=== PATIENT | female | born 1990 | race Caucasian/White ===

== ENCOUNTER 2024-04-29 09:43 | Outpatient (OUT) | payer MEDICAID, SELFPAY ==
[2024-04-29 10:03] LABS: Basophils Percent Auto 0.5 % (0.2-2.0); Eosinophils Absolute Auto 0.1 10^3/uL (0.0-0.7); Eosinophils Percent Auto 0.9 % (0.9-7.0); Hematocrit 40.3 % (36.0-48.0); Hemoglobin 13.4 g/dL (12.0-16.0); Immature Granulocytes Abs Auto 0.04 10^3/uL (0.00-0.03); Immature Granulocytes Pct Auto 0.5 % (0.0-0.5); Lymphocytes Absolute Auto 2.2 10^3/uL (1.2-3.8); Lymphocytes Percent Auto 24.4 % (20.5-60.0); Mean Corpuscular HGB Conc 33.3 g/dL (29.9-35.2); Mean Corpuscular Hemoglobin 30.1 pg (26.7-34.0); Mean Corpuscular Volume 90.6 fL (81.0-99.0); Mean Platelet Volume 10.9 fL (9.5-13.5); Monocytes Absolute Auto 0.5 10^3/uL (0.3-0.8); Monocytes Percent Auto 5.7 % (1.7-12.0); Platelet Count 237 10^3/uL (150-450); Red Blood Count 4.45 10^6/uL (4.20-5.40); White Blood Count 8.8 10^3/uL (4.0-11.0)
[2024-04-29 11:49] LABS: Alanine Aminotransferase 23 U/L (14-59); Albumin Globulin Ratio 0.7; Albumin Level 3.4 g/dL (3.4-5.0); Alkaline Phosphatase 86 U/L (46-116); Aspartate Amino Transferase 13 U/L (15-37); BUN Creatinine Ratio 17.4; Bilirubin Total 0.5 mg/dL (0.2-1.0); Calcium 8.9 mg/dL (8.5-10.1); Carbon Dioxide 27.5 mmol/L (21.0-32.0); Chloride 102 mmol/L (98-107); Chol HDL Ratio 2.9; Cholesterol 206 mg/dL (<=200); Estimated Average Glucose 100 mg/dL; Estimated GFR (African America >60 (>=60); Estimated GFR (Non-African Ame >60 (>=60); Free T3 2.55 pg/mL (2.18-3.98); Globulin 4.7 g/dL; Glucose 83 mg/dL (74-106); Glycohemoglobin A1C 5.1 % (4.5-6.2); HDL Cholesterol 72 mg/dL (40-60); Potassium 3.5 mmol/L (3.5-5.1); Sodium 135 mmol/L (136-145); Thyroid Stimulating Hormone 1.429 uIU/mL (0.358-3.740); Total Protein 8.1 g/dL (6.4-8.2); Triglycerides 50 mg/dL (<=150)
[2024-04-30 08:12] LABS: Insulin 11.9 uIU/mL (2.6-24.9)
== END 2024-04-29 09:44 | disposition home or self-care (01) ==
LOC: LAB 09:48
PROVIDERS: PCP Nurse Practitioner Family; Visit Provider Nurse Practitioner Family
DX: Z00.00 Encounter for general adult medical examination without abnormal findings (principal)
CPT/HCPCS: 36415; 80053; 80061; 83036; 83525; 84436; 84443; 84481; 85025

== ENCOUNTER 2024-07-02 12:57 | Outpatient (OUT) | payer MEDICAID, SELFPAY ==
--- OUTSIDE RECORDS SUMMARY | 2024-07-02 13:18 | XMS_ITS | CCD ---
Author Organization [facility] Care Team Providers Care Stopperer Assembler Name Role Phone ABDULKADIR CUMMINGS Primary Care UnavailRENÉ Taylor Attending Unavailable ABDULKADIR CUMMINGS Primary Care UnavailFAYE Corona Attending Unavailable ABDULKADIR CUMMINGS Primary Care UnavailFAYE Corona Attending Unavailable MYA, DR DOM Botello Primary Care Unavailable MYA, DR DOM Botello Admitting Unavailable MYA, DR DOM Botello Attending Unavailable MYA, DR DOM Botello Consulting Unavailable MYA, DR DOM Botello Primary Care Unavailable MYA, DR DOM Botello Admitting Unavailable MYA, DR DOM Botello Attending Unavailable CHANDRAKANT, DR CHRISTINA Hendricks Consulting Unavailable MYA, DR DOM Botello Primary Care Unavailable MYA, DR DOM Botello Admitting Unavailable MYA, DR DOM Botello Attending Unavailable Mata De La Vega Unavailable Mary Jane Madison Unavailable DOM ROQUE Attending Unavailable Gabriel Del Real. Attending Unavailable Onofre Cade Attending Unavailab Onofre Cheng Admitting Unavailab jerilyn HUDSON STAFF Primary Care Unavailable Medications Current Medications Medication Drug Class(es) Dates Sig (Normalized) Sig (Original) buPROPion hydrochloride 100 mg oral tablet (2 sources) Aminoketone take 1 tablet by mouth twice daily Wellbutrin 100 MG 1 tablet Orally Twice a day Active cephalexin 500 mg oral capsule (1 source) Cephalosporin Antibacterial Start: 12-12-2022 take 1 capsule by mouth every eight hours Cephalexin 500 MG 1 capsule Orally tid for 10 day(s) Nov, Active Cetirizine (1 source) Histamine-1 Receptor Antagonist ZyrTEC Active ciprofloxacin 3 mg/ml ophthalmic solution (1 source) Quinolone Antimicrobial Start: 12-28-2022 take 1 drop(s) into the eye(s) every four hours Ciloxan 0.3 % 1 drop each eye every 4 hrs for 5 day(s) Dec, Active mupirocin 0.02 mg/mg topical ointment (1 source) RNA Synthetase Inhibitor Antibacterial Start: 12-12-2022 Mupirocin 2 % 1 application to affected area Externally twice a day for 7 days Nov, Active Problems Active Problems Problem Classification Problem Date Documented Date Episodic/Chronic Inflammation; infection of eye (except that caused by tuberculosis or sexually transmitteddisease) (1 source) Unspecified conjunctivitis Episodic Joint disorders and dislocations; trauma-related (4 sources) Derangement of unspecified medial meniscus due to old tear or injury, right knee; Translations: [DERANG UNS MED MENISC OLD INJ RT KN] Onset: 11-17-2021 Chronic Nonmalignant breast conditions (1 source) Mastitis without abscess Episodic Osteoarthritis (4 sources) Bilateral primary osteoarthritis of knee; Translations: [BILATERAL PRIM OSTEOARTHRITIS KNEE] Onset: 12-02-2021 Chronic Spondylosis; intervertebral disc disorders; other back problems (1 source) Low back pain; Translations: [Low back pain] Onset: 10-24-2018 Episodic Viral infection (1 source) Viral infection, unspecified; Translations: [Viral infection, unspecified] Onset: 11-18-2018 Episodic Past or Other Problems Problem Classification Problem Date Documented Date Episodic/Chronic Malaise and fatigue (1 source) Other malaise; Translations: [OTHER MALAISE] Onset: 12-03-2021 Episodic Other nervous system disorders (1 source) Other abnormalities of gait and mobility; Translations: [OTHER ABNORMALITIES GAIT AND MOBILITY] Onset: 12-03-2021 Episodic Other upper respiratory infections (1 source) Streptococcal pharyngitis; Translations: [Streptococcal pharyngitis] Onset: 11-24-2017 Episodic Urinary tract infections (1 source) Urinary tract infection, site not specified; Translations: [Urinary tract infection, site not specified] Onset: 11-24-2017 Episodic Results Test Name Value Interpretation Reference Range Facil ity Auth for Release of Medical Recordson 01-10-2023 Auth for Release of Medical Records [id number]#1.00CD :127 Normal [facility] MRI KNEE RT WO CONon 022 MRI KNEE RT WO CON EXAMINATION: MRI KNE E RT WO CON HISTORY: Derangement of medial meniscus of right knee ; right knee pain since falling 2 years ago COMPARISON: No relevant comparison available. TECHNIQUE: A complete multi-planar MRI was performed. FINDINGS: MEDIAL COMPARTMENT MEDIAL MENISCUS: Partially extruded from the joint space. No visible tear or significant degeneration. CARTILAGE: No visible defect. BONES: Moderate lateral subluxation of the tibial plateau in relation to the femoral condyles. No fracture or abnormal marrow signal. Small-moderate periarticular degenerative osteophytes involving all 3 compartments. MCL AND MEDIAL CAPSULE: Grade I sprain of the medial collateral ligament. LATERAL COMPARTMENT LATERAL MENISCUS: No visible tear or significant degeneration. CARTILAGE: No visible defect. BONES: No marrow pathology, fracture, or significant arthropathy. LCL/POSTEROLAT COMPLEX: Normal lateral collateral ligament, fascicles, lateral capsule and ligaments. ANTERIOR COMPARTMENT PATELLA: No marrow pathology, fracture, or significant arthropathy. CARTILAGE: No visible defect. TENDONS: Normal. EFFUSION: None. No synovitis or loose bodies. ACL: A few barely perceptible fibers. PCL: Normal appearing ligament. MENISCOFEMORAL: Normal meniscofemoral ligaments. OTHER: Negative. IMPRESSION: 1. Mild-moderate degenerative changes. No convincing meniscal tear. 2. Poorly seen anterior cruciate ligament which may be due to plane of imaging or disruption. 3. Minimal strain of the medial collateral ligament. Electronically authenticated by: CHRISTINA STALLINGS Date: 2021-11-17 17:25 Normal [facility] Physical Therapy Noteon 04-18 Physical Therapy Note [id number] TGTIFF [facility] Provider Orderson 02-18-2020 Provider Orders [id number]#1.00O TGTIFF [facility] Coding Summaryon 02-14-2020 Coding Summary CODING DATE: 020 [facility] STATUS: PAYOR: Medicaid HMO ADMIT DX: REASON FOR VISIT DX: M22.41 Chondromalacia patellae, right knee M25.561 Pain in right knee FINAL DX: PRINCIPAL: M22.41 Chondromalacia patellae, right knee SECONDARY: M25.561 Pain in right knee PYMT PROC APC STAT DESCRIPTION DOCTOR NAME DATE NOTE: The code number assigned matches the documented diagnosis and / or procedure in the patient's chart. However, the narrative phrase printed from the coding software may appear abbreviated, or result in slightly different terminology. Coded By: Sue Elizondo Date Saved: 02/14/2020 03:06 pm [facility] Provider Orderson 02-13-2020 Provider Orders [id number]#1.00O TGTIFF [facility] Coding Summaryon 01-29-2020 Coding Summary CODING DATE: [facility] STATUS: Home PAYOR: Medicaid HMO ADMIT DX: REASON FOR VISIT DX: M25.561 Pain in right knee FINAL DX: PRINCIPAL: S83.501A Sprain of unspecified cruciate ligament of right knee, initial encounter SECONDARY: W10.9XXA Fall (on) (from) unspecified stairs and steps, initial encounter PYMT PROC APC STAT DESCRIPTION DOCTOR NAME DATE NOTE: The code number assigned matches the documented diagnosis and / or procedure in the patient's chart. However, the narrative phrase printed from the coding software may appear abbreviated, or result in slightly different terminology. Coded By: Hugo Dunham Date Saved: 01/29/2020 01:53 pm [facility] Coding Summary CODING DATE: 020 [facility] STATUS: Home PAYOR: Medicaid HMO ADMIT DX: REASON FOR VISIT DX: M25.561 Pain in right knee FINAL DX: PRINCIPAL: S83.501A Sprain of unspecified cruciate ligament of right knee, initial encounter SECONDARY: W10.9XXA Fall (on) (from) unspecified stairs and steps, initial encounter PYMT PROC APC STAT DESCRIPTION DOCTOR NAME DATE NOTE: The code number assigned matches the documented diagnosis and / or procedure in the patient's chart. However, the narrative phrase printed from the coding software may appear abbreviated, or result in slightly different terminology. Coded By: Hugo Dunham Date Saved: 01/29/2020 01:50 pm [facility] Ambulance Noteon 01-28-2020 Ambulance Note [id number]#1.00O [facility] Consent Formson 01-28-2020 Consent Forms [id number]#1.00O [facility] ED Clinical Summaryon [address] [facility] - Emergency Department [address] [place] [address] ED Clinical Summary PERSON INFORMATION Name: FOREST MAI Age: 29 Years Sex: FEMALE : 1990 MRN: Acct#: Visit Reason: Knee pain-swelling; Fall; R KNEE PAIN Arrival: 01/27/2020 13:13:36 Discharge: 01/27/2020 14:54:00 LOS: 000 01:41 Check In: 01/27/2020 13:13:36 Checkout:01/27/2020 14:54:00 Address: [facility] [address] [place] [address] PCP: Abdulkadir Cummings CNP PROVIDER INFORMATION Provider Role Assigned Unassigned Marquez Ramirez ED Provider 01/27/2020 13:16:34 Mayuri RN, Ligia Mcdaniel ED Nurse 01/27/2020 13:25:27 VITALS INFORMATION Vital Sign Triage Latest Temperature Tympanic Temperature Temporal Artery Pulse Rate 91 bpm 91 bpm O2 Sat 98 % 98 % Respiratory Rate 18 br/min 18 br/min Blood Pressure /88 mmHg /88 mmHg MEDICAL INFORMATION Medications Given: Medication Dose Route HYDROmorphone 1 mg IM ondansetron 4 mg PO Allergy Information: No Known Medication Allergies PHYSICIAN DOCUMENTATION Patient: FOREST MAI Age: 29 years Sex: FEMALE : 1990 Associated Diagnoses: Sprain of cruciate ligament of right knee Author: Marquez Ramirez Basic Information Time seen: Date & time 01/27/2020 13:17:00. History of Present Illness Presents post fall. She is complaining of right knee pain. She notes severe right knee pain. Admits to falling down a flight of stairs. She denies other injuries at this time. She was brought in via EMS. She denies any alleviating measures prior to arrival. He denies loss of consciousness. She denies striking her head. She denies neck pain. Review of Systems Constitutional symptoms: No fever, no chills. Skin symptoms: No rash, no abrasions. Respiratory symptoms: No shortness of breath, no cough. Musculoskeletal symptoms: Joint pain, Right knee pain. Hematologic/Lymphatic symptoms: Bleeding tendency negative, bruising tendency negative. Health Status Allergies: Allergic Reactions (Selected) No Known Medication Allergies. Medications: (Selected) Documented Medications Documented CeleXA 10 mg oral tablet: 10 mg = 1 tab(s), PO, Daily, 0 Refill(s) Mirena 52 mg intrauterine device: 52 mg = 1 EA, Intrauteral, Once, for 1 doses, 1 EA, 0 Refill(s) Topamax: 25 mg, PO, Daily, 0 Refill(s) ZyrTEC 10 mg oral tablet: 10 mg = 1 tab(s), PO, Daily, 0 Refill(s) traZODone 50 mg oral tablet: 50 mg = 1 tab(s), PO, Once a day (at bedtime), 0 Refill(s). Past Medical/ Family/ Social History Medical history: No active or resolved past medical history items have been selected or recorded.. Surgical history: No active procedure history items have been selected or recorded.. Family history: No family history items have been selected or recorded.. Social history: Social & Psychosocial Habits Alcohol 10/30/2019 Alcohol Use: Past 11/01/2019 Alcohol Use: Current Frequency: 1-2 times per week Substance Abuse 10/30/2019 Substance use: Never Tobacco 10/30/2019 Smoking tobacco use: Former smoker, quit more Electronic Cigarette/Vaping 10/30/2019 Electronic Cigarette Use: Never . Problem list: Active Problems (1) No Chronic Problems . Physical Examination General: Alert, severe distress. Skin: Warm, dry, pink. Head: Normocephalic, atraumatic. Musculoskeletal: The right knee is of normal contour and shape. She elicits pain with minor touch to the anterior surface of the knee. She is refusing to bend the knee.. Neurological: Alert and oriented to person, place, time, and situation, No focal neurological deficit observed, CN II-XII intact. Psychiatric: Cooperative, appropriate mood & affect. Medical Decision Making Differential Diagnosis: Right knee internal derangement, patellar fracture not otherwise specified. Tibial plateau fracture not otherwise specified. Orders Launch Orders Miscellaneous Request: Excuse from Work/School (Order): 01/27/2020 14:35 EDT, limit walking at work for next week.. Reexamination/ Reevaluation I met the patient on arrival. She seemed to be in severe pain. Her right knee was of normal contour and shape. She refused to bend the knee secondary to pain. I did not see any obvious deformities. Her pulses distally to the right knee were intact +2 at the DP and PT. She denied any right hip pain. An x-ray of the right knee was ordered. The patient was provided 1 mg of Dilaudid IM with 4 mg of Zofran p.o. x ray of right knee was negative for fracture or dislocation. pain improved with Dilaudid. The possibility of internal derangement is possible. I recommended activity as tolerated. Ice, elevation, NSAIDs maybe useful. Impression and Plan Diagnosis Sprain of cruciate ligament of right knee (GQX91-HD S83.501A, Discharge, Medical) Plan Condition: Improved. Disposition: Discharged: time 01/27/2020 14:33:00. Prescriptions: Launch prescriptions Pharmacy: Naprosyn 500 mg oral tablet (Prescribe): 500 mg = 1 tab(s), PO, BID, PRN: for pain, 20 tab(s), 0 Refill(s). Patient was given the following educational materials: Knee Sprain, Adult, Eejv-wn-Zslj, Knee Sprain, Adult, Albq-tc-Vhuu. Follow up with: Abdulkadir Cummings Within 3 to 5 days. Counseled: Patient, Regarding diagnosis, Regarding diagnostic results, Regarding treatment plan, Regarding prescription, Patient indicated understanding of instructions. DISCHARGE INFORMATION: Discharge Disposition: Home Discharge Location: Home PATIENT EDUCATION INFORMATION Instructions: Knee Sprain, Adult, Iwty-xx-Iyqj Follow-Up: With: Address: When: Abdulkadir Cummings [address] [place] [phone] [facility] (1) Within 3 to 5 days DIAGNOSIS: Sprain of cruciate ligament of right knee Patient Understands: Yes - Patient/family/caregive r verbalizes understanding of instructions given Comment: [facility] ED Note - Physicianon 2019 ED Note - Physician Patient: FOREST MAI Age: 29 years Sex: FEMALE : 1990 Associated Diagnoses: Sprain of cruciate ligament of right knee Author: Marquez Ramirez Basic Information Time seen: Date & time 01/27/2020 13:17:00. History of Present Illness Presents post fall. She is complaining of right knee pain. She notes severe right knee pain. Admits to falling down a flight of stairs. She denies other injuries at this time. She was brought in via EMS. She denies any alleviating measures prior to arrival. He denies loss of consciousness. She denies striking her head. She denies neck pain. Review of Systems Constitutional symptoms: No fever, no chills. Skin symptoms: No rash, no abrasions. Respiratory symptoms: No shortness of breath, no cough. Musculoskeletal symptoms: Joint pain, Right knee pain. Hematologic/Lymphatic symptoms: Bleeding tendency negative, bruising tendency negative. Health Status Allergies: Allergic Reactions (Selected) No Known Medication Allergies. Medications: (Selected) Documented Medications Documented CeleXA 10 mg oral tablet: 10 mg = 1 tab(s), PO, Daily, 0 Refill(s) Mirena 52 mg intrauterine device: 52 mg = 1 EA, Intrauteral, Once, for 1 doses, 1 EA, 0 Refill(s) Topamax: 25 mg, PO, Daily, 0 Refill(s) ZyrTEC 10 mg oral tablet: 10 mg = 1 tab(s), PO, Daily, 0 Refill(s) traZODone 50 mg oral tablet: 50 mg = 1 tab(s), PO, Once a day (at bedtime), 0 Refill(s). Past Medical/ Family/ Social History Medical history: No active or resolved past medical history items have been selected or recorded.. Surgical history: No active procedure history items have been selected or recorded.. Family history: No family history items have been selected or recorded.. Social history: Social & Psychosocial Habits Alcohol 10/30/2019 Alcohol Use: Past 11/01/2019 Alcohol Use: Current Frequency: 1-2 times per week Substance Abuse 10/30/2019 Substance use: Never Tobacco 10/30/2019 Smoking tobacco use: Former smoker, quit more Electronic Cigarette/Vaping 10/30/2019 Electronic Cigarette Use: Never . Problem list: Active Problems (1) No Chronic Problems . Physical Examination General: Alert, severe distress. Skin: Warm, dry, pink. Head: Normocephalic, atraumatic. Musculoskeletal: The right knee is of normal contour and shape. She elicits pain with minor touch to the anterior surface of the knee. She is refusing to bend the knee.. Neurological: Alert and oriented to person, place, time, and situation, No focal neurological deficit observed, CN II-XII intact. Psychiatric: Cooperative, appropriate mood & affect. Medical Decision Making Differential Diagnosis: Right knee internal derangement, patellar fracture not otherwise specified. Tibial plateau fracture not otherwise specified. Orders Launch Orders Miscellaneous Request: Excuse from Work/School (Order): 01/27/2020 14:35 EDT, limit walking at work for next week.. Reexamination/ Reevaluation I met the patient on arrival. She seemed to be in severe pain. Her right knee was of normal contour and shape. She refused to bend the knee secondary to pain. I did not see any obvious deformities. Her pulses distally to the right knee were intact +2 at the DP and PT. She denied any right hip pain. An x-ray of the right knee was ordered. The patient was provided 1 mg of Dilaudid IM with 4 mg of Zofran p.o. x ray of right knee was negative for fracture or dislocation. pain improved with Dilaudid. The possibility of internal derangement is possible. I recommended activity as tolerated. Ice, elevation, NSAIDs maybe useful. Impression and Plan Diagnosis Sprain of cruciate ligament of right knee (RVN82-MS S83.501A, Discharge, Medical) Plan Condition: Improved. Disposition: Discharged: time 01/27/2020 14:33:00. Prescriptions: Launch prescriptions Pharmacy: Naprosyn 500 mg oral tablet (Prescribe): 500 mg = 1 tab(s), PO, BID, PRN: for pain, 20 tab(s), 0 Refill(s). Patient was given the following educational materials: Knee Sprain, Adult, Vhrj-xc-Ambo, Knee Sprain, Adult, Qkvd-qk-Zoyl. Follow up with: Abdulkadir Cummings Within 3 to 5 days. Counseled: Patient, Regarding diagnosis, Regarding diagnostic results, Regarding treatment plan, Regarding prescription, Patient indicated understanding of instructions. [Electronically Signed on: 01/27/2020 14:40 EDT] Marquez Ramirez MD [Verified on: 01/27/2020 14:40 EDT] Marquez Ramirez MD [facility] ED Note-Nursingon 01-27-2020 ED Note-Nursing Patient arrives to [facility] ED via EMS. Alert and oriented X4. C/O right knee pain. Pain 06/27. Patient reports falling down two stairs. States she thought she was on the last step and next thing she knew she was on the floor. Patient states she heard and felt a snap when she fell. [facility] ED Patient Education Noteon 01-27-2020 ED Patient Education Note Education Materials Orthopedics Knee Sprain A knee sprain is a stretch or tear in a knee ligament. Knee ligaments are bands of tissue that connect bones in the knee to each other. Follow these instructions at home: If you have a splint or brace: ? Wear the splint or brace as told by your doctor. Remove it only as told by your doctor. ? Loosen the splint or brace if your toes tingle, get numb, or turn cold and blue. ? Keep the splint or brace clean. ? If the splint or brace is not waterproof: ? Do not let it get wet. ? Cover it with a watertight covering when you take a bath or a shower. If you have a cast: ? Do not stick anything inside the cast to scratch your skin. ? Check the skin around the cast every day. Tell your doctor about any concerns. ? You may put lotion on dry skin around the edges of the cast. Do not put lotion on the skin underneath the cast. ? Keep the cast clean. ? If the cast is not waterproof: ? Do not let it get wet. ? Cover it with a watertight covering when you take a bath or a shower. Managing pain, stiffness, and swelling ? Gently move your toes often to avoid stiffness and to lessen swelling. ? Raise (elevate) the injured area above the level of your heart while you are sitting or lying down. ? Take nfqf-pep-spcalam and prescription medicines only as told by your doctor. ? If directed, put ice on the injured area. ? If you have a removable splint or brace, remove it as told by your doctor. ? Put ice in a plastic bag. ? Place a towel between your skin and the bag or between your cast and the bag. ? Leave the ice on for 20 minutes, 2?3 times a day. General instructions ? Do exercises as told by your doctor. ? Keep all follow-up visits as told by your doctor. This is important. Contact a doctor if: ? You have pain that gets worse. ? The cast, brace, or splint does not fit right. ? The cast, brace, or splint gets damaged. Get help right away if: ? You cannot lean on your knee to stand or walk. ? You cannot move the injured area. ? You knee genaro or you have pain after you walk only a few steps. ? You have very bad pain, swelling, or numbness below the cast, brace, or splint. Summary ? A knee sprain is a stretch or tear in a band (ligament) that connects your knee bones to each other. ? You may need to wear a splint, brace, or cast to help your knee get better. ? Contact your doctor if you have very bad pain, swelling, or numbness, or if you cannot walk. This information is not intended to replace advice given to you by your health care provider. Make sure you discuss any questions you have with your health care provider. Document Released: 08/23/2010 Document Revised: 05/23/2017 Document Reviewed: 05/23/2017 [employer] Patient Education ? [address] [employer] [address] [facility] ED Patient Summaryon [address] [facility] - Emergency Department [address] [place] [id number] PATIENT DISCHARGE INSTRUCTIONS Patient Information Name: FOREST MAI Age: 29 Years Date of : 1990 Reason For Visit: Knee pain-swelling; Fall; R KNEE PAIN Arrival Time: 01/27/2020 13:13:36 Primary Care Physician: Abdulkadir Cummings CNP Attending Physician: Marquez Ramirez Comment: Visit Diagnosis: Diagnoses This Visit Fall ([id number]) Knee pain-swelling ([id number]) Sprain of cruciate ligament of right knee (S83.501A) Prescription Information: If you have been given a prescription for narcotics, seek immediate medical attention if you have any difficulty breathing or any sudden status changes such as confusion and sleepiness. If you or anyone you know is experiencing suicidal thoughts, mental health, alcohol and/or drug addiction problems; contact the [facility] 10/04 Crisis Hotline -Text 4HGAW ci 050916. If you received any narcotics, sedation, or any other medication that causes drowsiness for the next 24 hours, unless otherwise directed: ? Do not drive a car. ? Do not operate machinery such as power tools, lawn mowers, drills, sewing machines, or stoves ? Avoid alcoholic beverages and drugs for allergies, nerves, or sleep ? Do not make important personal or business decisions or sign any legal documents With: Address: When: Abdulkadir Cummings [address] [place] [phone] Business (1) Within 3 to 5 days Medication Information: The exam and treatment you received today in the [facility] Emergency Department were for an urgent problem and are not intended as complete care. It is important for you to follow up with a doctor, nurse practitioner, or physician?s assistant maintenance manager for ongoing care. If your symptoms become worse or you do not improve as expected and you are unable to reach your usual health care provider, you should return to the Emergency Department, we are available 24 hours a day. For those patients who have received Radiology results, the interpretation of your X-ray as given to you by our Emergency Department physician is only a preliminary report. The Radiologist will review your films and if there is a change in the diagnosis you will be notified by phone. Please make sure you have provided a working phone number so we can reach you if necessary. In the event that you had a lab culture while you were a patient in the Emergency Department, you will be notified by phone if there is a need to change your antibiotic. Please make sure you have provided a working phone number so we can reach you if necessary. [facility] Emergency Department has provided you with a complete list of medications post discharge. Please inform your manager primary care/provider of your visit and for further instruction on these medications. Any specific questions regarding your chronic medications and dosages should be discussed with your primary care physician(s) and/or pharmacist. New Medications Printed Prescriptions naproxen (Naprosyn 500 mg oral tablet) 1 tab(s) Oral 2 times a day as needed for pain. Refills: 0. Medications to Continue That Have Not Changed Other Medications cetirizine (ZyrTEC 10 mg oral tablet) 1 tab(s) Oral every day. citalopram (CeleXA 10 mg oral tablet) 1 tab(s) Oral every day. levonorgestrel (Mirena 52 mg intrauterine device) 1 Each Intrauteral once for 1 Doses. topiramate (Topamax) 25 Milligram Oral every day. traZODone (traZODone 50 mg oral tablet) 1 tab(s) Oral once a day (at bedtime). Visit Information Allergies: Substance Reaction Symptoms Type Comments No Known Medication Allergies Drug Vital Signs: Vitals and Measurements this Visit (last charted value for your 01/27/2020 visit) Vital Signs This Visit Temperature Oral: 36.8 DegC Peripheral Pulse Rate: 91 bpm Respiratory Rate: 18 br/min Systolic Blood Pressure: 128 mmHg Diastolic Blood Pressure: 88 mmHg SpO2: 98 % Oxygen Therapy: Room air Measurements This Visit Height/Length Dosin.000 cm Height/Length Estimated: 160.000 cm Weight Dosin.000 kg Weight Estimated: 122.000 kg Problems List: Problem Onset Comments No Problems found Patient Education Knee Sprain A knee sprain is a stretch or tear in a knee ligament. Knee ligaments are bands of tissue that connect bones in the knee to each other. Follow these instructions at home: If you have a splint or brace: ? Wear the splint or brace as told by your doctor. Remove it only as told by your doctor. ? Loosen the splint or brace if your toes tingle, get numb, or turn cold and blue. ? Keep the splint or brace clean. ? If the splint or brace is not waterproof: ? Do not let it get wet. ? Cover it with a watertight covering when you take a bath or a shower. If you have a cast: ? Do not stick anything inside the cast to scratch your skin. ? Check the skin around the cast every day. Tell your doctor about any concerns. ? You may put lotion on dry skin around the edges of the cast. Do not put lotion on the skin underneath the cast. ? Keep the cast clean. ? If the cast is not waterproof: ? Do not let it get wet. ? Cover it with a watertight covering when you take a bath or a shower. Managing pain, stiffness, and swelling ? Gently move your toes often to avoid stiffness and to lessen swelling. ? Raise (elevate) the injured area above the level of your heart while you are sitting or lying down. ? Take seve-xnd-teueiku and prescription medicines only as told by your doctor. ? If directed, put ice on the injured area. ? If you have a removable splint or brace, remove it as told by your doctor. ? Put ice in a plastic bag. ? Place a towel between your skin and the bag or between your cast and the bag. ? Leave the ice on for 20 minutes, 2?3 times a day. General instructions ? Do exercises as told by your doctor. ? Keep all follow-up visits as told by your doctor. This is important. Contact a doctor if: ? You have pain that gets worse. ? The cast, brace, or splint does not fit right. ? The cast, brace, or splint gets damaged. Get help right away if: ? You cannot lean on your knee to stand or walk. ? You cannot move the injured area. ? You knee genaro or you have pain after you walk only a few steps. ? You have very bad pain, swelling, or numbness below the cast, brace, or splint. Summary ? A knee sprain is a stretch or tear in a band (ligament) that connects your knee bones to each other. ? You may need to wear a splint, brace, or cast to help your knee get better. ? Contact your doctor if you have very bad pain, swelling, or numbness, or if you cannot walk. This information is not intended to replace advice given to you by your health care provider. Make sure you discuss any questions you have with your health care provider. Document Released: 08/23/2010 Document Revised: 05/23/2017 Document Reviewed: 05/23/2017 [employer] Patient Education ? 2019 [employer]. Viruses or Bacteria What?s got you sick? Antibiotics only treat bacterial infections. Viral illnesses cannot be treated with antibiotics. When an antibiotic is not prescribed, ask your healthcare professional for tips on how to relieve symptoms and feel better. Usual Cause Illness Viruses Bacteria Antibiotic Needed Cold/Runny Nose NO Bronchitis/Chest Cold (in otherwise healthy children and adults) NO Whooping Cough Yes Flu NO Strep Throat Yes Sore Throat (except strep) NO Fluid in the middle ear (otitis media with effusion) NO Urinary Tract Infection Yes Antibiotics Aren?t Always the Answer www.cdc.gov/getsmart GET SMART Know When Antibiotics Work U.S. Department of Health and Human Services Centers for Disease Control and Prevention May 2014 [facility] XR Knee Complete Righton XR Knee Complete Right EXAM: XR Knee Complete Right. HISTORY: Right knee pain post fall. COMPARISON: Fell today. TECHNIQUE: 4 views of the right knee were obtained. FINDINGS: No definite acute fracture or dislocation is seen. Minimal posterior patellar spurring is noted. No evidence of sizable suprapatellar joint effusion. Soft tissues are grossly within normal limits. IMPRESSION: Right knee study fails to demonstrate definite acute fracture or dislocation. Followup as needed. Final Dictated by: Jose Hull MD Dictated DT/TM: 01/27/20 2:08 Signed (Electronic Signature): Jose Hull MD 01/27/20 3:15 pm Technologist: ARMAAN STACY [facility] Coding Summaryon 11-05-2019 Coding Summary CODING DATE: 020 [facility] STATUS: Home PAYOR: Medicaid HMO ADMIT DX: REASON FOR VISIT DX: J02.9 Acute pharyngitis, unspecified R50.9 Fever, unspecified FINAL DX: PRINCIPAL: J06.9 Acute upper respiratory infection, unspecified SECONDARY: PYMT PROC APC STAT DESCRIPTION DOCTOR NAME DATE NOTE: The code number assigned matches the documented diagnosis and / or procedure in the patient's chart. However, the narrative phrase printed from the coding software may appear abbreviated, or result in slightly different terminology. Coded By: Sue Elizondo Date Saved: 11/05/2019 10:12 am [facility] C Throaton 11-03-2019 C Throat Ordered by Discern. Normal throat kanika isolated No pathogens isolated [facility] Comment on above: Performed By: #### [id number] #### [facility] (DEFAULT) [address] [place] [address] Coding Summaryon 11-01-2019 Coding Summary CODING DATE: [facility] STATUS: Home PAYOR: Medicaid HMO ADMIT DX: REASON FOR VISIT DX: R05 Cough R50.9 Fever, unspecified R53.1 Weakness FINAL DX: PRINCIPAL: J11.1 Influenza due to unidentified influenza virus with other respiratory manifestations SECONDARY: PYMT PROC APC STAT DESCRIPTION DOCTOR NAME DATE NOTE: The code number assigned matches the documented diagnosis and / or procedure in the patient's chart. However, the narrative phrase printed from the coding software may appear abbreviated, or result in slightly different terminology. Coded By: Hugo Dunham Date Saved: 11/01/2019 03:03 pm [facility] Coding Summary CODING DATE: [facility] STATUS: Home PAYOR: Medicaid HMO ADMIT DX: REASON FOR VISIT DX: R05 Cough R50.9 Fever, unspecified R53.1 Weakness FINAL DX: PRINCIPAL: J11.1 Influenza due to unidentified influenza virus with other respiratory manifestations SECONDARY: PYMT PROC APC STAT DESCRIPTION DOCTOR NAME DATE NOTE: The code number assigned matches the documented diagnosis and / or procedure in the patient's chart. However, the narrative phrase printed from the coding software may appear abbreviated, or result in slightly different terminology. Coded By: Hugo Dunham Date Saved: 11/01/2019 03:02 pm [facility] ED Clinical Summaryon [address] [facility] ? Urgent Care [address] [place] [address] Clinical Summary PERSON INFORMATION Name: FOREST MAI Age: 29 Years Sex: FEMALE : 1990 MRN: Acct#: Visit Reason: UC - Sore Throat; UC - Fever; SORE THROAT Arrival: 11/01/2019 09:48:44 Discharge: 11/01/2019 10:35:00 LOS: 000 00:47 Check In: 11/01/2019 09:48:44 Checkout: 11/01/2019 10:35:00 Address: [facility] [address] [place] [id number] PCP: Abdulkadir Cummings CNP PROVIDER INFORMATION Provider Role Assigned Unassigned Gia DAVENPORT, Kanchan Botello ED PA 11/01/2019 09:53:08 Cristofer RN, Carolyne ED Nurse 11/01/2019 10:08:59 VITALS INFORMATION Vital Sign Triage Latest Temperature Tympanic Temperature Temporal Artery Pulse Rate O2 Sat 97 % 97 % Respiratory Rate Blood Pressure /68 mmHg /68 mmHg MEDICAL INFORMATION Medications Given: Medication Dose Route dexamethasone 10 mg PO Allergy Information: No Known Medication Allergies PHYSICIAN DOCUMENTATION DISCHARGE INFORMATION: Discharge Disposition: Home Discharge Location: Home PATIENT EDUCATION INFORMATION Instructions: Viral Respiratory Infection, [id number] Follow-Up: With: Address: When: Abdulkadir Cummings [address] [place] [phone] [facility] () Within 2 to 4 days Comments: negative for influenza you can use zyrtec-D and/or nasal spray such as flonase to dry up sinuses CAN USE ELDERBERRY SYRUP, ZINC AND VITAMIN C&D TO FIGHT VIRUS DRINK GREEN TEA WITH HONEY. SALT WATER GARGLES. TESTED NEGATIVE FOR STREP. THIS WILL BE CULTURED AND TAKE 2 DAYS FOR FINAL RESULT. IF THIS IS POSITIVE FOR STREP, WE WILL CALL YOU AND CALL IN AN ANTIBIOTIC. DECADRON, WHICH IS A STEROID, WAS GIVEN FOR INFLAMMATION OF THE THROAT AND WILL HELP MAKE SWALLOWING EASIER Return if symptoms worsen DIAGNOSIS: Viral URI Patient Understands: Yes - Patient/family/caregive r verbalizes understanding of instructions given Comment: Normal [facility] ED Patient Summaryon [address] [facility] ? Urgent Care [address] [place], [place] [id number] PATIENT DISCHARGE INSTRUCTIONS Patient Information Name: FOREST MAI Age: 29 Years Date of : 1990 [facility]: [id number] Reason For Visit: UC - Sore Throat; UC - Fever; SORE THROAT Arrival Time: 11/01/2019 09:48:44 Primary Care Physician: Abdulkadir Cummings CNP Attending Physician: Kanchan Nielsen PA-C Comment: Patient Education With: Address: When: Abdulkadir Cummings [address] [place] [phone] Business (1) Within 2 to 4 days Comments: negative for influenza you can use zyrtec-D and/or nasal spray such as flonase to dry up sinuses CAN USE ELDERBERRY SYRUP, ZINC AND VITAMIN C&D TO FIGHT VIRUS DRINK GREEN TEA WITH HONEY. SALT WATER GARGLES. TESTED NEGATIVE FOR STREP. THIS WILL BE CULTURED AND TAKE 2 DAYS FOR FINAL RESULT. IF THIS IS POSITIVE FOR STREP, WE WILL CALL YOU AND CALL IN AN ANTIBIOTIC. DECADRON, WHICH IS A STEROID, WAS GIVEN FOR INFLAMMATION OF THE THROAT AND WILL HELP MAKE SWALLOWING EASIER Return if symptoms worsen Viral Respiratory Infection A viral respiratory infection is an illness that affects parts of the body that are used for breathing. These include the lungs, nose, and throat. It is caused by a germ called a virus. Some examples of this kind of infection are: ? A cold. ? The flu (influenza). ? A respiratory syncytial virus (RSV) infection. A person who gets this illness may have the following symptoms: ? A stuffy or runny nose. ? Yellow or green fluid in the nose. ? A cough. ? Sneezing. ? Tiredness (fatigue). ? Achy muscles. ? A sore throat. ? Sweating or chills. ? A fever. ? A headache. Follow these instructions at home: Managing pain and congestion ? Take vgaz-wrn-kcvveti and prescription medicines only as told by your doctor. ? If you have a sore throat, gargle with salt water. Do this 3?4 times per day or as needed. To make a salt-water mixture, dissolve ??1 tsp of salt in 1 cup of warm water. Make sure that all the salt dissolves. ? Use nose drops made from salt water. This helps with stuffiness (congestion). It also helps soften the skin around your nose. ? Drink enough fluid to keep your pee (urine) pale yellow. General instructions ? Rest as much as possible. ? Do not drink alcohol. ? Do not use any products that have nicotine or tobacco, such as cigarettes and e-cigarettes. If you need help quitting, ask your doctor. ? Keep all follow-up visits as told by your doctor. This is important. How is this prevented? ? Get a flu shot every year. Ask your doctor when you should get your flu shot. ? Do not let other people get your germs. If you are sick: ? Stay home from work or school. ? Wash your hands with soap and water often. Wash your hands after you cough or sneeze. If soap and water are not available, use hand fuels sales representative. ? Avoid contact with people who are sick during cold and flu season. This is in fall and winter. Get help if: ? Your symptoms last for 10 days or longer. ? Your symptoms get worse over time. ? You have a fever. ? You have very bad pain in your face or forehead. ? Parts of your jaw or neck become very swollen. Get help right away if: ? You feel pain or pressure in your chest. ? You have shortness of breath. ? You faint or feel like you will faint. ? You keep throwing up (vomiting). ? You feel confused. Summary ? A viral respiratory infection is an illness that affects parts of the body that are used for breathing. ? Examples of this illness include a cold, the flu, and respiratory syncytial virus (RSV) infection. ? The infection can cause a runny nose, cough, sneezing, sore throat, and fever. ? Follow what your doctor tells you about taking medicines, drinking lots of fluid, washing your hands, resting at home, and avoiding people who are sick. This information is not intended to replace advice given to you by your health care provider. Make sure you discuss any questions you have with your health care provider. Document Released: 08/17/2009 Document Revised: 10/15/2018 Document Reviewed: 10/15/2018 [employer] Patient Education ? 2019 [employer] Medication Information: The exam and treatment you received today in the [facility] Emergency Department were for an urgent problem and are not intended as complete care. It is important for you to follow up with a doctor, nurse practitioner, or physician?s assistant maintenance manager for ongoing care. If your symptoms become worse or you do not improve as expected and you are unable to reach your usual health care provider, you should return to the Emergency Department, we are available 24 hours a day. For those patients who have received Radiology results, the interpretation of your X-ray as given to you by our Emergency Department physician is only a preliminary report. The Radiologist will review your films and if there is a change in the diagnosis you will be notified by phone. Please make sure you have provided a working phone number so we can reach you if necessary. In the event that you had a lab culture while you were a patient in the Emergency Department, you will be notified by phone if there is a need to change your antibiotic. Please make sure you have provided a working phone number so we can reach you if necessary. [facility] Emergency Department has provided you with a complete list of medications post discharge. Please inform your manager primary care/provider of your visit and for further instruction on these medications. Any specific questions regarding your chronic medications and dosages should be discussed with your primary care physician(s) and/or pharmacist. Medications That Were Updated - Follow Below Instructions Other Medications Updated: topiramate (Topamax) 25 Milligram Oral every day. Updated: traZODone (traZODone 50 mg oral tablet) 1 tab(s) Oral once a day (at bedtime). Medications to Continue That Have Not Changed Other Medications cetirizine (ZyrTEC 10 mg oral tablet) 1 tab(s) Oral every day. citalopram (CeleXA 10 mg oral tablet) 1 tab(s) Oral every day. levonorgestrel (Mirena 52 mg intrauterine device) 1 Each Intrauteral once for 1 Doses. Visit Information Visit Diagnosis: Diagnoses This Visit UC - Fever ([id number]) UC - Sore Throat ([id number]) Viral URI (J06.9) If you received any narcotics, sedation, or any other medication that causes drowsiness for the next 24 hours, unless otherwise directed: ? Do not drive a car. ? Do not operate machinery such as power tools, lawn mowers, drills, sewing machines, or stoves ? Avoid alcoholic beverages and drugs for allergies, nerves, or sleep ? Do not make important personal or business decisions or sign any legal documents Reason for Visit: sore throat and fevers Allergies: Substance Reaction Symptoms Type Comments No Known Medication Allergies Drug Vital Signs: Vitals and Measurements this Visit (last charted value for your 11/01/2019 visit) Vital Signs This Visit Temperature Temporal: 37.1 DegC Apical Heart Rate: 100 bpm Respiratory Rate: 18 br/min Systolic Blood Pressure: 110 mmHg Diastolic Blood Pressure: 68 mmHg SpO2: 97 % Measurements This Visit Height: 160.02 cm Weight: 122.47 kg Body Mass Index: 47.83 kg/m2 Problems List: Problem Onset Comments No Problems found Major Tests and Procedures: The following procedures and tests were performed during your ED visit. Laboratory Rapid Flu A&B Nasopharyngeal Swab, 11/01/19 10:02:00 EST, Routine collect, Stop date 11/01/19 10:02:00 EST, Nurse collect Rapid Strep Throat, 11/01/19 10:02:00 EST, Stat collect, Stop date 11/01/19 10:02:00 EST, Nurse collect Throat Culture Throat, Collected, 11/01/19 10:02:00 EST, Stat collect, Stop date 11/01/19 10:02:00 EST, Nurse collect, [id number] Radiology Cardiology Viruses or Bacteria What?s got you sick? Antibiotics only treat bacterial infections. Viral illnesses cannot be treated with antibiotics. When an antibiotic is not prescribed, ask your healthcare professional for tips on how to relieve symptoms and feel better. Usual Cause Illness Viruses Bacteria Antibiotic Needed Cold/Runny Nose NO Bronchitis/Chest Cold (in otherwise healthy children and adults) NO Whooping Cough Yes Flu NO Strep Throat Yes Sore Throat (except strep) NO Fluid in the middle ear (otitis media with effusion) NO Urinary Tract Infection Yes Antibiotics Aren?t Always the Answer www.cdc.gov/getsmart GET SMART Know When Antibiotics Work U.S. Department of Health and Human Services Centers for Disease Control and Prevention May 2014 [facility] Influenza A&B Rapidon 2019 Influenza A Negative Normal Negative [facility] Comment on above: Performed By: #### 1 [id number] #### [facility] (DEFAULT) [address] [place] [id number] Influenza B Negative Normal Negative [facility] Comment on above: Performed By: #### 1 [id number] #### [facility] (DEFAULT) [address] [place] [address] Internal QC OK? Pass Normal [facility] Comment on above: Performed By: #### 1 [id number] #### [facility] (DEFAULT) [address] [place] [address] Patient Handouton 11-01-2019 Patient Handout Patient Education Materials Follows:Disease Viral Respiratory Infection A viral respiratory infection is an illness that affects parts of the body that are used for breathing. These include the lungs, nose, and throat. It is caused by a germ called a virus. Some examples of this kind of infection are: ? A cold. ? The flu (influenza). ? A respiratory syncytial virus (RSV) infection. A person who gets this illness may have the following symptoms: ? A stuffy or runny nose. ? Yellow or green fluid in the nose. ? A cough. ? Sneezing. ? Tiredness (fatigue). ? Achy muscles. ? A sore throat. ? Sweating or chills. ? A fever. ? A headache. Follow these instructions at home: Managing pain and congestion ? Take gqdm-otc-avjnfav and prescription medicines only as told by your doctor. ? If you have a sore throat, gargle with salt water. Do this 3?4 times per day or as needed. To make a salt-water mixture, dissolve ??1 tsp of salt in 1 cup of warm water. Make sure that all the salt dissolves. ? Use nose drops made from salt water. This helps with stuffiness (congestion). It also helps soften the skin around your nose. ? Drink enough fluid to keep your pee (urine) pale yellow. General instructions ? Rest as much as possible. ? Do not drink alcohol. ? Do not use any products that have nicotine or tobacco, such as cigarettes and e-cigarettes. If you need help quitting, ask your doctor. ? Keep all follow-up visits as told by your doctor. This is important. How is this prevented? ? Get a flu shot every year. Ask your doctor when you should get your flu shot. ? Do not let other people get your germs. If you are sick: ? Stay home from work or school. ? Wash your hands with soap and water often. Wash your hands after you cough or sneeze. If soap and water are not available, use hand fuels sales representative. ? Avoid contact with people who are sick during cold and flu season. This is in fall and winter. Get help if: ? Your symptoms last for 10 days or longer. ? Your symptoms get worse over time. ? You have a fever. ? You have very bad pain in your face or forehead. ? Parts of your jaw or neck become very swollen. Get help right away if: ? You feel pain or pressure in your chest. ? You have shortness of breath. ? You faint or feel like you will faint. ? You keep throwing up (vomiting). ? You feel confused. Summary ? A viral respiratory infection is an illness that affects parts of the body that are used for breathing. ? Examples of this illness include a cold, the flu, and respiratory syncytial virus (RSV) infection. ? The infection can cause a runny nose, cough, sneezing, sore throat, and fever. ? Follow what your doctor tells you about taking medicines, drinking lots of fluid, washing your hands, resting at home, and avoiding people who are sick. This information is not intended to replace advice given to you by your health care provider. Make sure you discuss any questions you have with your health care provider. Document Released: 08/17/2009 Document Revised: 10/15/2018 Document Reviewed: 10/15/2018 [employer] Patient Education ? 2019 [employer] [address] [facility] Strep Aon 11-01-2019 Strep procedure control Pass Normal [facility] Comment on above: Performed By: #### [id number] #### [facility] (DEFAULT) [address] [place] [id number] Streptococcus A Negative Normal Negative [facility] Comment on above: Performed By: #### [id number] #### [facility] ([place] [id number] Urgent Care Note- Provideron 11-01-2019 Urgent Care Note- Provider Patient: FOREST MAI Age: 29 years Sex: FEMALE : 1990 Associated Diagnoses: Viral URI Author: Kanchan Nielsen PA-C Basic Information Time seen: Date 11/01/2019. History source: Patient. History limitation: None. Additional information: Chief Complaint from Nursing Triage Note : Chief Complaint 11/01/2019 10:09 EST Chief Complaint DateCorrection 11/01/2019 9:50 EST Chief Complaint sore throat and fevers (Modified) . History of Present Illness 29 yo F presents with sore throat x 3 days. she was here 2 days ago for cough and subjective fever and was dx with viral illness. she states her throat hurts worse since last visit. shes been taking tylenol. she still has mild dry cough. denies ear pain, difficulty swallowing, drooling, voice change, n/v/d, SOB or CP. Review of Systems Additional review of systems information: All other systems reviewed and otherwise negative. Health Status Allergies: Allergic Reactions (Selected) No Known Medication Allergies. Medications: (Selected) Documented Medications Documented CeleXA 10 mg oral tablet: 10 mg = 1 tab(s), PO, Daily, 0 Refill(s) Mirena 52 mg intrauterine device: 52 mg = 1 EA, Intrauteral, Once, for 1 doses, 1 EA, 0 Refill(s) Topamax: 25 mg, PO, Daily, 0 Refill(s) ZyrTEC 10 mg oral tablet: 10 mg = 1 tab(s), PO, Daily, 0 Refill(s) traZODone 50 mg oral tablet: 50 mg = 1 tab(s), PO, Once a day (at bedtime), 0 Refill(s). Past Medical/ Family/ Social History Medical history: No active or resolved past medical history items have been selected or recorded.. Surgical history: No active procedure history items have been selected or recorded.. Family history: No family history items have been selected or recorded.. Social history: Social & Psychosocial Habits Alcohol 10/30/2019 Alcohol Use: Past 11/01/2019 Alcohol Use: Current Frequency: 1-2 times per week Substance Abuse 10/30/2019 Substance use: Never Tobacco 10/30/2019 Smoking tobacco use: Former smoker, quit more Electronic Cigarette/Vaping 10/30/2019 Electronic Cigarette Use: Never . Problem list: Active Problems (1) No Chronic Problems . Physical Examination Vital Signs Vital Signs 11/01/2019 9:50 EST Temperature Temporal 37.1 DegC Apical Heart Rate 100 bpm Respiratory Rate 18 br/min Systolic Blood Pressure 110 mmHg Diastolic Blood Pressure 68 mmHg SpO2 97 % . Measurements 11/01/2019 9:50 EST Height 160.02 cm Weight 122.47 kg Body Mass Index 47.83 kg/m2 . General: Alert, no acute distress. Skin: Warm, dry, pink, intact. Head: Normocephalic, atraumatic. Neck: Supple, trachea midline. Eye: Extraocular movements are intact. Ears, nose, mouth and throat: Tympanic membranes clear, oral mucosa moist, no pharyngeal erythema or exudate. Cardiovascular: Regular rate and rhythm. Respiratory: Lungs are clear to auscultation, respirations are non-labored, breath sounds are equal, Symmetrical chest wall expansion, Cough: None. Musculoskeletal: Normal ROM. Neurological: Alert and oriented to person, place, time, and situation. Psychiatric: Cooperative, appropriate mood & affect. Medical Decision Making Rationale: medicated with decadron neg for strep and influenza likely viral and can use zyrtec-D with flonase. educated on SE of meds. educated when to return to ER. if any new or worsening sx, needs rechecked. answered all questions. pt in agreement with tx.. Orders Launch Orders Pharmacy: dexamethasone (Order): 10 mg, PO, Once. Results review: Lab results : Lab Flowsheet 11/01/2019 10:02 EST Streptococcus A Negative Influenza A Negative Influenza B Negative . Radiology results: Impression and Plan Diagnosis Viral URI ([id number] J06.9, Discharge, Medical) Plan Condition: Stable. Disposition: Discharged: Time 11/01/2019 10:27:00, to home. Patient was given the following educational materials: Viral Respiratory Infection, Uzrv-Cx-Rkux, Viral Respiratory Infection, Tvoa-Wt-Mksq. Follow up with: Abdulkadir Cummings Within 2 to 4 days negative for influenza you can use zyrtec-D and/or nasal spray such as flonase to dry up sinuses CAN USE ELDERBERRY SYRUP, ZINC AND VITAMIN C&D TO FIGHT VIRUS DRINK GREEN TEA WITH HONEY. SALT WATER GARGLES. TESTED NEGATIVE FOR STREP. THIS WILL BE CULTURED AND TAKE 2 DAYS FOR FINAL RESULT. IF THIS IS POSITIVE FOR STREP, WE WILL CALL YOU AND CALL IN AN ANTIBIOTIC. DECADRON, WHICH IS A STEROID, WAS GIVEN FOR INFLAMMATION OF THE THROAT AND WILL HELP MAKE SWALLOWING EASIER Return if symptoms worsen. Counseled: Patient, Regarding diagnosis, Regarding diagnostic results, Regarding treatment plan, Patient indicated understanding of instructions. [facility] [address] [facility] ? Urgent Care [address] [place] [address] PATIENT DISCHARGE INSTRUCTIONS Patient Information Name: FOREST MAI Age: 29 Years Date of : 1990 Reason For Visit: UC - Sore Throat; UC - Fever; SORE THROAT Arrival Time: 11/01/2019 09:48:44 Primary Care Physician: Abdulkadir Cummings CNP Attending Physician: Kanchan Nielsen PA-C Comment: Visit Diagnosis: Diagnoses This Visit UC - Fever ([id number]) UC - Sore Throat ([id number]) Viral URI (J06.9) If you received any narcotics, sedation, or any other medication that causes drowsiness for the next 24 hours, unless otherwise directed: ? Do not drive a car. ? Do not operate machinery such as power tools, lawn mowers, drills, sewing machines, or stoves ? Avoid alcoholic beverages and drugs for allergies, nerves, or sleep ? Do not make important personal or business decisions or sign any legal documents With: Address: When: Abdulkadir Cummings [address] [place] [phone] Business (1) Within 2 to 4 days Comments: negative for influenza you can use zyrtec-D and/or nasal spray such as flonase to dry up sinuses CAN USE ELDERBERRY SYRUP, ZINC AND VITAMIN C&D TO FIGHT VIRUS DRINK GREEN TEA WITH HONEY. SALT WATER GARGLES. TESTED NEGATIVE FOR STREP. THIS WILL BE CULTURED AND TAKE 2 DAYS FOR FINAL RESULT. IF THIS IS POSITIVE FOR STREP, WE WILL CALL YOU AND CALL IN AN ANTIBIOTIC. DECADRON, WHICH IS A STEROID, WAS GIVEN FOR INFLAMMATION OF THE THROAT AND WILL HELP MAKE SWALLOWING EASIER Return if symptoms worsen Medication Information: The exam and treatment you received today in the [facility] were for an urgent problem and are not intended as complete care. It is important for you to follow up with a doctor, nurse practitioner, or physician?s assistant maintenance manager for ongoing care. If your symptoms become worse or you do not improve as expected and you are unable to reach your usual health care provider, you should return to the Emergency Department, we are available 24 hours a day. For those patients who have received Radiology results, the interpretation of your X-ray as given to you by our Urgent Care physician is only a preliminary report. The Radiologist will review your films and if there is a change in the diagnosis you will be notified by phone. Please make sure you have provided a working phone number so we can reach you if necessary. In the event that you had a lab culture while you were a patient in the Urgent Care, you will be notified by phone if there is a need to change your antibiotic. Please make sure you have provided a working phone number so we can reach you if necessary. [facility] has provided you with a complete list of medications post discharge. Please inform your manager primary care/provider of your visit and for further instruction on these medications. Any specific questions regarding your chronic medications and dosages should be discussed with your primary care physician(s) and/or pharmacist. Medications That Were Updated - Follow Below Instructions Other Medications Updated: topiramate (Topamax) 25 Milligram Oral every day. Updated: traZODone (traZODone 50 mg oral tablet) 1 tab(s) Oral once a day (at bedtime). Medications to Continue That Have Not Changed Other Medications cetirizine (ZyrTEC 10 mg oral tablet) 1 tab(s) Oral every day. citalopram (CeleXA 10 mg oral tablet) 1 tab(s) Oral every day. levonorgestrel (Mirena 52 mg intrauterine device) 1 Each Intrauteral once for 1 Doses. Visit Information Allergies: Substance Reaction Symptoms Type Comments No Known Medication Allergies Drug Vital Signs: Vitals and Measurements this Visit (last charted value for your 11/01/2019 visit) Vital Signs This Visit Temperature Temporal: 37.1 DegC Apical Heart Rate: 100 bpm Respiratory Rate: 18 br/min Systolic Blood Pressure: 110 mmHg Diastolic Blood Pressure: 68 mmHg SpO2: 97 % Measurements This Visit Height: 160.02 cm Weight: 122.47 kg Body Mass Index: 47.83 kg/m2 Problems List: Problem Onset Comments No Problems found Patient Education Viral Respiratory Infection A viral respiratory infection is an illness that affects parts of the body that are used for breathing. These include the lungs, nose, and throat. It is caused by a germ called a virus. Some examples of this kind of infection are: ? A cold. ? The flu (influenza). ? A respiratory syncytial virus (RSV) infection. A person who gets this illness may have the following symptoms: ? A stuffy or runny nose. ? Yellow or green fluid in the nose. ? A cough. ? Sneezing. ? Tiredness (fatigue). ? Achy muscles. ? A sore throat. ? Sweating or chills. ? A fever. ? A headache. Follow these instructions at home: Managing pain and congestion ? Take nhjt-dzt-kwugxkx and prescription medicines only as told by your doctor. ? If you have a sore throat, gargle with salt water. Do this 3?4 times per day or as needed. To make a salt-water mixture, dissolve ??1 tsp of salt in 1 cup of warm water. Make sure that all the salt dissolves. ? Use nose drops made from salt water. This helps with stuffiness (congestion). It also helps soften the skin around your nose. ? Drink enough fluid to keep your pee (urine) pale yellow. General instructions ? Rest as much as possible. ? Do not drink alcohol. ? Do not use any products that have nicotine or tobacco, such as cigarettes and e-cigarettes. If you need help quitting, ask your doctor. ? Keep all follow-up visits as told by your doctor. This is important. How is this prevented? ? Get a flu shot every year. Ask your doctor when you should get your flu shot. ? Do not let other people get your germs. If you are sick: ? Stay home from work or school. ? Wash your hands with soap and water often. Wash your hands after you cough or sneeze. If soap and water are not available, use hand fuels sales representative. ? Avoid contact with people who are sick during cold and flu season. This is in fall and winter. Get help if: ? Your symptoms last for 10 days or longer. ? Your symptoms get worse over time. ? You have a fever. ? You have very bad pain in your face or forehead. ? Parts of your jaw or neck become very swollen. Get help right away if: ? You feel pain or pressure in your chest. ? You have shortness of breath. ? You faint or feel like you will faint. ? You keep throwing up (vomiting). ? You feel confused. Summary ? A viral respiratory infection is an illness that affects parts of the body that are used for breathing. ? Examples of this illness include a cold, the flu, and respiratory syncytial virus (RSV) infection. ? The infection can cause a runny nose, cough, sneezing, sore throat, and fever. ? Follow what your doctor tells you about taking medicines, drinking lots of fluid, washing your hands, resting at home, and avoiding people who are sick. This information is not intended to replace advice given to you by your health care provider. Make sure you discuss any questions you have with your health care provider. Document Released: 08/17/2009 Document Revised: 10/15/2018 Document Reviewed: 10/15/2018 [employer] Patient Education ? 2019 [employer] Viruses or Bacteria What?s got you sick? Antibiotics only treat bacterial infections. Viral illnesses cannot be treated with antibiotics. When an antibiotic is not prescribed, ask your healthcare professional for tips on how to relieve symptoms and feel better. Usual Cause Illness Viruses Bacteria Antibiotic Needed Cold/Runny Nose NO Bronchitis/Chest Cold (in otherwise healthy children and adults) NO Whooping Cough Yes Flu NO Strep Throat Yes Sore Throat (except strep) NO Fluid in the middle ear (otitis media with effusion) NO Urinary Tract Infection Yes Antibiotics Aren?t Always the Answer www.cdc.gov/getsmart GET SMART Know When Antibiotics Work U.S. Department of Health and Human Services Centers for Disease Control and Prevention May 2014 [facility] ED Clinical Summaryon [address] [facility] - Emergency Department [address] [place] [id number] ED Clinical Summary PERSON INFORMATION Name: FOREST MAI Age: 29 Years Sex: FEMALE : 1990 MRN: Acct#: Visit Reason: Cough; COUGH, DIFFICULTY BREATHING Arrival: 10/30/2019 17:21:00 Discharge: 10/30/2019 17:55:00 LOS: 000 00:34 Check In: 10/30/2019 17:21:00 Checkout:10/30/2019 17:55:00 Address: [facility] [address] [place] [address] PCP: Abdulkadir Cummings CNP PROVIDER INFORMATION Provider Role Assigned Unassigned Ian Mayo MD ED Provider 10/30/2019 17:21:35 Mayuri RN, Ligia Mcdaniel ED Nurse 10/30/2019 17:25:31 VITALS INFORMATION Vital Sign Triage Latest Temperature Tympanic Temperature Temporal Artery Pulse Rate 109 bpm 109 bpm O2 Sat 99 % 99 % Respiratory Rate 16 br/min 16 br/min Blood Pressure /88 mmHg /88 mmHg MEDICAL INFORMATION Medications Given: Allergy Information: No Known Medication Allergies PHYSICIAN DOCUMENTATION DISCHARGE INFORMATION: Discharge Disposition: Home Discharge Location: Home PATIENT EDUCATION INFORMATION Instructions: Influenza, Adult, Jvhg-oy-Brmi Follow-Up: With: Address: When: Abdulkadir Ryanerson [address] [place] [phone] [facility] (4) Within 5 to 7 days Comments: Reviewed discharge care instruction. Continue with therapy as outlined by Dr. Mayo. Contact your family doctor or PCP within the recommended time. Alternatively, you are not able to follow with your family doctor, you may try the Urgent Care center @ [facility]. Return to ER for any worsening symptoms especially any symptom that concerns you. DIAGNOSIS: Influenza-like illness Patient Understands: Yes - Patient/family/caregive r verbalizes understanding of instructions given Comment: Normal [facility] ED Note - Physicianon 2019 ED Note - Physician Patient: FOREST MAI Age: 29 years Sex: FEMALE : 1990 Associated Diagnoses: Influenza-like illness Author: Ian Mayo MD Basic Information Time seen: Date & time 10/30/2019 17:34:00. History source: Patient. Arrival mode: Private vehicle. History limitation: None. Additional information: Chief Complaint from Nursing Triage Note : Chief Complaint 10/30/2019 17:22 EST Chief Complaint Cough, exhaustion and headache. . History of Present Illness 29-year-old female presented to ER for evaluation of cough, fevers and chills with weakness. Patient stated that she had onset of cough last night, mild. More today. Stated that she was at work and felt like she had a brick wall. Complaint of fatigue and weakness. Stated that she has subjective fevers and chills. Stated that she had some family members, children who had recently URI and influenza type symptoms. The older one was ill 2 weeks ago and the younger 1, last week. No vomiting or diarrhea. No abdominal pain. Review of Systems Constitutional symptoms: Fever, chills. Skin symptoms: No rash, Eye symptoms: Vision unchanged. ENMT symptoms: Sore throat, nasal congestion, No ear pain, Respiratory symptoms: Cough, No shortness of breath, Gastrointestinal symptoms: No nausea, no vomiting. Musculoskeletal symptoms: No Muscle pain, Neurologic symptoms: No headache, Health Status Allergies: Allergic Reactions (Selected) No Known Medication Allergies. Medications: (Selected) Documented Medications Documented Mirena 52 mg intrauterine device: 52 mg = 1 EA, Intrauteral, Once, for 1 doses, 1 EA, 0 Refill(s) busPIRone 5 mg oral tablet: 5 mg = 1 tab(s), PO, BID, 0 Refill(s) topiramate 25 mg oral tablet: 25 mg = 1 tab(s), PO, BID, 0 Refill(s). Past Medical/ Family/ Social History Medical history: No active or resolved past medical history items have been selected or recorded., Reviewed as documented in chart. Surgical history: No active procedure history items have been selected or recorded., Reviewed as documented in chart. Family history: No family history items have been selected or recorded., Reviewed as documented in chart. Social history: Social & Psychosocial Habits Alcohol 10/30/2019 Alcohol Use: Past Substance Abuse 10/30/2019 Substance use: Never Tobacco 10/30/2019 Smoking tobacco use: Former smoker, quit more Electronic Cigarette/Vaping 10/30/2019 Electronic Cigarette Use: Never , Reviewed as documented in chart. Problem list: Active Problems (1) No Chronic Problems . Physical Examination Vital Signs Vital Signs 10/30/2019 17:22 EST Temperature Oral 37.3 DegC Peripheral Pulse Rate 109 bpm HI Respiratory Rate 16 br/min Systolic Blood Pressure 156 mmHg HI Diastolic Blood Pressure 88 mmHg SpO2 99 % Oxygen Therapy Room air . Measurements 10/30/2019 17:32 EST Weight Dosing 124.740 kg 10/30/2019 17:32 EST Height/Length Dosing 160.020 cm 10/30/2019 17:22 EST Height/Length Estimated 160.020 cm Weight Estimated 124.740 kg . General: Alert, no acute distress, Age-appropriate, normal developed 29-year-old female, awake and alert, appearing without distress at this time. Skin: Warm, dry, intact, no rash, Tactile fever, warm to touch. Head: Normocephalic, atraumatic. Neck: Supple, trachea midline, no tenderness. Eye: Pupils are equal, round and reactive to light, extraocular movements are intact, normal conjunctiva. Ears, nose, mouth and throat: Tympanic membranes clear, oral mucosa moist, no pharyngeal erythema or exudate. Cardiovascular: No murmur, Normal peripheral perfusion, No edema, Tachycardia. Respiratory: Lungs are clear to auscultation, respirations are non-labored, breath sounds are equal. Gastrointestinal: Soft, Nontender, Non distended, Normal bowel sounds. Musculoskeletal: Normal ROM, normal strength, no tenderness. Neurological: Alert and oriented to person, place, time, and situation, Neurologic examination is grossly unremarkable. The patient is awake, alert, appropriate. The patient is oriented to person place and time and situation. Speech is normal and spontaneous. Memory and recall is normal. Movement observed to be spontaneous without deficit or weakness or without impaired coordination. Patient ambulate with a normal steady gait. No obvious focal weakness or deficit noted . Psychiatric: Cooperative. Medical Decision Making Orders Launch Orders Miscellaneous Request: Excuse from Work/School (Order): 10/30/2019 17:45 EST, Seen in ER. May Return on Monday. Reexamination/ Reevaluation I had discussed with patient regarding finding on exam. She had upper respiratory type of symptoms along with history of recent influenza and family member. Possibly influenza. Symptom is early, and she has no comorbid condition and no signs of any lower respiratory involvement. Symptomatic treatment and continue to monitor for any change in symptoms. Patient indicated understanding regarding treatment plans and follow-up Impression and Plan Diagnosis Influenza-like illness ([id number] R69, Discharge, Medical) Plan Condition: Stable. Disposition: Discharged: Time 10/30/2019 17:45:00, to home. Patient was given the following educational materials: Influenza, Adult, Atqm-gw-Rhec, Influenza, Adult, Solh-ll-Dgyr. Follow up with: Abdulkadir Cummings Within 5 to 7 days Reviewed discharge care instruction. Continue with therapy as outlined by Dr. Mayo. Contact your family doctor or PCP within the recommended time. Alternatively, you are not able to follow with your family doctor, you may try the Urgent Care center @ [facility]. Return to ER for any worsening symptoms especially any symptom that concerns you. . Counseled: Patient, Regarding diagnosis, Regarding treatment plan, Patient indicated understanding of instructions. [Electronically Signed on: 10/30/2019 18:20 EST] Ian Mayo MD [Verified on: 10/30/2019 18:20 EST] Ian Mayo MD [facility] ED Note-Nursingon 10-30-2019 ED Note-Nursing Patient arrives to [facility] ED via private vehicle. Ambulated with a steady gait to room 7. Alert and oriented X4. C/O cough, chest pain, and headache that started last night. Patients children recently got over the flu. Patient states that she feels exhausted and that it hurts to breath. [facility] ED Patient Education Noteon 10-30-2019 ED Patient Education Note Education Materials Infectious Disease Influenza, Adult Influenza is also called the flu. It is an infection in the lungs, nose, and throat (respiratory tract). It is caused by a virus. The flu causes symptoms that are similar to symptoms of a cold. It also causes a high fever and body aches. The flu spreads easily from person to person (is contagious). Getting a flu shot (influenza vaccination) every year is the best way to prevent the flu. What are the causes? This condition is caused by the influenza virus. You can get the virus by: ? Breathing in droplets that are in the air from the cough or sneeze of a person who has the virus. ? Touching something that has the virus on it (is contaminated) and then touching your mouth, nose, or eyes. What increases the risk? Certain things may make you more likely to get the flu. These include: ? Not washing your hands often. ? Having close contact with many people during cold and flu season. ? Touching your mouth, eyes, or nose without first washing your hands. ? Not getting a flu shot every year. You may have a higher risk for the flu, along with serious problems such as a lung infection (pneumonia), if you: ? Are older than 65. ? Are . ? Have a weakened disease-fighting system (immune system) because of a disease or taking certain medicines. ? Have a long-term (chronic) illness, such as: ? Heart, kidney, or lung disease. ? Diabetes. ? Asthma. ? Have a liver disorder. ? Are very overweight (morbidly obese). ? Have anemia. This is a condition that affects your red blood cells. What are the signs or symptoms? Symptoms usually begin suddenly and last 4?14 days. They may include: ? Fever and chills. ? Headaches, body aches, or muscle aches. ? Sore throat. ? Cough. ? Runny or stuffy (congested) nose. ? Chest discomfort. ? Not wanting to eat as much as normal (poor appetite). ? Weakness or feeling tired (fatigue). ? Dizziness. ? Feeling sick to your stomach (nauseous) or throwing up (vomiting). How is this treated? If the flu is found early, you can be treated with medicine that can help reduce how bad the illness is and how long it lasts (antiviral medicine). This may be given by mouth (orally) or through an IV tube. Taking care of yourself at home can help your symptoms get better. Your doctor may suggest: ? Taking teli-adp-yltoatw medicines. ? Drinking plenty of fluids. The flu often goes away on its own. If you have very bad symptoms or other problems, you may be treated in a hospital. Follow these instructions at home: Activity ? Rest as needed. Get plenty of sleep. ? Stay home from work or school as told by your doctor. ? Do not leave home until you do not have a fever for 24 hours without taking medicine. ? Leave home only to visit your doctor. Eating and drinking ? Take an ORS (oral rehydration solution). This is a drink that is sold at pharmacies and stores. ? Drink enough fluid to keep your pee (urine) pale yellow. ? Drink clear fluids in small amounts as you are able. Clear fluids include: ? Water. ? Ice chips. ? Fruit juice that has water added (diluted fruit juice). ? Low-calorie sports drinks. ? Eat bland, tuab-qb-tpbpan foods in small amounts as you are able. These foods include: ? Bananas. ? Applesauce. ? Rice. ? Lean meats. ? Funk. ? Crackers. ? Do not eat or drink: ? Fluids that have a lot of sugar or caffeine. ? Alcohol. ? Spicy or fatty foods. General instructions ? Take vfgq-jvq-styxjzd and prescription medicines only as told by your doctor. ? Use a cool mist humidifier to add moisture to the air in your home. This can make it easier for you to breathe. ? Cover your mouth and nose when you cough or sneeze. ? Wash your hands with soap and water often, especially after you cough or sneeze. If you cannot use soap and water, use alcohol-based hand fuels sales representative. ? Keep all follow-up visits as told by your doctor. This is important. How is this prevented? ? Get a flu shot every year. You may get the flu shot in late summer, fall, or winter. Ask your doctor when you should get your flu shot. ? Avoid contact with people who are sick during fall and winter (cold and flu season). Contact a doctor if: ? You get new symptoms. ? You have: ? Chest pain. ? Watery poop (diarrhea). ? A fever. ? Your cough gets worse. ? You start to have more mucus. ? You feel sick to your stomach. ? You throw up. Get help right away if you: ? Have shortness of breath. ? Have trouble breathing. ? Have skin or nails that turn a bluish color. ? Have very bad pain or stiffness in your neck. ? Get a sudden headache. ? Get sudden pain in your face or ear. ? Cannot eat or drink without throwing up. Summary ? Influenza ( the flu ) is an infection in the lungs, nose, and throat. It is caused by a virus. ? Take siyh-xjf-grmdffy and prescription medicines only as told by your doctor. ? Getting a flu shot every year is the best way to avoid getting the flu. This information is not intended to replace advice given to you by your health care provider. Make sure you discuss any questions you have with your health care provider. Document Released: 06/13/2009 Document Revised: 02/20/2019 Document Reviewed: 02/20/2019 [employer] Interactive Patient Education ? [address] [employer] [address] [facility] ED Patient Summaryon [address] [facility] - Emergency Department [address] [place], [place] [id number] PATIENT DISCHARGE INSTRUCTIONS Patient Information Name: FOREST MAI Age: 29 Years Date of : 1990 Reason For Visit: Cough; COUGH, DIFFICULTY BREATHING Arrival Time: 10/30/2019 17:21:00 Primary Care Physician: Abdulkadir Cummings CNP Attending Physician: Ian Mayo MD Comment: Visit Diagnosis: Diagnoses This Visit Cough ([id number]) Influenza-like illness (R69) Prescription Information: If you have been given a prescription for narcotics, seek immediate medical attention if you have any difficulty breathing or any sudden status changes such as confusion and sleepiness. If you or anyone you know is experiencing suicidal thoughts, mental health, alcohol and/or drug addiction problems; contact the [facility] 10/04 Crisis Hotline -Text 4HEOY bw 767033. If you received any narcotics, sedation, or any other medication that causes drowsiness for the next 24 hours, unless otherwise directed: ? Do not drive a car. ? Do not operate machinery such as power tools, lawn mowers, drills, sewing machines, or stoves ? Avoid alcoholic beverages and drugs for allergies, nerves, or sleep ? Do not make important personal or business decisions or sign any legal documents With: Address: When: Abdulkadir Cummings [address] [place] [phone] Business (1) Within 5 to 7 days Comments: Reviewed discharge care instruction. Continue with therapy as outlined by Dr. Mayo. Contact your family doctor or PCP within the recommended time. Alternatively, you are not able to follow with your family doctor, you may try the Urgent Care center @ [facility]. Return to ER for any worsening symptoms especially any symptom that concerns you. Medication Information: The exam and treatment you received today in the [facility] Emergency Department were for an urgent problem and are not intended as complete care. It is important for you to follow up with a doctor, nurse practitioner, or physician?s assistant maintenance manager for ongoing care. If your symptoms become worse or you do not improve as expected and you are unable to reach your usual health care provider, you should return to the Emergency Department, we are available 24 hours a day. For those patients who have received Radiology results, the interpretation of your X-ray as given to you by our Emergency Department physician is only a preliminary report. The Radiologist will review your films and if there is a change in the diagnosis you will be notified by phone. Please make sure you have provided a working phone number so we can reach you if necessary. In the event that you had a lab culture while you were a patient in the Emergency Department, you will be notified by phone if there is a need to change your antibiotic. Please make sure you have provided a working phone number so we can reach you if necessary. [facility] Emergency Department has provided you with a complete list of medications post discharge. Please inform your manager primary care/provider of your visit and for further instruction on these medications. Any specific questions regarding your chronic medications and dosages should be discussed with your primary care physician(s) and/or pharmacist. Medications to Continue That Have Not Changed Other Medications busPIRone (busPIRone 5 mg oral tablet) 1 tab(s) Oral 2 times a day. levonorgestrel (Mirena 52 mg intrauterine device) 1 Each Intrauteral once for 1 Doses. topiramate (topiramate 25 mg oral tablet) 1 tab(s) Oral 2 times a day. Visit Information Allergies: Substance Reaction Symptoms Type Comments No Known Medication Allergies Drug Vital Signs: Vitals and Measurements this Visit (last charted value for your 10/30/2019 visit) Vital Signs This Visit Temperature Oral: 37.3 DegC Peripheral Pulse Rate: 109 bpm Respiratory Rate: 16 br/min Systolic Blood Pressure: 156 mmHg Diastolic Blood Pressure: 88 mmHg SpO2: 99 % Oxygen Therapy: Room air Measurements This Visit Height/Length Dosin.020 cm Height/Length Estimated: 160.020 cm Weight Dosin.740 kg Weight Estimated: 124.740 kg Problems List: Problem Onset Comments No Problems found Patient Education Influenza, Adult Influenza is also called the flu. It is an infection in the lungs, nose, and throat (respiratory tract). It is caused by a virus. The flu causes symptoms that are similar to symptoms of a cold. It also causes a high fever and body aches. The flu spreads easily from person to person (is contagious). Getting a flu shot (influenza vaccination) every year is the best way to prevent the flu. What are the causes? This condition is caused by the influenza virus. You can get the virus by: ? Breathing in droplets that are in the air from the cough or sneeze of a person who has the virus. ? Touching something that has the virus on it (is contaminated) and then touching your mouth, nose, or eyes. What increases the risk? Certain things may make you more likely to get the flu. These include: ? Not washing your hands often. ? Having close contact with many people during cold and flu season. ? Touching your mouth, eyes, or nose without first washing your hands. ? Not getting a flu shot every year. You may have a higher risk for the flu, along with serious problems such as a lung infection (pneumonia), if you: ? Are older than 65. ? Are . ? Have a weakened disease-fighting system (immune system) because of a disease or taking certain medicines. ? Have a long-term (chronic) illness, such as: ? Heart, kidney, or lung disease. ? Diabetes. ? Asthma. ? Have a liver disorder. ? Are very overweight (morbidly obese). ? Have anemia. This is a condition that affects your red blood cells. What are the signs or symptoms? Symptoms usually begin suddenly and last 4?14 days. They may include: ? Fever and chills. ? Headaches, body aches, or muscle aches. ? Sore throat. ? Cough. ? Runny or stuffy (congested) nose. ? Chest discomfort. ? Not wanting to eat as much as normal (poor appetite). ? Weakness or feeling tired (fatigue). ? Dizziness. ? Feeling sick to your stomach (nauseous) or throwing up (vomiting). How is this treated? If the flu is found early, you can be treated with medicine that can help reduce how bad the illness is and how long it lasts (antiviral medicine). This may be given by mouth (orally) or through an IV tube. Taking care of yourself at home can help your symptoms get better. Your doctor may suggest: ? Taking onxy-dmx-rqlxgkr medicines. ? Drinking plenty of fluids. The flu often goes away on its own. If you have very bad symptoms or other problems, you may be treated in a hospital. Follow these instructions at home: Activity ? Rest as needed. Get plenty of sleep. ? Stay home from work or school as told by your doctor. ? Do not leave home until you do not have a fever for 24 hours without taking medicine. ? Leave home only to visit your doctor. Eating and drinking ? Take an ORS (oral rehydration solution). This is a drink that is sold at pharmacies and stores. ? Drink enough fluid to keep your pee (urine) pale yellow. ? Drink clear fluids in small amounts as you are able. Clear fluids include: ? Water. ? Ice chips. ? Fruit juice that has water added (diluted fruit juice). ? Low-calorie sports drinks. ? Eat bland, hngy-oe-mjfzes foods in small amounts as you are able. These foods include: ? Bananas. ? Applesauce. ? Rice. ? Lean meats. ? Funk. ? Crackers. ? Do not eat or drink: ? Fluids that have a lot of sugar or caffeine. ? Alcohol. ? Spicy or fatty foods. General instructions ? Take qohf-gud-qeyhuep and prescription medicines only as told by your doctor. ? Use a cool mist humidifier to add moisture to the air in your home. This can make it easier for you to breathe. ? Cover your mouth and nose when you cough or sneeze. ? Wash your hands with soap and water often, especially after you cough or sneeze. If you cannot use soap and water, use alcohol-based hand fuels sales representative. ? Keep all follow-up visits as told by your doctor. This is important. How is this prevented? ? Get a flu shot every year. You may get the flu shot in late summer, fall, or winter. Ask your doctor when you should get your flu shot. ? Avoid contact with people who are sick during fall and winter (cold and flu season). Contact a doctor if: ? You get new symptoms. ? You have: ? Chest pain. ? Watery poop (diarrhea). ? A fever. ? Your cough gets worse. ? You start to have more mucus. ? You feel sick to your stomach. ? You throw up. Get help right away if you: ? Have shortness of breath. ? Have trouble breathing. ? Have skin or nails that turn a bluish color. ? Have very bad pain or stiffness in your neck. ? Get a sudden headache. ? Get sudden pain in your face or ear. ? Cannot eat or drink without throwing up. Summary ? Influenza ( the flu ) is an infection in the lungs, nose, and throat. It is caused by a virus. ? Take ftsa-ghl-stnufto and prescription medicines only as told by your doctor. ? Getting a flu shot every year is the best way to avoid getting the flu. This information is not intended to replace advice given to you by your health care provider. Make sure you discuss any questions you have with your health care provider. Document Released: 06/13/2009 Document Revised: 02/20/2019 Document Reviewed: 02/20/2019 [employer] Interactive Patient Education ? 2019 [employer] Viruses or Bacteria What?s got you sick? Antibiotics only treat bacterial infections. Viral illnesses cannot be treated with antibiotics. When an antibiotic is not prescribed, ask your healthcare professional for tips on how to relieve symptoms and feel better. Usual Cause Illness Viruses Bacteria Antibiotic Needed Cold/Runny Nose NO Bronchitis/Chest Cold (in otherwise healthy children and adults) NO Whooping Cough Yes Flu NO Strep Throat Yes Sore Throat (except strep) NO Fluid in the middle ear (otitis media with effusion) NO Urinary Tract Infection Yes Antibiotics Aren?t Always the Answer www.cdc.gov/getsmart GET SMART Know When Antibiotics Work U.[place] Department of Health and Human Services Centers for Disease Control and Prevention May 2014 [facility] Coding Summaryon 04-29-2019 Coding Summary CODING DATE: 019 FINAL [facility] STATUS: Home PAYOR: Medicaid HMO ADMIT DX: REASON FOR VISIT DX: H92.03 Otalgia, bilateral FINAL DX: PRINCIPAL: R51 Headache SECONDARY: PROCEDURES DOCTOR NAME DATE NOTE: The code number assigned matches the documented diagnosis and / or procedure in the patient's chart. However, the narrative phrase printed from the coding software may appear abbreviated, or result in slightly different terminology. Coded By: Sue Elizondo Date Saved: 04/29/2019 08:01 am [facility] Flu A/B Ag Detectionon 11-18 Flu A/B Ag Detection Specimen Description .NASOPHARYNGEAL SWAB Special Requests NOT REPORTED Direct Exam PRESUMPTIVE NEGATIVE for Influenza A + B antigens. PCR testing to confirm this result is available upon request. Specimen will be saved in the laboratory for 7 days. Please call [phone] if PCR testing is indicated. Report Status FINAL 11/18/2018 [facility] Comment on above: Performed By: #### F LUAD #### [facility] [address] [place] [address] Assistant Distribution Manager: Kj Nuñez MD XR CHEST (2 VW)on 11-18-2018 XR CHEST (2 VW) EXAMINATION: TWO VIEWS OF THE CHEST 11/18/2018 10:07 am COMPARISON: None. HISTORY: ORDERING SYSTEM PROVIDED HISTORY: cough TECHNOLOGIST PROVIDED HISTORY: cough Ordering Physician Provided Reason for Exam: chest congestion, anterior chest wall pain Acuity: Acute Type of Exam: Initial FINDINGS: The lungs are without acute focal process. There is no effusion or pneumothorax. The cardiomediastinal silhouette is without acute process. The osseous structures are without acute process. IMPRESSION: No acute process. Interpreted by: Johnathan Torres MD Signed by: Johnathan Torres MD 11/18/18 Final result [facility] Cult,Urine,CCon 11-25-2017 Cult,Urine,CC Specimen Description .CLEAN CATCH URINE Performed at [facility], [address] [place] [address] Special Requests NOT REPORTED Culture NO SIGNIFICANT GROWTH Report Status FINAL 11/25/[address] [facility] Comment on above: Performed By: #### C CATINA #### [facility] [address] [place] [id number] Flu A/B Ag Detectionon 11-24 Flu A/B Ag Detection Specimen Description .NASOPHARYNGEAL SWAB Special Requests NOT REPORTED Direct Exam PRESUMPTIVE NEGATIVE for Influenza A + B antigens. PCR testing to confirm this result is available upon request. Specimen will be saved in the laboratory for 7 days. Please call [phone] if PCR testing is indicated. Performed at [facility], [address] [place] [address] Report Status FINAL 11/24/2017 [facility] Strep Gr A Direct Agon 11-24 Strep Gr A Direct Ag Specimen Description .THROAT Special Requests NOT REPORTED Direct Exam POSITIVE for Group A Streptococci Performed at [facility], [address] [place] [address] Report Status FINAL 11/24/2017 [facility] UA w/Reflex Cultureon 2017 Acetoacetic Acid,Ur Negative Normal NEG [facility] Bilirubin.direct mass conc Negative Normal NEG [facility] Color Nom (U) YELLOW Normal YEL [facility] Glucose mass conc Negative Normal NEG [facility] Hemoglobin mass conc (Bld) TRACE Abnormal NEG [facility] Leuckocyte Esterase LARGE Abnormal NEG [facility] Comment on above: Result Comment: Perf ormed at [facility], [address] [place] [address] Nitrite,Ur Negative Normal NEG [facility] PH,Ur 7.5 Normal 5.0-8.[address] [facility] Protein mass conc Negative Normal NEG [facility] Spec. [place],Ur 1.020 Normal 1.005-1.030 [facility] Turbidity CLOUDY Abnormal CLEAR [facility] Urobilinogen,Ur Normal Normal NORM [facility] Comment NOT REPORTED Normal [facility] Urinalysis,Microon 8 ----- Normal [facility] Bacteria LM.HPF #/area (Urine sed) FEW Abnormal NONE [facility] Epithelial cells LM.HPF #/area (Urine sed) 20 TO 50 Normal 0-[address] [facility] Other Observations Culture ordered base d on defined criteria. Abnormal NREQ [facility] Comment on above: Result Comment: Perf ormed at [facility], [address] [place] [address] RBC #/vol (U) 0 TO 2 Normal 0-[address] [facility] WBC #/vol (U) 5 TO 10 Normal 0-[address] [facility] Amorphous sediment LM Ql (Urine sed) NOT REPORTED Normal NONE [facility] Casts LM.LPF #/area (Urine sed) NOT REPORTED Normal [facility] Crystals LM Nom (Urine sed) NOT REPORTED Normal NONE [facility] Epithelial, Renal NOT REPORTED Normal [address] [facility] Mucus Strands NOT REPORTED Normal NONE [facility] Trichomonas NOT REPORTED Normal NONE [facility] Yeast LM Ql (Urine sed) NOT REPORTED Normal NONE [facility] Vital Signs Date Time Vital Sign Value Performing Clinician Facility 12-28-2022 19:15-0400 Body height 160.02 cm Mary Jane Madison Other [facility] Other 12-28-2022 19:15-0400 Body mass index (BMI) [Ratio] 53.14 kg/m2 Mary Jane Madison Other [facility] Other 12-28-2022 19:15-0400 Body temperature 100.1 [degF] Mary Jane Madison Other [facility] Other 12-28-2022 19:15-0400 Body weight 136.08 kg Mary Jane Madison Other [facility] Other 12-28-2022 19:15-0400 Respiratory rate 18 /min Mary Jane Madison Other [facility] Other 12-28-2022 19:15-0400 SaO2% (BldA) [Mass fraction] 99 % Mary Jane Madison Other [facility] Other 12-12-2022 16:05-0400 Body height Mata De La Vega Other [facility] Other 12-12-2022 16:05-0400 Body mass index (BMI) [Ratio] 54.86 kg/m2 Mata De La Vega Other [facility] Other 12-12-2022 16:05-0400 Body temperature 98.3 [degF] Mata De La Vega Other [facility] Other 12-12-2022 16:05-0400 Body weight 136.08 kg Mata De La Vega Other [facility] Other 12-12-2022 16:05-0400 Respiratory rate 20 /min Mata De La Vega Other [facility] Other 12-12-2022 16:05-0400 SaO2% (BldA) [Mass fraction] 99 % Mata D eLa Vega Other [facility] Other Encounters Encounter Date Encounter Type Care Provider Facility Start: 09-25-2023 ambulatory Onofre Valdez acility:[facility] Start: 01-11-2023 End: 01-12-2023 ambulatory Gabriel Del Real Facility:[facility] Start: 01-10-2023 ambulatory DOM ROQUE Facility:[facility] Start: 12-28-2022 End: 12-28-2022 ambulatory Mary Jane Madison Other [facility] Other Start: 12-28-2022 Office outpatient visit 15 minutes Mary Jane Gricelda [facility] Start: 12-12-2022 End: 12-12-2022 ambulatory Mata De La Vega Other [facility] Other Start: 12-12-2022 Office outpatient ne w 20 minutes Mata De La Vega [facility] [address] Start: 12-07-2022 ambulatory DOM ROQUE Facility:[facility] Start: 12-02-2021 End: 01-25-[address] DOM ROQUE Facility:[facility] Start: 11-17-2021 End: 11-18-[address] DOM ROQUE Facility:[facility] Start: 11-18-2018 End: 11-18-2018 Emergency department patient visit [facility] Start: 10-24-2018 End: 10-24-2018 Emergency department patient visit ABDULKADIR [facility] Start: 11-24-2017 End: 11-24-2017 Emergency department patient visit [facility] Procedures Date Procedure Procedure Detail Performing Clinician Start: 11-18-2018 Radiologic exam chest 2 views ABDULKADIR CUMMINGS Start: 11-18-2018 Iaadiadoo influenza ANNALEE VELASCODILIP CUMMINGS Start: 11-24-2017 Microscopic urinalysis ABDULKADIR NANDA Start: 11-24-2017 UA W/REFLEX CULTURE ANNALEE CUMMINGS Start: 11-24-2017 URINE CULTURE CLEAN CATCH ABDULKADIR NANDA Start: 11-24-2017 RAPID INFLUENZA A/B ANTIGENS ABDULKADIR NANDA Start: 11-24-2017 STREP SCREEN GROUP A THROAT ABDULKADIR CUMMINGS Payers Date Payer Category Payer Self-pay 1990 Unknown [id number] [id number] [id number] 1990 Unknown [id number] 2.16.8 [id number] 1990 Unknown [id number] 2.16.8 [id number] 1990 Unknown [id number] 2.16.84 [id number] 1990 Unknown [id number] 2.16.84 [id number] 1990 Unknown [id number] 2.16.84 [id number] 1990 Unknown [id number] 2.16.8 [id number] 1990 Unknown [id number] 2.16.8 [id number] 1959 Unknown [id number] 1959 Unknown [id number] Medicaid [id number]. [id number] Medicaid [id number] Social History Date Type Detail Facility Sex Assigned At [facility] Other Evaluation note 12-28-2022 Note Date & Type Note Facility 12-28-2022 Evaluation note Encounter Date Diagnosis Assessment Notes Dec, Conjunctivitis of both eyes, unspecified conjunctivitis type (ICD-10 - H10.9) Conjunctivitis home care material was printed Drink plenty fluids, get plenty of rest. Use the eyedrops as prescribed. Wash your pillowcase every day for the next few days. Good handwashing. Follow-up with your family physician if no improvement in 2 to 3 days. Off work today and tomorrow [facility] Other Evaluation note 12-12-2022 Note Date & Type Note Facility 12-12-2022 Evaluation note Encounter Date Diagnosis Assessment Notes Nov, Infection of right breast (ICD-10 - N61.0) Exam consistent with mild infection of the breast. Apply warm compresses for 15 minutes 4 times a day for 5 days. Go to the ER if you develop a fever or redness in your breast. [facility] Other History general Narrative - Reported Note Date & Type Note Facility History general Narrative - Reported Type Medical History chronic depression [facility] Other Summary Purpose Family History No Family History Records FoundNo Family History Records FoundNo Family History Records FoundNo Family History Records FoundNo Family History Records Found Advance Directives No Advanced Directives Records FoundNo Advanced Directives Records FoundNo Advanced Directives Records FoundNo Advanced Directives Records FoundNo Advanced Directives Records Found Additional Source Comments INFORMATION SOURCE (unrecogn ized section and content) DATE CREATED AUTHOR 11/19/2018 [facility] DATE CREATED AUTHOR AUTHOR'S ORGANIZ ATION 04/27/2020 [facility] DATE CREATED AUTHOR AUTHOR'S ORGANIZ ATION 04/21/2022 [facility] DATE CREATED AUTHOR AUTHOR'S ORGANIZ ATION [facility]/2023 [facility] DATE CREATED AUTHOR AUTHOR'S ORGANIZ ATION 12/06/2023 [facility] REASON FOR VISIT (unrecogniz ed section and content) PAIN BREAST-NIPPLEPOSSIBLE P INK EYE FOR RECORDS PERTAINING TO PATIENTS WHO ARE OR HAVE BEEN ENROLLED IN A CHEMICAL DEPENDENCY/SUBSTANCEABUSE PROGRAM, SOME INFORMATION MAY BE OMITTED. This clinical summary was aggregated from multiple sources. Caution should be exercised in using it in the provision of clinical care. This summary normalizes information from multiple sources, and as a consequence, information in this document may materially change the coding, format and clinical context of patient data. In addition, data may be omitted in some cases. CLINICAL DECISIONS SHOULD BE BASED ON THE PRIMARY CLINICAL RECORDS. [employer] provides no warranty or guarantee of the accuracy or completeness of information in this document.
== END 2024-07-02 12:58 | disposition home or self-care (01) ==
LOC: SLEEP 12:58
PROVIDERS: PCP Nurse Practitioner Family; Visit Provider Nurse Practitioner Family
DX: G47.33 Obstructive sleep apnea (adult) (pediatric) (principal)
CPT/HCPCS: 95806

== ENCOUNTER 2025-04-18 09:24 | Outpatient (OUT) | payer BC, SELFPAY ==
--- OUTSIDE RECORDS SUMMARY | 2025-04-18 09:41 | XMS_ITS | CCD ---
Author Organization [facility] Care Team Providers Care Frame Catcher Name Role Phone ABDULKADIR CUMMINGS Primary Care UnavailRENÉ Taylor Attending Unavailable ABDULKADIR CUMMINGS Primary Care UnavailFAYE Corona Attending Unavailable NANDA, ABDULKADIR Ma Primary Care UnavailFAYE Corona Attending Unavailable MYA, DR DOM Botello Primary Care Unavailable MYA, DR DOM Botello Admitting Unavailable MYA, DR DOM Botello Attending Unavailable MYA, DR DOM Botello Consulting Unavailable MYA, DR DOM Botello Primary Care Unavailable ROQUE, DR DOM Botello Admitting Unavailable MYA, DR DOM Botello Attending Unavailable CHANDRAKANT, DR CHRISTINA Hendricks Consulting Unavailable MYA, DR DOM Botello Primary Care Unavailable MYA, DR DOM Botello Admitting Unavailable MYA, DR DOM Botello Attending Unavailable Mata De La Vega Unavailable Mary Jane Madison Unavailable Onofre Cade Attending Unavailab Onofre Cheng Admitting Unavailab jerilyn HUDSON STAFF Primary Care Unavailable Elham Becerril Attending Unav ailable Elham Becerril Attending Unav ailable Medications Current Medications Medication Drug Class(es) Dates [...] Results Test Name Value Interpretation Reference Range Facility Abstracton 04-11-2025 Abstract [id number] Forest Mai 1990 F Date Provider Department Center 04/11/2025 [id number]-DAVID VEGA CARD [facility] No family history on file Normal [facility] Orders Onlyon 04-11-2025 Orders Only [id number] Forest Mai 1990 F Date Provider Department Center 04/11/2025 [id number], HISTORICAL CARD [facility] No family history on file Normal [facility] ED Clinical Summaryon 2024 ED Clinical Summary ED Clinical Summary [place] [id number] ED Clinical Summary Person Information Name: FOREST MAI [place] Age: 34 Years : 1990 Sex: Female Language: Danish PCP: MARY JANE MARTINS CNP Marital Status: Phone: [phone] Visit Id: Visit Reason: Chest pain; CP Speciality: Acuity: 2 Enc Type: Emergency Med Service: Emergency Arrival: 04/08/2025 21:05:21 Discharge: 04/09/2025 00:25:46 LOS: 000 03:20 Checkin: 04/08/2025 21:05:21 Checkout: 04/09/2025 00:25:46 Dispo Type: Home (Routine DC) EVENTS: Event Name Event Status Request Date/Time Start Date/Time Complete Date/Time Arrive Complete 04/08/2025 21:05:21 04/08/2025 21:05:21 04/08/2025 21:05:21 Document Home Meds Request 04/08/2025 21:05:21 Triage Complete 04/08/2025 21:05:21 04/08/2025 21:17:00 04/08/2025 21:17:00 Bed Assign Complete 04/08/2025 21:05:21 04/08/2025 21:05:21 04/08/2025 21:05:21 Dr Exam Complete 04/08/2025 21:05:21 04/08/2025 21:11:40 04/08/2025 21:11:40 RN Exam Complete 04/08/2025 21:05:21 04/08/2025 23:59:26 04/08/2025 23:59:26 EKG Complete 04/08/2025 21:06:55 04/08/2025 21:10:43 EKG Request 04/08/2025 21:09:21 Registration Complete 04/08/2025 21:11:40 04/08/2025 22:39:15 04/08/2025 22:39:15 Pending Labs Request 04/08/2025 21:24:24 Lab Complete 04/08/2025 21:24:24 04/08/2025 22:06:06 Patient Care Request 04/08/2025 21:24:24 RT Request 04/08/2025 21:24:24 X-Ray Complete 04/08/2025 21:24:24 04/08/2025 21:34:41 04/08/2025 21:44:11 Pending Labs Complete 04/08/2025 21:37:25 04/08/2025 21:37:25 04/08/2025 22:06:06 Lab Complete 04/08/2025 21:37:25 04/08/2025 21:37:25 04/08/2025 22:06:06 Pending Labs Complete 04/08/2025 21:39:50 04/08/2025 21:39:50 04/08/2025 21:39:51 Wet Read Request 04/08/2025 21:44:11 Reg Complete Request 04/08/2025 22:39:15 Reg Bed Request Complete 04/08/2025 22:39:15 04/08/2025 22:39:15 04/08/2025 22:39:15 Meds Admin Complete 04/08/2025 22:48:25 04/08/2025 23:00:18 Pending Labs Complete 04/08/2025 23:11:53 04/08/2025 23:57:14 Discharge Complete 04/09/2025 00:17:52 04/09/2025 00:25:55 04/09/2025 00:25:55 Transfer Complete 04/09/2025 00:25:55 04/09/2025 00:25:55 04/09/2025 00:25:55 ADDRESS: [address] [place] [address] [place] [phone] PHYS DOC NOTES: MEDICAL INFORMATION: Prescriptions Given: Medications to Continue with No Changes Other Medications cetirizine (cetirizine 10 mg Tab) 1 Tablets By Mouth every day. citalopram (citalopram 20 mg Tab) 1 Tablets By Mouth every day. PATIENT EDUCATION INFORMATION: Instructions: Nonspecific Chest Pain, Adult, [id number] Follow up: With: Address: When: [place] [address] [phone] Business (1) In 3 days 04/12/2025 Comments: Call to schedule a follow-up appointment with cardiology. Return to the ED with any new or worsening symptoms. With: Address: When: MARY JANE MARTINS [address] [place] [address] [phone] [employer] 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 Pt states hx of this in the past but felt different this time. Pt denies any cardiac hx. x1 nitro with some relief of CP and ASA 325mg in route. Denies any SOB. History of Present Illness Patient is a 34-year-old female with a history of osteoarthritis, adjustment disorder, panic attacks, and migraines who presents to the ED via EMS with sudden onset midsternal chest pain that occurred approximately 15 minutes prior to arrival. 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 She describes it as sharp in sensation. Patient denies any radiation of the pain. She denied any associated diaphoresis or nausea/vomiting. Patient does note a history of panic attacks, but states this does not feel consistent with that. She is denying any known cough, shortness of breath, abdominal pain, changes in urination, or changes in bowel movements. Patient denies a personal history of cardiovascular disease but does endorse a family one. Patient was given 1 nitroglycerin and aspirin prior to arrival. She has noted minimal improvement in the chest pain following this. Review of Systems A 10 point review of systems is negative except as noted above. Medical and Surgical History: Reviewed and noted Social history: Lives at home Family History: Reviewed. Tobacco: Denies Physical Exam Vitals & Measurements T: 36.6 ???C(Oral) HR: 80(Monitored) RR: 18 BP: 115/63 SpO2: 100% HT: 144.2 cm WT: 135 kg BMI: 64.92 General: The patient appears well and in no apparent distress. Patient is resting comfortably on cart. Skin: Warm, dry, no pallor noted. Head: Normocephalic, atraumatic Neck: No JVD Eye: PERRLA, EOMI ENT: Moist mucus membranes Cardiovascular: Regular rate normal peripheral perfusion Respiratory: No respiratory distress no accessory muscle use no obvious audible wheezing Chest Wall: no deformity Musculoskeletal: normal ROM, no deformity. no unilateral lower extremity erythema, edema, or increased warmth GI: Soft no obvious distention. No rebound or rigidity. No guarding. No tenderness. Neurological: A&O moves all extremities equal strength and symmetry Psychiatric: Cooperative, anxious and tearful Procedure Heart Score for Major Cardiac Event History: Example factors for history - pattern of chest pain, onset, duration, relation with exercise, stress or cold, localization, concomitant symptoms. reaction to sublingual nitrates, [] Highly suspicious +2 [] Moderately suspicious +1 [X] Slightly suspicious 0 EKG: [] Significant ST-Depression +2 [X] Non specific repolarization disturbance +1 [] Normal 0 Age: [] >= 65 +2 [] 45-65 + 1 [X] <45 0 Risk Factors: (HLD, HTN, DM, Cigarette Smoking, Pos Family Hx, Obesity) [] >3 risk factors or hx of atherosclerotic disease + 2 [X] 1-2 risk factors + 1 [] No risk factors known 0 Troponin: [] >= 3X normal + 2 [] 1-3X normal + 1 [X] <= Normal 0 [X] 0-3 Points 0.9 - 1.7% risk of major adverse cardiac event in 6 weeks [] 4-6 Points 12-16.6% risk of major adverse cardiac event in 6 weeks [] 7-10 Points 50-65% risk of major adverse cardiac event in 6 weeks [X] 0-3 Points with 2 sets of negative cardiac markers <1% risk of major adverse cardiac event in 30 days. Medical Decision Making Patient is a 34-year-old female with a history of osteoarthritis, adjustment disorder, panic attacks, and migraines who presents to the ED via EMS with sudden onset midsternal chest pain that occurred approximately 15 minutes prior to arrival. Patient is hemodynamically stable and afebrile. She did receive 1 nitroglycerin and aspirin en route to the ED with minimal improvement in symptoms. Patient is continuing to complain of chest pain and is given Toradol. Cardiac workup is obtained. EKG shows sinus rhythm without ischemic changes. Lab work is reviewed and unremarkable. 2 negative troponins. Chest x-ray interpreted by myself is without acute findings. Heart score is 2. Patient has a low EDACS score. Patient was updated on the results. On reevaluation she noted resolution of chest pain following the Toradol. She noted more improvement with this than the nitroglycerin. I discussed outpatient follow-up with the patient who is agreeable. She has a follow-up appointment scheduled with her primary care provider in 3 days. Patient is given a referral to cardiology. She was advised to return to the ED with any new or worsening symptoms. Patient is agreeable with the plan and all questions were answered. Assessment/Plan Nonspecific chest pain (R07.9: Chest pain, unspecified) Orders: ketorolac, 15 m (more content not included)... Normal [facility] Comment on above: Result Comment: Elec tronically Signed By: Ensman PARomy Hassan\.br\Date and Time Signed: 04/09/25 00:20 EDT\.br\Electronically Co-Signed By: Elham Becerril D.O.\.br\Date and Time Co-Signed: 04/09/25 03:26 EDT ED Patient Summaryon 025 ED Patient Summary ED Patient Summary [place] [id number] Patient Discharge Instructions Person Information Name: FOREST MAI Age: 34 Years Arrival Date: 04/08/2025 21:05:21 Discharge Diagnosis: Nonspecific chest pain Primary Care Physician: MARY JANE MARTINS CNP Provider Information Primary Provider: Advanced Sheet Taker:Romy Saucedo PA-C The exam and treatment you received in the Emergency Department were for an urgent problem and are not intended as complete care. It is important that you follow up with a doctor, nurse practitioner, or physician???s family assistant for ongoing care. If your symptoms become worse or you do not improve as expected and you are unable to reach your usual health care provider, you should return to the Emergency Department. We are available 24 hours a day. FOREST MAI has been given the following list of patient education materials, prescriptions and follow-up instructions: Follow-up Instructions: With: Address: When: Deshaun Pa [address] [place], [place] [id number] [phone] [employer] ([employer]) (1) In 3 days 04/12/2025 Comments: Call to schedule a follow-up appointment with cardiology. Return to the ED with any new or worsening symptoms. With: Address: When: MARY JANE MARTINS [address] [facility] [place] [id number] [phone] [employer] ([employer]) (1) In 3 days In the event that this physician does not participate in your insurance network, please consult with your insurance company to find a nearby participating provider. Patient Education Materials: Nonspecific Chest Pain, Adult, Dcgn-sy-Elcr A MESSAGE TO ALL PATIENTS REGARDING OPIOIDS PRESCRIPTION OPIOIDS: WHAT YOU NEED TO KNOW Prescription opioids can be used to help relieve qciwblbd-bm-udrzvd pain and are often prescribed following a surgery or injury, or for certain health conditions. These medications can be an important part of the treatment but also come with serious risks. It is important to work with your healthcare provider to make sure you are getting the safest, most effective care. WHAT ARE THE RISKS AND SIDE EFFECTS OF OPIOID USE? Prescription opioids carry serious risks of addiction and overdose, especially with prolonged use. An opioid overdose, often marked by slowed breathing, can cause sudden . The use of prescription opioids can have a number of side effects as well, even when taken as directed: ??? Tolerance???meaning you might need to take more of the medication for the same pain relief ??? Physical dependence???meaning you have symptoms of withdrawal when a medication is stopped ??? Increased sensitivity to pain ??? Constipation ??? Nausea, vomiting, and dry mouth ??? Sleepiness and dizziness ??? Confusion ??? Depression ??? Low levels of testosterone that can result in lower sex drive, energy, and strength ??? Itching and sweating RISKS ARE GREATER WITH: ??? History of drug misuse, substance use disorder, or overdose ??? Mental health conditions (such as depression or anxiety) ??? Sleep apnea ??? Older age (65 years and older) ??? Avoid alcohol while taking prescription opioids. Also, unless specifically advised by your health care provider, medications to avoid include: ??? Benzodiazepines (such as Xanax or Valium) ??? Muscle relaxants (such as Soma or Flexeril) ??? Hypnotics (such as Ambien or Lunesta) ??? Other prescription opioids KNOW YOUR OPTIONS Talk to your health care provider about ways to manage your pain that don???t involve prescription opioids. Some of these options may actually work better and have fewer risks and side effects. Options may include: ??? Pain relievers such as acetaminophen, ibuprofen, and naproxen ??? Some medication that are also used for depression or seizures ??? Physical therapy and exercise ??? Cognitive behavioral therapy, a psychological, goal-directed approach, in which patients learn how to modify physical, behavioral, and emotional triggers of pain and stress. IF YOU ARE PRESCRIBED OPIOIDS FOR PAIN: ??? Never take opioids in greater amounts or more often than prescribed. ??? Follow up with your primary health care provider. o Work together to create a plan on how to manage your pain. o Talk about ways to help manage your pain that don???t involve prescription opioids. o Talk about any and all concerns and side effects. ??? Help prevent misuse and abuse o Never sell or share prescription opioids. o Never use another person???s prescription opioids. ??? Store prescription opioids in a secure place and out of reach of others (this may include visitors, children, friends, and family). ??? Safely dispose of unused prescription opioids: Find your community drug take-back program or your pharmacy mail-back program, or flush them down the toilet, following guidance from the Food and Drug Adm (more content not included)... Normal [facility] XR Chest 2 Viewson XR Chest 2 Views Exam Date/Time: 04/08/2025 21:44 EDT Reason for Exam: Chest pain Report IMPRESSION: NO EVIDENCE OF ACTIVE CHEST DISEASE. CLINICAL HISTORY: Chest pain. COMMENT: The heart is normal in size. The mediastinum is unremarkable. The lungs appear clear. No infiltration nor pleural effusion is evident. Ordering Provider: Romy Saucedo FINAL REPORT Dictated: 04/09/2025 8:15 am Juwan Salinas M.D. Signed (Electronic Signature): 04/09/2025 8:15 am Signed by: Juwan Salinas M.D. Transcribed by: BLA Technologist: TYRA Normal [facility] BMPon 04-08-2025 Anion gap [Moles/Vol] 12 mmol/L Normal 6-16 [facility] Comment on above: Performed By: #### 2 [id number] #### [facility] [address] [place] [address] BUN/Creat Ratio 20 No Units Normal 10-20 [facility] Comment on above: Performed By: #### 2 [id number] #### [facility] [address] [place] [address] Calcium [Mass/Vol] 9.2 mg/dL Normal 8.9-11.1 [facility] Comment on above: Performed By: #### 2 [id number] #### [facility] [address] [place] [address] Chloride [Moles/Vol] 103 mmol/L Normal 101-111 [facility] Comment on above: Performed By: #### 2 [id number] #### [facility] [address] [place] [address] CO2 [Moles/Vol] 26 mmol/L Normal 21-31 [facility] Comment on above: Performed By: #### 2 [id number] #### [facility] [address] [place] [address] Creatinine [Mass/Vol] 0.7 mg/dL Normal 0.5-1.3 [facility] Comment on above: Performed By: #### 2 [id number] #### [facility] [address] [place] [address] Glucose [Mass/Vol] 76 mg/dL Normal 55-199 [facility] Comment on above: Performed By: #### 2 [id number] #### [facility] [address] [place] [address] Potassium [Moles/Vol] 4.1 mmol/L Normal 3.5-5.3 [facility] Comment on above: Performed By: #### 2 [id number] #### [facility] [address] [place] [address] Sodium [Moles/Vol] 137 mmol/L Normal 135-145 [facility] Comment on above: Performed By: #### 2 [id number] #### [facility] [address] [place] [address] Urea nitrogen [Mass/Vol] 14 mg/dL Normal 5-21 [facility] Comment on above: Performed By: #### 2 [id number] #### [facility] [address] [place] [address] CBC w/ Auto Diffon 5 Basophil Absolute 0.1 E9/L Normal 0.0-0.2 [facility] Comment on above: Performed By: #### 2 [id number] #### [facility] [address] [place] [address] Basophils/100 WBC (Bld) 0.6 % Normal 0.0-2.0 [facility] Comment on above: Performed By: #### 2 [id number] #### [facility] [address] [place] [address] Eos Absolute 0.2 E9/L Normal 0.0-0.5 [facility] Comment on above: Performed By: #### 2 [id number] #### [facility] [address] [place] [address] Eosinophils/100 WBC (Bld) 2.2 % Normal 0.0-8.0 [facility] Comment on above: Performed By: #### 2 [id number] #### [facility] [address] [place] [address] Erythrocyte distribution width (RBC) [Ratio] 13.6 % Normal 10.9-14.2 [facility] Comment on above: Performed By: #### 2 [id number] #### [facility] [address] [place] [address] Hematocrit (Bld) [Volume fraction] 38.4 % Normal 34.0-46.0 [facility] Comment on above: Performed By: #### 2 [id number] #### [facility] [address] [place] [address] Hemoglobin (Bld) [Mass/Vol] 13.4 g/dL Normal 12.0-16.0 [facility] Comment on above: Performed By: #### 2 [id number] #### [facility] [address] [place] [address] Lymph Absolute 2.8 E9/L Normal 1.0-4.0 [facility] Comment on above: Performed By: #### 2 [id number] #### [facility] [address] [place] [address] Lymphocytes/100 WBC (Bld) 29.7 % Normal 14.0-50.0 [facility] Comment on above: Performed By: #### 2 [id number] #### [facility] [address] [place] [address] MCH (RBC) [Entitic mass] 31.1 pg Normal 27.0-34.0 [facility] Comment on above: Performed By: #### 2 [id number] #### [facility] [address] [place] [address] MCHC (RBC) [Mass/Vol] 34.9 g/dL Normal 31.4-36.0 [facility] Comment on above: Performed By: #### 2 [id number] #### [facility] [address] [place] [address] MCV (RBC) [Entitic vol] 89.0 fL Normal 80.0-100.0 [facility] Comment on above: Performed By: #### 2 [id number] #### [facility] [address] [place] [address] [place] Absolute 0.5 E9/L Normal 0.2-1.0 [facility] Comment on above: Performed By: #### 2 [id number] #### [facility] [address] [place] [address] Monocytes/100 WBC (Bld) 5.5 % Normal 4.0-14.0 [facility] Comment on above: Performed By: #### 2 [id number] #### [facility] [address] [place] [address] Neutro Absolute 5.9 E9/L Normal 2.0-7.5 [facility] Comment on above: Performed By: #### 2 [id number] #### [facility] [address] [place] [address] Neutro Auto 62.0 % Normal 36.0-75.0 [facility] Comment on above: Performed By: #### 2 [id number] #### [facility] [address] [place] [address] Platelet 261.0 E9/L Normal 150.0-500.0 [facility] Comment on above: Performed By: #### 2 [id number] #### [facility] [address] [place] [address] Platelet mean volume (Bld) [Entitic vol] 8.3 fL Normal 6.4-10.8 [facility] Comment on above: Performed By: #### 2 [id number] #### [facility] [address] [place] [address] RBC 4.3 E12/L Normal 4.3-5.9 [facility] Comment on above: Performed By: #### 2 [id number] #### [facility] [address] [place] [address] WBC 9.6 E9/L Normal 4.0-11.0 [facility] Comment on above: Performed By: #### 2 [id number] #### [facility] [address] [place] [address] PT & PTTon 04-08-2025 INR Coag (PPP) [Relative time] 0.89 {INR} Invalid Interpretation Code [facility] Comment on above: Result Comment: INR results are specifically intended to assess patients stabilized on long-term Anticoagulation therapy suggested INR???s ???Less Intensive Anticoagulation??? 2.0 ??? 3.0 Conventional Range 3.0 ??? 4.5 Performed By: #### 1 [id number] #### [facility] [address] [place] [address] PT 9.9 second(s) Normal 9.4-12.5 [facility] Comment on above: Result Comment: 15 d ays - 4 weeks 1 - 5 months 6 -11 months 1- 5 years 6-10 years 11 -17 years Mean: 11.2 (9.5-12.6) Mean: 11.0 (9.7-12.8) Mean: 11.0 (9.8-13.0) Mean: 11.3 (9.9-13.4) Mean: 11.7 (10.0-14.6) Mean: 11.8 (10.0 - 14.1) Pediatric Reference ranges were obtained from a study by celina Reddy al. prepared from 1437 samples obtained at 7 different centers using the same coagulation reagent and instrumentation as [facility]. Currently there are no coagulation studies available worldwide for children to 14 days, and no normal ranges. Performed By: #### 1 [id number] #### [facility] [address] [place] [address] PTT 28.1 second(s) Normal 25.1-36.5 [facility] Comment on above: Result Comment: Para meter 15 days - 4 weeks 1 - 5 months 6 - 11 months 1 - 5 years 6 - 10 years 11 - 17 years PTT Mean: 35.4 (27.6-45.6) Mean: 33.5 (24.8-40.7) Mean: 32.4 (25.1-40.7) Mean: 31.6 (24.0-39.2) Mean: 31.6 (26.9-38.7) Mean: 31.0 (24.6-38.4) Pediatric Reference ranges were obtained from a study by Alexis Espinoza et al. prepared from 1437 samples obtained at 7 different centers using the same coagulation reagent and instrumentation as [facility]. Currently there are no coagulation studies available worldwide for children to 14 days, and no normal ranges. Heparin therapeutic range (represented by Anti-Factor Xa activity of 0.2 - 0.4 U/mL) corresponds to PTT of 56.6 - 109.0 sec. Performed By: #### 1 [id number] #### [facility] [address] [place] [address] Pre-Arrival Noteon Pre-Arrival Note Pre-Arrival Note Pre-Arrival Summary Name: , [facility] Current Date: 04/08/2025 21:05:50 EDT Gender: Female Date of : Age: 34 Pre-Arrival Type: EMS ETA: 04/08/2025 20:58:00 EDT Primary Care Physician: Presenting Problem: Chest Pain Pre-Arrival User: Sarahy Collier RN Referring Source: Location: Completion Date/Time: 04/08/2025 20:58:00 [facility] Emergency Department Pre-Hospital Report Form Vital Signs: Pre-Hospital Report: Treatment in Route: Response to Treatment: Misc. Issues: Normal [facility] Troponin 0 Hr.on 04-08-2025 Troponin HS 2.50 pg/mL Low 10.10-27.10 [facility] Comment on above: Result Comment: The 95% CI (Confidence Interval) PPV (Positive Predictive Value) for myocardial infarction in females is 38 pg/mL, in males 51 pg/mL. The results should be used in conjunction with clinical conditions of myocardial infarction. (Access High Sensitivity Troponin I Instructions For Use, [employer], April 2018) Performed By: #### 1 [id number] #### [facility] Laboratory [address] [place] [address] Troponin 1 Hr.on 04-08-2025 Troponin HS 3.90 pg/mL Low 10.10-27.10 [facility] Comment on above: Result Comment: The 95% CI (Confidence Interval) PPV (Positive Predictive Value) for myocardial infarction in females is 38 pg/mL, in males 51 pg/mL. The results should be used in conjunction with clinical conditions of myocardial infarction. (Access High Sensitivity Troponin I Instructions For Use, [employer], April 2018) Performed By: #### 1 [id number] #### [facility] [address] [place] [address] eGFRon 04-08-2025 eGFR 116 mL/min/1.73 m2 Normal >=59 [facility] Comment on above: Performed By: #### 1 [id number] #### [facility] [address] [place] [address] MRI KNEE RT WO CONon 022 MRI [...] by: CHRISTINA STALLINGS Date: 2021-11-17 17:25 Normal [facility] Physical Therapy Noteon 04-18 Physical Therapy Note [id number]#1.0 [facility] [place] 02-18-2020 Provider Orders [id number]#1.0 [facility] Coding Summaryon 02-14-2020 Coding Summary CODING DATE: 02/14/2020 [facility] STATUS: PAYOR: Medicaid HMO ADMIT DX: [...] Sue Elizondo Date Saved: 02/14/2020 03:06 pm [facility] Provider [place] 02-13-2020 Provider Orders [id number]#1.0 [facility] Coding Summaryon 01-29-2020 Coding Summary CODING DATE: 01/29/2020 [facility] STATUS: Home PAYOR: Medicaid HMO ADMIT [...] Hugo Dunham Date Saved: 01/29/2020 01:53 pm [facility] Coding Summary CODING DATE: 01/29/2020 [facility] STATUS: Home PAYOR: Medicaid HMO ADMIT [...] Hugo Dunham Date Saved: 01/29/2020 01:50 pm [facility] Ambulance Noteon 01-28-2020 Ambulance Note [id number]#1.0 [facility] Cons[facility] Form[facility] 01-28-2020 Consent Forms [id number]#1.0 [facility] ED Clinical Summaryon 2019 ED Clinical Summary [facility] - Emergency Department [address] [place] [address] ED Clinical Summary PERSON INFORMATION Name: FOREST MAI Age: 29 Years Sex: FEMALE : 1990 MRN: Acct#: Visit Reason: Knee pain-swelling; Fall; R KNEE PAIN Arrival: 01/27/2020 13:13:36 Discharge: 01/27/2020 14:54:00 LOS: 000 01:41 Check In: 01/27/2020 13:13:36 Checkout:01/27/2020 14:54:00 Address: [facility] [address] [id number] PCP: Abdulkadir Cummings CNP PROVIDER INFORMATION Provider [...] Sprain of cruciate ligament of right knee (YEB08-NN S83.501A, Discharge, Medical) Plan Condition: Improved. Disposition: Discharged: time 01/27/2020 14:33:00. Prescriptions: [facility] prescriptions Pharmacy: Naprosyn 500 mg oral tablet (Prescribe): 500 mg = 1 tab(s), PO, BID, PRN: for pain, 20 tab(s), 0 Refill(s). Patient was given the following educational materials: Knee Sprain, Adult, Pmyc-yx-Bugd, Knee Sprain, Adult, Kejw-tj-Dhko. Follow up with: Abdulkadir Cummings Within 3 to 5 days. Counseled: Patient, Regarding diagnosis, Regarding diagnostic results, Regarding treatment plan, Regarding prescription, Patient indicated understanding of instructions. DISCHARGE INFORMATION: Discharge Disposition: Home Discharge Location: Home PATIENT EDUCATION INFORMATION Instructions: Knee Sprain, Adult, Rmwd-mc-Asmt Follow-Up: With: Address: When: Abdulkadir Cummings [address] [place] [phone] [facility] () Within 3 to 5 days DIAGNOSIS: Sprain of cruciate ligament of right knee Patient Understands: Yes - Patient/family/caregiv er verbalizes understanding of instructions given Comment: [facility] ED Note - Physicianon 2019 ED [...] Sprain of cruciate ligament of right knee (DYT54-TX S83.501A, Discharge, Medical) Plan Condition: Improved. Disposition: Discharged: time 01/27/2020 14:33:00. Prescriptions: [facility] prescriptions Pharmacy: Naprosyn 500 mg oral tablet (Prescribe): 500 mg = 1 tab(s), PO, BID, PRN: for pain, 20 tab(s), 0 Refill(s). Patient was given the following educational materials: Knee Sprain, Adult, Xxku-zd-Hwsm, Knee Sprain, Adult, Jfos-ow-Trey. Follow up with: Abdulkadir Cummings Within 3 to 5 days. Counseled: Patient, Regarding diagnosis, Regarding diagnostic results, Regarding treatment plan, Regarding prescription, Patient indicated understanding of instructions. [Electronically Signed on: 01/27/2020 14:40 EDT] Marquez Ramirez MD [Verified on: 01/27/2020 14:40 EDT] Marquez Ramirez MD [facility] ED Note-Nursingon 01-27-2020 ED Note-Nursing Patient arrives to [facility] ED via EMS. Alert and oriented X4. C/O right knee pain. Pain 10/10. Patient reports falling down two stairs. States she thought she was on the last step and next thing she knew she was on the floor. Patient states she heard and felt a snap when she fell. Normal [facility] ED Patient Education Noteon 01-27-2020 ED Patient [...] are sitting or lying down. ? Take fktk-tky-bfwbohu and prescription medicines only as told by [...] 08/23/2010 Document Revised: 05/23/2017 Document Reviewed: 05/23/2017 [employer] Interactive Patient Education ? 2019 [employer] Normal [facility] ED Patient Summaryon 020 ED Patient Summary [facility] - Emergency Department [address] [place], [place] [id number] PATIENT DISCHARGE INSTRUCTIONS Patient Information Name: FOREST MAI Age: 29 Years Date of : 1990 Reason For Visit: Knee pain-swelling; Fall; R KNEE PAIN Arrival Time: 01/27/2020 13:13:36 Primary Care Physician: Abdulkadir Cummings CNP Attending Physician: Marquez Ramirez Comment: Visit Diagnosis: Diagnoses This Visit Fall ([id number]) Knee pain-swelling ([id number]) Sprain of cruciate ligament of right knee (S83.501A) Prescription Information: If you have been given a prescription for narcotics, seek immediate medical attention if you have any difficulty breathing or any sudden status changes such as confusion and sleepiness. If you or anyone you know is experiencing suicidal thoughts, mental health, alcohol and/or drug addiction problems; contact the [facility] 10/04 Crisis Hotline -Text 3LCWP uz 874764. If you received any narcotics, sedation, or [...] legal documents With: Address: When: Abdulkadir Cummings [address] [place] [phone] Business (1) Within 3 to 5 days Medication Information: The exam and treatment you received today in the [facility] Emergency Department were for an urgent problem and are not intended as complete care. It is important for you to follow up with a doctor, nurse practitioner, or physician?s family assistant for ongoing care. If your symptoms become [...] so we can reach you if necessary. [facility] Emergency Department has provided you with a complete list of medications post discharge. Please inform your washhouse hand/provider of your visit and for further instruction [...] are sitting or lying down. ? Take fmdp-zcx-rserzno and prescription medicines only as told by [...] 08/23/2010 Document Revised: 05/23/2017 Document Reviewed: 05/23/2017 [employer] Interactive Patient Education ? 2019 [employer] Viruses or Bacteria What?s got you [...] for Disease Control and Prevention May 2014 [facility] XR Knee Complete Righton XR Knee Complete [...] MD 01/27/20 3:15 pm Technologist: ARMAAN STACY [facility] Coding Summaryon 11-05-2019 Coding Summary CODING DATE: 11/05/2019 [facility] STATUS: Home PAYOR: Medicaid HMO ADMIT [...] Sue Elizondo Date Saved: 11/05/2019 10:12 am [facility] C Throaton 11-03-2019 C Throat Ordered by Discern. Normal throat kanika isolated No pathogens isolated [facility] Comment on above: Performed By: #### 4 [id number] #### [facility] (DEFAULT) [address] [place] [address] Coding Summaryon 11-01-2019 Coding Summary CODING DATE: 11/01/2019 [facility] STATUS: Home PAYOR: Medicaid HMO ADMIT [...] Hugo Dunham Date Saved: 11/01/2019 03:03 pm [facility] Coding Summary CODING DATE: 11/01/2019 [facility] STATUS: Home PAYOR: Medicaid HMO ADMIT [...] Hugo Dunham Date Saved: 11/01/2019 03:02 pm [facility] ED Clinical Summaryon 2019 ED Clinical Summary [facility] ? Urgent Care [address] [place] [address] Clinical Summary PERSON INFORMATION Name: FOREST MAI Age: 29 Years Sex: FEMALE : 1990 MRN: Acct#: Visit Reason: UC - Sore Throat; UC - Fever; SORE THROAT Arrival: 11/01/2019 09:48:44 Discharge: 11/01/2019 10:35:00 LOS: 000 00:47 Check In: 11/01/2019 09:48:44 Checkout: 11/01/2019 10:35:00 Address: [facility] 09/19 [facility] [address] PCP: Abdulkadir Cummings CNP PROVIDER INFORMATION Provider Role Assigned Unassigned Kanchan Nielsen PA-C ED PA 11/01/2019 09:53:08 Cristofer RN, Carolyne [...] PATIENT EDUCATION INFORMATION Instructions: Viral Respiratory Infection, Ncsu-Ot-Rgqu Follow-Up: With: Address: When: Abdulkadir Cummings [address] [place] [phone] Business (1) Within 2 to 4 [...] DIAGNOSIS: Viral URI Patient Understands: Yes - Patient/family/caregiv er verbalizes understanding of instructions given Comment: Normal [facility] ED Patient Summaryon 020 ED Patient Summary [facility] ? Urgent Care [address] [place] [address] PATIENT DISCHARGE INSTRUCTIONS Patient Information Name: FOREST MAI Age: 29 Years Date of : 1990 Reason For Visit: UC - Sore Throat; UC - Fever; SORE THROAT Arrival Time: 11/01/2019 09:48:44 Primary Care Physician: Abdulkadir Cummings CNP Attending Physician: Kanchan Nielsen PA-C Comment: Patient Education With: Address: When: Abdulkadir Cummings [address] [place] [phone] Business (1) Within 2 to 4 [...] home: Managing pain and congestion ? Take omqa-ots-ovcidba and prescription medicines only as told by [...] and water are not available, use hand bleacher operator. ? Avoid contact with people who are [...] 08/17/2009 Document Revised: 10/15/2018 Document Reviewed: 10/15/2018 [employer] Interactive Patient Education ? 2019 [employer] Medication Information: The exam and treatment you received today in the [facility] Emergency Department were for an urgent problem and are not intended as complete care. It is important for you to follow up with a doctor, nurse practitioner, or physician?s family assistant for ongoing care. If your symptoms become [...] so we can reach you if necessary. [facility] Emergency Department has provided you with a complete list of medications post discharge. Please inform your washhouse hand/provider of your visit and for further instruction [...] Diagnosis: Diagnoses This Visit UC - Fever ([id number]) UC - Sore Throat ([id number]) Viral URI (J06.9) If you received any [...] Stop date 11/01/19 10:02:00 EST, Nurse collect, [id number] Radiology Cardiology Viruses or Bacteria What?s got [...] for Disease Control and Prevention May 2014 [facility] Influenza A&B Rapidon 2019 Influenza A Negative Normal Negative [facility] Comment on above: Performed By: #### 1 [id number] #### [facility] (DEFAULT) [address] [place] [address] Influenza B Negative Normal Negative [facility] Comment on above: Performed By: #### 1 [id number] #### [facility] (DEFAULT) [address] [place] [id number] Internal QC OK? Pass Normal [facility] Comment on above: Performed By: #### 1 [id number] #### [facility] (DEFAULT) [address] [place] [id number] Patient Handouton 11-01-2019 Patient Handout Patient Education [...] home: Managing pain and congestion ? Take vqox-yvo-tugldbj and prescription medicines only as told by [...] and water are not available, use hand bleacher operator. ? Avoid contact with people who are [...] 08/17/2009 Document Revised: 10/15/2018 Document Reviewed: 10/15/2018 [employer] Interactive Patient Education ? 2019 [employer]. Normal [facility] Strep Aon 11-01-2019 Strep procedure control Pass Normal [facility] Comment on above: Performed By: #### 4 [id number] #### [facility] (DEFAULT) [address] [place] [id number] Streptococcus A Negative Normal Negative [facility] Comment on above: Performed By: #### 4 [id number] #### [facility] (DEFAULT) [address] [place] [id number] Urgent Care Note- Provideron 11-01-2019 Urgent Care [...] results: Impression and Plan Diagnosis Viral URI (XDS06-WN J06.9, Discharge, Medical) Plan Condition: Stable. Disposition: Discharged: Time 11/01/2019 10:27:00, to home. Patient was given the following educational materials: Viral Respiratory Infection, Zgld-Ft-Rlaz, Viral Respiratory Infection, Oyal-Bs-Lxmw. Follow up with: Abdulkadir Cummings Within 2 [...] plan, Patient indicated understanding of instructions. Normal [facility] Care Recordon 020 Urgent Care Record [facility] ? Urgent Care [address] [id number] PATIENT DISCHARGE INSTRUCTIONS Patient Information Name: FOREST MAI Age: 29 Years Date of : 1990 Reason For Visit: UC - Sore Throat; UC - Fever; SORE THROAT Arrival Time: 11/01/2019 09:48:44 Primary Care Physician: Abdulkadir Cummings CNP Attending Physician: Kanchan Nielsen PA-C Comment: Visit Diagnosis: Diagnoses This Visit UC - Fever ([id number]) UC - Sore Throat ([id number]) Viral URI (J06.9) If you received any narcotics, sedation, or any other medication that causes drowsiness for the next 24 hours, unless otherwise directed: ? Do not drive a car. ? Do not operate machinery such as power tools, [employer] mowers, drills, sewing machines, or stoves ? Avoid alcoholic beverages and drugs for allergies, nerves, or sleep ? Do not make important personal or business decisions or sign any legal documents With: Address: When: Abdulkadir Cummings [address] [place] [phone] Business (1) Within 2 to 4 [...] and treatment you received today in the [facility] Urgent Care were for an urgent problem and are not intended as complete care. It is important for you to follow up with a doctor, nurse practitioner, or physician?s family assistant for ongoing care. If your symptoms become [...] so we can reach you if necessary. [facility] Urgent Care has provided you with a complete list of medications post discharge. Please inform your washhouse hand/provider of your visit and for further instruction [...] home: Managing pain and congestion ? Take cndb-zla-rxtunwi and prescription medicines only as told by [...] and water are not available, use hand bleacher operator. ? Avoid contact with people who are [...] 08/17/2009 Document Revised: 10/15/2018 Document Reviewed: 10/15/2018 [employer] Interactive Patient Education ? 2019 [employer]. Viruses or Bacteria What?s got you sick? [...] for Disease Control and Prevention May 2014 Normal [facility] ED Clinical Summaryon 2019 ED Clinical Summary [facility] - Emergency Department [address] [place] [address] ED Clinical Summary PERSON INFORMATION Name: FOREST MAI Age: 29 Years Sex: FEMALE : 1990 MRN: Acct#: Visit Reason: Cough; COUGH, DIFFICULTY BREATHING Arrival: 10/30/2019 17:21:00 Discharge: 10/30/2019 17:55:00 LOS: 000 00:34 Check In: 10/30/2019 17:21:00 Checkout:10/30/2019 17:55:00 Address: [facility] /[address] [id number] PCP: Abdulkadir Cummings CNP PROVIDER INFORMATION Provider Role Assigned Unassigned Ian Mayo MD ED Provider 10/30/2019 17:21:35 Mayuri ALFARO, Ligia Mcdaniel ED Nurse 10/30/2019 17:25:31 VITALS [...] Home PATIENT EDUCATION INFORMATION Instructions: Influenza, Adult, Wlpr-qv-Ycqy Follow-Up: With: Address: When: Abdulkadir Cummings [address] [place] [phone] [facility] (1) Within 5 to 7 days Comments: Reviewed discharge care instruction. Continue with therapy as outlined by Dr. Mayo. Contact your family doctor or PCP within the recommended time. Alternatively, you are not able to follow with your family doctor, you may try the Urgent Care center @ [facility]. Return to ER for any worsening symptoms especially any symptom that concerns you. DIAGNOSIS: Influenza-like illness Patient Understands: Yes - Patient/family/caregiv er verbalizes understanding of instructions given Comment: [facility] ED Note - Physicianon 2019 ED [...] follow-up Impression and Plan Diagnosis Influenza-like illness (PKQ88-BD R69, Discharge, Medical) Plan Condition: Stable. Disposition: Discharged: Time 10/30/2019 17:45:00, to home. Patient was given the following educational materials: Influenza, Adult, Lypt-oh-Ztqc, Influenza, Adult, Gklq-pf-Pyvl. Follow up with: Abdulkadir Cummings Within 5 to 7 days Reviewed discharge care instruction. Continue with therapy as outlined by Dr. Mayo. Contact your family doctor or PCP within the recommended time. Alternatively, you are not able to follow with your family doctor, you may try the Urgent Care center @ [facility]. Return to ER for any worsening symptoms especially any symptom that concerns you. . Counseled: Patient, Regarding diagnosis, Regarding treatment plan, Patient indicated understanding of instructions. [Electronically Signed on: 10/30/2019 18:20 EST] Ian Mayo MD [Verified on: 10/30/2019 18:20 EST] Ian Mayo MD [facility] ED Note-Nursingon 10-30-2019 ED Note-Nursing Patient arrives to [facility] ED via private vehicle. Ambulated with a steady gait to room 7. Alert and oriented X4. C/O cough, chest pain, and headache that started last night. Patients children recently got over the flu. Patient states that she feels exhausted and that it hurts to breath. [facility] ED Patient Education Noteon 10-30-2019 ED Patient [...] better. Your doctor may suggest: ? Taking aswn-xqr-xedvgxj medicines. ? Drinking plenty of fluids. The [...] ? Low-calorie sports drinks. ? Eat bland, uonf-ll-guuumc foods in small amounts as you are able. These foods include: ? Bananas. ? Applesauce. ? Rice. ? Lean meats. ? Kinnelon. ? Crackers. ? Do not eat or drink: ? Fluids that have a lot of sugar or caffeine. ? Alcohol. ? Spicy or fatty foods. General instructions ? Take ddbv-lmm-mvzxygb and prescription medicines only as told by [...] use soap and water, use alcohol-based hand bleacher operator. ? Keep all follow-up visits as told [...] is caused by a virus. ? Take holw-ozz-zfpyfwf and prescription medicines only as told by your doctor. ? Getting a flu shot every year is the best way to avoid getting the flu. This information is not intended to replace advice given to you by your health care provider. Make sure you discuss any questions you have with your health care provider. Document Released: 06/13/2009 Document Revised: 02/20/2019 Document Reviewed: 02/20/2019 [employer]back Interactive Patient Education ? 2018 [employer] Normal [facility] ED Patient Summaryon 020 ED Patient Summary [facility] - Emergency Department [address] [place] [address] PATIENT DISCHARGE INSTRUCTIONS Patient Information Name: FOREST MAI Age: 29 Years Date of : 1990 Reason For Visit: Cough; COUGH, DIFFICULTY BREATHING Arrival Time: 10/30/2019 17:21:00 Primary Care Physician: Abdulkadir Cummings CNP Attending Physician: Ian Mayo MD Comment: Visit Diagnosis: Diagnoses This Visit Cough ([id number]) Influenza-like illness (R69) Prescription Information: If you have been given a prescription for narcotics, seek immediate medical attention if you have any difficulty breathing or any sudden status changes such as confusion and sleepiness. If you or anyone you know is experiencing suicidal thoughts, mental health, alcohol and/or drug addiction problems; contact the [facility] 10/04 Crisis Hotline -text 4HYTZ ik 652442. If you received any narcotics, sedation, or [...] legal documents With: Address: When: Abdulkadir Cummings [facility] [place] [address] Business (1) Within 5 to 7 days Comments: Reviewed discharge care instruction. Continue with therapy as outlined by Dr. Mayo. Contact your family doctor or PCP within the recommended time. Alternatively, you are not able to follow with your family doctor, you may try the Urgent Care center @ [facility]. Return to ER for any worsening symptoms especially any symptom that concerns you. Medication Information: The exam and treatment you received today in the [facility] Emergency Department were for an urgent problem and are not intended as complete care. It is important for you to follow up with a doctor, nurse practitioner, or physician?s family assistant for ongoing care. If your symptoms become [...] so we can reach you if necessary. [facility] Emergency Department has provided you with a complete list of medications post discharge. Please inform your washhouse hand/provider of your visit and for further instruction [...] better. Your doctor may suggest: ? Taking nxts-gur-hxnjkkf medicines. ? Drinking plenty of fluids. The [...] ? Low-calorie sports drinks. ? Eat bland, gljq-vp-oakytj foods in small amounts as you are able. These foods include: ? Bananas. ? Applesauce. ? Rice. ? Lean meats. ? Kinnelon. ? Crackers. ? Do not eat or drink: ? Fluids that have a lot of sugar or caffeine. ? Alcohol. ? Spicy or fatty foods. General instructions ? Take kadt-boy-cvewrxp and prescription medicines only as told by [...] use soap and water, use alcohol-based hand bleacher operator. ? Keep all follow-up visits as told [...] is caused by a virus. ? Take hvqj-btj-drzsuqq and prescription medicines only as told by your doctor. ? Getting a flu shot every year is the best way to avoid getting the flu. This information is not intended to replace advice given to you by your health care provider. Make sure you discuss any questions you have with your health care provider. Document Released: 06/13/2009 Document Revised: 02/20/2019 Document Reviewed: 02/20/2019 [employer] Interactive Patient Education ? 2019 [employer]. Viruses or Bacteria What?s got you sick? [...] for Disease Control and Prevention May 2014 [facility] Coding Summaryon 04-29-2019 Coding Summary CODING DATE: 04/29/2019 [facility] STATUS: Home PAYOR: Medicaid HMO ADMIT [...] Sue Elizondo Date Saved: 04/29/2019 08:01 am Normal [facility] Flu A/B Ag Detectionon 11-18 Flu A/B Ag Detection Specimen Description .NASOPHARYNGEAL SWAB Special Requests NOT REPORTED Direct Exam PRESUMPTIVE NEGATIVE for Influenza A + B antigens. PCR testing to confirm this result is available upon request. Specimen will be saved in the laboratory for 7 days. Please call [phone] if PCR testing is indicated. Report Status FINAL 11/18/2018 Normal [facility] Comment on above: Performed By: #### F LUAD #### [facility] [address] [place] [id number] Hvac Mechanic: Kj Nuñez MD XR CHEST (2 VW)on [...] by: Johnathan Torres MD 11/18/18 Final result Normal [facility] Cult,Urine,CCon 11-25-2017 Cult,Urine,CC Specimen Description .CLEAN CATCH URINE Performed at [facility], [address] [place] [address] Special Requests NOT REPORTED Culture NO SIGNIFICANT GROWTH Report Status FINAL 11/25/2017 Normal [facility] Comment on above: Performed By: #### C CATINA #### [address] [address] Flu A/B Ag Detectionon 11-24 Flu A/B Ag Detection Specimen Description .NASOPHARYNGEAL SWAB Special Requests NOT REPORTED Direct Exam PRESUMPTIVE NEGATIVE for Influenza A + B antigens. PCR testing to confirm this result is available upon request. Specimen will be saved in the laboratory for 7 days. Please call [phone] if PCR testing is indicated. Performed at [facility], [address] [place] [address] Report Status FINAL 11/24/2017 Normal [facility] Strep Gr A Direct Agon 11-24 Strep Gr A Direct Ag Specimen Description .THROAT Special Requests NOT REPORTED Direct Exam POSITIVE for Group A Streptococci Performed at [facility], [address] [place] [address] Report Status FINAL 11/24/2017 Normal [facility] UA w/Reflex Cultureon 2017 Acetoacetic Acid,Ur Negative Normal NEG [facility] Bilirubin.direct mass conc Negative Normal NEG [facility] Color Nom (U) YELLOW Normal YEL [facility] Glucose mass conc Negative Normal NEG [facility] Hemoglobin mass conc (Bld) TRACE Abnormal NEG [facility] Leuckocyte Esterase LARGE Abnormal NEG [facility] Comment on above: Result Comment: [facility], [address] [place] [address] Nitrite,Ur Negative Normal NEG [facility] PH,Ur 7.5 Normal 5.0-8.0 [facility] Protein mass conc Negative Normal NEG [facility] Spec. Thompson,Ur 1.020 Normal 1.005-1.030 [facility] Turbidity CLOUDY Abnormal CLEAR [facility] Urobilinogen,Ur Normal Normal NORM [facility] Comment NOT REPORTED Normal [facility] Urinalysis,Microon 8 ----- Normal [facility] Bacteria LM.HPF #/area (Urine sed) FEW Abnormal NONE [facility] Epithelial cells LM.HPF #/area (Urine sed) 20 TO 50 Normal 0-5 [facility] Other Observations Culture ordered base d on defined criteria. Abnormal NREQ [facility] Comment on above: Result Comment: Perf ormed at [facility], [id number] [place] [address], [place] [address] RBC #/vol (U) 0 TO 2 Normal 0-2 [facility] WBC #/vol (U) 5 TO 10 Normal 0-5 [facility] Amorphous sediment LM Ql (Urine sed) NOT REPORTED Normal NONE [facility] Casts LM.LPF #/area (Urine sed) NOT REPORTED Normal [facility] Crystals LM Nom (Urine sed) NOT REPORTED Normal NONE [facility] Epithelial, Renal NOT REPORTED Normal 0 [facility] Mucus Strands NOT REPORTED Normal NONE [facility] Trichomonas NOT REPORTED Normal NONE [facility] Yeast LM Ql (Urine sed) NOT REPORTED Normal NONE [facility] Vital Signs Date Time Vital Sign Value Performing Clinician Facility 12-28-2022 19:15-0400 Body height 160.02 cm Mary Jane [facility] Other [facility] Other 12-28-2022 19:15-0400 Body mass index (BMI) [Ratio] 53.14 kg/m2 Mary Jane [facility] Other [facility] Other 12-28-2022 19:15-0400 Body temperature 100.1 [degF] Mary Jane [facility] Other [facility] Other 12-28-2022 19:15-0400 Body weight 136.08 kg Mary Jane [facility] Other [facility] Other 12-28-2022 19:15-0400 Respiratory rate 18 /min Mary Jane [facility] Other [facility] Other 12-28-2022 19:15-0400 SaO2% (BldA) [Mass fraction] 99 % Mary Jane [facility] Other [facility] Other 12-12-2022 16:05-0400 Body height Mata De La Vega Other [facility] Other 12-12-2022 16:05-0400 Body mass index (BMI) [Ratio] 54.86 kg/m2 Mata De La Vega Other [facility] Other 12-12-2022 16:05-0400 Body temperature 98.3 [degF] Mata De La Vega Other [facility] Other 12-12-2022 16:05-0400 Body weight 136.08 kg Mata De La Vega Other [facility] Other 12-12-2022 16:05-0400 Respiratory rate 20 /min Mata De La Vega Other [facility] Other 12-12-2022 16:05-0400 SaO2% (BldA) [Mass fraction] 99 % Mata De La Vega Other [facility] Other Encounters Encounter Date Encounter Type Care Provider Facility Start: 04-08-2025 End: 04-09-2025 Emergency department patient visit Elham Denise Facility:[facility] Start: 09-25-2023 ambulatory Onofre Valdez acility:[facility] Start: 12-28-2022 End: 12-28-2022 ambulatory Mary Jane [facility] Other [facility] Other Start: 12-28-2022 Office outpatient visit 15 minutes Mary Jane Madison [facility] Start: 12-12-2022 End: 12-12-2022 ambulatory Mata De La Vega Other [facility] Other Start: 12-12-2022 [facility] Start: 12-02-2021 End: 01-25-[address] DOM ROQUE Facility:[facility] Start: 11-17-2021 End: 11-18-[address] DOM ROQUE Facility:[facility] Start: 11-18-2018 End: 11-18-2018 Emergency department patient visit ABDULKADIR [facility] Start: 10-24-2018 End: 10-24-2018 Emergency department patient visit ABDULKADIR CUMMINGS [facility] Start: 11-24-2017 End: 11-24-2017 Emergency department patient visit ABDULKADIR [facility] Procedures Date Procedure Procedure Detail Performing Clinician Start: 11-18-2018 Radiologic exam chest 2 views ABDULKADIR CUMMINGS Start: 11-18-2018 Iaadiadoo influenza ANNALEE CUMMINGS Start: 11-24-2017 Microscopic urinalysis ABDULKADIR CUMMINGS Start: 11-24-2017 UA W/REFLEX CULTURE ANNALEE CUMMINGS Start: 11-24-2017 URINE CULTURE CLEAN CATCH ABDULKADIR CUMMINGS Start: 11-24-2017 RAPID INFLUENZA A/B ANTIGENS ABDULKADIR CUMMINGS Start: 11-24-2017 STREP SCREEN GROUP A THROAT ABDULKADIR CUMMINGS Payers Date Payer Category Payer Medicaid [id number] 2025 Unknown [id number] 2023 Self-pay 1990 Unknown [id number] 2.16.8 [id number] 1990 Unknown [id number] 2.16.8 [id number] 1990 Unknown [id number] 2.16.8 [id number] 1990 Unknown [id number] 2.16.84 [id number] 1990 Unknown [id number] 2.16.84 [id number] 1990 Unknown [id number] 2.16.84 [id number] 1990 Unknown [id number] 2.16.8 [id number] 1990 Unknown [id number] 2.16.8 [id number] 1990 Unknown [id number] 2.16.8 [id number] 1959 Unknown [id number] 1959 Unknown [id number] Medicaid [id number] 2. [id number] Social History Date Type Detail Facility Sex Assigned At [facility] Other Clinical Note 04-09-2025 Note Date & Type Note Facility 04-09-2025 Note ED Patient Education Note Gastroenterology Nonspecific Chest Pain Chest pain can be caused by many different conditions. Some causes of chest pain can be life-threatening. These will require treatment right away. Serious causes of chest pain include: ??? Heart attack. ??? A tear in the body's main blood vessel. ??? Redness and swelling (inflammation) around your heart. ??? Blood clot in your lungs. Other causes of chest pain may not be so serious. These include: ??? Heartburn. ??? Anxiety or stress. ??? Damage to bones or muscles in your chest. ??? Lung infections. Chest pain can feel like: ??? Pain or discomfort in your chest. ??? Crushing, pressure, aching, or squeezing pain. ??? Burning or tingling. ??? Dull or sharp pain that is worse when you move, cough, or take a deep breath. ??? Pain or discomfort that is also felt in your back, neck, jaw, shoulder, or arm, or pain that spreads to any of these areas. It is hard to know whether your pain is caused by something that is serious or something that is not so serious. So it is important to see your doctor right away if you have chest pain. Follow these instructions at home: Medicines ??? Take fyox-wnl-sltunbj and prescription medicines only as told by your doctor. ??? If you were prescribed an antibiotic medicine, take it as told by your doctor. Do not stop taking the antibiotic even if you start to feel better. Lifestyle ??? Rest as told by your doctor. ??? Do not use any products that contain nicotine or tobacco, such as cigarettes, e-cigarettes, and chewing tobacco. If you need help quitting, ask your doctor. ??? Do not drink alcohol. ??? Make lifestyle changes as told by your doctor. These may include: ? Getting regular exercise. Ask your doctor what activities are safe for you. ? Eating a heart-healthy diet. A diet and nutritionist (dietitian) can help you to learn healthy eating options. ? Staying at a healthy weight. ? Treating diabetes or high blood pressure, if needed. ? Lowering your stress. Activities such as yoga and relaxation techniques can help. General instructions ??? Pay attention to any changes in your symptoms. Tell your doctor about them or any new symptoms. ??? Avoid any activities that cause chest pain. ??? Keep all follow-up visits as told by your doctor. This is important. You may need more testing if your chest pain does not go away. Contact a doctor if: ??? Your chest pain does not go away. ??? You feel depressed. ??? You have a fever. Get help right away if: ??? Your chest pain is worse. ??? You have a cough that gets worse, or you cough up blood. ??? You have very bad (severe) pain in your belly (abdomen). ??? You pass out (faint). ??? You have either of these for no clear reason: ? Sudden chest discomfort. ? Sudden discomfort in your arms, back, neck, or jaw. ??? You have shortness of breath at any time. ??? You suddenly start to sweat, or your skin gets clammy. ??? You feel sick to your stomach (nauseous). ??? You throw up (vomit). ??? You suddenly feel lightheaded or dizzy. ??? You feel very weak or tired. ??? Your heart starts to beat fast, or it feels like it is skipping beats. These symptoms may be an emergency. Do not wait to see if the symptoms will go away. Get medical help right away. Call your local emergency services (911 in the [place] Do not drive yourself to the hospital. Summary ??? Chest pain can be caused by many different conditions. The cause may be serious and need treatment right away. If you have chest pain, see your doctor right away. ??? Follow your doctor's instructions for taking medicines and making lifestyle changes. ??? Keep all follow-up visits as told by your doctor. This includes visits for any further testing if your chest pain does not go away. ??? Be sure to know the signs that show that your condition has become worse. Get help right away if you have these symptoms. This information is not intended to replace advice given to you by your health care provider. Make sure you discuss any questions you have with your health care provider. Document Revised: 07/20/2023 Document Reviewed: 07/20/2023 [employer] Patient Education ? 2023 [employer]. [facility] Evaluation note 12-28-2022 Note Date & Type [...] 3 days. Off work today and tomorrow [facility] Other Evaluation note 12-12-2022 Note Date & Type Note Facility 12-12-2022 Evaluation note Encounter Date Diagnosis Assessment Notes Nov, Infection of right breast (ICD-10 - N61.0) Exam consistent with mild infection of the breast. Apply warm compresses for 15 minutes 4 times a day for 5 days. Go to the ER if you develop a fever or redness in your breast. [facility] Other History general Narrative - Reported Note Date & Type Note Facility History general Narrative - Reported Type Medical History chronic depression [facility] Other Summary Purpose Family History No Family [...] section and content) DATE CREATED AUTHOR 11/19/2018 [facility] DATE CREATED AUTHOR AUTHOR'S ORGANIZ ATION 04/27/2020 [facility] DATE CREATED AUTHOR AUTHOR'S ORGANIZ ATION 04/21/2022 [facility] DATE CREATED AUTHOR AUTHOR'S ORGANIZ ATION 12/06/2023 [facility] DATE CREATED AUTHOR AUTHOR'S ORGANIZ ATION 04/10/2025 [facility] DATE CREATED AUTHOR AUTHOR'S ORGANIZ ATION 04/12/2025 [facility] DATE CREATED AUTHOR AUTHOR'S ORGANIZ ATION 04/14/2025 [facility] REASON FOR VISIT (unrecogniz ed section and [...] BE BASED ON THE PRIMARY CLINICAL RECORDS. [employer] provides no warranty or guarantee of the accuracy or completeness of information in this document.
[2025-04-18 09:48] LABS: Hematocrit 37.9 % (36.0-48.0); Hemoglobin 12.8 g/dL (12.0-16.0); Immature Granulocytes Abs Auto 0.01 10^3/uL (0.00-0.03); Immature Granulocytes Pct Auto 0.1 % (0.0-0.5); Lymphocytes Absolute Auto 1.9 10^3/uL (1.2-3.8); Mean Corpuscular HGB Conc 33.8 g/dL (29.9-35.2); Mean Corpuscular Hemoglobin 30.5 pg (26.7-34.0); Mean Corpuscular Volume 90.5 fL (81.0-99.0); Platelet Count 278 10^3/uL (150-450); Red Blood Count 4.19 10^6/uL (4.20-5.40); White Blood Count 8.3 10^3/uL (4.0-11.0)
[2025-04-18 10:21] LABS: Alanine Aminotransferase 51 U/L (14-59); Albumin Globulin Ratio 0.7; Albumin Level 3.2 g/dL (3.4-5.0); Alkaline Phosphatase 115 U/L (46-116); Anion Gap 12.7; Aspartate Amino Transferase 28 U/L (15-37); Blood Urea Nitrogen 14.0 mg/dL (7.0-18.0); Calcium 9.0 mg/dL (8.5-10.1); Carbon Dioxide 27.9 mmol/L (21.0-32.0); Chloride 103 mmol/L (98-107); Cholesterol 184 mg/dL (<=200); Estimated GFR (African America >60 (>=60 mL/min/1.73m^2); Estimated GFR (Non-African Ame >60 (>=60 mL/min/1.73m^2); Free T3 2.50 pg/mL (2.18-3.98); Globulin 4.6 g/dL; Glucose 99 mg/dL (74-106); HDL Cholesterol 75 mg/dL (40-60); Potassium 3.6 mmol/L (3.5-5.1); Sodium 140 mmol/L (136-145); Thyroid Stimulating Hormone 1.433 uIU/mL (0.358-3.740); Total Protein 7.8 g/dL (6.4-8.2); Triglycerides 52 mg/dL (<=150); VLDL CHOLESTEROL 10.4 mg/dL
[2025-04-18 10:27] LABS: Iron 63.0 ug/dL (50.0-170.0)
== END 2025-04-18 09:25 | disposition home or self-care (01) ==
LOC: LAB 09:26
PROVIDERS: PCP Nurse Practitioner Family; Visit Provider Nurse Practitioner Family
DX: Z00.00 Encounter for general adult medical examination without abnormal findings (principal)
CPT/HCPCS: 36415; 80053; 80061; 82306; 83036; 83525; 83540; 84436; 84443; 84481; 85025

== ENCOUNTER 2025-06-12 07:55 | Outpatient (OUT) | payer BC, SELFPAY ==
--- OUTSIDE RECORDS SUMMARY | 2025-06-12 07:58 | XMS_ITS | CCD ---
Author Organization [facility] Care Team Providers Care Financial Assistance Specialist Name Role Phone ABDULKADIR CUMMINGS Primary Care [...] Primary Care Unavailable Elham Becerril Attending Unav Elham Ames Attending UnaSRIRAM Reed Attending Unavailable Medications Current Medications Medication Drug Class(es) [...] conditions (1 source) Mastitis without abscess Episodic Nonspecific chest pain (2 sources) Other chest pain; Translations: [Other chest pain] Onset: 06-06-2025 Episodic Osteoarthritis (4 sources) Bilateral primary osteoarthritis of knee; Translations: [BILATERAL PRIM OSTEOARTHRITIS KNEE] Onset: 12-02-2021 Chronic Other lower respiratory disease (2 sources) Shortness of breath; Translations: [Shortness of breath] Onset: 06-06-2025 Episodic Spondylosis; intervertebral disc disorders; other back problems [...] Test Name Value Interpretation Reference Range Facility Office Visiton 06-06-2025 Follow-up visit [id number] Forest Mai 1990 Date Provider Department Center 06/06/2025 [id number], SRIRAM CARD [facility] Family History Problem Relation Age of Onset Coronary artery disease Paternal Grandmother Family Status - Relation Status Age at Mother Alive Father Alive Paternal Grandmother Level of Service:63036 SC OFFICE/OUTPATIENT NEW LOW MDM 30 MINUTES Reason for Visit and Comments: New Patient [632] - Patient is here today to establish care with cardiology for chest pain. 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 Normal [facility] Abstracton 04-11-2025 Abstract [id number] Forest Mai Magdalena 1990 Date Provider Department Center 04/11/2025 [id number] VEGA CARD [facility] No family history on file [facility] Orders Onlyon 04-11-2025 Orders Only [id number] Forest Mai Magdalena 1990 Date Provider Department Center 04/11/2025 [id number], HISTORICAL CARD [facility] No family history on file [facility] ED Clinical Summaryon 2024 ED Clinical Summary ED Clinical Summary [place] [id number] ED Clinical Summary Person Information Name: FOREST MAI Nayla/_Bingen Age: 34 Years : 1990 Sex: Female Language: Tamazight PCP: MARY JANE MARTINS CNP Marital Status: Phone: [phone] Visit Id: Visit Reason: Chest pain; CP [...] 04/09/2025 00:25:55 04/09/2025 00:25:55 04/09/2025 00:25:55 ADDRESS: [address] [place] [phone] [facility] DOC NOTES: MEDICAL INFORMATION: Prescriptions Given: Medications to Continue with No Changes Other Medications cetirizine (cetirizine 10 mg Tab) 1 Tablets By Mouth every day. citalopram (citalopram 20 mg Tab) 1 Tablets By Mouth every day. PATIENT EDUCATION INFORMATION: Instructions: Nonspecific Chest Pain, Adult, Talf-vm-Ojpm Follow up: With: Address: When: [place] [address] [phone] Business (1) In 3 days 04/12/2025 Comments: Call to schedule a follow-up appointment with cardiology. Return to the ED with any new or worsening symptoms. 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 She describes [...] 15 m (more content not included)... [facility] Comment on above: Result Comment: Elec tronically Signed By: Romy Saucedo PA-C\.br\Date and Time Signed: 04/09/25 00:20 EDT\.br\Electronically Co-Signed By: Elham Becerril D.O.\.br\Date and Time Co-Signed: 04/09/25 03:26 EDT ED Patient Summaryon 025 ED Patient Summary ED Patient Summary [place] [id number] Patient Discharge Instructions Person Information Name: FOREST MAI Age: 34 Years Arrival Date: 04/08/2025 21:05:21 Discharge Diagnosis: Nonspecific chest pain Primary Care Physician: MARY JANE MARTINS CNP Provider Information Primary Provider: Advanced Rate Manager:Romy Saucedo PA-C The exam and treatment you received in the Emergency Department were for an urgent problem and are not intended as complete care. It is important that you follow up with a doctor, nurse practitioner, or physician???s orthodontic technician assistant for ongoing care. If your symptoms [...] Instructions: With: Address: When: Deshaun Pa [address] [place] [address] [phone] [employer] (1) In 3 days 04/12/2025 Comments: Call to schedule a follow-up appointment with cardiology. Return to the ED with any new or worsening symptoms. With: Address: When: MARY JANE MARTINS [address] [facility] [place] [address] [phone] [employer] (1) In 3 days In the event that this physician does not participate in your insurance network, please consult with your insurance company to find a nearby participating provider. Patient Education Materials: Nonspecific Chest Pain, Adult, Gkor-ki-Sqan A MESSAGE TO ALL PATIENTS REGARDING OPIOIDS PRESCRIPTION OPIOIDS: WHAT YOU NEED TO KNOW Prescription opioids can be used to help relieve hhdxqtfu-bt-gtvpuj pain and are often prescribed following a [...] Drug Adm (more content not included)... [facility] XR Chest 2 Viewson XR Chest [...] Salinas M.D. Transcribed by: BAL Technologist: TYRA Green [facility] BMPon 04-08-2025 Anion gap [Moles/Vol] 12 mmol/L Normal 6-16 [facility] Comment on above: Performed By: #### 2 [id number] #### [facility] [address] [place] [address] BUN/Creat Ratio 20 No Units Normal 10-20 [facility] Comment on above: Performed By: #### 2 [id number] #### [facility] [address] [place] [address] Calcium [Mass/Vol] 9.2 mg/dL Normal 8.9-11.1 [facility] Comment on above: Performed By: #### 2 [id number] #### [facility] [address] [place] [address] Chloride [Moles/Vol] 103 mmol/L Normal 101-111 [facility] Comment on above: Performed By: #### 2 [id number] #### [facility] [address] [place] [address] CO2 [Moles/Vol] 26 mmol/L Normal 21-31 [facility] Comment on above: Performed By: #### 2 [id number] #### [facility] [address] [place] [address] Creatinine [Mass/Vol] 0.7 mg/dL Normal 0.5-1.3 [facility] Comment on above: Performed By: #### 2 855461 #### [facility] [address] [place] [address] Glucose [Mass/Vol] 76 mg/dL Normal 55-199 [facility] Comment on above: Performed By: #### 2 834493 #### [facility] [address] [place] [address] Potassium [Moles/Vol] 4.1 mmol/L Normal 3.5-5.3 [facility] Comment on above: Performed By: #### 2 833875 #### [facility] [address] [place] [address] Sodium [Moles/Vol] 137 mmol/L Normal 135-145 [facility] Comment on above: Performed By: #### 2 303731 #### [facility] [address] [place] [address] Urea nitrogen [Mass/Vol] 14 mg/dL Normal 5-21 [facility] Comment on above: Performed By: #### 2 783197 #### [facility] [address] [place] [address] CBC w/ Auto Diffon 5 Basophil Absolute 0.1 E9/L Normal 0.0-0.2 [facility] Comment on above: Performed By: #### 2 [id number] #### [facility] [address] [place] [address] Basophils/100 WBC (Bld) 0.6 % Normal 0.0-2.0 [facility] Comment on above: Performed By: #### 2 [id number] #### [facility] [address] [place] [address] Eos Absolute 0.2 E9/L Normal 0.0-0.5 [facility] Comment on above: Performed By: #### 2 959112 #### [facility] [address] [place] [address] Eosinophils/100 WBC (Bld) 2.2 % Normal 0.0-8.0 [facility] Comment on above: Performed By: #### 2 788609 #### [facility] [address] [place] [address] Erythrocyte distribution width (RBC) [Ratio] 13.6 % Normal 10.9-14.2 [facility] Comment on above: Performed By: #### 2 277170 #### [facility] [address] [place] [address] Hematocrit (Bld) [Volume fraction] 38.4 % Normal 34.0-46.0 [facility] Comment on above: Performed By: #### 2 233596 #### [facility] [address] [place] [address] Hemoglobin (Bld) [Mass/Vol] 13.4 g/dL Normal 12.0-16.0 [facility] Comment on above: Performed By: #### 2 185930 #### [facility] [address] [place] [address] Lymph Absolute 2.8 E9/L Normal 1.0-4.0 [facility] Comment on above: Performed By: #### 2 849514 #### [facility] [address] [place] [address] Lymphocytes/100 WBC (Bld) 29.7 % Normal 14.0-50.0 [facility] Comment on above: Performed By: #### 2 463686 #### [facility] [address] [place] [address] MCH (RBC) [Entitic mass] 31.1 pg Normal 27.0-34.0 [facility] Comment on above: Performed By: #### 2 022468 #### [facility] [address] [place] [address] MCHC (RBC) [Mass/Vol] 34.9 g/dL Normal 31.4-36.0 [facility] Comment on above: Performed By: #### 2 995196 #### [facility] [address] [place] [address] MCV (RBC) [Entitic vol] 89.0 fL Normal 80.0-100.0 [facility] Comment on above: Performed By: #### 2 451704 #### [facility] [address] [place] [address] Miller Absolute 0.5 E9/L Normal 0.2-1.0 [facility] Comment on above: Performed By: #### 2 917469 #### [facility] [address] [place] [address] Monocytes/100 WBC (Bld) 5.5 % Normal 4.0-14.0 [facility] Comment on above: Performed By: #### 2 466085 #### [facility] [address] [place] [address] Neutro Absolute 5.9 E9/L Normal 2.0-7.5 [facility] Comment on above: Performed By: #### 2 321150 #### [facility] [address] [place] [address] Neutro Auto 62.0 % Normal 36.0-75.0 [facility] Comment on above: Performed By: #### 2 495848 #### [facility] [address] [place] [address] Platelet 261.0 E9/L Normal 150.0-500.0 [facility] Comment on above: Performed By: #### 2 914532 #### [facility] [address] [place] [address] Platelet mean volume (Bld) [Entitic vol] 8.3 fL Normal 6.4-10.8 [facility] Comment on above: Performed By: #### 2 188113 #### [facility] [address] [place] [address] RBC 4.3 E12/L Normal 4.3-5.9 [facility] Comment on above: Performed By: #### 2 362912 #### [facility] [address] [place] [address] WBC 9.6 E9/L Normal 4.0-11.0 [facility] Comment on above: Performed By: #### 2 171772 #### [facility] [address] [place] [address] PT & PTTon 04-08-2025 INR Coag (PPP) [Relative time] 0.89 {INR} Invalid Interpretation Code [facility] Comment on above: Result Comment: INR results are specifically intended to assess patients stabilized on long-term Anticoagulation therapy suggested INR???s ???Less Intensive Anticoagulation??? 2.0 ??? 3.0 Conventional Range 3.0 ??? 4.5 Performed By: #### 1 [id number] #### [facility] [address] [place] [address] PT 9.9 second(s) Normal 9.4-12.5 [facility] Comment on above: Result Comment: 15 d ays - 4 weeks 1 - 5 months 6 -11 months 1- 5 years 6-10 years 11 -17 years Mean: 11.2 (9.5-12.6) Mean: 11.0 (9.7-12.8) Mean: 11.0 (9.8-13.0) Mean: 11.3 (9.9-13.4) Mean: 11.7 (10.0-14.6) Mean: 11.8 (10.0 - 14.1) Pediatric Reference ranges were obtained from a study by violetta Reddy prepared from 1437 samples obtained at 7 different centers using the same coagulation reagent and instrumentation as [facility]. Currently there are no coagulation studies available worldwide for children to 14 days, and no normal ranges. Performed By: #### 1 [id number] #### [facility] [address] [place] [address] PTT 28.1 second(s) Normal 25.1-36.5 [facility] Comment on above: Result Comment: Para meter 15 days - 4 weeks 1 - 5 months 6 - 11 months 1 - 5 years 6 - 10 years 11 - 17 years PTT Mean: 35.4 (27.6-45.6) Mean: 33.5 (24.8-40.7) Mean: 32.4 (25.1-40.7) Mean: 31.6 (24.0-39.2) Mean: 31.6 (26.9-38.7) Mean: 31.0 (24.6-38.4) Pediatric Reference ranges were obtained from a study by violetta Reddy prepared from 1437 samples obtained at 7 different centers using the same coagulation reagent and instrumentation as [facility]. Currently there are no coagulation studies available worldwide for children to 14 days, and no normal ranges. Heparin therapeutic range (represented by Anti-Factor Xa activity of 0.2 - 0.4 U/mL) corresponds to PTT of 56.6 - 109.0 sec. Performed By: #### 1 [id number] #### [facility] [address] [place] [address] Pre-Arrival Noteon Pre-Arrival Note Pre-Arrival Note Pre-Arrival Summary Name: JYOTSNA Current Date: 04/08/2025 21:05:50 EDT Gender: Female Date of : Age: 34 Pre-Arrival Type: EMS ETA: 04/08/2025 20:58:00 EDT Primary Care Physician: Presenting Problem: Chest Pain Pre-Arrival User: Sarahy Collier RN Referring Source: Location: Completion Date/Time: 04/08/2025 20:58:00 [facility] Emergency Department Pre-Hospital Report Form Vital Signs: Pre-Hospital Report: Treatment in Route: Response to Treatment: Misc. Issues: Normal [facility] Troponin 0 Hr.on 04-08-2025 Troponin HS 2.50 pg/mL Low 10.10-27.10 [facility] Comment on above: Result Comment: The 95% CI (Confidence Interval) PPV (Positive Predictive Value) for myocardial infarction in females is 38 pg/mL, in males 51 pg/mL. The results should be used in conjunction with clinical conditions of myocardial infarction. (Access High Sensitivity Troponin I Instructions For Use, castaclip, April 2018) Performed By: #### 1 [id number] #### [facility] [address] [place] [address] Troponin 1 Hr.on 04-08-2025 Troponin HS 3.90 pg/mL Low 10.10-27.10 [facility] Comment on above: Result Comment: The 95% CI (Confidence Interval) PPV (Positive Predictive Value) for myocardial infarction in females is 38 pg/mL, in males 51 pg/mL. The results should be used in conjunction with clinical conditions of myocardial infarction. (Access High Sensitivity Troponin I Instructions For Use, Nahum Harriman, April 2018) Performed By: #### 1 [id number] #### [facility] [address] [place] [address] eGFRon 04-08-2025 eGFR 116 mL/min/1.73 m2 Normal >=59 [facility] Comment on above: Performed By: #### 1 [id number] #### [facility] [address] [place] [address] MRI KNEE RT WO CONon 022 MRI [...] by: CHRISTINA STALLINGS Date: 2021-11-17 17:[address] [facility] Physical Therapy Noteon 04-18 Physical Therapy Note [id number]#1.0 0OTGTIFF Normal [facility] Provider Orderson 02-18-2020 Provider Orders [id number]#1.0 [facility] Coding Summaryon 02-14-2020 Coding Summary CODING DATE: 02/14/2020 [facility] STATUS: PAYOR: Medicaid HMO ADMIT DX: REASON [...] Date Saved: 02/14/2020 03:06 pm [facility] Provider Orderson 02-13-2020 Provider Orders [id number]#1.[address] [place] [address] Coding Summaryon 01-29-2020 Coding Summary CODING DATE: 01/29/2020 [facility] STATUS: Home PAYOR: Medicaid HMO ADMIT DX: [...] Date Saved: 01/29/2020 01:53 pm [facility] Coding Summary CODING DATE: 01/29/2020 [facility] STATUS: Home PAYOR: Medicaid HMO ADMIT DX: [...] Date Saved: 01/29/2020 01:50 pm [facility] Ambulance Noteon 01-28-2020 Ambulance Note [id number]#1.[address] [place] [address] Consent Formson 01-28-2020 Consent Forms [id number]#1.[address] [place] [address] ED Clinical Summaryon 2019 ED Clinical Summary [facility] - Emergency Department [address] [place] [address] ED Clinical Summary PERSON INFORMATION Name: FOREST MAI Age: 29 Years Sex: FEMALE : 1990 MRN: Acct#: Visit Reason: Knee pain-swelling; Fall; R KNEE PAIN Arrival: 01/27/2020 13:13:36 Discharge: 01/27/2020 14:54:00 LOS: 000 01:41 Check In: 01/27/2020 13:13:36 Checkout:01/27/2020 14:54:00 Address: [address] [place] [address] PCP: Abdulkadir Cummings CNP PROVIDER INFORMATION Provider Role Assigned Unassigned Marquez Ramirez ED Provider 01/27/2020 13:16:34 Mayuri ALFARO, Ligia Mcdaniel ED Nurse 01/27/2020 13:25:27 VITALS [...] Sprain of cruciate ligament of right knee (WWN10-SF S83.501A, Discharge, Medical) Plan Condition: Improved. Disposition: Discharged: time 01/27/2020 14:33:00. Prescriptions: Launch prescriptions Pharmacy: [facility]ros[facility] 500 mg oral tablet (Prescribe): 500 mg = 1 tab(s), PO, BID, PRN: for pain, 20 tab(s), 0 Refill(s). Patient was given the following educational materials: Knee Sprain, Adult, Hgzm-ed-Coqw, Knee Sprain, Adult, Gfju-lu-Lbfn. Follow up with: Abdulkadir Cummings Within 3 to 5 days. Counseled: Patient, Regarding diagnosis, Regarding diagnostic results, Regarding treatment plan, Regarding prescription, Patient indicated understanding of instructions. DISCHARGE INFORMATION: Discharge Disposition: Home Discharge Location: Home PATIENT EDUCATION INFORMATION Instructions: Knee Sprain, Adult, Efnz-tb-Vvfq Follow-Up: With: Address: When: Abdulkadir Cummings [address] [place] [address] [facility] (1) Within 3 to 5 days DIAGNOSIS: Sprain of cruciate ligament of right knee Patient Understands: Yes - Patient/family/caregiv er verbalizes understanding of instructions given Comment: [facility] ED Note - Physicianon 2019 ED Note [...] Sprain of cruciate ligament of right knee (PDZ22-JH S83.501A, Discharge, Medical) Plan Condition: Improved. Disposition: Discharged: time 01/27/2020 14:33:00. Prescriptions: Launch prescriptions Pharmacy: Naprosyn 500 mg oral tablet (Prescribe): 500 mg = 1 tab(s), PO, BID, PRN: for pain, 20 tab(s), 0 Refill(s). Patient was given the following educational materials: Knee Sprain, Adult, Uwao-ps-Cchx, Knee Sprain, Adult, Gacs-xi-Ogfc. Follow up with: Abdulkadir Cummings Within 3 to 5 days. Counseled: Patient, Regarding diagnosis, Regarding diagnostic results, Regarding treatment plan, Regarding prescription, Patient indicated understanding of instructions. [Electronically Signed on: 01/27/2020 14:40 EDT] Marquez Ramirez MD [Verified on: 01/27/2020 14:40 EDT] Marquez Ramirez MD [facility] ED Note-Nursingon 01-27-2020 ED Note-Nursing Patient arrives [...] a snap when she fell. [facility] ED Patient Education Noteon 01-27-2020 ED Patient [...] are sitting or lying down. ? Take ocqt-ftb-tyqygrg and prescription medicines only as told by [...] 08/23/2010 Document Revised: 05/23/2017 Document Reviewed: 05/23/2017 [employer] Interactive Patient Education ? 2018 [employer]. Normal [facility] ED Patient Summaryon 020 ED Patient Summary [facility] - Emergency Department [address] [place] [address] PATIENT DISCHARGE INSTRUCTIONS Patient Information Name: FOREST MAI Age: 29 Years Date of : 1990 Reason For Visit: Knee pain-swelling; Fall; R KNEE PAIN Arrival Time: 01/27/2020 13:13:36 Primary Care Physician: Abdulkadir Cummings CNP Attending Physician: Marquez Ramirez Comment: Visit Diagnosis: Diagnoses This Visit Fall ([id number]) Knee pain-swelling ([id number]) Sprain of cruciate ligament of right knee (S83.501A) Prescription Information: If you have been given a prescription for narcotics, seek immediate medical attention if you have any difficulty breathing or any sudden status changes such as confusion and sleepiness. If you or anyone you know is experiencing suicidal thoughts, mental health, alcohol and/or drug addiction problems; contact the [facility] Recovery [facility] 10/04 Crisis Hotline -Text 4HHAA ry 429584. If you received any narcotics, sedation, or [...] legal documents With: Address: When: Abdulkadir Cummings [address] [place] [phone] Business (1) Within 3 to 5 days Medication Information: The exam and treatment you received today in the [facility] Emergency Department were for an urgent problem and are not intended as complete care. It is important for you to follow up with a doctor, nurse practitioner, or physician?s orthodontic technician assistant for ongoing care. If your symptoms [...] so we can reach you if necessary. [facility] Emergency Department has provided you with a complete list of medications post discharge. Please inform your multiple cut off saw operator/provider of your visit and for further instruction [...] are sitting or lying down. ? Take fapt-hqw-olvplua and prescription medicines only as told by [...] 08/23/2010 Document Revised: 05/23/2017 Document Reviewed: 05/23/2017 [employer] Interactive Patient Education ? 2019 [employer]. Viruses or Bacteria What?s got you sick? [...] Control and Prevention May 2014 [facility] XR Knee Complete Righton XR Knee Complete [...] dislocation. Followup as needed. Final Dictated by: Kurtis GAVIN, Jose Lindsey Dictated DT/TM: 01/27/20 2:08 Signed (Electronic Signature): Jose Hull MD 01/27/20 3:15 pm Technologist: ARMAAN STACY [facility] Coding Summaryon 11-05-2019 Coding Summary CODING DATE: 11/05/2019 [facility] STATUS: Home PAYOR: Medicaid HMO ADMIT DX: [...] Date Saved: 11/05/2019 10:12 am [facility] C Throaton 11-03-2019 C Throat Ordered by Discern. Normal throat kanika isolated No pathogens isolated [facility] Comment on above: Performed By: #### 4 [id number], [id number] #### [facility] (DEFAULT) [address] [place] [address] Coding Summaryon 11-01-2019 Coding Summary CODING DATE: 11/01/2019 [facility] STATUS: Home PAYOR: Medicaid HMO ADMIT DX: REASON FOR VISIT DX: R05 Cough R50.9 Fever, unspecified R53.1 Weakness FINAL DX: PRINCIPAL: J11.1 Influenza due to unidentified influenza virus with other respiratory manifestations SECONDARY: EVIAGENICST PROC [employer]ves STAT DESCRIPTION DOCTOR NAME DATE NOTE: The code number assigned matches the documented diagnosis and / or procedure in the patient's chart. However, the narrative phrase printed from the coding software may appear abbreviated, or result in slightly different terminology. Coded By: Hugo Dunham Date Saved: 11/01/2019 03:03 pm [facility] Coding Summary CODING DATE: 11/01/2019 [facility] STATUS: Home PAYOR: Medicaid HMO ADMIT DX: [...] Hugo Dunham Date Saved: 11/01/2019 03:02 pm Normal [facility] ED Clinical Summaryon 2019 ED Clinical Summary [facility] ? Urgent Care [address] [place] [address] [id number] Clinical Summary PERSON INFORMATION Name: FOREST MAI Age: 29 Years Sex: FEMALE : 1990 MRN: Acct#: Visit Reason: UC - Sore Throat; UC - Fever; SORE THROAT Arrival: 11/01/2019 09:48:44 Discharge: 11/01/2019 10:35:00 LOS: 000 00:47 Check In: 11/01/2019 09:48:44 Checkout: 11/01/2019 10:35:00 Address: [facility] [address] [place] [id number] PCP: Abdulkadir Cummings CNP PROVIDER INFORMATION Provider [...] PATIENT EDUCATION INFORMATION Instructions: Viral Respiratory Infection, Gusk-Af-Obxy Follow-Up: With: Address: When: Abdulkadir Cummings [address] [place] [phone] [facility] (1) Within 2 to 4 days Comments: [...] verbalizes understanding of instructions given Comment: Normal [facility] ED Patient Summaryon 020 ED Patient Summary [facility] ? Urgent Care [address] [place] [id number] PATIENT DISCHARGE INSTRUCTIONS Patient Information Name: FOREST MAI Age: 29 Years Date of : 1990 Reason For Visit: UC - Sore Throat; UC - Fever; SORE THROAT Arrival Time: 11/01/2019 09:48:44 Primary Care Physician: Abdulkadir Cummings CNP Attending Physician: Kanchan Nielsen PA-C Comment: Patient Education With: Address: When: Abdulkadir Cummings [address] [place] [phone] [facility] (1) Within 2 to 4 days Comments: [...] home: Managing pain and congestion ? Take wrll-uck-nwoezst and prescription medicines only as told by [...] and water are not available, use hand e commerce analyst. ? Avoid contact with people who are [...] 08/17/2009 Document Revised: 10/15/2018 Document Reviewed: 10/15/2018 [employer] Interactive Patient Education ? 2019 [employer]. Medication Information: The exam and treatment you received today in the [facility] Emergency Department were for an urgent problem and are not intended as complete care. It is important for you to follow up with a doctor, nurse practitioner, or physician?s orthodontic technician assistant for ongoing care. If your symptoms [...] so we can reach you if necessary. [facility] Emergency Department has provided you with a complete list of medications post discharge. Please inform your multiple cut off saw operator/provider of your visit and for further instruction [...] Diagnosis: Diagnoses This Visit UC - Fever ([id number]) UC - Sore Throat ([id number]) Viral URI (J06.9) If you received any [...] Stop date 11/01/19 10:02:00 EST, Nurse collect, [id number] Radiology Cardiology Viruses or Bacteria What?s got [...] Disease Control and Prevention May 2014 Normal [facility] Influenza A&B Rapidon 2019 Influenza A Negative Normal Negative [facility] Comment on above: Performed By: #### 1 [id number] #### [facility] (DEFAULT) [address] [place] [address] Influenza B Negative Normal Negative [facility] Comment on above: Performed By: #### 1 [id number] #### [facility] (DEFAULT) [address] [place] [address] Internal QC OK? Pass Normal [facility] Comment on above: Performed By: #### 1 [id number] #### [facility] (DEFAULT) [address] [place] [id number] Patient Handouton 11-01-2019 Patient Handout Patient Education [...] home: Managing pain and congestion ? Take wbdx-ngj-nkgzyae and prescription medicines only as told by [...] and water are not available, use hand e commerce analyst. ? Avoid contact with people who are [...] 08/17/2009 Document Revised: 10/15/2018 Document Reviewed: 10/15/2018 [employer] Interactive Patient Education ? 2019 [employer]. [facility] Strep Aon 11-01-2019 Strep procedure control Pass Normal [facility] Comment on above: Performed By: #### 4 [id number] #### [facility] (DEFAULT) [address] [place] [address] Streptococcus A Negative Normal Negative [facility] Comment on above: Performed By: #### 4 [id number] #### [facility] (DEFAULT) [address] [place] [address] Urgent Care Note- Provideron 11-01-2019 Urgent Care [...] results: Impression and Plan Diagnosis Viral URI (KVF02-QU J06.9, Discharge, Medical) Plan Condition: Stable. Disposition: Discharged: Time 11/01/2019 10:27:00, to home. Patient was given the following educational materials: Viral Respiratory Infection, Pgxc-Qq-Qclh, Viral Respiratory Infection, Hjpp-Hz-Esna. Follow up with: Abdulkadir Cummings Within 2 [...] plan, Patient indicated understanding of instructions. Normal [facility] Urgent Care [place] 020 Urgent Care Record [facility] ? Urgent Care [address] [place] [address] PATIENT DISCHARGE INSTRUCTIONS Patient Information Name: FOREST MAI Age: 29 Years Date of : 1990 Reason For Visit: UC - Sore Throat; UC - Fever; SORE THROAT Arrival Time: 11/01/2019 09:48:44 Primary Care Physician: Abdulkadir Cummings CNP Attending Physician: Kanchan Nielsen PA-C Comment: Visit Diagnosis: Diagnoses This Visit UC - Fever ([id number]) UC - Sore Throat ([id number]) Viral URI (J06.9) If you received any [...] legal documents With: Address: When: Abdulkadir Cummings [address] [place] [phone] Business (1) Within 2 to 4 [...] and treatment you received today in the [facility] Urgent Care were for an urgent problem and are not intended as complete care. It is important for you to follow up with a doctor, nurse practitioner, or physician?s orthodontic technician assistant for ongoing care. If your symptoms [...] so we can reach you if necessary. [facility] Urgent Care has provided you with a complete list of medications post discharge. Please inform your multiple cut off saw operator/provider of your visit and for further instruction [...] home: Managing pain and congestion ? Take lopv-dmy-hjphmyg and prescription medicines only as told by [...] and water are not available, use hand e commerce analyst. ? Avoid contact with people who are [...] 08/17/2009 Document Revised: 10/15/2018 Document Reviewed: 10/15/2018 [employer] Patient Education ? 2019 [employer] Viruses or Bacteria What?s got you [...] Disease Control and Prevention May 2014 Normal [facility] ED Clinical Summaryon 2019 ED Clinical Summary [facility] - Emergency Department [address] [place] [address] ED Clinical Summary PERSON INFORMATION Name: FOREST MAI Age: 29 Years Sex: FEMALE : 1990 MRN: Acct#: Visit Reason: Cough; COUGH, DIFFICULTY BREATHING Arrival: 10/30/2019 17:21:00 Discharge: 10/30/2019 17:55:00 LOS: 000 00:34 Check In: 10/30/2019 17:21:00 Checkout:10/30/2019 17:55:00 Address: [facility] [address] [place] [address] PCP: Abdulkadir Cummings CNP PROVIDER INFORMATION Provider [...] Home PATIENT EDUCATION INFORMATION Instructions: Influenza, Adult, Zzlz-na-Rugq Follow-Up: With: Address: When: Abdulkadir Cummings [address] [place] [phone] [facility] ([place] Within 5 to 7 days Comments: Reviewed discharge care instruction. Continue with therapy as outlined by Dr. Mayo. Contact your family doctor or PCP within the recommended time. Alternatively, you are not able to follow with your family doctor, you may try the Urgent Care center @ [facility]. Return to ER for any worsening symptoms especially any symptom that concerns you. DIAGNOSIS: Influenza-like illness Patient Understands: Yes - Patient/family/caregiv er verbalizes understanding of instructions given Comment: [facility] ED Note - Physicianon 2019 ED Note [...] follow-up Impression and Plan Diagnosis Influenza-like illness ([id number] R69, Discharge, Medical) Plan Condition: Stable. Disposition: Discharged: Time 10/30/2019 17:45:00, to home. Patient was given the following educational materials: Influenza, Adult, Nvsp-vd-Ffkj, Influenza, Adult, Hxxk-kd-Jago. Follow up with: Abdulkadir Cummings Within 5 to 7 days Reviewed discharge care instruction. Continue with therapy as outlined by Dr. Mayo. Contact your family doctor or PCP within the recommended time. Alternatively, you are not able to follow with your family doctor, you may try the Urgent Care center @ [facility]. Return to ER for any worsening symptoms especially any symptom that concerns you. . Counseled: Patient, Regarding diagnosis, Regarding treatment plan, Patient indicated understanding of instructions. [Electronically Signed on: 10/30/2019 18:20 EST] Ian Mayo MD [Verified on: 10/30/2019 18:20 EST] Ian Mayo MD [facility] ED Note-Nursingon 10-30-2019 ED Note-Nursing Patient [facility] to [facility] ED via private vehicle. Ambulated with a steady gait to room 7. Alert and oriented X4. C/O cough, chest pain, and headache that started last night. Patients children recently got over the flu. Patient states that she feels exhausted and that it hurts to breath. [facility] ED Patient Education Noteon 10-30-2019 ED Patient [...] better. Your doctor may suggest: ? Taking javv-xck-coxeiwt medicines. ? Drinking plenty of fluids. The [...] ? Low-calorie sports drinks. ? Eat bland, lpoy-cx-mllzlg foods in small amounts as you are able. These foods include: ? Bananas. ? Applesauce. ? Rice. ? Lean meats. ? [place]. ? Crackers. ? Do not eat or drink: ? Fluids that have a lot of sugar or caffeine. ? Alcohol. ? Spicy or fatty foods. General instructions ? Take tfms-fvj-oxkpfpk and prescription medicines only as told by [...] use soap and water, use alcohol-based hand e commerce analyst. ? Keep all follow-up visits as told [...] is caused by a virus. ? Take gwrj-hed-yovavhr and prescription medicines only as told by your doctor. ? Getting a flu shot every year is the best way to avoid getting the flu. This information is not intended to replace advice given to you by your health care provider. Make sure you discuss any questions you have with your health care provider. Document Released: 06/13/2009 Document Revised: 02/20/2019 Document Reviewed: 02/20/2019 [employer] Interactive Patient Education ? 2018 [employer]. Normal [facility] ED Patient Summaryon 020 ED Patient Summary [facility] - Emergency Department [address] [place], [place] [id number] PATIENT DISCHARGE INSTRUCTIONS Patient Information Name: FOREST MAI Age: 29 Years Date of : 1990 Reason For Visit: Cough; COUGH, DIFFICULTY BREATHING Arrival Time: 10/30/2019 17:21:00 Primary Care Physician: Abdulkadir Cummings CNP Attending Physician: Ian Mayo MD Comment: Visit Diagnosis: Diagnoses This Visit Cough ([id number]) Influenza-like illness (R69) Prescription Information: If you have been given a prescription for narcotics, seek immediate medical attention if you have any difficulty breathing or any sudden status changes such as confusion and sleepiness. If you or anyone you know is experiencing suicidal thoughts, mental health, alcohol and/or drug addiction problems; contact the [facility] 10/04 Crisis Hotline -Text 3POLJ ff 798476. If you received any narcotics, sedation, or [...] legal documents With: Address: When: Abdulkadir Cummings [address] [place] [phone] Business (1) Within 5 to 7 days Comments: Reviewed discharge care instruction. Continue with therapy as outlined by Dr. Mayo. Contact your family doctor or PCP within the recommended time. Alternatively, you are not able to follow with your family doctor, you may try the Urgent Care center @ [facility]. Return to ER for any worsening symptoms especially any symptom that concerns you. Medication Information: The exam and treatment you received today in the [facility] Emergency Department were for an urgent problem and are not intended as complete care. It is important for you to follow up with a doctor, nurse practitioner, or physician?s orthodontic technician assistant for ongoing care. If your symptoms [...] so we can reach you if necessary. [facility] Emergency Department has provided you with a complete list of medications post discharge. Please inform your multiple cut off saw operator/provider of your visit and for further instruction [...] better. Your doctor may suggest: ? Taking uaou-xpy-ktbdlqc medicines. ? Drinking plenty of fluids. The [...] ? Low-calorie sports drinks. ? Eat bland, ahcg-fk-pxmlmw foods in small amounts as you are able. These foods include: ? Bananas. ? Applesauce. ? Rice. ? Lean meats. ? [place]. ? Crackers. ? Do not eat or drink: ? Fluids that have a lot of sugar or caffeine. ? Alcohol. ? Spicy or fatty foods. General instructions ? Take rfal-mru-rgzkcsh and prescription medicines only as told by [...] use soap and water, use alcohol-based hand e commerce analyst. ? Keep all follow-up visits as told [...] is caused by a virus. ? Take nkzs-hok-kspijjm and prescription medicines only as told by your doctor. ? Getting a flu shot every year is the best way to avoid getting the flu. This information is not intended to replace advice given to you by your health care provider. Make sure you discuss any questions you have with your health care provider. Document Released: 06/13/2009 Document Revised: 02/20/2019 Document Reviewed: 02/20/2019 [employer] Interactive Patient Education ? 2019 [employer] Viruses or Bacteria What?s got you [...] Control and Prevention May 2014 [facility] Coding Summaryon 04-29-2019 Coding Summary CODING DATE: 04/29/2019 [facility] STATUS: Home PAYOR: Medicaid HMO ADMIT DX: [...] Date Saved: 04/29/2019 08:01 am [facility] Flu A/B Ag Detectionon 11-18 Flu A/B Ag Detection Specimen Description .NASOPHARYNGEAL SWAB Special Requests NOT REPORTED Direct Exam PRESUMPTIVE NEGATIVE for Influenza A + B antigens. PCR testing to confirm this result is available upon request. Specimen will be saved in the laboratory for 7 days. Please call [phone] if PCR testing is indicated. Report Status FINAL 11/18/2018 [facility] Comment on above: Performed By: #### F LUAD #### [facility] [address] [place] [address] Refining Equipment Operator: Kj Nuñez MD XR CHEST (2 VW)on [...] Johnathan Torres MD 11/18/18 Final result Normal [facility] Cult,Urine,CCon 11-25-2017 Cult,Urine,CC Specimen Description .CLEAN CATCH URINE Performed at [facility] [place], [address] [place] [address] Special Requests NOT REPORTED Culture NO SIGNIFICANT GROWTH Report Status FINAL 11/25/2017 Normal [facility] Comment on above: Performed By: #### C CATINA #### [facility] [employer] [address] [place] [address] Flu A/B Ag Detectionon 11-24 Flu A/B Ag Detection Specimen Description .NASOPHARYNGEAL SWAB Special Requests NOT REPORTED Direct Exam PRESUMPTIVE NEGATIVE for Influenza A + B antigens. PCR testing to confirm this result is available upon request. Specimen will be saved in the laboratory for 7 days. Please call [phone] if PCR testing is indicated. Performed at [facility], [address] [place] [address] Report Status FINAL 11/24/2017 Normal [facility] Strep Gr A Direct Agon 11-24 Strep Gr A Direct Ag Specimen Description .THROAT Special Requests NOT REPORTED Direct Exam POSITIVE for Group A Streptococci Performed at [facility], [address] [place] [address] Report Status FINAL 11/24/2017 Normal [facility] UA w/Reflex Cultureon 2017 Acetoacetic Acid,Ur Negative Normal NEG [facility] Bilirubin.direct mass conc Negative Normal NEG [facility] Color Nom (U) YELLOW Normal YEL [facility] Glucose mass conc Negative Normal NEG [facility] Hemoglobin mass conc (Bld) TRACE Abnormal NEG [facility] Leuckocyte Esterase LARGE Abnormal NEG [facility] Comment on above: Result Comment: Perf ormed at [facility], [address] [place] [id number] Nitrite,Ur Negative Normal NEG [facility] PH,Ur 7.5 Normal 5.0-8.0 [facility] Protein mass conc Negative Normal NEG [facility] Spec. [place]ye,Ur 1.020 Normal 1.005-1.030 [facility] Turbidity CLOUDY Abnormal CLEAR [facility] Urobilinogen,Ur Normal Normal NORM [facility] Comment NOT REPORTED Normal [facility] Urinalysis,Microon 8 ----- Normal [facility] Bacteria LM.HPF #/area (Urine sed) FEW Abnormal NONE [facility] Epithelial cells LM.HPF #/area (Urine sed) 20 TO 50 Normal 0-5 [facility] Other Observations Culture ordered base d on defined criteria. Abnormal NREQ [facility] Comment on above: Result Comment: Perf ormed at [facility], [address] [place] [address] RBC #/vol (U) 0 TO 2 Normal 0-2 [facility] WBC #/vol (U) 5 TO 10 Normal 0-5 [facility] Amorphous sediment LM Ql (Urine sed) NOT REPORTED Normal NONE [facility] Casts LM.LPF #/area (Urine sed) NOT REPORTED Normal [facility] Crystals LM Nom (Urine sed) NOT REPORTED Normal NONE [facility] Epithelial, Renal NOT REPORTED Normal 0 [facility] Mucus Strands NOT REPORTED Normal NONE [facility] Trichomonas NOT REPORTED Normal NONE [facility] Yeast LM Ql (Urine sed) NOT REPORTED Normal NONE [facility] Vital Signs Date Time Vital Sign Value Performing Clinician Facility 12-28-2022 19:15-0400 Body height 160.02 cm Mary Jane Madison Other [facility] Other 12-28-2022 19:15-0400 Body mass index (BMI) [Ratio] 53.14 kg/m2 Mary Jane Madison Other [facility] Other 12-28-2022 19:15-0400 Body temperature 100.1 [degF] Mary Jane Madison Other [facility] Other 12-28-2022 19:15-0400 Body weight 136.08 kg Mary Jane Madison Other [facility] Other 12-28-2022 19:15-0400 Respiratory rate 18 /min Mary Jane Madison Other [facility] Other 12-28-2022 19:15-0400 SaO2% (BldA) [Mass fraction] 99 % Mary Jane Madison Other [facility] Other 12-12-2022 16:05-0400 Body height Mata De La Vega Other [facility] Other 12-12-2022 16:05-0400 Body mass index (BMI) [Ratio] 54.86 kg/m2 Mata De La Vega Other [facility] Other 12-12-2022 16:05-0400 Body temperature 98.3 [degF] Mata Ceferino Other [facility] Other 12-12-2022 16:05-0400 Body weight 136.08 kg Mata Ceferino Other [facility] Other 12-12-2022 16:05-0400 Respiratory rate 20 /min Mata Ceferino Other [facility] Other 12-12-2022 16:05-0400 SaO2% (BldA) [Mass fraction] 99 % Mata [place] Other [facility] Other Encounters Encounter Date Encounter Type Care Provider Facility Start: 06-06-2025 End: 06-06-2025 ambulatory [facility] Start: 04-08-2025 End: 04-09-2025 Emergency department patient visit Elham Denise [facility] Start: 09-25-2023 ambulatory Onofre Valdez acility:[facility] Start: 12-28-2022 End: 12-28-2022 ambulatory Mary Jane Madison Other [facility] Other Start: 12-28-2022 Office outpatient visit 15 minutes Mary Jane Madison [facility] Start: 12-12-2022 End: 12-12-2022 ambulatory Mata De La Vega Other [facility] Other Start: 12-12-2022 Office outpatient ne w 20 minutes Mata De La Vega [facility] Start: 12-02-2021 End: 01-25-[address] DOM ROQUE Facility: Start: 11-17-2021 End: 11-18-[address] DOM ROQUE Facility: Start: 11-18-2018 End: 11-18-2018 Emergency department patient visit ABDULKADIR Ma [facility] Start: 10-24-2018 End: 10-24-2018 Emergency department patient visit ABDULKADIR Ma [facility] Start: 11-24-2017 End: 11-24-2017 Emergency department patient visit ABDULKADIR Ma [facility] Procedures Date Procedure Procedure Detail Performing Clinician Start: 11-18-2018 Radiologic exam chest 2 views ABDULKADIR CUMMINGS Start: 11-18-2018 Iaadiadoo influenza ANNALEE CUMMINGS Start: 11-24-2017 Microscopic urinalysis ABDULKADIR CUMMINGS Start: 11-24-2017 UA W/REFLEX CULTURE ANNALEE CUMMINGS Start: 11-24-2017 URINE CULTURE CLEAN CATCH ABDULKADIR CUMMINGS Start: 11-24-2017 RAPID INFLUENZA A/B ANTIGENS ABDULKADIR CUMMINGS Start: 11-24-2017 STREP SCREEN GROUP A THROAT ABDULAKDIR CUMMINGS Payers Date Payer Category Payer Medicaid [id number] 2024 Unknown [id number] 2023 Self-pay 1990 Unknown [id number] 2.16.8 [id number] 1990 Unknown [id number] 2.16.8 [id number] 1990 Unknown [id number] 2.16.8 [id number] 1990 Unknown [id number] 2.16.84 [id number] 1990 Unknown [id number] 2.16.84 [id number] 1990 Unknown [id number] 2.16.84 [id number] 1990 Unknown [id number] 2.16.8 [id number] 1990 Unknown [id number] 2.16.8 [id number] 1990 Unknown [id number] 2.16.8 [id number] 1959 Unknown [id number] 1959 Unknown [id number] Medicaid [id number] 2. [id number] Social History Date Type Detail Facility Sex Assigned At [facility] Other Progress note 06-06-2025 Note Date & Type Note Facility 06-06-2025 Note [facility] Note Reason for cardiology consult: Chest pain Chief Complaint: Chest pain HPI: Forest Mai is a 34 y.o. female without prior cardiac history. She denies history of hypertension, hyperlipidemia or diabetes mellitus. In March went to ER in [place] for chest pain, she describes it as [...] did not go away totally but became head kiln operator and lasted altogether for many hours, trop normal, EKG normal, C X ray normal. She was advised to FU with cardiology Since then she got a few similar chest pain but brief lasting. She cannot connect them to eating the meals or drinking anything. They are not related to activity. 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 She denies [...] history father had arrhythmia, paternal uncle had [place], paternal grandmother had CAD and CABG, on [...] help with that Patient was advised to (more content not included)... [facility] Clinical Note 04-09-2025 Note Date & Type [...] these instructions at home: Medicines ??? Take fsgq-qvf-xcsqtou and prescription medicines only as told by [...] Eating a heart-healthy diet. A diet and news content specialist (dietitian) can help you to learn healthy [...] provider. Document Revised: 07/20/2023 Document Reviewed: 07/20/2023 [employer] Patient Education ? 2023 [employer]. [facility] Evaluation note 12-28-2022 Note Date & [...] 3 days. Off work today and tomorrow [facility] Other Evaluation note 12-12-2022 Note Date & Type Note Facility 12-12-2022 Evaluation note Encounter Date Diagnosis Assessment Notes Nov, Infection of right breast (ICD-10 - N61.0) Exam consistent with mild infection of the breast. Apply warm compresses for 15 minutes 4 times a day for 5 days. Go to the ER if you develop a fever or redness in your breast. [facility] Other History general Narrative - Reported Note Date & Type Note Facility History general Narrative - Reported Type Medical History chronic depression [facility] Other Summary Purpose Family History No Family [...] section and content) DATE CREATED AUTHOR 11/19/2018 [facility] DATE CREATED AUTHOR AUTHOR'S ORGANIZ ATION 04/27/2020 [facility] DATE CREATED AUTHOR AUTHOR'S ORGANIZ ATION 04/21/2022 [facility] DATE CREATED AUTHOR AUTHOR'S ORGANIZ ATION 12/06/2023 [facility] DATE CREATED AUTHOR AUTHOR'S ORGANIZ ATION 04/10/2025 [place] [place] [facility] DATE CREATED AUTHOR AUTHOR'S ORGANIZ ATION 04/12/2025 Mcintyre Tyrel [facility] DATE CREATED AUTHOR AUTHOR'S ORGANIZ ATION 06/08/2025 [facility] REASON FOR VISIT (unrecogniz ed section and [...] BE BASED ON THE PRIMARY CLINICAL RECORDS. [employer] provides no warranty or guarantee of the accuracy or completeness of information in this document.
--- NOTE | 2025-06-12 08:44 | PC.NURSE ---
Nursing Note Cardiac Stress Test Reviewed: Medication, allergies and patient history reviewed. Stress Test: [x ] Patient tolerated stress test well. [ ] Patient unable to tolerate walking on treadmill. Switched to Lexiscan stress test. [x ] No chest pain noted per patient [ ] Chest pain that resolved prior to leaving stress lab. [ ] No dyspnea noted. [ x] Dyspnea that resolved prior to leaving stress lab. [ x] Patient left stress lab asymptomatic and hemodynamically stable. [ ] Patient taken to the Emergency Room due to non-resolving symptoms following stress test. [x ] Patient achieved target heart rate. [ ] Patient unable to achieve target heart rate. [ ] Aminophylline administered as reversal agent to Lexiscan (Regadenoson). [ ] Nitro administered. Nursing Comments:
--- NOTE | 2025-06-12 12:38 | P.STRESS_ITS ---
Stress Test Stress Test Requesting physician: Wilberto Kovacs Procedure: Treadmill EKG stress test General Information: Reason for Stress Test: [Chest pain] Cardiac History and Risk Factors: [No risk factors] Resting 12 - Lead Electrocardiogram: The resting twelve-lead EKG showed sinus rhythm, heart rate 86 bpm, poor R progression in V1-V4, no T or ST changes. Resting blood pressure 128/90 mmHg Patient was exercised according to standard Ronen protocol and she was able to finish 6 minutes and 3 seconds of exercise consistent with the end of stage II achieving max METS of 7 and max heart rate of 173 bpm which represents 93% of age. Maximum heart rate and peak blood pressure of 196/100 mmHg. Exercise was terminated secondary to achievement of target heart rate. She was short of br eath at peak exercise. The patient did not experience any chest, neck, jaw, or arm discomfort throughout the test. Patient was monitored for a 6 minutes and 40 seconds into recovery phase with heart rate back to 100 bpm and blood pressure down to 136/92 mmHg. EKG during exercise, at peak exercise, and during recovery phase did not show any significant T or ST changes or any arrhythmias Stress Test: Protocol: [Ronen] Exercise Capacity: [Good] Blood Pressure Response: [Normal] Rhythm: [No arrhythmia] ST - Response: [No ST changes] Patient Response: [Normal] Interpretation: Maximal stress test Appropriate heart rate and blood pressure response to exercise Good exercise tolerance This stress test is negative for exercise-induced ischemic symptoms, EKG changes, or arrhythmias Wilberto Kovacs MD, FACC
== END 2025-06-12 07:56 | disposition home or self-care (01) ==
LOC: CARD 07:55
PROVIDERS: PCP Nurse Practitioner Family; Visit Provider Internal Medicine Cardiovascular Disease
DX: R07.89 Other chest pain (principal); R06.02 Shortness of breath
CPT/HCPCS: 93017

== ENCOUNTER 2025-06-16 07:54 | Outpatient (OUT) | payer BC, SELFPAY ==
--- OUTSIDE RECORDS SUMMARY | 2025-06-06 09:40 | XMS_ITS | Encounter Summary ---
Author Organization [facility] Address [address] [place] [address] Care Team Providers Care Shactor Helper Name Role Phone Mary Jane Angel JOYCELYN Primary Care Provider [phone] Reason for Referral * Imaging (Routine) - Pending Review Specialty Diagnoses / Procedures Referred By Pita connell Referred To Contact Cardiology Diagnoses Other chest pain Shortness of breath Procedures Transthoracic echo (TTE) complete Wilberto Kovacs MD [address] [facility] [id number]:[place] [address] Phone: tel: fax: Referral ID Status Reason Start Date Expiration Date Visits Requested Visits Authorized [id number] Pending Review Perform Procedure 06/06/2025 06/06/2026 1 1 Reason for Visit * Reason Comments New Patient Patient is here toda y to establish care with cardiology for chest pain. Patient denies cardiac complaints at this time Chest Pain Seen at 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 Encounter Details Date Type Department Care Team (Late st Contact Info) Description 06/06/2025 9:40 AM EDT Office Visit [facility] [address] [place] [address] Wilberto Kovacs MD [address] [facility] [id number]:[place] [address] Other chest pain (Primary Dx); Shortness of breath; Morbid obesity with BMI of 45.0-49.9, adult (CMS/HCC); Obstructive sleep apnea Social History Tobacco Use Types Packs/Day Years Used Date Smoking Tobacco: Former Cigarettes Smokeless Tobacco: Never Tobacco Cessation:Counseling Given: Not Answered Alcohol Use Standard Drinks/Week Comments Yes 0 (1 standard drink = 0.6 oz pur e alcohol) Occasional Comments Unknown Sex and Gender Information Value Date Recorded Sex Assigned at Female 05/29/2025 3:27 PM EDT Legal Sex Female 10:33 AM EDT Gender Identity Female 05/29/2025 3:27 PM EDT Sexual Orientation Heterosexual or Straight 05/19 3:27 PM EDT documented as of this encounter Last Filed Vital Signs Vital Sign Reading Time Taken Comments Blood Pressure 129/85 06/06/2025 9:48 AM EDT Pulse 96 06/06/2025 9:48 AM EDT Temperature - - Respiratory Rate - - Oxygen Saturation 97% 06/06/2025 9:48 AM EDT Inhaled Oxygen Concentration - - Weight 146 kg (322 lb) 06/06/2025 9:48 AM EDT Height 157.5 cm (5' 2 ) 06/06/2025 9:48 AM EDT Body Mass Index 58.89 06/06/2025 9:48 AM EDT documented in this encounter Progress Notes * Wilberto Kovacs MD - 06/06/2025 9:40 AM EDT Images from the original note were not included. [facility] Note Reason for cardiology consult: Chest pain Chief Complaint: Chest pain HPI: Charity Veliz is a 34 y.o. female without prior cardiac history. She denies history of hypertension, hyperlipidemia or diabetes mellitus. In March went to ER in [place] for chest pain, she describes it as very sharp pain between the breaststo the upper gastric area. 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 She was advised to FU with cardiology Since then she got a few similar chest pain but brief lasting. She cannot connect them to eating the meals or drinking anything. They are not related to activity. 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 She denies chest discomfort with exertion. She admits exertional dyspnea but she attributes it to overweight and deconditioning. She started to try to walk as much as possible. She denies orthopnea or paroxysmal nocturnal dyspnea or dizziness or palpitations or legs edema. She reports that she wake up during the night multiple times and she does not know why. She was diagnosed recently with sleep apnea however she did not get the mask yet Tried Adipex in the past to lose weight however it did not work She smoked lightly for about 5 years and not since. She denies alcohol or illicit drugs Regarding family history father had arrhythmia, paternal uncle had WA, paternal grandmother had CADand CABG, on the mother side there is history of diabetes Cardiology ROS: GENERAL: Denies fever, chills, night sweats, weight loss. HEENT: Denies changes in vision, photophobia, changes in hearing, epistaxis, oral bleeding. CARDIOVASCULAR: She reports chest pain, and exertional dyspnea as described above, she denies orthopnea/PND, lower extremity edema, palpitations, lightheadedness/dizziness. RESPIRATORY: Denies SOB, coughing, wheezing GI: Denies abdominal pain, nausea/vomiting, heartburn, melena/hematochezia. RENAL: Denies dysuria, hematuria, flank pain. MSK: Denies muscle weakness/pain, arthralgias/joint pain. NEUROLOGIC: Denies LOC, weakness, numbness, headaches. SKIN: Denies abnormal rashes or bleeding. PSYCH: Denies significant anxiety, depression, sleep disturbances. Past Medical History She has a past medical history of Anxiety, Depression, and Vitamin D deficiency. Surgical History She has no past surgical history on file. Social History She reports that she has quit smoking. Her smoking use included cigarettes. She has never used smokeless tobacco. She reports current alcohol use. No history on file for drug use. Family History Family History[1] Allergies Patient has no known allergies. Medications Current Medications[2] Last Recorded Vitals Visit Vitals BP 129/85 (BP Location: Right arm, Patient Position: Sitting) Pulse 96 Ht 1.575 m (5' 2 ) Wt (!) 146 kg (322 lb) SpO2 97% BMI 58.89 kg/m?? Smoking Status Former BSA 2.53 m?? Physical Examination: GENERAL: alert and oriented x3, well developed, in no acute distress. HEAD: atraumatic, normocephalic. EYES: KEN, EOMI. NECK: trachea midline, no JVD present, no carotid bruits present. CARDIAC: S1, S2 present. RRR. No murmur, rubs, or gallops. RESPIRATORY: CTAB, no increased effort of breathing, no rales, rhonchi, or wheezing. ABDOMEN: soft, nontender, nondistended. EXTREMITIES: no lower extremity edema, peripheral pulses are 2+ bilaterally. No rash/skin discoloration present. NEURO: strength/sensation equal and symmetric in bilateral upper and lower extremities. PSYCH: appropriate mood, affect, and judgement. Labs: 04/18/2025 White blood count 8.3, hemoglobin 12.8, hematocrit 37.9, platelet 278 Sodium 140, potassium 3.6, BUN 14, creatinine 0.67, GFR above 60, glucose 99, calcium 9 HbA1c 5.2% Total bilirubin 0.4, AST 28, ALT 51, alk phos 115, total protein 7.8, albumin 3.2 Triglyceride 52, cholesterol 184, LDL 99, HDL 75 Vitamin D 20.8 TSH 1.43, free T47.3 And free T32.5 Last Images: EKG 04/08/2025 NSR, RSR', normal EKG === 04/11/25 === XR CHEST 2 VIEWS No evidence of active chest disease Assessment and Plan: Chest pain Dyspnea on exertion Morbid obesity, BMI 58.9 kg/m?? Sleep apnea, did not get CPAP yet VD defficiency Depression Plan: Obtain an echo to evaluate cardiac and valvular function Treadmill stress test to evaluate for ischemia Patient was advised regarding the importance of losing weight. She was advised to discuss with her PCP if can use medication such as Ozempic to help with that Patient was advised to follow low-calorie low-carb diet and exercise in order to lose weight Follow-up in 4 to 6 weeks Wilberto Kovacs MD,FACC [1] Family History Problem Relation Name Age of Onset Coronary artery disease Paternal Grandmother [2] Current Outpatient Medications: buPROPion XL (Wellbutrin XL) 150 mg 24 hr tablet, Take 150 mg by mouth in the morning., Disp: , Rfl: cetirizine (ZyrTEC) 10 mg tablet, Take 10 mg by mouth in the morning., Disp: , Rfl: cholecalciferol, vitamin D3, 50 mcg (2,000 unit) capsule, Take 1 capsule by mouth in the morning., Disp: , Rfl: venlafaxine XR (Effexor-XR) 150 mg 24 hr capsule, Take 150 mg by mouth in the morning., Disp: , Rfl: documented in this encounter Plan of Treatment Upcoming Encounters Date Type Department Care Team (Late st Contact Info) Description 07/25/2025 9:40 AM EST Office Visit [facility] [address] [place] [id number] Wilberto Kovacs MD [address] [place] [address] [address] [place] [address] Scheduled Orders Name Type Priority Associated Diagnoses Order Schedule Transthoracic echo (TTE) complete Echocardiography Routine Other chest pain Shortness of breath Expected: 06/06/2025 (Approximate), Expires: 06/06/2027 Routine Stress (Treadmill Only) Cardiac Services Routine Other chest pain Shortness of breath Expected: 06/06/2025 (Approximate), Expires: 06/06/2027 documented as of this encounter Visit Diagnoses Diagnosis Other chest pain- Primary Shortness of breath Morbid obesity with BMI of 45.0-49.9, adult (CMS/HCC) Obstructive sleep apnea Obstructive sleep apnea (adult) (pediatric) documented in this encounter Care Teams Shactor Helper Relationship Specialty Start Date End Date Mary Jane Angel CNP [facility], [facility] [place] [address] PCP - General Family Medicine 06/05/25 documented as of this encounter
--- OUTSIDE RECORDS SUMMARY | 2025-06-06 09:45 | XMS_ITS ---
Author Name Auto Generated Organization OHIP Care Team Providers Care Continuity Editor Name Role Phone SRIRAM KOVACS Attending Unavailable Elham Becerril Attending Unav ailable Elhma Becerril Attending Unav ailable PROBLEMS DATE TYPE CONDITION / CODE ATTENDING STATUS [facility] 06/06/2025 Admitting Diagnosis Other chest pain / R07.89(ICD-10) SRIRAM KOVACS Active [facility] 06/06/2025 Admitting Diagnosis Shortness of breath / R06.02(ICD-10) SRIRAM KOVACS Active [facility] PROCEDURES No Procedure Records Found RESULTS ORDERS ONLY Observed: 06/12/2025 12:00 AM Status: COMPLETED Source: [facility] [id number] Forest Mai 1990 F Date Provider Department Center 06/12/2025 [id number], HISTORICAL ALLAN Burris Family History Problem Relation Age of Onset Coronary artery disease Paternal Grandmother Family Status - Relation Status Age at Mother Alive Father Alive Paternal Grandmother OFFICE VISIT Observed: 06/06/2025 9:40 AM Status: COMPLETED Source: [facility] [id number] Forest Mai 0 1990 Provider Department Center 06/06/2025 [id number] KOVACS Family History Problem Relation Age of Onset Coronary artery disease Paternal Grandmother Family Status - Relation Status Age at Mother Alive Father Alive Paternal Grandmother Level of Service:66882 NE OFFICE/OUTPATIENT NEW LOW MDM 30 MINUTES Reason for Visit and Comments: New Patient [632] - Patient is here today to establish care with cardiology for chest pain. Patient denies cardiac complaints at this time Chest Pain [870293] - Seen at [facility] ER for chest pain in March 2025 Leg Swelling [690161] - Patient states she is very sedentary and has a sit down job PROGRESS Observed: 06/06/2025 9:40 AM Status: COMPLETED Source: [facility] Office Cardiology Clinic Note Reason for cardiology consult: Chest pain Chief Complaint: Chest pain HPI: Forest Mai is a 34 y.o. female without prior cardiac history. She denies history of hypertension, hyperlipidemia or diabetes mellitus. In March went to ER in [place] for chest pain, she describes it as very sharp pain between the breasts to the upper gastric area. She was at work, she could not get comfortable therefore she went to the ER, but that did not help the pain on the route EMS gave her nitroglycerin and aspirin but that did not help her pain, she reports that she was given a pain medications through the IV in the ED and that helped her pain, it did not go away totally but became box finisher and lasted altogether for many hours, trop normal, EKG normal, C X ray normal. She was advised to FU with cardiology Since then she got a few similar chest pain but brief lasting. She cannot connect them to eating the meals or drinking anything. They are not related to activity. 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 She denies chest discomfort [...] history father had arrhythmia, paternal uncle had CA, paternal grandmother had CAD and CABG, on the mother side there is [...] kg (322 lb) SpO2 97% BMI 58.89 kg/m??? Smoking Status Former BSA 2.53 m??? Physical Examination: GENERAL: alert and oriented x3, [...] Dyspnea on exertion Morbid obesity, BMI 58.9 kg/m??? Sleep apnea, did not get CPAP yet [...] weight Follow-up in 4 to 6 weeks Sriram Kovacs MD,FACC [1] Family History Problem Relation Name Age of Onset Coronary artery disease Paternal Grandmother [2] Current Outpatient Medications: buPROPion XL (Wellbutrin XL) 150 mg 24 hr tablet, Take 150 mg by mouth in the morning., Disp: , Rfl:cetirizine (ZyrTEC) 10 mg tablet, Take 10 mg by mouth in the morning., Disp: , Rfl: cholecalciferol, vitamin D3, 50 mcg (2,000 unit) capsule, Take 1 capsule by mouth in the morning., Disp: , Rfl: venlafaxine XR (Effexor-XR) 150 mg 24 hr capsule, Take 150 mg by mouth in the morning., Disp: , Rfl: ABSTRACT Observed: 04/11/2025 12:00 AM Status: COMPLETED Source: [facility] [id number] Forest Mai 0 1990 Provider Department Center 04/11/2025 [facility] No family history on file ORDERS ONLY Observed: 04/11/2025 12:00 AM Status: COMPLETED Source: [facility] [id number] Forest Mai 0 1990 F Date Provider Department Center 04/11/2025 [id number], HISTORICAL BH CARD [facility] No family history on file ED PATIENT SUMMARY Observed: 04/09/2025 12:26 AM Status: C Source: [facility] ED Patient Summary [address] [address] Patient Discharge Instructions Person Information Name: FOREST MAI Age: 34 Years Arrival Date: 04/08/2025 21:05:21 Discharge Diagnosis: Nonspecific chest pain Primary Care Physician: JAYSHREE MARTINS CNP Provider Information Primary Provider: Advanced Template Cutter:Romy Saucedo PA-C The exam and treatment you received in the Emergency Department were for an urgent problem and are not intended as complete care. It is important that you follow up with a doctor, nurse practitioner, or physician???s assistant production editor for ongoing care. If your symptoms become worse or you do not improve as expected and you are unable to reach your usual health care provider, you should return to the Emergency Department. We are available 24 hours a day. FOREST MAI has been given the following list of patient education materials, prescriptions and follow-up instructions: Follow-up Instructions: With: Address: When: Deshaun Pa [address] [place] [phone] Lolly Wolly Doodle (1) In 3 days 04/12/2025 Comments: Call to schedule a follow-up appointment with cardiology. Return to the ED with any new or worsening symptoms. With: Address: When: JAYSHREE MARTINS [address] [address] [phone] Lolly Wolly Doodle (1) In 3 days In the event that this physician does not participate in your insurance network, please consult with your insurance company to find a nearby participating provider. Patient Education Materials: Nonspecific Chest Pain, Adult, Asso-du-Oapk A MESSAGE TO ALL PATIENTS REGARDING OPIOIDS PRESCRIPTION OPIOIDS: WHAT YOU NEED TO KNOW Prescription opioids can be used to help relieve xfsngzlg-la-rxkbfr pain and are often prescribed following a [...] following guidance from the Food and Drug Administration (www.fda.gov/Drugs/ResourcesForYou). ??? Visit www.cdc.gov/drugoverdose to learn about the risks of opioids abuse and overdose. ??? If you believe you may be struggling with addiction, tell your health director long term care and ask for guidance or call [facility]S [employer] Helpline at [phone]-HELP. v Source: US Department of Health and Human Services/Center for Disease Control & Prevention [facility] Medications Given: Medication Dose Route ketorolac 15.00 mg IV Push Left Antecubital Mckinnon Medication Information: Medications to Continue with No Changes Other Medications cetirizine (cetirizine 10 mg Tab) 1 Tablets By Mouth every day. citalopram (citalopram 20 mg Tab) 1 Tablets By Mouth every day. Comment: Patient Portal You may access all of your results and other medical record information on our secure patient portal. If you are not signed up for this yet, please contact [employer] at [phone] to get signed up today. CHRIS Award Nomination The CHRIS (Diseases Attacking the Immune SYstem) Award is an international recognition program that honors and celebrates the skillful, compassionate care nurses provide every day. Anyone who experiences or observes amazing care being provided by a nurse is encouraged to submit a nomination. To nominate your nurse, use your smart phone to scan the QR code below. Language Information Language assistance services are available as needed. You may receive a survey from [employer] asking you to rate your care experience. Your feedback is important and will help us understand what we do well and how we can improve the quality of care we provide to you, your loved ones and our community. It???s an honor to serve you. Thank you for choosing [facility] Patient Education Materials: Nonspecific Chest Pain Chest pain can be [...] these instructions at home: Medicines ??? Take akqr-tga-rhvicik and prescription medicines only as told by [...] Eating a heart-healthy diet. A diet and nutritionalist (dietitian) can help you to learn healthy [...] provider. Document Revised: 07/20/2023 Document Reviewed: 07/20/2023 [employer] Patient Education ? 2023 [employer] Bimal, FOREST MAI , have received the following patient education materials/instructions and have verbalized understanding: Patient Education Materials: Nonspecific Chest Pain, Adult, Bnnp-xj-Odbq Follow-up Instructions: With: Address: When: Deshaun Pa [address] [place] [address] [phone] Lolly Wolly Doodle (1) In 3 days 04/12/2025 Comments: Call to schedule a follow-up appointment with cardiology. Return to the ED with any new or worsening symptoms. With: Address: When: JAYSHREE MARTINS [address] [facility] [address] [phone] Lolly Wolly Doodle (1) In 3 days Patient Signature Date Clinician/Nurse Signature Date 04/09/2025 00:26:00 ED PATIENT EDUCATION NOTE Observed: 03/19 12:26 AM Status: C Source: [facility] ED Patient Education Note Gastroenterology Nonspecific Chest [...] these instructions at home: Medicines ??? Take xcqc-ezq-srqlrnm and prescription medicines only as told by [...] Eating a heart-healthy diet. A diet and nutritionalist (dietitian) can help you to learn healthy [...] provider. Document Revised: 07/20/2023 Document Reviewed: 07/20/2023 [employer] Patient Education ? 2023 [employer]. ED CLINICAL SUMMARY Observed: 04/09/2025 12:25 AM Status: C Source: [facility] ED Clinical Summary [address] [address] ED Clinical Summary Person Information Name: FOREST MAI Nayla/New_Brandon Age: 34 Years : 1990 Sex: Female Language: Lithuanian PCP: JAYSHREE MARTINS CNP Marital Status: Phone: [phone] Visit Id: Visit Reason: Chest pain; CP [...] 04/09/2025 00:25:55 04/09/2025 00:25:55 04/09/2025 00:25:55 ADDRESS: [address] [place] [phone] [facility] DOC NOTES: MEDICAL INFORMATION: Prescriptions Given: Medications to Continue with No Changes Other Medications cetirizine (cetirizine 10 mg Tab) 1 Tablets By Mouth every day. citalopram (citalopram 20 mg Tab) 1 Tablets By Mouth every day. PATIENT EDUCATION INFORMATION: Instructions: Nonspecific Chest Pain, Adult, Koxz-jn-Sjnp Follow up: With: Address: When: Deshaun Pa [address] [place] [phone] Business (1) In 3 days 04/12/2025 Comments: Call to schedule a follow-up appointment with cardiology. Return to the ED with any new or worsening symptoms. With: Address: When: JAYSHREE MARTINS [address] [place] [address] [phone] Business (1) In 3 days DIAGNOSIS: Nonspecific chest pain TROPONIN 1 HR. Collected: 11:22 PM Status: F Source: [facility] TYPE CODE TESTS RESULT OUT OF RANGE REFERENCE UNITS LAB [id number](LOINC) Troponin HS 3.90 Low 10.10-27.10 pg/mL Result Comment: The 95% CI ( Confidence Interval) PPV (Positive Predictive Value) for myocardial infarction in females is 38 pg/mL, in males 51 pg/mL. The results should be used in conjunction with clinical conditions of myocardial infarction. (Access High Sensitivity Troponin I Instructions For Use, [place], April 2018) Performed By: #### [id number] #### [facility] [address] [place] [address] XR CHEST 2 VIEWS Observed: 04/08/2025 9:34 PM Status: F Source: [facility] Exam Date/Time: 04/08/2025 21:44 EDT Reason for [...] Signed by: Juwan Salinas M.D. Transcribed by: BAL Technologist: TYRA EGFR Collected: 9:32 PM Status: F Source: [facility] TYPE CODE TESTS RESULT OUT OF RANGE REFERENCE UNITS LAB [id number](LOINC) eGFR 116 Normal >=59 mL/min/1 .7 3 m2 Performed By: #### [id number] #### [facility] [address] [place] [address] TROPONIN 0 HR. Collected: 9:32 PM Status: F Source: [facility] TYPE CODE TESTS RESULT OUT OF RANGE REFERENCE UNITS LAB [id number](LOINC) Troponin HS 2.50 Low 10.10-27.10 pg/mL Result Comment: The 95% CI ( Confidence Interval) PPV (Positive Predictive Value) for myocardial infarction in females is 38 pg/mL, in males 51 pg/mL. The results should be used in conjunction with clinical conditions of myocardial infarction. (Access High Sensitivity Troponin I Instructions For Use, [place], April 2018) Performed By: #### [id number] #### [facility] [address] [place] [address] CBC W/ AUTO DIFF Collected: 5 9:32 PM Status: F Source: [facility] TYPE CODE TESTS RESULT OUT OF RANGE REFERENCE UNITS LAB [id number](LOINC) WBC 9.6 Normal 4.0-11.0 E9/L LAB 96002022(LOINC) RBC 4.3 Normal 4.3-5.9 E12/L LAB 66574656(LOINC) HGB 13.4 Normal 12.0-16.0 gm/dL LAB 42972993(LOINC) Hct 38.4 Normal 34.0-46.0 % LAB 73921569(LOINC) RDW 13.6 Normal 10.9-14.2 % LAB 73260796(LOINC) MCH 31.1 Normal 27.0-34.0 pg LAB 44999083(LOINC) MCHC 34.9 Normal 31.4-36.0 gm/dL LAB 15972214(LOINC) MCV 89.0 Normal 80.0-100.0 fL LAB 33374745(LOINC) MPV 8.3 Normal 6.4-10.8 fL LAB 92447226(LOINC) Platelet 261.0 Normal 150.0-500.0 E9/ L LAB 50511325(LOINC) Neutro Auto 62.0 Normal 36.0-75.0 % LAB 15229022(LOINC) Lymph Auto 29.7 Normal 14.0-50.0 % LAB 35399952(LOINC) [place] Auto 5.5 Normal 4.0-14.0 % LAB 61501345(LOINC) Eos Auto 2.2 Normal 0.0-8.0 % LAB 29824592(LOINC) Basophil Auto 0.6 Normal 0.0-2.0 % LAB 51674166(LOINC) Neutro Absolute 5.9 Normal 2.0-7.5 E9/L LAB 41417594(LOINC) Lymph Absolute 2.8 Normal 1.0-4.0 E9/L LAB 94541340(LOINC) [place] Absolute 0.5 Normal 0.2-1.0 E9 /L LAB 62434148(LOINC) Eos Absolute 0.2 Normal 0.0-0.5 E9/ L LAB 26326000(LOINC) Basophil Absolute 0.1 Normal 0.0-0.2 E9/L Performed By: #### [id number] # ### [facility] [address] [place] [address] PT & PTT Collected: 5 9:32 PM Status: F Source: [facility] TYPE CODE TESTS RESULT OUT OF RANGE REFERENCE UNITS LAB 38334700(LOINC ) PT 9.9 Normal 9.4-12.5 second(s) Result Comment: 15 days - 4 weeks 1 - 5 months 6 -11 months 1-5 years 6-10 years 11 -17 years Mean: 11.2 (9.5-12.6) Mean: 11.0 (9.7-12.8) Mean: 11.0 (9.8-13.0) Mean: 11.3 (9.9-13.4) Mean: 11.7 (10.0-14.6) Mean: 11.8 (10.0 - 14.1) Pediatric Reference ranges were obtained from a study by Alexis Espinoza et al. prepared from 1437 samples obtained at 7 different centers using the same coagulation reagent and instrumentation as [facility]. Currently there are no coagulation studies available worldwide for children to 14 days, and no normal ranges. LAB [id number](LOINC ) PTT 28.1 Normal 25.1-36.5 second(s) Result Comment: Parameter 15 days - 4 weeks 1 - [...] the same coagulation reagent and instrumentation as [facility]. Currently there are no coagulation studies available worldwide for children to 14 days, and no normal ranges. Heparin therapeutic range (represented by Anti-Factor Xa activity of 0.2 - 0.4 U/mL) corresponds to PTT of 56.6 - 109.0 sec. LAB [id number]([facility] ) INR 0.89 Unknown Result Comment: INR results are specifically intended to assess patients stabilized on long-term Anticoagulation therapy suggested INR???s ???Less Intensive Anticoagulation??? 2.0 ??? 3.0 Conventional Range 3.0 ??? 4.5 Performed By: #### [id number] #### [facility] [address] [place] [address] [facility] Collected: 04/08/2025 9:32 PM Status: F Source: [facility] TYPE CODE TESTS RESULT OUT OF RANGE REFERENCE UNITS LAB 72069740(LOINC) Glucose Lvl 76 Normal 55-199 mg/d L LAB 70478658(LOINC) BUN 14 Normal 5-21 mg/dL LAB 2344404(LOINC) Creatinine 0.7 Normal 0.5-1.3 mg/dL LAB 38417082(LOINC) BUN/Creat Ratio 20 Normal 10-20 No Units LAB 25802237(LOINC) Calcium Lvl 9.2 Normal 8.9-11.1 mg/ dL LAB 72931192(LOINC) Sodium Lvl 137 Normal 135-145 mmol/ L LAB 22957006(LOINC) Potassium Lvl 4.1 Normal 3.5-5.3 mm ol/L LAB 35143124(LOINC) Chloride 103 Normal 101-111 mmol/L LAB 04307923(LOINC) CO2 26 Normal 21-31 mmol/L LAB 21476865(LOINC) AGAP 12 Normal 6-16 mEq/L Performed By: #### [id number] # ### [facility] [address] [place] [address] PRE-ARRIVAL NOTE Observed: 04/08/2025 9:05 PM Status: F Source: [facility] Pre-Arrival Note Pre-Arrival Summary Name: , [facility] Current Date: 04/08/2025 21:05:50 EDT Gender: Female Date of : Age: 34 Pre-Arrival Type: EMS ETA: 04/08/2025 20:58:00 EDT Primary Care Physician: Presenting Problem: Chest Pain Pre-Arrival User: Sarahy Collier RN Referring Source: Location: Completion Date/Time: 04/08/2025 20:58:00 [facility] Emergency Department Pre-Hospital Report Form Vital Signs: Pre-Hospital Report: Treatment in Route: Response to Treatment: Misc. Issues: ED NOTE-PHYSICIAN Observed: 04/08/2025 9:05 PM Status: F Source: [facility] ED Note-Physician Basic Information Time Seen: Sheryl DAVENPORT, Romy Craft. 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 She describes [...] (R07.9: Chest pain, unspecified) Orders: ketorolac, 15 mg = 1 mL, Injection, IV Push, Once, Stop date 04/08/25 22:48:00 EDT, STAT, Start date 04/08/25 22:48:00 EDT, 04/08/25 22:48:00 EDT Basic Metabolic Panel CBC w/ Auto Diff ED Cardiac Monitoring eGFR Extra SST Tube Oxygen Saturation Oxygen Therapy PT & PTT Saline Lock Insert Troponin 0 Hr. Troponin 1 Hr. Troponin 3 Hr. XR Chest 2 Views Medications Administered Given ketorolac 15 mg/mL Inj, 15 mg, IV Push Disposition Plan Patient Discharge Condition stable/improved Discharge Disposition home Discharge Prescription List Prescriptions No active prescription medications Follow-up With When Contact Information Deshaun Pa In 3 days 04/12/2025 EDT [address] [place] [address]- [phone] Business (1) Additional Instructions: Call to schedule a follow-up appointment with cardiology. Return to the ED with any new or worsening symptoms. JAYSHREE MARTINS In 3 days [address] [place] [phone] Business (1) Additional Instructions: Patient Education Nonspecific Chest Pain, Adult, Nzvp-lk-Cagx Attestation Patient seen and evaluated by the physician assistant production editor. Attending physician was present in the emergency department and supervised care. This visit was performed by both the physician and an APC. I performed all aspects of the MDM as documented. This report was transcribed using voice recognition software. Every effort was made to ensure accuracy, however, inadvertently computerized organizational development director mistakes may be present. I performed a substantive part of the MDM during the patient???s E/M visit. I personally made or approved the documented management plan and acknowledge its risk of complications. (Independent Interpretation) My (EKG/X-Ray/US/CT as applicable) interpretation as above. (Discussion) Management/test interpretation discussed with APC. Problem List/Past Medical History Ongoing Adjustment disorder Migraines Osteoarthritis Panic attacks Historical No qualifying data Procedure/Surgical History None. Medications Inpatient No active inpatient medications Home cetirizine 10 mg Tab, 10 mg= 1 tab(s), Oral, Daily citalopram 20 mg Tab, 20 mg= 1 tab(s), Oral, Daily Allergies No Known Allergies Lab Results WBC: 9.6 E9/L (04/08/25:32:00) RBC: 4.3 E12/L (04/08/25:32:00) HGB: 13.4 gm/dL (04/08/25:32:00) Hct: 38.4 % (04/08/25:32:00) MCV: 89 fL (04/08/25:32:00) MCH: 31.1 pg (04/08/25::00) MCHC: 34.9 gm/dL (04/08/25:32:00) RDW: 13.6 % (04/08/25::00) Platelet: 261 E9/L (04/08/25::) MPV: 8.3 fL (04/08/25:32:00) Neutro Auto: 62 % (04/08/25:32:00) Lymph Auto: 29.7 % (04/08/25:32:) [place] Auto: 5.5 % (04/08/25:32:00) Eos Auto: 2.2 % (04/08/25:32:00) Basophil Auto: 0.6 % (04/08/25::) Neutro Absolute: 5.9 E9/L (04/08/25:32:00) Lymph Absolute: 2.8 E9/L (04/08/25:32:00) [place] Absolute: 0.5 E9/L (04/08/25:32:00) Eos Absolute: 0.2 E9/L (04/08/25:32:00) Basophil Absolute: 0.1 E9/L (04/08/25:32:00) PT: 9.9 second(s) (04/08/25:32:00) INR: 0.89 (04/08/25:32:00) PTT: 28.1 second(s) (04/08/25:32:00) Glucose Lvl: 76 mg/dL (04/08/25:32:00) BUN: 14 mg/dL (04/08/25:32:00) Creatinine: 0.7 mg/dL (04/08/25:32:00) eGFR: 116 mL/min/1.73 m2 (04/08/25:32:00) BUN/Creat Ratio: 20 (04/08/25:32:00) Sodium Lvl: 137 mmol/L (04/08/25:32:00) Potassium Lvl: 4.1 mmol/L (04/08/25:32:00) Chloride: 103 mmol/L (04/08/25:32:00) CO2: 26 mmol/L (04/08/25:32:00) AGAP: 12 mEq/L (04/08/25:32:00) Calcium Lvl: 9.2 mg/dL (04/08/25:32:00) Troponin HS: 3.9 pg/mL Low (04/08/25 23:22:00) Diagnostic Results No qualifying data available. EKG Results SINUS RHYTHM The NE interval and QRS duration within normal limits. QTc is not prolonged. [place] is normal. Patient has evidence of a right bundle branch block. No evidence of ST segment elevation or depression suggestive of infarction or ischemia. Summary: Nonspecific EKG. Signed By: Elham Becerril D.O. 04/08/2025 23:53:55 Result Comment: Electronical ly Signed By: Romy Saucedo PA-C\.br\Date and Time Signed: 04/09/25 00:20 EDT\.br\Electronically Co-Signed By: Elham Becerril D.O.\.br\Date and Time Co-Signed: 04/09/25 03:26 EDT ALLERGIES DATE TYPE / CODE NAME / CODE REACTION SEVERITY SOURCE HILARIO/[id number]( SNOMED CT) NO KNOWN ALLERGIES [facility] /[id number](SNOMED CT) No Known Allergies [facility] ENCOUNTERS ADMIT/DISCHARGE ACCOUNT NUMBER ADMITTING ENCOUNTER CLASS LOCATION SOURCE 06/06/2025/ [id number] Ambulatory Building:[facility] 04/08/2025 [id number] [facility]12[facility]: CD:[id number] [facility] 04/08/2025 [id number] Emergency FTBuilding :EDRoom: ED-12Bed: CD:[phone] [facility] 04/08/2025/ [id number] Emergency FTBuilding :EDRoom: ED-12Bed: CD:[id number] [facility] PAYERS ENCOUNTER GUARANTOR PAYER SUBSCRIBER SOURCE 06/06/2025 Primary Insurance:[employer] BCBS OHIOPolicy Number: [id number] ve Date:2024-09-18 FOREST MAIDOB: [id number] [address] [facility] 04/08/2025 FOREST LAHANNAHDOB: [facility] [address] CTel: [id number]~~[phone] (HP) Primary Insurance:AnthemPol icy Number: [id number] ve Date:7990-11-74[address] [place] [phone]: FOREST Nichols [facility] 04/08/2025 FOREST MAIDOB: [facility] [address] CTel: [id number]~~[phone] (HP) Primary Insurance:MedicaidP olicy Number: [id number] Date:2025-04-08[address] [place] [phone]: FOREST Nichols [facility] 04/08/2025 FOREST MAIDOB: [facility] [address] CTel: [id number]~~[phone] (HP) Primary Insurance:AnthemPol icy Number: [id number] ve Date:9163-23-82CY [address] [place] [phone]: [facility] Magdalena [facility]
--- OUTSIDE RECORDS SUMMARY | 2025-06-16 07:56 | XMS_ITS | Encounter Summary ---
Author Organization [facility] Address [address] [place] [address] Care Team Providers Care Lock Operator Name Role Phone Mary Jane Angel CNP Primary Care Provider [phone] Encounter Details Date Type Department Care Team (Late st Contact Info) Description 06/15/2025 Results Follow-Up [address] [address] Wilberto Kovacs MD [address] [facility] [address] [place] [address] Routine Stress (Treadmill Only) Social History Tobacco Use Types Packs/Day Years Used Date Smoking Tobacco: Former Cigarettes Smokeless Tobacco: Never Alcohol Use Standard Drinks/Week Comments Yes 0 (1 standard drink = 0.6 oz pur e alcohol) Occasional Comments Unknown Sex and Gender Information Value Date Recorded Sex Assigned at Female 05/29/2025 3:27 PM EDT Legal Sex Female 10:33 AM EDT Gender Identity Female 05/29/2025 3:27 PM EDT Sexual Orientation Heterosexual or Straight 05/19 3:27 PM EDT documented as of this encounter Plan of Treatment Upcoming Encounters Date Type Department Care Team (Late st Contact Info) Description 07/25/2025 9:40 AM EST Office Visit [facility] [address] [place] [address] Wilberto Kovacs MD [address] [facility] [address] [place] [address] documented as of this encounter Visit Diagnoses Not on filedocumented in this encounter Care Teams Lock Operator Relationship Specialty Start Date End Date Mary Jane Angel CNP [address] [place] [address], [facility] [place] [id number] PCP - General Family Medicine 06/05/25 documented as of this encounter
--- OUTSIDE RECORDS SUMMARY | 2025-06-16 07:56 | XMS_ITS | Encounter Summary ---
Author Organization [facility] Address [address] [place] [address] Care Team Providers Care Skilled Nursing Case Manager Name Role Phone Mary Jane Angel CNP Primary Care Provider [phone] Encounter Details Date Type Department Care Team (Late st Contact Info) Description 06/12/2025 Orders Only [place] [address] [place] [address] Provider, MD Agustin [address] [place] [address] Social History Tobacco Use Types Packs/Day Years [...] Description 07/25/2025 9:40 AM EST Office Visit [facility] [address] [place] [address] Wilberto Kovacs MD [address] [place] [address] documented as of this encounter Procedures Procedure Name Priority Date/Time Associated Diagnosis Comments ROUTINE STRESS (TREADMILL ONLY) Routine 06/12/2025 12:55 PM EDT documented in this encounter Results * Routine Stress (Treadmill Only) (06/12/2025 12:55 PM EDT) Anatomical Region Laterality Modality Other us Historical Provider CV STRESS PROCEDURES Gabby l Result documented in this encounter Visit Diagnoses Not on filedocumented in this encounter Care Teams Skilled Nursing Case Manager Relationship Specialty Start Date End Date Mary Jane Angel CNP [address] [place] [address], [facility] [place] [address] PCP - General Family Medicine 06/05/25 documented as of this encounter
--- OUTSIDE RECORDS SUMMARY | 2025-06-16 07:56 | XMS_ITS | Patient Health Record ---
Author Organization [facility] Address [address] [place] [address] Care Team Providers Care Cattle And Wheat Farmer Name Role Phone Dr. Lenard Clarke Primary Care Provider [phone] Reason For Referral No Information Plan Of Treatment No Information Insurance Providers Payer Name Payer Address Payer Phone Subscriber Number Group Number Insured Name Patient Relationship to Insured Coverage Start Date Coverage End Date [facility] [address] [place] [address] [id number] FOREST MAI Self - patient is the insured 1 [employer] [place] [employer] Termin[employer] ed [address] [place] [address] [id number] FOREST MAI Self - patient is the insured 3 [employer] [place] BC[employer] Termed 20 24 [address] [place] [address] [phone] [id number] FOREST MAI Self - patient is the insured 3
--- OUTSIDE RECORDS SUMMARY | 2025-06-16 07:56 | XMS_ITS | Clinical Summary ---
Author Organization [facility] Address [address] [place] [address] Care Team Providers Care Gas Appliance Servicer Helper Name Role Phone Mary Jane Angel JOYCELYN Primary Care Provider [phone] Allergies No known active allergies Medications buPROPion XL (Wellbutrin XL) 150 mg 24 hr tablet Take 150 mg by mouth in the morning. 04/18/2025 Active cetirizine (ZyrTEC) 10 mg tablet Take 10 mg by mouth in the morning. 10/17/2019 Active cholecalciferol , vitamin D3, 50 mcg (2,000 unit) capsule Take 1 capsule by mouth in the morning. 05/18/2025 Active venlafaxine XR (Effexor-XR) 150 mg 24 hr capsule Take 150 mg by mouth in the morning. 04/18/2025 Active Active Problems Problem Noted Date Diagnosed Date Other chest pain 06/08/2025 Shortness of breath 06/08/2025 Obstructive sleep apnea 06/08/2025 Feeling grief 04/17/2019 Morbid obesity with BMI of 45.0-49.9, adult 08/18 Chronic headache 08/23/2016 Encounters Date Type Department Care Team Description 06/15/2025 Results Follow-Up [facility] [address] [place] [address] Wilberto Kovacs MD Routine Stress (Treadmill Only) 06/12/2025 Orders Only [facility] [address] [place] [address] ProviderAgustin MD 06/06/2025 9:40 AM EDT Office Visit [facility] [address] [facility] [place] [address] Wilberto Kovacs MD Other chest pain (Primary Dx); Shortness of breath; Morbid obesity with BMI of 45.0-49.9, adult (CMS/HCC); Obstructive sleep apnea 04/11/2025 Abstract [facility] [address] [facility] [place] [address] Marah Paige MA 04/11/2025 Orders Only [facility] [address] [facility] [place] [address] Provider, MD Agustin from Last 3 Months Family History Medical History Relation Name Comments Coronary artery disease Paternal Grandmother Relation Name Status Comments Father Alive Mother Alive Paternal Grandmother Social History Tobacco Use Types Packs/Day Years [...] Heterosexual or Straight 05/19 3:27 PM EDT Last Filed Vital Signs Vital Sign Reading [...] Mass Index 58.89 06/06/2025 9:48 AM EDT Plan of Treatment Upcoming Encounters Date Type Department Care Team (Late st Contact Info) Description 07/25/2025 9:40 AM EST Office Visit [facility] [address] [facility] [place] [address] Wilberto Kovacs MD [address] [place] [address] Health Maintenance Due Date Last Done Comments Depression Screening 2002 Varicella Vaccines (1 of 2 - 13+ 2-dose series) 2003 Hepatitis B Vaccines (1 of 3 - 19+ 3-dose series) 2009 Pap Smear 2011 Adult Tetanus 2012 Cervical Cancer Screening 2020 HPV/Cotest 2020 COVID-19 Vaccine ( - 2023-2 5 season) 2025 Influenza Vaccine (#1) 2025 Zoster Vaccines (1 of 2) 2040 HIB Vaccines Aged Out No longer eligi ble based on patient's age to complete this topic HPV Vaccines Aged Out No longer eligi ble based on patient's age to complete this topic IPV Vaccines Aged Out No longer eligi ble based on patient's age to complete this topic Meningococcal B Vaccine Aged Out No l onger eligible based on patient's age to complete this topic Meningococcal Vaccine Aged Out No rahat martínez eligible based on patient's age to complete this topic Pneumococcal Vaccine: Pediat rics (0 to 5 Years) and At-Risk Patients (6 to 64 Years) Aged Out No longer eligible b ased on patient's age to complete this topic Rotavirus Vaccines Aged Out No longer eligible based on patient's age to complete this topic Procedures Procedure Name Priority Date/Time Associated Diagnosis Comments ROUTINE STRESS (TREADMILL ONLY) Routine 06/12/2025 12:55 PM EDT ECG 12-LEAD Routine 04/11/2025 11:24 AM EDT XR CHEST 2 VIEWS Routine 04/11/2025 11:2 3 AM EDT CBC Routine 04/11/2025 11:21 AM EDT BASIC METABOLIC PANEL Routine 04/11/2025 11:21 AM EDT HIGH SENSITIVITY TROPONIN I Routine 04/11/2025 11:21 AM EDT from Last 3 Months Results * Routine Stress (Treadmill Only) (06/12/2025 12:55 PM EDT) Anatomical Region Laterality Modality Other Result [facility] Provider CV STRESS PROCEDURES Gabby l Result * ECG 12 lead (04/11/2025 11:24 AM EDT) Result [facility] Provider ECG ORDERABLES Final Res ult * XR chest 2 views (04/11/2025 11:23 AM EDT) Anatomical Region Laterality Modality Chest Computed Radiogr aphy Result [facility] Provider IMG XR PROCEDURES Final R esult * High Sensitivity Troponin I (04/11/2025 11:21 AM EDT) Blood Venous blood specimen / Unknown Result [facility] Provider LAB BLOOD ORDERABLES Gabby l Result * CBC (04/11/2025 11:21 AM EDT) Blood Venous blood specimen / Unknown Result [facility] Provider LAB BLOOD ORDERABLES Gabby l Result * Basic metabolic panel (04/11/2025 11:21 AM EDT) Blood Venous blood specimen / Unknown Result [facility] Provider LAB BLOOD ORDERABLES Gabby l Result from Last 3 Months Insurance Care Teams Gas Appliance Servicer Helper Relationship Specialty Start Date End Date Mary Jane Angel CNP [address] [place] [address], [facility] [address] PCP - General Family Medicine 06/05/25
--- OUTSIDE RECORDS SUMMARY | 2025-06-16 07:57 | XMS_ITS | Encounter Summary ---
Demographics Address [address] [place] [address] Mobile Phone Home Phone Email Address Preferred Language Occitan Marital Status Single Hindu Affiliation Unknown Race White Ethnic Group Not or Lati no Author Organization [employer] Address [id number] [address] [place] [address] Care Team Providers Care Retrieval Specialist Name Role Phone Codie Nolasco APRN-LEG MAN Primary Care Provider Encounter Details Date Type Department Care Team (Late st Contact Info) Description 08/12/2020 Telephone [facility] [phone] Laly Segovia CMA Social History Tobacco Use Types Packs/Day Years Used Date Smoking Tobacco: Never Smokeless Tobacco: Never Alcohol Use Standard Drinks/Week Comments Yes 0 (1 standard drink = 0.6 oz pur e alcohol) PHQ-2 Answer Date Recorded Total Score 0 08/10/2020 Childcare Answer Date Recorded Childcare Unknown 02/26/2019 Employment Answer Date Recorded Employment Unknown 02/26/2019 Comments No Sex and Gender Information Value Date Recorded Sex Assigned at Not on file Legal Sex Female 9:16 PM EDT Gender Identity Not on file Sexual Orientation Not on file COVID-19 Exposure Response Date Recorded In the last month, have you been in contact with someone who was confirmed or suspected to have Coronavirus / COVID-19? Yes 08/10/2020 7:36 AM EST documented as of this encounter Plan of Treatment Not on file documented as of this encounter Visit Diagnoses Not on filedocumented in this encounter Additional Health Concerns Infection Onset Date Last Indicated Resolved Time COVID-19 Positive 08/10/2020 08/10/2020 08/31/2020 11:14 PM EST Assessment Noted Time PHQ-9 Depression Total Score: 0 08/10/20 20 8:49 AM EST A Body Mass Index follow-up plan has been documented for the patient 05/16/2019 4:58 PM EDT documented as of this encounter Care Teams Retrieval Specialist Relationship Specialty Start Date End Date Codie Nolasco, ANESTHESIOLOGIST-LEG MAN [address] [place] [address] PCP - General Family Medicine 08/23/16 07/08/22 documented as of this encounter
--- OUTSIDE RECORDS SUMMARY | 2025-06-16 07:57 | XMS_ITS | Encounter Summary ---
Demographics Address [address] [place] [address] Mobile Phone Home Phone Email Address .CoolaData Preferred Language Upper Sorbian Marital Status Single Restorationism Affiliation Unknown Race White Ethnic Group Not or Lati no Author Organization [facility] Address [id number] [address] [place] [address] Care Team Providers Care Radiologic Technology Instructor Name Role Phone JaynaCodie turk Karie BRIM PLATER-INCISING MACHINE OPERATOR Primary Care Provider Reason for Visit * Reason Comments Med Refill Encounter Details Date Type Department Care Team (Late st Contact Info) Description 07/22/2019 [facility] [address] [place] [address] Arlin Cummings, [facility] [address] [place] [address] Headache disorder Social History Tobacco Use Types Packs/Day Years Used Date Smoking Tobacco: Never Smokeless Tobacco: Never Alcohol Use Standard Drinks/Week Comments Yes 0 (1 standard drink = 0.6 oz pur e alcohol) PHQ-2 Answer Date Recorded PHQ-2 Score 10 05/16/2019 Childcare Answer Date Recorded Childcare Unknown 02/26/2019 Employment Answer Date Recorded Employment Unknown 02/26/2019 Comments No Sex and Gender Information Value Date Recorded Sex Assigned at Not on file Legal Sex Female 9:16 PM EDT Gender Identity Not on file Sexual Orientation Not on file documented as of this encounter Plan of Treatment Not on file documented as of this encounter Visit Diagnoses Diagnosis Headache disorder Headache documented in this encounter Additional Health Concerns Infection Onset Date Last Indicated Resolved Time COVID-19 Rule-Out 08/10/2020 08/10/2020 08/10/2020 8:21 PM EST COVID-19 Positive 08/10/2020 08/10/2020 08/31/2020 11:14 PM EST Assessment Noted Time PHQ-9 Depression Total Score: 10 019 4:00 PM EDT A Body Mass Index follow-up plan has been documented for the patient 05/16/2019 4:58 PM EDT documented as of this encounter Care Teams Radiologic Technology Instructor Relationship Specialty Start Date End Date Codie Nolasco, BRIM PLATER-INCISING MACHINE OPERATOR [address] [place] [address] PCP - General Family Medicine 08/23/16 07/08/22 documented as of this encounter
--- OUTSIDE RECORDS SUMMARY | 2025-06-16 07:57 | XMS_ITS | Clinical Summary ---
Demographics Address [address] [place] [address] Mobile Phone Home Phone Email Address Preferred Language Martiniquais Marital Status Single Nondenominational Affiliation Unknown Race White Ethnic Group Not or Lati no Author Organization [employer] Address [id number] [address] [place] [address] Care Team Providers Care Civilian Technician Name Role Phone Unavailable Primary Care Provider Unavailabl e Allergies No known active allergies Medications ibuprofen (ADVIL,MOTRIN) 600 mg tablet Take 600 mg by mouth every 6 (six) hours as needed. 0 10/24/2016 Active cholecalciferol, vitamin D3, 2,000 units tablet Take by mouth daily. Active kgetmmse-gvuz-EG -calcium &mins (THERAGRAN-M) 9 mg iron-400 mcg tablet Take 1 tablet by mouth daily. Active omega-3 fatty acids-fish oil (FISH OIL) 300-1,000 mg capsule Take 2 g by mouth daily. Active cranberry 400 mg capsule Take 400 mg by mouth daily. Active green tea leaf extract (GREEN TEA) capsule Take by mouth. Active cetirizine (ZyrTEC) 10 mg tabletIndication s:Seasonal allergic rhinitis due to pollen Take 1 tablet (10 mg total) by mouth daily. 90 tablet 3 10/17/2019 Active citalopram (CeleXA) 10 mg tabletIndication s:Anxiety Take 1 tablet (10 mg total) by mouth daily. 90 tablet 3 10/17/2019 Active Active Problems Problem Noted Date Diagnosed Date Feeling grief 04/17/2019 Morbid obesity with BMI of 45.0-49.9, adult 08/18 Chronic headache 08/23/2016 Resolved Problems Problem Noted Date Diagnosed Date Resolved Date Obesity 04/26/2017 04/17/2019 Encounter for routine checki ng of intrauterine contraceptive device 04/26/20172018 Depression 04/26/2017 01/09/2019 Atopic rhinitis 08/23/2016 01/09/2019 Benign essential hypertension 08/23/2016 06/19/2017 Sleep apnea 08/23/2016 01/31/2017 Movement disorder 08/23/2016 01/31/2017 Exposure to Mycobacterium tuberculosis 08/23/2016 01/09/2019 Family History Medical History Relation Name Comments Congenital heart disease Father Hyperlipidemia Father Colon cancer Maternal Grandfather Diabetes Maternal Grandfather Diabetes Maternal Grandmother Migraines Mother Relation Name Status Comments Father Maternal Grandfather Maternal Grandmother Mother Social History Tobacco Use Types Packs/Day Years Used Date Smoking Tobacco: Never Smokeless Tobacco: Never Tobacco Cessation:Counseling Given: Yes Alcohol Use Standard Drinks/Week Comments Yes 0 (1 standard drink = 0.6 oz pur e alcohol) PHQ-2 Answer Date Recorded Total Score 0 08/10/2020 Childcare Answer Date Recorded Childcare Unknown 02/26/2019 Employment Answer Date Recorded Employment Unknown 02/26/2019 Purpose - Life Answer Date Recorded Purpose and direction in life Unknown Comments No Sex and Gender Information Value Date Recorded Sex Assigned at Not on file Legal Sex Female 9:16 PM EDT Gender Identity Not on file Sexual Orientation Not on file Last Filed Vital Signs Vital Sign Reading Time Taken Comments Blood Pressure 110/72 05/13/2020 10:00 AM EDT Pulse 102 08/10/2020 8:59 AM EST Temperature 36.6 C (97.8 F) 08/10/2020 8:59 AM EST Respiratory Rate 18 08/10/2020 8:59 AM EST Oxygen Saturation 98% 08/10/2020 8:59 AM EST Inhaled Oxygen Concentration - - Weight 119.3 kg (263 lb) 05/13/2020 10:00 AM EDT Height 160 cm (5' 3 ) 05/13/2020 10:00 AM EDT Body Mass Index 46.59 05/13/2020 10:00 AM EDT Plan of Treatment Health Maintenance Due Date Last Done Comments Depression Screening 2002 Tobacco Screening 2002 Adult BMI Screening 2008 DTaP,Tdap and Td Vaccines (1 - Tdap) 2009 Pap Smear 05/13/2023 05/13/2020, 04/26/2017 Influenza Vaccine 05/19/2025 Medical Devices Not on file Procedures Procedure Name Priority Date/Time Associated Diagnosis Comments PAP SMEAR Routine 05/13/2020 4:43 PM EDT Encounter for gynecological examination from Last 3 Months or Most Recently Relevant to Health Maintenance Results * Pap Smear (05/13/2020 4:43 PM EDT) 05/13/2020 4:43 PM EDT 05/14/2020 4:43 PM EDT Narrative COPATH - 05/18/2020 8:39 AM EDT [facility] [address] [place] [address] Gynecologic Cytology Consultation Patient Name: FOREST VELIZ : 1990 (Age: 29) Gender: F Taken: 05/13/2020 Reported: 05/18/2020 Physician(s): Romy Balbuena DO ([phone]) Copy To: [facility]. Rec. #: [id number] Acct: # [id number] Final Cytologic Interpretation ThinPrep Pap Test (Cervical/Endocervical): Satisfactory for evaluation. A transformation zone component is present. NEGATIVE FOR INTRAEPITHELIAL LESION OR MALIGNANCY. Shift in kanika suggestive of bacterial vaginosis. jja/05/18/2020 Interpretation performed at [facility], [address] [place] [address], License number: [id number]. Electronically Signed Out By DENISHA Boyce(ASCP) Date of Last Menstrual Period: (None Given) Other Clinical Conditions: Z01.419 Crm Marketing Analyst exam wo/abn findings Source of Specimen ThinPrep Pap Test (Cervical/Endocervical) Thin Prep Pap (BREEDING MANAGER) Fee Code(s): G0145 The Pap test is a screening test with an inherent, but low, probability of error. The Pap test is primarily effective for the diagnosis and prevention of squamous cell carcinoma. Regular screening is critical for prevention. ThinPrep liquid-based slides, which meet the Java Mobile Developer criteria for automated screening, have been screened by the [employer] (as of 06/04/07) along with an additional manual rescreening by a package winder and, if indicated, by a pathologist. Romy M Esha DO PATHOLOGY/CYTOLOGY ORDERABLES F inal Result COPATH from Last 3 Months or Most Recently Relevant to Health Maintenance Insurance * Guarantor: Forest Veliz Account Type Relation to Patient Date of Phone Billing Address Personal/Family Self 1990 [address] [place] [address] [employer] - GENERIC PLAN [facility] MEDICAID
--- OUTSIDE RECORDS SUMMARY | 2025-06-16 07:57 | XMS_ITS | Encounter Summary ---
Demographics Address [address] [place] [address] Mobile Phone Home Phone Email Address Preferred Language Ukrainian Marital Status Single Tenriism Affiliation Unknown Race White Ethnic Group Not or Lati no Author Organization [employer] Address [facility] [place] [id number] [address] [place] [address] Care Team Providers Care Chucking And Sawing Machine Operator Name Role Phone Codie Nolasco APRN-DURABILITY TECHNICIAN Primary Care Provider Encounter Details Date Type Department Care Team (Late st Contact Info) Description 04/06/2017 Telephone [facility] [address] [place] [address] [address] [place] [address] Cathy Martel CMA Social History Tobacco Use Types Packs/Day Years Used Date Smoking Tobacco: Never Smokeless Tobacco: Never Alcohol Use Standard Drinks/Week Comments Yes 0 (1 standard drink = 0.6 oz pur e alcohol) Comments No Sex and Gender Information Value [...] Noted Time PHQ-9 Depression Total Score: 0 02/01/20 17 8:00 AM EDT A Body Mass Index follow-up plan has been documented for the patient 01/31/2017 10:03 AM EDT documented as of this encounter Care Teams Chucking And Sawing Machine Operator Relationship Specialty Start Date End Date Codie Nolasco, TOÑITO [address] [place] [address] PCP - General Family Medicine 08/23/16 07/08/22 documented as of this encounter
--- OUTSIDE RECORDS SUMMARY | 2025-06-16 07:57 | XMS_ITS | Encounter Summary ---
Demographics Address [address] [place] [address] Mobile Phone Home Phone Email Address Preferred Language Tajik Marital Status Single Orthodox Affiliation Unknown Race White Ethnic Group Not or Lati no [id number] [address] [place] [address] Care Team Providers Care Procurement Director Name Role Phone Codie Nolasco Primary Care Provider Reason for Visit * Reason Comments Med Refill Encounter Details Date Type Department Care Team (Late st Contact Info) Description 04/18/2019 Refill [facility] [address] [place] [address] Codie Nolasco, TOÑITO [address] [place] [address] Headache disorder Social History Tobacco Use Types Packs/Day Years Used Date Smoking Tobacco: Never Smokeless Tobacco: Never Alcohol Use Standard Drinks/Week Comments Yes 0 (1 standard drink = 0.6 oz pur e alcohol) PHQ-2 Answer Date Recorded PHQ-2 Score 0 01/09/2019 Childcare Answer Date Recorded Childcare Unknown 02/26/2019 Employment Answer Date Recorded Employment Unknown 02/26/2019 Comments No Sex and Gender Information Value Date Recorded Sex Assigned at Not on file Legal Sex Female 9:16 PM EDT Gender Identity Not on file Sexual Orientation Not on file documented as of this encounter Miscellaneous Notes * Telephone Encounter - TOÑITO Alonzo - 04/18/2019 5:03 PM EDT Please clarify how she is taking this. There are two different directions in the system. Thanks. * Telephone Encounter - Madeline ERIKA Bingham - 04/18/2019 5:03 PM EDT She states that she is still taking it. She takes it once at night Madeline Bingham CMA 04/19/19 0954 documented in this encounter Plan of Treatment Not on file documented as of this encounter Visit Diagnoses Diagnosis Headache disorder Headache documented in this encounter Additional Health Concerns Infection Onset Date Last Indicated Resolved Time COVID-19 Rule-Out 08/10/2020 08/10/2020 08/10/2020 8:21 PM EST COVID-19 Positive 08/10/2020 08/10/2020 08/31/2020 11:14 PM EST Assessment Noted Time PHQ-9 Depression Total Score: 0 01/10/20 19 1:00 PM EDT A Body Mass Index follow-up plan has been documented for the patient 04/17/2019 4:02 PM EDT documented as of this encounter Care Teams Procurement Director Relationship Specialty Start Date End Date Codie Nolasco, TOÑITO [address] [place] [address] PCP - General Family Medicine 08/23/16 07/08/22 documented as of this encounter
--- OUTSIDE RECORDS SUMMARY | 2025-06-16 07:57 | XMS_ITS | Patient Health Record ---
Author Organization [facility] [place] Address [address] [place] [address] Care Team Providers Care Home Health Travel Ot Name Role Phone Mary Jane Angel Primary Care Provider [phone] Allergies No Known Allergies Results Component Value Reference Range Notes CBC AUTO DIFF Reviewed date:04/18/2025 01:44:51 PM Interpretation: Performing Lab: Notes/Report: [facility] , White Blood Count 8.3 4.0-11.0 10 3/uL Red Blood Count 4.19 4.20-5.40 10 6/uL Hemoglobin 12.8 12.0-16.0 g/dL Hematocrit 37.9 36.0-48.0 % Mean Corpuscular Volume 90.5 81.0-99.0 fL Mean Corpuscular Hemoglobin 30.5 26.7-34.0 pg Mean Corpuscular HGB Conc 33.8 29.9-35.2 g/dL Red Cell Distribution Width 13.0 11.0-15.0 % Platelet Count 278 150-450 10 3/uL Mean Platelet Volume 10.2 9.5-13.5 fL Neutrophils Percent Auto 68.8 43.0-75.0 % Lymphocytes Percent Auto 22.5 20.5-60.0 % Monocytes Percent Auto 5.6 1.7-12.0 % Eosinophils Percent Auto 2.3 0.9-7.0 % Basophils Percent Auto 0.7 0.2-2.0 % Immature Granulocytes Pct Auto 0.1 0.0-0.5 % Neutrophils Absolute Auto 5.7 1.4-6.5 10 3/uL Lymphocytes Absolute Auto 1.9 1.2-3.8 10 3/uL Monocytes Absolute Auto 0.5 0.3-0.8 10 3/uL Eosinophils Absolute Auto 0.2 0.0-0.7 10 3/uL Basophils Absolute Auto 0.1 0.0-0.1 10 3/uL Immature Granulocytes Abs Auto 0.01 0.00-0.03 10 3/uL Performing Lab: see note ML - [facility] FREE T3 Reviewed date:04/18/2025 01:44:51 PM Interpretation: Performing Lab: Notes/Report: [facility] , Free T3 2.50 2.18-3.98 pg/mL Performing Lab: see note ML - [facility] GLYCOHEMOGLOBIN A1C Reviewed date:04/18/2025 01:44:51 PM Interpretation: Performing Lab: Notes/Report: [facility] , Glycohemoglobin A1C 5.2 4.5-6.2 % ACTION SUGGESTED ADA THERAPEUTIC TARGET < 7.0 > 7.0 ADA RECOMMENDED LIMIT 4.0 - 6.0 Estimated Average Glucose 103 Performing Lab: see note ML - [facility] LIPID PROFILE Reviewed date:04/18/2025 01:44:51 PM Interpretation: Performing Lab: Notes/Report: [facility] , Triglycerides 52 <=150 mg/dL Cholesterol 184 <=200 mg/dL HDL Cholesterol 75 40-60 mg/dL > or =60 mg/dl - LOW CARDIOVASCULAR RISK <40 mg/dl - HIGH CARDIOVASCULAR RISK LDL Cholesterol Calculated 99.0 130-159 mg/dl BORDERLINE HIGH 160-189 mg/dl HIGH >190 mg/dl VERY HIGH 100-129 mg/dl NEAR OR ABOVE OPTIMAL <100 mg/dl OPTIMAL VLDL CHOLESTEROL 10.4 Chol HDL Ratio 2.5 >11.0 HIGH RISK 3.3 - 4.4 LOW RISK 7.1 - 11.0 MODERATE RISK 4.4 - 7.1 AVERAGE RISK Performing Lab: see note - [facility] PROF 14(COMP METB) Reviewed date:04/18/2025 01:44:51 PM Interpretation: Performing Lab: Notes/Report: [facility] , Sodium 140 136-145 mmol/L Potassium 3.6 3.5-5.1 mmol/L Chloride 103 98-107 mmol/L Carbon Dioxide 27.9 21.0-32.0 mmol/L Anion Gap 12.7 Glucose 99 74-106 mg/dL Blood Urea Nitrogen 14.0 7.0-18.0 mg/dL Creatinine 0.67 0.55-1.02 mg/dL Estimated GFR ( Nayla >60 >=60 mL/min/1.73m 2 Estimated GFR (Non- Naomie >60 >=60 mL/min/1.73m 2 BUN Creatinine Ratio 20.9 Calcium 9.0 8.5-10.1 mg/dL Bilirubin Total 0.4 0.2-1.0 mg/dL Aspartate Amino Transferase 28 15-37 U/L Alanine Aminotransferase 51 14-59 U/L Alkaline Phosphatase 115 46-116 U/L Total Protein 7.8 6.4-8.2 g/dL Albumin Level 3.2 3.4-5.0 g/dL Globulin 4.6 Albumin Globulin Ratio 0.7 Performing Lab: see note ML - [facility] T4 Reviewed date:04/18/2025 01:44:51 PM Interpretation: Performing Lab: Notes/Report: [facility] , T4 Thyroxine 7.30 4.80-13.90 ug/dL Performing Lab: see note ML - [facility] TSH Reviewed date:04/18/2025 01:44:51 PM Interpretation: Performing Lab: Notes/Report: [facility] , Thyroid Stimulating Hormone 1.433 0.358-3.740 u IU/mL Performing Lab: see note - [facility] VITAMIN D 25 [place] Reviewed date:04/18/2025 01:44:51 PM Interpretation: Performing Lab: Notes/Report: [facility] , Vitamin D 20.8 >100 ng/mL Potential Toxicity <20 ng/mL Vit D deficient 30-100 ng/mL Vit D sufficient 20-<30 ng/mL Vit D insufficient Performing Lab: see note ML - [facility] LB IRON Reviewed date:04/18/2025 01:44:51 PM Interpretation: Performing Lab: Notes/Report: [facility] , Iron 63.0 50.0-170.0 ug/dL Performing Lab: see note - [facility] LB INSULIN Reviewed date:04/21/2025 09:41:31 AM Interpretation: Performing Lab: Notes/Report: [facility] , Insulin 18.7 2.6-24.9 uIU/mL Performed at: CB - [facility] [address] [id number] Plasma Table Operator: Ld Trinh PhD, Phone: [phone] Performing Lab: see note - [facility] LB Reason For Referral Reason chest pain Diagnosis 1 Intermittent chest p ain (R07.9) Referral Organization [facility] Referring Provider First Name Mary Jane Referring Provider Last Name Jeanne Referring Provider Speciality [facility] melissa Referred Provider Seamus Ramos Referred Provider Specialty Cardiology Referral Priority Routine Medications Medication SIG (Take, Route, Frequency, Duration) Notes Start Date End Date Status Vitamin D3 50 MCG (1999) 1 capsule Orally Once a day; Duration: 30 day(s) 04/21/2025 Active Adipex-P 37.5 MG 1 tablet before breakfast Orally Once a day; Duration: 30 days 03/14/2025 Not-Takin g buPROPion HCl ER (XL) 150 MG TAKE 1 TABLET BY MOUTH IN THE MORNING; Duration: 90 Active Effexor XR 150 MG 1 capsule with food Orally Once a day; Duration: 90 days 04/29/2024 Active Nurtec 75 MG 1 tablet on the tong ue and allow to dissolve Orally daily prn; Duration: 30 days PRN 05/31/2024 Active ZyrTEC Allergy 10 MG 1 tablet Orally Onc e a day Active Social History Tobacco Use: Social History Observation Description Date Details (start date - stop date) Former Smoker NA - NA Tobacco Use/Smoking Question Answer Notes Patient is a former smoker Alcohol Screen (Audit-C) Question Answer Notes Did you have a drink containing alcohol in the p ast year? No Points 0 Interpretation Negative AUDIT-C (Standard) Question Answer Notes Did you have a drink containing alcohol in the p ast year? No Points 0 Interpretation Negative Problems Problem Type SNOMED Code ICD Code Onset Dates Problem Status W/U Status Risk Notes Problem Essential hypertension (45344806) Essential (primary) hypertension (I10) Active confirmed Problem Anxiety disorder (179458184) Anxiety disorder, unspecified (F41.9) Active confirmed Problem Chronic pain (20442625) Other chronic pain (G89.29) Active confirmed Problem Vitamin D deficiency (75102549) Vitamin D deficiency (E55.9) Active confirmed Problem migraine (disorder) (32344830) Migraines (G43.909) Active confirmed Problem Sleep apnea (51910025) Mild sleep apnea (G47.30) Active confirmed Problem Body mass index 40+ - severely obese (019961866) BMI 50.0-59.9, adult (Z68.43) Active confirmed Problem Morbid obesity (987294507) Class 3 obesity (E66.01) Active confirmed Vital Signs Blood pressure diastolic 80 mm Hg 04/11/2025 Height 62.75 in 04/11/2025 Blood pressure systolic 132 mm Hg 04/11/2025 Weight 311.2 lbs 04/11/2025 BMI 55.56 kg/m2 04/11/2025 Encounters Encounter Location Date Provider Diagnosis [address] [address] 12/09/2024 Mary Jane Angel Anxiety disorder, unspecified F41.9 and Class 3 obesity E66.[address] [address] 01/10/2025 Mary Jane Angel Class 3 obesity E66. 01 ; Anxiety disorder, unspecified F41.9 and Edema R60.[address] [place] [address] 02/11/2025 Mary Jane Angel Class 3 obesity E66. [address] [place] [address] 03/14/2025 Mary Jane Angel Class 3 obesity E66. [address] [address] 04/11/2025 Mary Jane Angel Intermittent chest pain R07.9 and Wellness examination Z00.[address] [address] 12/11/2024 Mary Jane Angel [address] [address] 04/21/2025 Mary Jane Angel Assessments Encounter Date Diagnosis (ICD Code) Assessment Notes Treatment Notes Treatment Clinical Notes Section Notes 12/09/2024 Anxiety disorder, unspecified (ICD-10 - F41.9) consider counseling increase dose effexor fu 1 m discussed healthy lifestyle habits to support good mental health 12/09/2024 Class 3 obesity (ICD-10 - E66.01) work on diet, walking see if insurance cover GLP 1 fu one month, discussed adipex , would like to get anxiety under control before trying 01/10/2025 Class 3 obesity (ICD-10 - E66.01) work on diet and increasing activity trial of adipex, start with 1/2 tab stop med if SE, cant tolerate fu 1 month 01/10/2025 Anxiety disorder, unspecified (ICD-10 - F41.9) continue medication, feeling better consider counseling 02/11/2025 Class 3 obesity (ICD-10 - E66.01) work on diet, portion size inrease activity fu one month 03/14/2025 Class 3 obesity (ICD-10 - E66.01) discussed ways to improve diet increase protein avoid donuts 04/11/2025 Intermittent chest pain (ICD-10 - R07.9) cardiology referral 04/11/2025 Wellness examination (ICD-10 - Z00.00) fu OBGYN 01/10/2025 Edema (ICD-10 - R60.9) BL LE advised wt loss discussed seeing vein clinic Plan Of Treatment Pending Test Test Name Order Date CMP (COMPLETE METABOLIC PANEL) 4 HEMOGLOBIN A1C (GLYCO) 04/29/2024 HEMOGLOBIN A1C (GLYCO) 04/11/2025 INSULIN, TOTAL 04/29/2024 IRON, TOTAL 04/11/2025 LIPID PANEL (CHOL/TRIG/HDL/LDL) 04/29/20 24 LIPID PANEL (CHOL/TRIG/HDL/LDL) 04/11/20 25 CBC WITH DIFF 04/29/2024 VITAMIN D, 25 LEVEL (TOTAL) 04/11/2025 Insulin Level 04/11/2025 THYROID PANEL (T4/TSH/FREE T3) 4 THYROID PANEL (T4/TSH/FREE T3) 5 CMP (COMP MET OCHOA) w/eGFR CKD-EPI 2024 CBC WITH DIFF 04/11/2025 Insurance Providers Payer Name Payer Address Payer Phone Subscriber Number Group Number Insured Name Patient Relationship to Insured Coverage Start Date Coverage End Date [employer] ACCESS PPO PLUS LOCAL PLAN [address] [place] [address] [id number] Charity Veliz Self - patient is the insured [employer] [place] [employer] [address] [address] [place] [address] [id number] Miltonmiguel angelNey mcgeele Self - patient is the insured Medical (General) History Medical History History ICD Code Anxiety and depression F41.9
--- NOTE | 2025-06-16 08:03 | CA_ITS ---
Patient Name: FOREST MAI MR#: [id number] : 1990 Exam Date: 06/16/2025 Ordering Doctor: DR. SRIRAM GEE M.D. ECHOCARDIOGRAM REPORT PROCEDURE: CA ECHO DOPPLER COMPLETE INDICATIONS: Chest pain COMPARISON: None. DESCRIPTION: COMPLETE ECHOCARDIOGRAM Real-time transthoracic echocardiography with 2D, M-mode, spectral and color flow Doppler performed. QUALITY: Technical quality was good. LEFT VENTRICLE: Normal chamber size. Normal left ventricular wall thickness. Global left ventricular systolic function is normal. LV EF: Estimated left ventricular ejection fraction is 60-65%. DIASTOLIC: Normal diastolic function. ATRIAL SEPTUM: LEFT ATRIUM: Normal chamber size. RIGHT ATRIUM: Normal chamber size. RIGHT VENTRICLE: Normal chamber size. Normal right ventricular systolic function. TRICUSPID VALVE: Normal mobility and thickness. No stenosis with trivial regurgitation. No evidence of pulmonary hypertension. RVSP 25 mmHg. MITRAL VALVE: Normal mobility and thickness. No evidence of mitral valve stenosis. There is no mitral annular calcification. No mitral regurgitation. AORTIC VALVE: Normal trileaflet appearance. No visible sclerosis. Normal leaflet mobility. No evidence of aortic valve stenosis. No aortic regurgitation. AORTIC ROOT: Normal diameter and appearance, measuring 2.9 cm. The ascending aorta is normal in size measuring 2.4 cm. PULMONIC VALVE: Normal thickness and mobility. No stenosis. No regurgitation. PERICARDIUM: No evidence of pericardial effusion. IVC: Collapses with inspiration. Normal size. PLEURA: CONCLUSION: 1. Normal ventricular size and systolic function. Estimated LVEF is 60-65%. 2. Normal diastolic function. 3. No significant valvular dysfunction. 4. Normal right-sided pressures. Adult Echocardiography Procedure Report Left Ventricle LVEDD (3.7 - 5.6 cm): 4.98 cm LVESD (2.2 - 4.0 cm): 3.22 cm LVIVS thickness (0.6 - 1.2 cm): 0.93 cm LVPW thickness (0.5 - 1.0 cm): 0.80 cm e': 0.14 m/s E - e': 5.47 LVOT Max Gradient: 4.14 mm[Hg], 4.39 mm[Hg] LVOT Area (cm2): 1.03 m/s Peak Velocity (LVOT): 1.02 m/s, 1.05 m/s Mean Velocity (LVOT): 0.73 m/s LVOT Diameter 2.06 cm Left Ventricular Ejection Fraction: 60-65 % Left Atrium LA Volume Index (2D A2C): 36.69 ml/m2 Left Atrium Systolic Dimension: 3.98 cm Mitral Valve MV E to A Ratio: 1.17 Mitral Valve A-Wave Peak Velocity: 0.65 m/s Mitral Valve E-Wave Peak Velocity: 0.76 m/s Right Ventricle RV Internal Diastolic Dimension: 3.54 cm Aorta AO Root Diam: 2.86 cm Ascending Ao Diam: 2.36 cm Aortic Valve AoV Area (Peak Ramón): 2.51 cm2, 2.47 cm2 AoV Area (VTI): 2.59 cm2, 2.59 cm2 Peak Velocity(Antegrade Flow): 1.37 m/s Peak Gradient(Antegrade Flow): 7.51 mm[Hg] Mean Velocity(Antegrade Flow): 0.94 m/s Mean Gradient(Antegrade Flow): 4.02 mm[Hg] Velocity Time Integral: 30.08 cm Tricuspid Valve Peak Velocity (Regurgitant Flow): 2.16 m/s, 2.30 m/s, 2.34 m/s Pulmonic Valve Peak Velocity: 0.94 m/s Peak Gradient: 3.50 mm[Hg], 3.50 mm[Hg] Right Atrium Right Atrium Systolic Pressure: 60.51 ml, 60.51 ml Dictated by: Seamus Ramos M.D. on 06/16/2025 at 21:32 Approved by: Seamus Ramos M.D. on 06/16/2025 at 21:34
== END 2025-06-16 07:55 | disposition home or self-care (01) ==
LOC: CARD 07:54
PROVIDERS: PCP Nurse Practitioner Family; Visit Provider Internal Medicine Cardiovascular Disease
DX: R07.89 Other chest pain (principal); R06.02 Shortness of breath
CPT/HCPCS: 93306

== ENCOUNTER 2025-07-27 20:07 | Emergency (ER) | payer BC, SELFPAY ==
--- OUTSIDE RECORDS SUMMARY | 2024-12-05 04:30 | XMS_ITS ---
Author Organization [facility] in [place] Address [address] [place] [address] Care Team Providers Care Lead Sewage Plant Operator Name Role Phone Mary Jane Angel Primary Care Provider [phone] REASON FOR VISIT anxiety Encounters Encounter Location Date Provider Diagnosis [facility] [address] [place] [address] 12/05/2024 Mary Jane Angel Plan Of Treatment No Information Progress Notes * Charity VELIZ MDOB: [birth year] (34 yo F)Acc No.[id number]:12/05/2024 UNLOCKED PROGRESS NOTE Progress Note Patient: Rom BAIN Charity Magdalena :Brenda Angel (TTC), CNPDOB:1990 ???Age:34 Y???Sex:FemaleDate:12/05/2024Phone:[phone]:[address] [place], [place] [id number] Subjective: * Chief Complaints: * 1 . Anxiety. * Medical History: Objective: * Vitals: Assessment: Plan: * Treatment: * * Electronic signature of Mary Jane Angel NP, POINT OF CARE SPECIALIST.IS [id number] on 07/27/2025 at 09:12 PM ESTSign off status: PendingVisit Status:?CANC (Cancelled) * Provider: Seth Angel (TTC) IS MANAGER Date: 0 12/05/2024 Generated for Printing/Faxing/eTransmitting on:?07/27/2025 09:12 PM EST
[2025-07-27 20:12] VITALS: BP 143/110; PULSE 111; TEMP 36.9; O2SAT 99; BMI 58.5
--- NOTE | 2025-07-27 20:36 | XR_ITS ---
The [address] [address] Patient Name: FOREST MAI MRN: [id number] date: 1990 Sex: F Assigned Patient Location: ER Current Patient Location: Accession/Order Number: [id number] Exam Date: 07/27/2025 20:40 Report Date: 07/28/2025 07:44 At the request of: DAVID MELVIN Procedure: XR shoulder LT min 2V LEFT SHOULDER - 2 views CLINICAL HISTORY: left shoulder pain the past 2 weeks. No reported injury. COMPARISON: None AP and Y views were obtained. There is no evidence of fracture or dislocation. There are no significant soft tissue abnormalities. XR/XR shoulder LT min 2V IMPRESSION: NO ACUTE BONY FINDINGS. Impression dictated by: Ilana Roberts M.D. 07/28/2025 7:44 AM Dictation Location: [place] [address] Electronically authenticated by: [id number] Y Date: 07/28/2025 07:44
--- NOTE | 2025-07-27 20:37 | ED_ITS ---
HPI - Extremity Problem General Chief complaint: Extremity Problem, Nontraumatic Stated complaint: shoulder pain Time Seen by Provider: 07/27/25 20:31 Source: patient Mode of arrival: walk-in History of Present Illness HPI Narrative: cc - left shoulder pain Pt developed pain in the anterior shoulder joint about two weeks - she said she cannot recall if she woke with the pain or if it developed later. Nothing had been taken at home for this pain since it started - it has not changed location or worsened over time - it just hasn't gone away . No other symptoms - no chest pain, no shortness of breath, no swelling of the left hand, wrist or forearm, no swelling of the left elbow or upper arm. She is right handed. She denied any preceding activity that might have precipitated the pain. She denied any respiratory, GI or symptoms. Pain is worse when she moves the left shoulder. She denied any sensory changes or weakness in the left UE. No neck pain, No back pain. She told the nurse denied that one of her family members thought that her left arm was mottled -it does not appear to be during my examination. Related Data Allergies Allergy/AdvReac Type Severity Reaction Status Date / Time No Known Drug Allergies Allergy Verified 07/27/25 20:12 PFSH PFSH Social History Little interest or pleasure in doing things: several days Feeling down, depressed, or hopeless: not at all Exam Narrative Exam Narrative: Nurses notes and vital signs reviewed and patient is not hypoxic. afebrile General: Well-appearing and in no apparent distress. Skin: Warm, dry, no pallor noted. No rash. Head: Normocephalic, atraumatic. Neck: Supple, non-tender. Eye: Pupils are equal, round and EOMI. No scleral icterus. Ears, Nose, Mouth, and Throat: Oral mucosa is moist Cardiovascular: Regular Rate and Rhythm without murmur, gallop or rub. Respiratory: No accessory muscle use or respiratory distress. Lungs are clear to auscultation, no wheezing, rales or rhonchi Chest Wall: no tenderness, crepitus or subcutaneous emphysema. Back: No midline thoracic or left scapular or left CVA tenderness Musculoskeletal: Left shoulder = soft tissue tenderness at the anterior and superior aspect of the left shoulder without any clavicular pain, swelling, erythema or skin change noted. She has normal ROM left shoulder -strength is as anticipated and there is nothing to suggest acute left rotator cuff tear. The remainder of the left upper extremity is normal -no left axillary tenderness, swelling or mass, no upper extremity edema/swelling, normal left hand psychiatric nursing assistant strength and range of motion and strength in the left upper extremity. Neurological: A&O x4. No cranial nerve dysfunction observed. No truncal ataxia. Moves all extremities. Sensation intact. Psychiatric: Cooperative and interactive. Normal mood and affect. Constitutional Vital Signs, click to edit/add: Last Vital Signs Temp 98.4 F 07/27/25 20:12 Pulse 111 H 07/27/25 20:12 Resp 16 07/27/25 20:12 BP 143/110 H 07/27/25 20:12 Pulse Ox 99 07/27/25 20:12 O2 Del Method Room Air 07/27/25 20:12 Course Vital Signs Vital signs: Vital Signs Temperature 98.4 F 07/27/25 20:12 Pulse Rate 111 H 07/27/25 20:12 Respiratory Rate 16 07/27/25 20:12 Blood Pressure 143/110 H 07/27/25 20:12 Pulse Oximetry 99 07/27/25 20:12 Oxygen Delivery Method Room Air 07/27/25 20:12 Temperature 98.4 F 07/27/25 20:12 Pulse Rate 111 H 07/27/25 20:12 Respiratory Rate 16 07/27/25 20:12 Blood Pressure 143/110 H 07/27/25 20:12 Pulse Oximetry 99 07/27/25 20:12 Oxygen Delivery Method Room Air 07/27/25 20:12 MDM - Extremity (Nontraumatic) MDM Narrative Medical decision making narrative: Aside from some bony and soft tissue tenderness in the anterior superior aspect of the left shoulder, the exam is unremarkable. She does not have risk factors for PE or DVT. She does not have any findings consistent with DVT of the left upper extremity. She was given ibuprofen 800 mg orally and x-rays of the left shoulder were obtained. X-ray did not show any worrisome findings. Patient was given reassurance and discharged home with recommendation to take [id number] Tylenol and ibuprofen for pain. She plans to call her PCP to schedule follow-up tomorrow. I gave her referral information for the local orthopedic group as well -encouraged her to call tomorrow for first available appointment. Imaging Data xr shoulder: My impression: No fracture, dislocation, bony spurring or other abnormality noted. No step-off suggesting AC separation. Discharge Plan Discharge Chief Complaint: Extremity Problem, Nontraumatic Clinical Impression: Acute pain of left shoulder Patient Disposition: Home, Self-Care Time of Disposition Decision: 21:07 Print Language: Greek Instructions: Shoulder Pain (ED) Referrals: Addison Cristina DO [Physician, Orthopedics] - As soon as possible JAYSHREE MARTINS [Primary Care Provider, Family Practice] - 1 week Discharge Date/Time: 07/27/25 22:04
[2025-07-27] MEDS: IBUPROFEN 400 MG TABLET 800 MG PO (20:48)
--- OUTSIDE RECORDS SUMMARY | 2025-07-27 21:12 | XMS_ITS | CCD ---
Author Organization [facility] Care Team Providers Care School Photograph Editor Name Role Phone ABDULKADIR CUMMINGS Primary Care [...] Primary Care Unavailable Elham Becerril Attending Unav ailElham Méndez Attending Unav SRIRAM Gatica Attending Unavailable Medications Current Medications MedicationDrug Class(es)DatesSig (Normalized)Sig (Original)buPROPion hydrochloride 100 mg oral tablet (2 sources)Aminoketonetake 1 tablet by mouth twice dailyWellbutrin 100 MG 1 tablet Orally Twice a day Activecephalexin 500 mg oral capsule (1 source)Cephalosporin AntibacterialStart: 01-60-5965ulzd 1 capsule by mouth every eight hoursCephalexin 500 MG 1 capsule Orally tid for 10 day(s) Nov, ActiveCetirizine (1 source)Histamine-1 Receptor AntagonistZyrTEC Activeciprofloxacin 3 mg/ml ophthalmic solution (1 source)Quinolone AntimicrobialStart: 12-99-6852uuse 1 drop(s) into the eye(s) every four hoursCiloxan 0.3 % 1 drop each eye every 4 hrs for 5 day(s) Dec, Activemupirocin 0.02 mg/mg topical ointment (1 source)RNA Synthetase Inhibitor AntibacterialStart: 09-22-8953Uuhlqzufi 2 % 1 application to affected area Externally twice a day for 7 days Nov, Active Problems Active Problems Problem ClassificationProblemDateDocumented DateEpisodic/ChronicInflammation; infection of eye (except that caused by tuberculosis or sexually transmitteddisease) (1 source)Unspecified conjunctivitisEpisodicJoint disorders and dislocations; trauma-related (4 sources)Derangement of unspecified medial meniscus due to old tear or injury, right knee; Translations: [DERANG UNS MED MENISC OLD INJ RT KN]Onset: 11-17-2021 ChronicNonmalignant breast conditions (1 source)Mastitis without abscessEpisodicNonspecific chest pain (2 sources)Other chest pain; Translations: [Other chest pain]Onset: 06-06-2025 EpisodicOsteoarthritis (4 sources)Bilateral primary osteoarthritis of knee; Translations: [BILATERAL PRIM OSTEOARTHRITIS KNEE]Onset: 65-45-2564YiaqhvqOuuvg lower respiratory disease (2 sources)Shortness of breath; Translations: [Shortness of breath]Onset: 53-44-5222GcxcdhxwSraaxzshhac; intervertebral disc disorders; other back problems (1 source)Low back pain; Translations: [Low back pain]Onset: 79-38-0330Oxjvsorj Viral infection (1 source)Viral infection, unspecified; Translations: [Viral infection, unspecified]Onset: 89-98-0591Slcwfoow Past or Other Problems Problem ClassificationProblemDateDocumented DateEpisodic/ChronicMalaise and fatigue (1 source)Other malaise; Translations: [OTHER MALAISE]Onset: 83-77-8718Nzrechkr Other nervous system disorders (1 source)Other abnormalities of gait and mobility; Translations: [OTHER ABNORMALITIES GAIT AND MOBILITY]Onset: 75-41-4905BffvbtnnOeiab upper respiratory infections (1 source)Streptococcal pharyngitis; Translations: [Streptococcal pharyngitis] Onset: 91-65-6860WeuxfhgxQqjaofr tract infections (1 source)Urinary tract infection, site not specified; Translations: [Urinary tract infection, site not specified]Onset: 81-30-5620Plmfpxlx Results Test NameValueInterpretationReference RangeFacilityOrders Onlyon 06-17-2025 Orders [id number] Forest Mai 1990 F Date Provider Department Center 06/17/2025 [id number], HISTORICAL CARD [facility] Family History Problem Relation Age of Onset Coronary artery disease Paternal Grandmother Family Status - Relation Status Age at Mother Alive Father Alive Paternal GrandmotherNSelect Medical Specialty Hospital - ColumbusOrders Onlyon 07-47-7797Gwligg [id number] Forest Mai 1990 F Date Provider Department Center 06/12/2025 [id number], HISTORICAL CARD [facility] Family History Problem Relation Age of Onset Coronary artery disease Paternal Grandmother Family Status - Relation Status Age at Mother Alive Father Alive Paternal GrandmotherNSelect Medical Specialty Hospital - ColumbusOffice Visiton 50-80-4358Fqfsjw-up [id number] Forest Mai 1990 Date Provider Department Center 06/06/2025 [id number] REYES CARD [facility] Family History Problem Relation Age of Onset Coronary artery disease Paternal Grandmother Family Status - Relation Status Age at Mother Alive Father Alive Paternal Grandmother Level of Service:39251 [facility] OFFICE/OUTPATIENT NEW LOW MDM 30 MINUTES Reason for Visit and Comments: New Patient [632] - Patient is here today to establish care with cardiology for chest pain. Patient denies cardiac complaints at this time Chest Pain [598321] - Seen at [facility] ER for chest pain in March 2025 Leg Swelling [448434] - Patient states she is very sedentary and has a sit down jobNormalUniKettering Health HamiltonAbstracton 04-11-2025 [id number] Forest Mai 1990 F Date Provider Department Center 04/11/2025 895-DAVID VEGA CARD [facility] No family history on fileNormalUniversity of Methodist Richardson Medical CenterOrders Onlyon 79-51-6388Wygsou [id number] Forest Mai 1990 F Date Provider Department Center 04/11/2025 [id number], HISTORICAL CARD [facility] No family history on fileNormalUniversity of Shannon Medical Center Clinical Summaryon [id number] Clinical SummaryED Clinical Summary [place] [id number] ED Clinical Summary Person Information Name: FOREST MAI Nayla/[facility] Age: 34 Years : 1990 Sex: Female Language: Armenian PCP: MARY JANE MARTINS CNP Marital Status: Phone: [phone] Visit Id: Visit Reason: Chest pain; CP [...] 04/09/2025 00:25:55 04/09/2025 00:25:55 04/09/2025 00:25:55 ADDRESS: [address] [place] [address] [place] [phone] PHYS DOC NOTES: MEDICAL INFORMATION: Prescriptions Given: Medications to Continue with No Changes Other Medications cetirizine (cetirizine 10 mg Tab) 1 Tablets By Mouth every day. citalopram (citalopram 20 mg Tab) 1 Tablets By Mouth every day. PATIENT EDUCATION INFORMATION: Instructions: Nonspecific Chest Pain, Adult, Snxn-vg-Rmhf Follow up: With: Address: When: Deshaun Pa [address] [place] [address] [phone] Business (1) In 3 days 04/12/2025 Comments: Call to schedule a follow-up appointment with cardiology. Return to the ED with any new or worsening symptoms. 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 Pt states hx of this in the past but felt different this time. Pt denies any cardiac hx. x1 nitro with some relief ofCP and ASA 325mg in route. Denies any SOB. History of Present Illness Patient is a 34-year-old female with a history of osteoarthritis, adjustment disorder, panic attacks, and migraines who presents to the ED via EMS with sudden onset midsternal chest pain that occurred approximately 15 minutes prior to arrival. 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 She describes it as sharp in sensation. Patient denies any radiation of the pain. She denied any associated diaphoresis or nausea/vomiting. Patient does note a history of panic attacks, but states this does not feel consistent with that. She is denying any known cough, shortness of breath, abdominal pain, changes in urination, or changes in bowel movements. P atient denies a personal history of cardiovascular disease [...] Patient is hemodynamically stable and afebrile. She didreceive 1 nitroglycerin and aspirin en route to [...] Orders: ketorolac, 15 m (more content not included)...[facility] Comment on above:Result Comment: Electronically Signed By: Romy Saucedo PA-C\.br\Date and Time Signed: 04/09/2500:20 EDT\.br\Electronically Co-Signed By: Elham Becerril D.O.\.br\Date and Time Co-Signed: 04/09/25 03:26 EDT ED Patient Summaryon [id number] Patient SummaryED Patient Summary [address] [address] Patient Discharge Instructions Person Information Name: FOREST MAI Age: 34 Years Arrival Date: 04/08/2025 21:05:21 Discharge Diagnosis: Nonspecific chest pain Primary Care Physician: MARY JANE MARTINS CNP Provider Information Primary Provider: Advanced Tennis Ball Coverer Hand:Romy Saucedo PA-C The exam and treatment you received in the Emergency Department were for an urgent problem and are not intended as complete care. It is important that you follow up with a doctor, nurse practitioner,or physician???s assistant restaurant general manager for ongoing care. If your symptoms become worse or you do not improve asexpected and you are unable to reach your usual health care provider, you should return to the Emergency Department. We are available 24 hours a day. FOREST MAI has been given the following list of patient education materials, prescriptions and follow-up instructions: Follow-up Instructions: With: Address: When: Deshaun Pa [address] [place] [id number] [phone] Backblaze (1) In 3 days 04/12/2025 Comments: Call to schedule a follow-up appointment with cardiology. Return to the ED with any new or worsening symptoms. With: Address: When: MARY JANE MARTINS [address] [place] [address] [phone] [employer] (1) In 3 days In the event that this physician does not participate in your insurance network, please consult with your insurance company to find a nearby participating provider. Patient Education Materials: Nonspecific Chest Pain, Adult, Ieyt-ex-Hdyo A MESSAGE TO ALL PATIENTS REGARDING OPIOIDS PRESCRIPTION OPIOIDS: WHAT YOU NEED TO KNOW Prescription opioids can be used to help relieve uhnembab-ew-aunsdy pain and are often prescribed following a [...] Food and Drug Adm (more content not included)...[facility] HospitalXR Chest 2 Viewson 31-97-0418HZ Chest 2 ViewsExam Date/Time: 04/08/2025 21:44 EDT Reason for Exam: [...] Juwan Salinas M.D. Transcribed by: BAL Technologist: EVERARDOUK HealthcareBMPon 44-45-2174Xzkiv gap [Moles/Vol]12 mmol/LNormal6-16[facility] Comment on above:Performed By: #### [id number] #### [facility] Laboratory [address], [place] [address]FRF/Creat Ratio20 No IjxabDkabpo75-79QdoiyeSumma Health Wadsworth - Rittman Medical CenterComment on above:Performed By: #### [id number] #### [facility] [address], [place] [address]Alsspla [Mass/Vol]9.2 mg/dLNormal8.9-11.1FTogus VA Medical CenterComment on above:Performed By: #### [id number] #### [facility] [address], [place] [address]Uivyqhri [Moles/Vol]103 mmol/ZUypjcb262-859KvgfugSumma Health Wadsworth - Rittman Medical CenterComment on above:Performed By: #### [id number] #### [facility] [address], [place] [address]PX8 [Moles/Vol]26 mmol/RVstdhh33-83DxsbfvSumma Health Wadsworth - Rittman Medical Center Comment on above:Performed By: #### [id number] #### [facility] [address], [place] [address]Zlludjugbw [Mass/Vol]0.7 mg/dLNormal0.5-1.3FTogus VA Medical CenterComment on above:Performed By: #### [id number] #### [facility] [address] [place] [address]Kyxpaqv [Mass/Vol]76 mg/oIWhmduh25-837FfjlbwSumma Health Wadsworth - Rittman Medical CenterComment on above:Performed By: #### [id number] #### [facility] [address], [place] [address]Onlpnfhsd [Moles/Vol]4.1 mmol/LNormal3.5-5.3FTogus VA Medical CenterComment on above:Performed By: #### [id number] #### [facility] [address] [place] [address]Fahrss [Moles/Vol]137 mmol/BIgocgl810-583ZraggkSumma Health Wadsworth - Rittman Medical CenterComment on above:Performed By: #### [id number] #### [facility] [address], [place] [address]Ukob nitrogen [Mass/Vol]14 mg/dLNormal5-21[facility] Medical CenterComment on above:Performed By: #### [id number] #### [facility] [address] [place] [address]OGN w/ Auto Diffon 48-21-0890Javwgxvs Absolute0.1 E9/LNormal 0.0-0.2FTogus VA Medical CenterComment on above:Performed By: #### [id number] #### [facility] Laboratory [address], [place] [address]Hwevxzyyh/100 WBC (Bld)0.6 %Normal0.0-2.0[facility]itt[facility] Medical CenterComment on above:Performed By: #### [id number] #### [facility] [address], [place] [address]Vbc Absolute0.2 E9/LNormal0.0-0.5FTogus VA Medical Center Comment on above:Performed By: #### [id number] #### [facility] [address], [place] [address]Fobieqddqmx/100 WBC (Bld)2.2 %Normal0.0-8.0[facility]itt[facility] Medical CenterComment on above:Performed By: #### [id number] #### [facility] [address], [place] [address]Wqtfwkkbsou distribution width (RBC) [Ratio]13.6 %Normal 10.9-14.2FTogus VA Medical CenterComment on above:Performed By: #### [id number] #### [facility] [address], [place] [address]Ixrrpxcqth (Bld) [Volume fraction]38.4 %Ztcefe49.0-46.0[facility]itt[facility] Medical CenterComment on above:Performed By: #### [id number] #### [facility] [address], [place] [address]Lvjedivdrh (Bld) [Mass/Vol]13.4 g/rQCrqrmo25.0-16.0[facility] Medical CenterComment on above:Performed By: #### [id number] #### [facility] [address], [place] [address]Gtswx Absolute2.8 E9/LNormal1.0-4.0[facility] Comment on above:Performed By: #### [id number] #### [facility] [address], [place] [address]Slpsqpzmwov/100 WBC (Bld)29.7 %Hlxwey94.0-50.0[facility]itt[facility] Medical CenterComment on above:Performed By: #### [id number] #### [facility] [address] [place] [address]RMO (RBC) [Entitic mass]31.1 uzLlvnzw49.0-34.0[facility] Medical CenterComment on above:Performed By: #### [id number] #### [facility] [address] [place] [address]MMYU (RBC) [Mass/Vol]34.9 g/tIPswoyq55.4-36.0[facility] Medical CenterComment on above:Performed By: #### [id number] #### [facility] [address] [place] [address]AKW (RBC) [Entitic vol]89.0 vJUirirv99.0-100.0[facility]itt[facility] Medical CenterComment on above:Performed By: #### [id number] #### [facility] [address] [place] [address]Wbrh Absolute0.5 E9/LNormal0.2-1.0[facility] Comment on above:Performed By: #### [id number] #### [facility] [address] [place] [address]Ttphujpym/100 WBC (Bld)5.5 %Normal4.0-14.0[facility] Medical CenterComment on above:Performed By: #### [id number] #### [facility] [address] [place] [address]Whhxac Absolute5.9 E9/LNormal2.0-7.5FTogus [facility] Medical Center Comment on above:Performed By: #### [id number] #### [facility] [address] [place] [address]Ovwpno Auto62.0 %Aciaah87.0-75.0[facility] Comment on above:Performed By: #### [id number] #### [facility] [address] [place] [address]Quoymeir309.0 E9/VRlaxvb567.0-500.0[facility] Comment on above:Performed By: #### [id number] #### [facility] [address], [place] [address]Nvoktnkl mean volume (Bld) [Entitic vol]8.3 fLNormal6.4-10.8 [facility] CenterComment on above:Performed By: #### [id number] #### [facility] [address], [place] [address]XAM6.3 E12/LNormal4.3-5.9[facility]itt[facility] Medical CenterComment on above:Performed By: #### [id number] #### [facility] [address], [place] [address]DPU1.6 E9/LNormal4.0-11.0[facility]itt[facility] Medical CenterComment on above:Performed By: #### [id number] #### [facility] Laboratory [address], [place] [address]SJ & PTTon 92-86-7683RAI Coag (PPP) [Relative time]0.89 {INR} Invalid Interpretation CodeSumma Health Wadsworth - Rittman Medical CenterComment on above:Result Comment: INR results are specifically intended to assess patients stabilized on long-term Anticoagulation therapy suggested INR???s ???Less Intensive Anticoagulation??? 2.0 ??? 3.0 Conventional Range 3.0 ??? 4.5Performed By: #### [id number] #### [facility] [address], [place] [address]SV7.9 second(s)Normal9.4-12.5FTogus VA Medical CenterComment on above:Result Comment: 15 days - 4 weeks 1 [...] the same coagulation reagent and instrumentation as [facility]. Currently there are no coagulation studies available worldwide for children to 14 days, andno normal ranges.Performed By: #### [id number] #### [facility] Laboratory [address], [place] [address]TEE10.1 second(s)Qxtupc50.1-36.5FTogus VA Medical Center Comment on above:Result Comment: Parameter 15 days - 4 weeks [...] the same coagulation reagent and instrumentation as [facility]. Currently there are no coagulation studies available worldwide for children to 14 days, andno normal ranges. Heparin therapeutic range (represented by Anti-Factor Xa activity of 0.2 - 0.4 U/mL) corresponds to PTT of 56.6 - 109.0 sec.Performed By: #### [id number] #### [facility] [address], [place] [address]Whg-Esawhux Noteon 51-82-0719Fpn-Arrival NotePre-Arrival Note Pre-Arrival Summary Name: , [facility] Current Date: 04/08/2025 21:05:50 EDT Gender: Female Date of : Age: 34 Pre-Arrival Type: EMS ETA: 04/08/2025 20:58:00 EDT Primary Care Physician: Presenting Problem: Chest Pain Pre-Arrival User: Sarahy Collier RN Referring Source: Location: Completion Date/Time: 04/08/2025 20:58:00 [facility] Emergency Department Pre-Hospital Report Form Vital Signs: Pre-Hospital Report: Treatment in Route: Response to Treatment: Misc. Issues:NormalSumma Health Wadsworth - Rittman Medical CenterTroponin 0 Hr.on 04-08-2025 Troponin HS2.50 pg/mLLow10.10-27.10[facility]itt[facility] Medical CenterComment on above: Result Comment: The 95% CI (Confidence Interval) PPV (Positive Predictive Value) for myocardial infarction in females is 38 pg/mL, in males 51 pg/mL. The results should be used in conjunction with clinical conditions of myocardial infarction. (Access High Sensitivity Troponin I Instructions For Use, VISUAL NACERT, April 2018)Performed By: #### [id number] #### [facility] Laboratory [address], [place] [address]Jqibdmux 1 Hr.on 87-17-6156Qanxvyff HS3.90 pg/mLLow10.10-27.10 [facility] CenterComment on above:Result Comment: The 95% CI (Confidence Interval) PPV (Positive Predictive Value) for myocardial infarction in females is 38 pg/mL, in males 51 pg/mL. The results should be used in conjunction with clinical conditions of myocardial infarction. (Access High Sensitivity Troponin I Instructions For Use, VISUAL NACERT, April 2018)Performed By: #### [id number] #### [facility] Laboratory [address], [place] [address]oZVTgp 56-49-4758iNOQ957 mL/min/1.73 j7Qiudse>=59[facility] Rittman Medical CenterComment on above:Performed By: #### [id number] #### [facility] Laboratory [address], [place] [address]DFE KNEE RT WO CONon 53-52-7823FIM KNEE RT WO CONEXAMINATION: MRI KNEE RT WO CON HISTORY: Derangement of medial [...] Electronically authenticated by: CHRISTINA STALLINGS Date: 2021-11-17 17:25[facility]burgPhysical Therapy Noteon 74-19-1401Chrbsnml Therapy Note [id number]#1.00[facility] Provider Orderson 00-27-2719Oushmusv Orders [id number]#1.00[facility] Coding Summaryon 82-61-8651Jozsmw SummaryCODING DATE: 02/14/2020 [facility] STATUS: PAYOR: Medicaid HMO ADMIT DX: REASON [...] in slightly different terminology. Coded By: Sue Elziondo Date Saved: 02/14/2020 03:06 [facility] CenterProvider Orderson 54-57-5722Rafwctsw [id number]#1.00[facility]GTRock[facility] HospitalCoding Summaryon 60-87-7333Mratng SummaryCODING DATE: 01/29/2020 [facility] STATUS: Home PAYOR: Medicaid HMO ADMIT DX: [...] By: Hugo Dunham Date Saved: 01/29/2020 01:53 [facility] HospitalCoding SummaryCODING DATE: 01/29/2020 [facility] STATUS: Home PAYOR: Medicaid HMO ADMIT DX: [...] By: Hugo Dunham Date Saved: 01/29/2020 01:50 [facility] HospitalAmbulance Noteon 80-52-0528Dokwtqpbd [id number] [facility] CenterConsent Formson 34-80-4920Lnmmayj Forms [id number]#1.00OTGTIFFChillicothe VA Medical CenterED Clinical Summaryon 88-88-2463QT Clinical SummaryVeterans Health [facility] - Emergency Department [address] [place] [address] ED Clinical Summary PERSON INFORMATION Name: FOREST MAI Age: 29 Years Sex: FEMALE : 1990 MRN: Acct#: Visit Reason: Knee pain-swelling; Fall; R KNEE PAIN Arrival: 01/27/2020 13:13:36 Discharge: 01/27/2020 14:54:00 LOS: 000 01:41 Check In: 01/27/2020 13:13:36 Checkout:01/27/2020 14:54:00 Address: [facility] [place], [place] [id number] PCP: Abdulkadir Cummings CNP PROVIDER INFORMATION Provider [...] pain. She notes severe right knee pain. Admitsto falling down a flight of stairs. She [...] knee internal derangement, patellar fracture not otherwise specified.Tibial plateau fracture not otherwise specified. Orders Launch Orders Miscellaneous Request: Excuse from Work/School (Order): 01/27/2020 14:35 EDT, limit walking at work for next week.. Reexamination/ Reevaluation I met the patient on arrival. She seemed to be in severe pain. Her right knee was of normal contourand shape. She refused to bend the knee secondary to pain. I did not see any obvious deformities. Her pulses distally to the right knee were intact +2 at the DP and PT. She denied any right hip pain.An x-ray of the right knee was ordered. [...] Sprain of cruciate ligament of right knee ([id number] S83.501A, Discharge, Medical) Plan Condition: Improved. Disposition: Discharged: time 01/27/2020 14:33:00. Prescriptions: Launch prescriptions Pharmacy: Naprosyn 500 mg oral tablet (Prescribe): 500 mg = 1 tab(s), PO, BID, PRN: for pain, 20 tab(s), 0 Refill(s). Patient was given the following educational materials: Knee Sprain, Adult, Rsrk-pn-Cqku, Knee Sprain, Adult, Eksa-zb-Qniv. Follow up with: Abdulkadir Cummings Within 3 to 5 days. Counseled: Patient, Regarding diagnosis, Regarding diagnostic results, Regarding treatment plan, Regarding prescription, Patient indicated understanding of instructions. DISCHARGE INFORMATION: Discharge Disposition: Home Discharge Location: Home PATIENT EDUCATION INFORMATION Instructions: Knee Sprain, Adult, Fkme-sk-Xuto Follow-Up: With: Address: When: Abdulkadir Cummings [address] [place] [phone] [facility] (1) Within 3 to 5 days DIAGNOSIS: Sprain of cruciate ligament of right knee Patient Understands: Yes - Patient/family/caregiver verbalizes understanding of instructions given Comment:PeterVeterans Health AdministrationED Note - Physicianon [id number] Note - PhysicianPatient: FOREST MAI Age: 29 years Sex: FEMALE : 1990 Associated Diagnoses: Sprain of cruciate ligament of right knee Author: Marquez Ramirez Basic Information Time seen: Date & time 01/27/2020 13:17:00. History of Present Illness Presents post fall. She is complaining of right knee pain. She notes severe right knee pain. Admitsto falling down a flight of stairs. She [...] knee internal derangement, patellar fracture not otherwise specified.Tibial plateau fracture not otherwise specified. Orders Launch Orders Miscellaneous Request: Excuse from Work/School (Order): 01/27/2020 14:35 EDT, limit walking at work for next week.. Reexamination/ Reevaluation I met the patient on arrival. She seemed to be in severe pain. Her right knee was of normal contourand shape. She refused to bend the knee secondary to pain. I did not see any obvious deformities. Her pulses distally to the right knee were intact +2 at the DP and PT. She denied any right hip pain.An x-ray of the right knee was ordered. [...] Sprain of cruciate ligament of right knee ([id number] S83.501A, Discharge, Medical) Plan Condition: Improved. Disposition: Discharged: time 01/27/2020 14:33:00. Prescriptions: Launch prescriptions Pharmacy: Naprosyn 500 mg oral tablet (Prescribe): 500 mg = 1 tab(s), PO, BID, PRN: for pain, 20 tab(s), 0 Refill(s). Patient was given the following educational materials: Knee Sprain, Adult, Acko-wz-Txis, Knee Sprain, Adult, Teok-ct-Pyuu. Follow up with: Abdulkadir Cummings Within 3 to 5 days. Counseled: Patient, Regarding diagnosis, Regarding diagnostic results, Regarding treatment plan, Regarding prescription, Patient indicated understanding of instructions. [Electronically Signed on: 01/27/2020 14:40 EDT] Marquez Ramirez MD [Verified on: 01/27/2020 14:40 EDT] Marquez Ramirez MDNoProMedica Toledo Hospital Note-Nursingon [id number] Note-NursingPatient arrives to the ED via EMS. Alert and oriented X4. C/O right knee pain. Pain 06/27. Patient reports falling down two stairs. States she thought she was on the last step and next thing she knewshe was on the floor. Patient states she heard and felt a snap when she fell.[facility] Patient Education Noteon [id number] Patient Education NoteEducation Materials Orthopedics Knee Sprain A knee sprain [...] are sitting or lying down. ? Take kpnj-pzr-cqpubvr and prescription medicines only as told by [...] 08/23/2010 Document Revised: 05/23/2017 Document Reviewed: 05/23/2017 [employer] Interactive Patient Education ? 2019 [employer].[facility] CenterED Patient Summaryon [id number] [facility] SummaryV[facility] Administration - Emergency Department [address] [place] [address] PATIENT DISCHARGE INSTRUCTIONS Patient Information Name: FOREST MAI Age: 29 Years Date of : 1990 Reason For Visit: Knee pain-swelling; Fall; R KNEE PAIN Arrival Time: 01/27/2020 13:13:36 Primary Care Physician: Abdulkadir Cummings CNP Attending Physician: Marquez Ramirez Comment: Visit Diagnosis: Diagnoses This Visit Fall ([id number]) Knee pain-swelling ([id number]) Sprain of cruciate ligament of right knee (S83.501A) Prescription Information: If you have been given a prescription for narcotics, seek immediate medical attention if you have any difficulty breathing or any sudden status changes such as confusion andsleepiness. If you or anyone you know is experiencing suicidal thoughts, mental health, alcohol and/or drug addiction problems; contact the [facility] [place] [facility] 10/04 Crisis Hotline -text 4HKCA iv 644986. If you received any narcotics, sedation, or [...] legal documents With: Address: When: Abdulkadir Cummings [address] [place] [phone] Business (1) Within 3 to 5 days Medication Information: The exam and treatment you received today in the [facility] Emergency Department were for an urgent problem and are not intended as complete care. It is important for you to follow up with a doctor, nurse practitioner, or physician?s assistant restaurant general manager for ongoing care. If your symptoms become worse or you donot improve as expected and you are unable [...] so we can reach you if necessary. [facility] has provided you with a complete list of medications post discharge. Please inform your utilization management nurse/provider of your visit and for further instruction [...] are sitting or lying down. ? Take xjgl-urr-iwcfccb and prescription medicines only as told by [...] 08/23/2010 Document Revised: 05/23/2017 Document Reviewed: 05/23/2017 [employer] Interactive Patient Education ? 2019 [employer]. Viruses or Bacteria What?s got you sick? [...] Centers for Disease Control and Prevention May 2014[facility] XR Knee Complete Righton [id number] Knee Complete RightEXAM: XR Knee Complete Right. HISTORY: Right knee [...] Jose Hull MD 01/27/20 3:15 pm Technologist: REGISTwin City HospitalCoding Summaryon [id number] SummaryCODING DATE: 11/05/2019 FINAL [facility] STATUS: Home PAYOR: Medicaid HMO ADMIT [...] By: Sue Elizondo Date Saved: 11/05/2019 10:12 [facility] Throaton 11-03-2019C ThroatOrdered by Discern. Normal throat kanika isolated No pathogens isolatedChillicothe VA Medical CenterComment on above:Performed By: #### [id number] #### [facility] (DEFAULT) [address] [place] [address]Zendsh Summaryon [id number] SummaryCODING DATE: 11/01/2019 [facility] STATUS: Home PAYOR: Medicaid HMO ADMIT DX: [...] By: Hugo Dunham Date Saved: 11/01/2019 03:03 [facility] CenterCoding SummaryCODING DATE: 11/01/2019 [facility] STATUS: Home PAYOR: Medicaid HMO ADMIT DX: [...] By: Hugo Dunham Date Saved: 11/01/2019 03:02 [facility] CenterED Clinical Summaryon [id number] Clinical [facility] [address] [place] [address] Clinical Summary PERSON INFORMATION Name: FOREST MAI Age: 29 Years Sex: FEMALE : 1990 MRN: Acct#: Visit Reason: UC - Sore Throat; UC - Fever; SORE THROAT Arrival: 11/01/2019 09:48:44 Discharge: 11/01/2019 10:35:00 LOS: 000 00:47 Check In: 11/01/2019 09:48:44 Checkout: 11/01/2019 10:35:00 Address: [facility] 09/[address] [place] [id number] PCP: Abdulkadir Cummings CNP PROVIDER INFORMATION Provider [...] PATIENT EDUCATION INFORMATION Instructions: Viral Respiratory Infection, Mktm-Tk-Degi Follow-Up: With: Address: When: Abdulkadir Cummings [address] [place] [phone] [facility] (1) Within 2 to 4 days [...] DIAGNOSIS: Viral URI Patient Understands: Yes - Patient/family/caregiver verbalizes understanding of instructions given Comment:[facility] CenterED Patient Summaryon [id number] Patient Summary [facility] [address] [place] [address] PATIENT DISCHARGE INSTRUCTIONS Patient Information Name: FOREST MAI Age: 29 Years Date of : 1990 Reason For Visit: UC - Sore Throat; UC - Fever; SORE THROAT Arrival Time: 11/01/2019 09:48:44 Primary Care Physician: Abdulkadir Cummings CNP Attending Physician: Kanchan Nielsen PA-C Comment: Patient Education With: Address: When: Abdulkadir Cummings [address] [place] [address] Business (1) Within 2 to 4 [...] home: Managing pain and congestion ? Take wcvm-kac-vnbteyd and prescription medicines only as told by your doctor. ? If you have a sore throat, gargle with salt water. Do this 3?4 times per day or as needed. To make a salt-water mixture, dissolve ??1 tsp of salt in 1 cup of warm water. Make sure that all the saltdissolves. ? Use nose drops made from salt [...] after you cough or sneeze. If soap andwater are not available, use hand key filer. ? Avoid contact with people who are [...] 08/17/2009 Document Revised: 10/15/2018 Document Reviewed: 10/15/2018 [employer] Interactive Patient Education ? 2019 [employer]. Medication Information: The exam and treatment you received today in the [facility] Emergency Department were for an urgent problem and are not intended as complete care. It is important for you to follow up with a doctor, nurse practitioner, or physician?s assistant restaurant general manager for ongoing care. If your symptoms become worse or you donot improve as expected and you are unable [...] so we can reach you if necessary. [facility] has provided you with a complete list of medications post discharge. Please inform your utilization management nurse/provider of your visit and for further instruction [...] Diagnosis: Diagnoses This Visit UC - Fever ([id number]) UC - Sore Throat ([id number]) Viral URI (J06.9) If you received any [...] Stop date 11/01/19 10:02:00 EST, Nurse collect, [id number] Radiology Cardiology Viruses or Bacteria What?s got [...] Centers for Disease Control and Prevention May 2014[facility] Influenza A&B Rapidon [id number] ANegativeNormalNegSheltering Arms HospitalComment on above:Performed By: #### [id number] #### [facility] (DEFAULT) [address] [place] [address]Lrnatfuvm BNegativeNormalNegMiami Valley Hospital HospitalComment on above:Performed By: #### [id number] #### [facility] (DEFAULT) [address] [place] [address]Dpueiwgs QC [place]?PassNormalLicking Memorial Hospital HospitalComment on above:Performed By: #### [id number] #### [facility] (DEFAULT) [address] [place] [address]Ulezuez Handouton [id number] HandoutPatient Education Materials Follows:Disease Viral Respiratory Infection A [...] home: Managing pain and congestion ? Take bcne-cna-goikpqe and prescription medicines only as told by your doctor. ? If you have a sore throat, gargle with salt water. Do this 3?4 times per day or as needed. To make a salt-water mixture, dissolve ??1 tsp of salt in 1 cup of warm water. Make sure that all the saltdissolves. ? Use nose drops made from salt [...] after you cough or sneeze. If soap andwater are not available, use hand key filer. ? Avoid contact with people who are [...] 08/17/2009 Document Revised: 10/15/2018 Document Reviewed: 10/15/2018 [employer] Interactive Patient Education ? 2019 [employer].[facility] Hospitaltrep Yuniel 24-14-4086Webrb procedure controlPassChillicothe VA Medical Center Comment on above:Performed By: #### [id number], [id number] #### [facility] (DEFAULT) [address] [place], [place] [address]Cigbxzvzntekv ANegativeNormalNegSheltering Arms Hospital Comment on above:Performed By: #### [id number], [id number] #### [facility] (DEFAULT) [address] [place], [place] [address]Pjycnd Care Note- Provideron [id number] Care Note- ProviderPatient: FOREST MAI Age: 29 years Sex: FEMALE [...] results: Impression and Plan Diagnosis Viral URI (IOB95-VU J06.9, Discharge, Medical) Plan Condition: Stable. Disposition: Discharged: Time 11/01/2019 10:27:00, to home. Patient was given the following educational materials: Viral Respiratory Infection, Wcqa-Hb-Gxqi, Viral Respiratory Infection, Heaq-Wt-Rzpi. Follow up with: Abdulkadir Cummings Within 2 [...] Regarding treatment plan, Patient indicated understanding of instructions.[facility] CenterUrge Care Recordon [id number]a [facility] ? Urgent Care [address] [place] [address] PATIENT DISCHARGE INSTRUCTIONS Patient Information Name: FOREST MAI Age: 29 Years Date of : 1990 Reason For Visit: UC - Sore Throat; UC - Fever; SORE THROAT Arrival Time: 11/01/2019 09:48:44 Primary Care Physician: Abdulkadir Cummings CNP Attending Physician: Kanchan Nielsen PA-C Comment: Visit Diagnosis: Diagnoses This Visit UC - Fever ([id number]) UC - Sore Throat ([id number]) Viral URI (J06.9) If you received any [...] legal documents With: Address: When: Abdulkadir Cummings [address] [place] [phone] Business (1) Within 2 to 4 [...] and treatment you received today in the [facility] Urgent Care were for an urgent problem and are not intended as complete care. It is important for you to follow up with a doctor, nurse practitioner, or physician?s assistant restaurant general manager for ongoing care. If your symptoms [...] so we can reach you if necessary. [facility] has provided you with a complete list of medications post discharge. Please inform your utilization management nurse/provider of your visit and for further instruction [...] home: Managing pain and congestion ? Take knrq-uyb-szgonyr and prescription medicines only as told by your doctor. ? If you have a sore throat, gargle with salt water. Do this 3?4 times per day or as needed. To make a salt-water mixture, dissolve ??1 tsp of salt in 1 cup of warm water. Make sure that all the saltdissolves. ? Use nose drops made from salt [...] after you cough or sneeze. If soap andwater are not available, use hand key filer. ? Avoid contact with people who are [...] 08/17/2009 Document Revised: 10/15/2018 Document Reviewed: 10/15/2018 [employer] Interactive Patient Education ? 2019 [employer] Viruses or Bacteria What?s got you [...] Centers for Disease Control and Prevention May 2014[facility] ED Clinical Summaryon [id number] Clinical SummaryV[facility] Health Administration - Emergency Department [address] [place] [address] ED Clinical Summary PERSON INFORMATION Name: FOREST MAI Age: 29 Years Sex: FEMALE : 1990 MRN: Acct#: Visit Reason: Cough; COUGH, DIFFICULTY BREATHING Arrival: 10/30/2019 17:21:00 Discharge: 10/30/2019 17:55:00 LOS: 000 00:34 Check In: 10/30/2019 17:21:00 Checkout:10/30/2019 17:55:00 Address: [facility] 09[address] [place] [address] PCP: Abdulkadir Cummings CNP PROVIDER INFORMATION Provider [...] Home PATIENT EDUCATION INFORMATION Instructions: Influenza, Adult, Tnsj-rr-Lagk Follow-Up: With: Address: When: Abdulkadir Cummings [address] [place] [phone] [facility] () Within 5 to 7 days Comments: Reviewed discharge care instruction. Continue with therapy as outlined by Dr. Mayo. Contact your family doctor or PCP within the recommended time. Alternatively, you are not able to follow with your family doctor, you may try the Urgent Care center @ [facility]. Return to ER for any worsening symptoms especially any symptom that concerns you. DIAGNOSIS: Influenza-like illness Patient Understands: Yes - Patient/family/caregiver verbalizes understanding of instructions given Comment:[facility] CenterED Note - Physicianon [id number] Note - PhysicianPatient: FOREST MAI Age: 29 years Sex: FEMALE [...] members, children who had recently URI and influenzatype symptoms. The older one was ill 2 [...] follow-up Impression and Plan Diagnosis Influenza-like illness (AWV36-FF R69, Discharge, Medical) Plan Condition: Stable. Disposition: Discharged: Time 10/30/2019 17:45:00, to home. Patient was given the following educational materials: Influenza, Adult, Lxfz-vk-Zdip, Influenza, Adult, Fmms-pz-Ezlz. Follow up with: Abdulkadir Cummings Within 5 to 7 days Reviewed discharge care instruction. Continue with therapy as outlined by Dr. Mayo. Contact your family doctor or PCP within the recommended time. Alternatively, you are not able to follow with your family doctor, you may try the Urgent Care center @ [facility]. Return to ER for any worsening symptoms especially any symptom that concerns you. . Counseled: Patient, Regarding diagnosis, Regarding treatment plan, Patient indicated understanding of instructions. [Electronically Signed on: 10/30/2019 18:20 EST] Ian Mayo MD [Verified on: 10/30/2019 18:20 EST] Ian Mayo MDNoProMedica Toledo Hospital Note-Nursingon [id number] Note-Nursing Patient arrives to the ED via private vehicle. Ambulated with a steady gait to room 7. Alert and oriented X4. C/O cough, chest pain, and headache that started last night. Patients children recently got over the flu. Patient states that she feels exhausted and that it hurts to breath.[facility] Patient Education Noteon [id number] Patient Education NoteEducation Materials Infectious Disease Influenza, Adult Influenza is [...] (is contaminated) and then touching your mouth, nose,or eyes. What increases the risk? Certain things [...] better. Your doctor may suggest: ? Taking skld-yjp-yoqcqyz medicines. ? Drinking plenty of fluids. The [...] ? Low-calorie sports drinks. ? Eat bland, roch-wr-fnwixy foods in small amounts as you are able. These foods include: ? Bananas. ? Applesauce. ? Rice. ? Lean meats. ? [place]. ? Crackers. ? Do not eat or drink: ? Fluids that have a lot of sugar or caffeine. ? Alcohol. ? Spicy or fatty foods. General instructions ? Take lkev-jlg-rrevzia and prescription medicines only as told by [...] use soap and water, use alcohol-based hand key filer. ? Keep all follow-up visits as told [...] is caused by a virus. ? Take izye-cgu-ikquxom and prescription medicines only as told by your doctor. ? Getting a flu shot every year is the best way to avoid getting the flu. This information is not intended to replace advice given to you by your health care provider. Make sure you discuss any questions you have with your health care provider. Document Released: 06/13/2009 Document Revised: 02/20/2019 Document Reviewed: 02/20/2019 [employer] Interactive Patient Education ? 2018 [employer].[facility] CenterED Patient Summaryon [id number] Patient [facility] [place] [facility] - Emergency Department [address] [place] [address] PATIENT DISCHARGE INSTRUCTIONS Patient Information Name: FOREST MAI Age: 29 Years Date of : 1990 Reason For Visit: Cough; COUGH, DIFFICULTY BREATHING Arrival Time: 10/30/2019 17:21:00 Primary Care Physician: Abdulkadir Cummings CNP Attending Physician: Ian Mayo MD Comment: Visit Diagnosis: Diagnoses This Visit Cough ([id number]) Influenza-like illness (R69) Prescription Information: If you have been given a prescription for narcotics, seek immediate medical attention if you have any difficulty breathing or any sudden status changes such as confusion andsleepiness. If you or anyone you know is experiencing suicidal thoughts, mental health, alcohol and/or drug addiction problems; contact the [facility] [place] [facility] 10/04 Crisis Hotline -Text 4HYUD xn 353407. If you received any narcotics, sedation, or [...] legal documents With: Address: When: Abdulkadir Cummings [address] [place] [phone] Business (1) Within 5 to 7 days Comments: Reviewed discharge care instruction. Continue with therapy as outlined by Dr. Mayo. Contact your family doctor or PCP within the recommended time. Alternatively, you are not able to follow with your family doctor, you may try the Urgent Care center @ [facility]. Return to ER for any worsening symptoms especially any symptom that concerns you. Medication Information: The exam and treatment you received today in the [facility] Emergency Department were for an urgent problem and are not intended as complete care. It is important for you to follow up with a doctor, nurse practitioner, or physician?s assistant restaurant general manager for ongoing care. If your symptoms become worse or you donot improve as expected and you are unable [...] so we can reach you if necessary. [facility] Emergency Department has provided you with a complete list of medications post discharge. Please inform your utilization management nurse/provider of your visit and for further instruction [...] (is contaminated) and then touching your mouth, nose,or eyes. What increases the risk? Certain things [...] better. Your doctor may suggest: ? Taking ougo-hem-tssmktb medicines. ? Drinking plenty of fluids. The [...] ? Low-calorie sports drinks. ? Eat bland, slmw-fk-logwoy foods in small amounts as you are able. These foods include: ? Bananas. ? Applesauce. ? Rice. ? Lean meats. ? [place]. ? Crackers. ? Do not eat or drink: ? Fluids that have a lot of sugar or caffeine. ? Alcohol. ? Spicy or fatty foods. General instructions ? Take ivez-mdu-ofyupge and prescription medicines only as told by [...] use soap and water, use alcohol-based hand key filer. ? Keep all follow-up visits as told [...] is caused by a virus. ? Take tetd-tom-uscxnet and prescription medicines only as told by your doctor. ? Getting a flu shot every year is the best way to avoid getting the flu. This information is not intended to replace advice given to you by your health care provider. Make sure you discuss any questions you have with your health care provider. Document Released: 06/13/2009 Document Revised: 02/20/2019 Document Reviewed: 02/20/2019 [employer] Interactive Patient Education ? 2019 [employer] Viruses or Bacteria What?s got you [...] Centers for Disease Control and Prevention May 2014[facility] Coding Summaryon [id number] SummaryCODING DATE: 04/29/2019 FINAL [facility] STATUS: Home PAYOR: Medicaid HMO ADMIT [...] By: Sue Elizondo Date Saved: 04/29/2019 08:01 [facility] A/B Ag Detectionon [id number] A/B Ag DetectionSpecimen Description .NASOPHARYNGEAL SWAB Special Requests NOT REPORTED Direct Exam PRESUMPTIVE NEGATIVE for Influenza A + B antigens. PCR testing to confirm this result is available upon request. Specimen will be saved in the laboratory for 7 days. Please call [phone] if PCR testing is indicated. Report Status FINAL 11/18/2018[facility], IncComment on above:Performed By: #### FLUAD #### [facility] [address] [place] [address] Military [employer] Specialist: TONEY Abarca CHEST (2 VW)on [id number] CHEST (2 VW) EXAMINATION: TWO VIEWS OF [...] Signed by: Johnathan Torres MD 11/18/18 Final resultNormalCleveland ClinicCult,Urine,CCon 11-25-2017 Cult,Urine,CCSpecimen Description .CLEAN CATCH URINE Performed at [facility] [place], [address] [place] [address] Special Requests NOT REPORTED Culture NO SIGNIFICANT GROWTH Report Status FINAL 11/25/2017NoACMC Healthcare SystemComment on above:Performed By: #### CCUC #### [facility] [employer] [address] [place] [address] Flu A/B Ag Detectionon [id number] A/B Ag DetectionSpecimen Description .NASOPHARYNGEAL SWAB Special Requests NOT REPORTED Direct Exam PRESUMPTIVE NEGATIVE for Influenza A + B antigens. PCR testing to confirm this result is available upon request. Specimen will be saved in the laboratory for 7 days. Please call [phone] if PCR testing is indicated. Performed at [facility], [address] [place] [address] Report Status FINAL 11/24/2017NoSelect Medical Specialty Hospital - Youngstowntrep Gr A Direct Agon [id number] Gr A Direct AgSpecimen Description .THROAT Special Requests NOT REPORTED Direct Exam POSITIVE for Group A Streptococci Performed at [facility] [place], [address] [place] [address] Report Status FINAL 11/24/2017NoACMC Healthcare SystemUA w/Reflex Cultureon 38-78-6646Oxebuvplbkf Acid,UrNegativeNormalNEGMerSt Luke Medical CenterBilirubin.direct mass concNegativeNormalNEGCleveland ClinicColor Nom (U)YELLOWNormalYELMerSt Luke Medical Center Glucose mass concNegativeNormalNEGCleveland ClinicHemoglobin mass conc (Bld)TRACEAbnormalNEGCleveland ClinicLeuckocyte EsteraseLARGEAbnormalNEGCleveland ClinicComment on above:Result Comment: Performed at [facility], [address] [place] [address]Knwzmxe,UrNegativeNormalNEGCleveland ClinicPH,Ur7.8Ytpqqw4.0-8.0Cleveland ClinicProtein mass conc NegativeNormalNEGThe Jewish Hospitalpec. [place],Ur1.020Normal 1.005-1.030Cleveland ClinicTurbidityCLOUDYAbnormalCLEARCleveland ClinicUrobilinogen,UrNormalNormalNORMCleveland ClinicCommentNOT REPORTEDNormalCleveland ClinicUrinalysis,Micro on 11-24-2017-----NormalCleveland ClinicBacteria LM.HPF #/area (Urine sed)FEWAbnormalNONEMey [facility], HillcrestEpithelial cells LM.HPF #/area (Urine sed)20 TO 88Qqtxom6-3JuwhgCleveland ClinicOther ObservationsCulture ordered based on defined criteria.AbnormalNREQCleveland ClinicComment on above:Result Comment: Performed at [facility], [address] [place] [address]MOD #/vol (U)0 TO 2Zwbudy1-2Fznkd [facility], HillcrestWBC #/vol (U)5 TO 61Njlxgz4-7ZxivqCleveland ClinicAmorphous sediment LM Ql (Urine sed)NOT REPORTEDNormalNONMercy Health St. [facility] Casts LM.LPF #/area (Urine sed)NOT REPORTEDNormalCleveland ClinicCrystals LM Nom (Urine sed)NOT REPORTEDNormalNONEMeMills-Peninsula Medical CenterEpithelial, RenalNOT MDJSBPECUqsuyw4DlnulCleveland ClinicMucus StrandsNOT REPORTEDNormalNONEMeMills-Peninsula Medical CenterTrichomonasNOT REPORTEDNormalNONEMeMills-Peninsula Medical CenterYeast LM Ql (Urine sed)NOT REPORTEDNormalNONMercy Health St. [facility] Hospital Vital Signs Date TimeVital SignValuePerforming ZxvpsxfprCvkotknq61-11-0474 19:15-0400Body jlecbn309.02 cmPamelgavin Madison Other [employer] Other 04-12-2023 19:15-0400Body mass index (BMI) [Ratio] 53.14 kg/a1Whmxhwwalter Madison Other [employer] Other 04-12-2023 19:15-0400Body poevocogqtu894.1 [degF] Mary Jane Madison Other [employer] Other 04-12-2023 19:15-0400Body hxidvf290.08 kgPawalter Madison Other [employer] Other 04-12-2023 19:15-0400Respiratory rate18 /minMary Jane Madison Other [employer]) Other 04-12-2023 19:15-3844BqX8% (BldA) [Mass fraction]99 % Mary Jane Madison Other [employer] Other 03-27-2023 16:05-0400Body heightThomas Ceferino Other [employer] Other 03-27-2023 16:05-0400Body mass index (BMI) [Ratio] 54.86 kg/j5Prnmuk Ceferino Other [employer] Other 03-27-2023 16:05-0400Body .3 [degF]Mata Ceferino Other [employer]) Other 03-27-2023 16:05-0400Body tvnkav873.08 kgThomas Ceferino Other [place] Other 03-27-2023 16:05-0400Respiratory rate20 /minThomas Ceferino Other [place] Other 03-27-2023 16:05-2004RtQ7% (BldA) [Mass fraction]99 % Mata De La Vega Other [facility] [place] Other Encounters Encounter DateEncounter TypeCare ProviderFacilityStart: 06-06-2025 End: 45-29-8952aehbqthhoeEZVYWProMedica Flower Hospitaltart: 04-08-2025 End: 47-82-2097Jewlpajye department patient visitChmalgorzata Serranooakland Facility:[facility]ENTERtart: 66-54-9882pqxqlqginaYzvrzixvynk AbdelazizFacility:[facility] Centertart: 12-28-2022 End: 07-47-7068qnwnbmtbmmLnhusi Dymond Other [place] Other Start: 94-21-7162Blxcon outpatient visit 15 minutes Mary Jane [facility] ClydeStart: 12-12-2022 End: 27-37-0174julvnopeyiZzskak Ceferino Other [place] Other Start: 01-14-6822Qqccww outpatient new 20 minutes Mata [facility] Centertart: 12-02-2021 End: 55-65-9630uhldwnrfyfLN KIM E KNIGHTFacility:D4Enprx: 11-17-2021 End: 09-91-3863pycygihwjmQWErich ROQUEFacility:M8Lecdm: 11-18-2018 End: 99-23-7989Qymfacute department patient visitABDULKADIR Luna [facility] Hospitaltart: 10-24-2018 End: 20-46-6785Bdzkpkgou department patient visitTIFAYSHA ROSASWayne HealthCare Main Campustart: 11-24-2017 End: 20-47-6709Nyovvhbpc department patient visitTIFAYSHA CUMMINGSCleveland Clinic Procedures DateProcedureProcedure DetailPerforming ClinicianStart: 31-23-6350Pthmeqfvnc exam chest 2 viewsTIFBANNER IRONWOOD MEDICAL CENTERDILIP SWAN LAKEStart: 33-86-0044Ydfffnubo influenzaTIFNORTHEAST BAPTIST HOSPITALStart: 60-51-0055Zevetaktsun urinalysisTIFNORTHEAST BAPTIST HOSPITALStart: 82-47-9197HF W/REFLEX CULTURETIFNORTHEAST BAPTIST HOSPITALStart: 39-24-5843HPDPK CULTURE CLEAN CATCHTIFNORTHEAST BAPTIST HOSPITALStart: 24-19-0754ZSBHA INFLUENZA A/B ANTIGENS ABDULKADIRNORTHEAST BAPTIST HOSPITALStart: 86-26-5748TEXSU SCREEN GROUP A THROATTIFNORTHEAST BAPTIST HOSPITAL Payers DatePayer CategoryPayerPolicy [id number] 2025Unknown [id number] 2..[id number] 2.1.600274.3.57[id number] 2.1.915072.3.57[id number] 2..1.773475.3.57[id number] .1.753060.3.57[id number] 2..1.029387.3.57[id number] 2.1.380374.3.57[id number] 2.840.1.718372.3.57[id number] 2.840.1.946733.3.57[id number] [id number] 2.840.1.993878.19 Social History DateTypeDetailFacilitySex Assigned At [facility]Searchspace [place] Other Progress note 06-06-2025 Note Date & FfihXwirVphipouv68-31-5419 [facility] Reason for cardiology consult: Chest pain Chief Complaint: Chest pain HPI: Forest Mai is a 34 y.o. female without prior cardiac history. She denies history of hypertension, hyperlipidemia or diabetes mellitus. 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 She was advised to FU with cardiology Since then she got a few similar chest pain but brief lasting. She cannot connect them to eating the meals or drinking anything. They are not related to activity. 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 She denies [...] history father had arrhythmia, paternal uncle had [place], paternal grandmother had CAD and CABG, on [...] Patient was advised to (more content not included)...[facility] Clinical Note 04-09-2025 Note Date & LqxeHynnKhkquamj22-01-5663 NoteED Patient Education Note Gastroenterology Nonspecific Chest Pain [...] these instructions at home: Medicines ??? Take mvyc-tte-jwjshqo and prescription medicines only as told by your doctor. ??? If you were prescribed an antibiotic medicine, take it as told by your doctor. Do not stop taking the antibiotic even if you start to feel better. Lifestyle ??? Rest as told by your doctor. ??? Do not use any products that contain nicotine or tobacco, such as cigarettes, e-cigarettes, andchewing tobacco. If you need help quitting, ask your doctor. ??? Do not drink alcohol. ??? Make lifestyle changes as told by your doctor. These may include: ? Getting regular exercise. Ask your doctor what activities are safe for you. ? Eating a heart-healthy diet. A diet and ophthalmologist retina specialist (dietitian) can help you to learn [...] provider. Document Revised: 07/20/2023 Document Reviewed: 07/20/2023 [employer] Patient Education ? 2023 [employer] Evaluation note 12-28-2022 Note Date & VsntLvslIjhoulyc76-90-5785 Evaluation note* Encounter Date Diagnosis Assessment Notes Treatment Notes Treatment Clinical Notes Dec, Conjunctivitis of cuong th eyes, unspecified conjunctivitis type (ICD- 10 - H10.9) Conjunctivitis home care material was printed Drink plenty fluids, get plenty of rest. Use the eyedrops as prescribed. Wash your pillowcase everyday for the next few days. Good handwashing. Follow-up with your family physician if no improvementin 2 to 3 days. Off work today and tomorrow [employer] Other Evaluation note 12-12-2022 Note Date & PuafYnbfHysvnryk71-34-8029 Evaluation note* Encounter Date Diagnosis Assessment Notes Treatment Notes Treatment Clinical Notes Nov, Infection of right breast (ICD-1 0 - N61.0) Exam consistent with mild infection of the breast. Apply warm compresses for 15 minutes 4 times a day for 5 days. Go to the ER if you develop a fever or redness in your breast. [employer] [facility] AnTuTu Other History general Narrative - Reported Note Date & TypeNoteFacilityHistory general Narrative - Reported* Type Description Date Medical History chronic depression [employer] Other Summary Purpose Family History No Family [...] section and content) DATE CREATED AUTHOR 11/19/2018 [facility] DATE CREATED AUTHOR AUTHOR'S ORGANIZ ATION 04/27/2020 [facility] DATE CREATED AUTHOR AUTHOR'S ORGANIZ ATION 04/21/2022 [facility] DATE CREATED AUTHOR AUTHOR'S ORGANIZ ATION 12/06/2023 [facility] DATE CREATED AUTHOR AUTHOR'S ORGANIZ ATION 04/10/2025 [facility] DATE CREATED AUTHOR AUTHOR'S ORGANIZ ATION 04/12/2025 [facility] DATE CREATED AUTHOR AUTHOR'S ORGANIZ ATION 06/21/2025 [facility] REASON FOR VISIT (unrecogniz ed section and [...] BE BASED ON THE PRIMARY CLINICAL RECORDS. [employer] [facility]. provides no warranty or guarantee of the accuracy or completeness of information in this document.
--- OUTSIDE RECORDS SUMMARY | 2025-07-27 21:12 | XMS_ITS | Clinical Summary ---
Author Organization [facility] Address [address] [place] [address] Care Team Providers Care Anthropology Lecturer Name Role Phone Mary Jane Angel JOYCELYN Primary Care Provider [phone] Allergies No known active allergies Medications MedicationSigDispense QuantityRefillsLast FilledStart DateEnd DateStatus buPROPion XL (Wellbutrin XL) 150 mg 24 hr tablet Take 150 mg by mouth in the morning.5Active cetirizine (ZyrTEC) 10 mg tablet Take 10 mg by mouth in the morning.10/17/2019Active cholecalciferol, vitamin D3, 50 mcg (2,000 unit) capsule Take 1 capsule by mouth in the morning.5Active venlafaxine XR (Effexor-XR) 150 mg 24 hr capsule Take 150 mg by mouth in the morning.5Active Active Problems ProblemNoted DateDiagnosed DateOther chest pain06/08/2025Shortness of breath 06/08/2025Obstructive sleep apnea06/08/2025Feeling grief04/17/2019Morbid obesity with BMI of 45.0-49.9, adult08/29/2017Chronic gzgessew91/06/2016 Encounters DateTypeDepartmentCare YcypQyfcjpdjlye41/01/2025Results Follow-Up [facility] Cardiology [address] [place] [address] Wilberto Kovacs MD Complete Echo (TTE) w/wo Imaging Agent, Strain, 3D, Bubble Study06/17/2025Orders Only [facility] [address] [place] [address] ProviderAgustin MD 06/15/2025Results Follow-Up [facility] [address] [facility] [place] [address] Wilberto Kovacs MD Routine Stress (Treadmill Only)06/12/2025Orders Only [facility] [address] [facility] [place] [address] Agustin Paredes MD 06/06/2025 9:40 AM EDTOffice Visit [facility] [address] [facility] [place] [address] Wilberto Kovacs MD Other chest pain (Primary Dx); Shortness of breath; Morbid obesity with BMI of 45.0-49.9, adult (CMS/HCC); Obstructive sleep apneafrom Last 3 Months Family History Medical HistoryRelationNameCommentsCoronary artery diseasePaternal Grandmother RelationNameStatusCommentsFatherAliveMotherAlivePaternal Grandmother Social History Tobacco UseTypesPacks/DayYears UsedDateSmoking Tobacco: FormerCigarettes Smokeless Tobacco: Never Tobacco Cessation:Counseling Given: Not Answered Alcohol UseStandard Drinks/WeekCommentsYes0 (1 standard drink = 0.6 oz pure alcohol)OccasionalCommentsUnknownSex and Gender InformationValueDate RecordedSex Assigned at VetqxTrkxxq17/11/2025 3:27 PM EDTLegal SexFemale 04/11/2025 10:33 AM EDTGender HxotqwphVeoymr03/11/2025 3:27 PM EDTSexual OrientationHeterosexual or Xeolcsdc04/11/2025 3:27 PM EDT Last Filed Vital Signs Vital SignReadingTime TakenCommentsBlood Muwbzyux483/85006/06/2025 9:48 AM EDT Pvhvg969006/06/2025 9:48 AM EDTTemperature--Respiratory Rate--Oxygen Ijqwhyzeoa01% 06/06/2025 9:48 AM EDTInhaled Oxygen Concentration--Gzskge998 kg (322 lb) 06/06/2025 9:48 AM JMFYnpnpi623.5 cm (5' 2 )06/06/2025 9:48 AM EDTBody Mass Index58.8906/06/2025 9:48 AM EDT Plan of Treatment Health MaintenanceDue DateLast DoneCommentsIPV Vaccines (3 of 3 - 4-dose series) , 04/14/1992Depression Jfucwmblg59/04/2003Varicella Vaccines (1 of 2 - 13+ 2-dose series)2003Hepatitis B Vaccines (1 of 3 - 19+ 3-dose series)2009Pap Smear2011dult Quiblsv5509/21/2012HPV Vaccines (1 - 3- dose SCDM series)2017Cervical Cancer Kfuoghajd10/04/2021HPV/Cotest 1COVID-19 Vaccine ( season)2025Influenza Vaccine (#1) 2025Zoster Vaccines (1 of 2)2040Meningococcal VaccineCompleted 11/23/2006HIB VaccinesAged OutNo longer eligible based on patient's age to complete this topicMeningococcal B VaccineAged OutNo longer eligible based on patient's age to complete this topicPneumococcal Vaccine: Pediatrics (0 to 5 Years) and At-Risk Patients (6 to 64 Years)Aged OutNo longer eligible based on patient's age to complete this topicRotavirus VaccinesAged OutNo longer eligible based on patient's age to complete this topic Procedures Procedure NamePriorityDate/TimeAssociated DiagnosisCommentsCOMPLETE TRANSTHORACIC ECHO (TTE) W/WO IMAGING AGENT, STRAIN, 3D, BUBBLE STUDYRoutine 06/16/2025 8:32 AM EDT ROUTINE STRESS (TREADMILL ONLY)Jqavplb8306/12/2025 12:55 PM EDT from Last 3 Months Results * Complete Echo (TTE) w/wo Imaging Agent, Strain, 3D, Bubble Study (06/16/2025 8:32 AM EDT)Anatomical RegionLateralityModalityUltrasound Narrative Authorizing ProviderResult TypeResult StatusHistorical Provider MDCV ECHO PROCEDURESFinal Result * Routine Stress (Treadmill Only) (06/12/2025 12:55 PM EDT)Anatomical Region LateralityModalityOther Narrative Authorizing ProviderResult TypeResult StatusHistorical Provider MDCV STRESS PROCEDURESFinal Result from Last [address] [place] [address] Care Teams Team MemberRelationshipSpecialtyStart DateEnd Date Mary Jane Angel CNP [facility] [facility], [place] [address] PCP - GeneralFalaly Medicine06/05/25
--- OUTSIDE RECORDS SUMMARY | 2025-07-27 21:13 | XMS_ITS | Patient Health Record ---
Author Organization [facility] Address [address] [place] [address] Care Team Providers Care Mathematical Engineer Name Role Phone Dr. Lenard Clarke Primary Care Provider [phone] Reason For Referral No Information Plan Of Treatment No Information Insurance Providers Payer Name Payer Address Payer Phone Subscriber Number Group Number Insured Name Patient Relationship to Insured Coverage Start Date Coverage End Date [facility] [address] [place] [address] [id number] FRANCHESCA MAIantonio - patient is the [id number] [place] DQ Terminated [address] [place] [id number], NICOLESantonio - patient is the /01/2023[employer] [place] BCBS Termed [address] [place] [phone] [id number], NICOLESelf - patient is the [id number] 2022
--- OUTSIDE RECORDS SUMMARY | 2025-07-27 21:13 | XMS_ITS | Encounter Summary ---
Author Organization [facility] Address [address] [facility] [address] [place] [address] Care Team Providers Care Electronic Imager Name Role Phone Mary Jane Angel CNP Primary Care Provider [phone] Encounter Details DateTypeDepartmentCare Team (Latest Contact Info)Bfkgpqakpri58/01/2025Results Follow-Up [facility]iology [address] [facility] [facility] [place] [address] Wilberto Kovacs MD [id number] [place] [address] Complete Echo (TTE) w/wo Imaging Agent, Strain, 3D, Bubble Study Social History Tobacco UseTypesPacks/DayYears UsedDateSmoking Tobacco: FormerCigarettes Smokeless Tobacco: NeverAlcohol UseStandard Drinks/WeekCommentsYes0 (1 standard drink = 0.6 oz pure alcohol)OccasionalCommentsUnknownSex and Gender InformationValueDate RecordedSex Assigned at BkldiVbvzdu37/11/2025 3:27 PM EDT Legal UpgAfuhtm34/25/2025 10:33 AM EDTGender EyltlnlgZvtesb42/11/2025 3:27 PM EDTSexual OrientationHeterosexual or Nnaousfc76/11/2025 3:27 PM EDTdocumented as of this encounter Plan of Treatment Not on file documented as of this encounter Visit Diagnoses Not on filedocumented in this encounter Care Teams Team MemberRelationshipSpecialtyStart DateEnd Date Mary Jane Angel CNP [facility] [facility], [place] [address] PCP - GeneralFamily Medicine06/05/25documented as of this encounter
--- OUTSIDE RECORDS SUMMARY | 2025-07-27 21:13 | XMS_ITS | Patient Health Record ---
Author Organization [facility] in [place] Address [address] [place] [address] Care Team Providers Care Punch Press Feeder Name Role Phone Mary Jane Angel Primary Care Provider Allergies No Known Allergies Results Component Value Reference Range Notes CBC AUTO DIFF Reviewed date:04/18/2025 01:44:51 PM Interpretation: Performing Lab: Notes/Report: [facility] , White Blood Count 8.3 4.0-11.0 10 3/uL Red Blood Count4.194.20-5.40 10 6/gKJalpwkttva94.812.0-16.0 g/aSKearyktaqn92.9 36.0-48.0 %Mean Corpuscular Qodcaa49.581.0-99.0 fLMean Corpuscular Hemoglobin 30.526.7-34.0 pgMean Corpuscular HGB Conc33.829.9-35.2 g/dLRed Cell Distribution Width13.011.0-15.0 %Platelet Pvyxd222618-941 10 3/uLMean Platelet Lnkurz17.29.5- 13.5 fLNeutrophils Percent Auto68.843.0-75.0 %Lymphocytes Percent Auto22.520.5- 60.0 %Monocytes Percent Auto5.61.7-12.0 %Eosinophils Percent Auto2.30.9-7.0 % Basophils Percent Auto0.70.2-2.0 %Immature Granulocytes Pct Auto0.10.0-0.5 % Neutrophils Absolute Auto5.71.4-6.5 10 3/uLLymphocytes Absolute Auto1.91.2-3.8 10 3/uLMonocytes Absolute Auto0.50.3-0.8 10 3/uLEosinophils Absolute Auto0.20.0- 0.7 10 3/uLBasophils Absolute Auto0.10.0-0.1 10 3/uLImmature Granulocytes Abs Auto0.010.00-0.03 10 3/uLPerforming Lab:see note - [facility] FREE T3 Reviewed date:04/18/2025 01:44:51 PM Interpretation: Performing Lab: Notes/Report: [facility] ,Free T32.502.18-3.98 pg/mLPerforming Lab:see [facility] - [facility] GLYCOHEMOGLOBIN A1C Reviewed date:04/18/2025 01:44:51 PM Interpretation: Performing Lab: Notes/Report: [facility] ,Glycohemoglobin A1C5.24.5-6.2 % ACTION SUGGESTED ADA THERAPEUTIC TARGET < 7.0 > 7.0 ADA RECOMMENDED LIMIT 4.0 - 6.0 Estimated Average Fwjrmyn091Hyjuhbosqo Lab:see note - [facility] INSULIN Reviewed date:04/21/2025 09:41:31 AM Interpretation: Performing Lab: Notes/Report: [facility] ,Bwkdihf80.72.6-24.9 uIU/mL Performed at: [facility] [address] [id number] Technology Education Instructor: Ld Trinh PhD, Phone: [phone] Performing Lab:see radMARY [facility] LBIRON Reviewed date:04/18/2025 01:44:51 PM Interpretation: Performing Lab: Notes/Report: [facility] ,Iron63.050.0-170.0 ug/dLPerforming Lab:see [facility] - [facility] LB LIPID PROFILE Reviewed date:04/18/2025 01:44:51 PM Interpretation: Performing Lab: Notes/Report: [facility] ,Bnlklowojyngq77<=150 mg/qHEfvbllrmnts705<=200 mg/dLHDL Ngywypmjnyx1766-57 mg/dL > or =60 mg/dl - LOW CARDIOVASCULAR RISK <40 mg/dl - HIGH CARDIOVASCULAR RISK LDL Cholesterol Vjbqpqfssp04.0 130-159 mg/dl BORDERLINE HIGH 160-189 mg/dl HIGH >190 mg/dl VERY HIGH 100-129 mg/dl NEAR OR ABOVE OPTIMAL <100 mg/dl OPTIMAL VLDL TIYHIEJHOKE68.4Chol HDL Ratio2.5 >11.0 HIGH RISK 3.3 - 4.4 LOW RISK 7.1 - 11.0 MODERATE RISK 4.4 - 7.1 AVERAGE RISK Performing Lab:see noteML - [facility] LBPROF 14(COMP METB) Reviewed date:04/18/2025 01:44:51 PM Interpretation: Performing Lab: Notes/Report: [facility] ,Seghri914287-091 mmol/LPotassium3.63.5-5.1 mmol/LAwghuldx30901-713 mmol/LCarbon Pledpih37.921.0-32.0 mmol/LAnion Gap12.9Qwapkdc0653-794 mg/dLBlood Urea Nitrogen 14.07.0-18.0 mg/dLCreatinine0.670.55-1.02 mg/dLEstimated GFR ( Nayla>60 >=60 mL/min/1.73m 2Estimated GFR (Non- Naomie>60>=60 mL/min/1.73m 2BUN Creatinine Ratio20.2Qqemluw2.08.5-10.1 mg/dLBilirubin Total0.40.2-1.0 mg/dL Aspartate Amino Ixyqilsgmzd7489-00 U/LAlanine Hsjpkohowhnmbqza3911-53 U/L Alkaline Jhrqdgkcmro22468-336 U/LTotal Protein7.86.4-8.2 g/dLAlbumin Level3.2 3.4-5.0 g/dLGlobulin4.6Albumin Globulin Ratio0.7Performing Lab:see noteML - [facility] LBT4 Reviewed date:04/18/2025 01:44:51 PM Interpretation: Performing Lab: Notes/Report: [facility] ,T4 Thyroxine7.304.80-13.90 ug/dLPerforming Lab:see note - [facility] LBTSH Reviewed date:04/18/2025 01:44:51 PM Interpretation: Performing Lab: Notes/Report: [facility] ,Thyroid Stimulating Hormone1.4330.358-3.740 uIU/mLPerforming Lab:see noteML - [facility] LBVITAMIN D 25 [place] Reviewed date:04/18/2025 01:44:51 PM Interpretation: Performing Lab: Notes/Report: [facility] ,Vitamin D20.8 >100 ng/mL Potential Toxicity <20 ng/mL Vit D deficient 30-100 ng/mL Vit D sufficient 20-<30 ng/mL Vit D insufficient Performing Lab:see noteML - [facility] LBCA echo doppler complete Reviewed date:06/17/2025 01:02:49 PM Interpretation: Performing Lab: Notes/Report: Source Facility: [place] [address] Cardiology Report Signed Patient: FOREST VELIZ MR#: [id number] : 1990 Acct:[id number] Age/Sex: 34 / F ADM Date: 06/16/25 Loc: CARD Attending Dr: Sriram Kovacs M.D. Ordering Physician: Sriram Kovacs M.D. Date of Service: 06/16/25 Procedure(s): CA echo doppler complete Accession Number(s): [id number] cc: MARY JANE ANGEL ; Sriram Kovacs M.D. Patient Name: FOREST VELIZ MR#: [id number] : 1990 Exam Date: 06/16/2025 Ordering Doctor: DR. SRIRAM KOVACS M.D. ECHOCARDIOGRAM REPORT PROCEDURE: CA ECHO DOPPLER COMPLETE INDICATIONS: Chest pain COMPARISON: None. DESCRIPTION: COMPLETE ECHOCARDIOGRAM Real-time transthoracic echocardiography with 2D, M-mode, spectral and color flow Doppler performed. QUALITY: Technical quality was good. LEFT VENTRICLE: Normal chamber size. Normal left ventricular wall thickness. Global left ventricular systolic function is normal. LV EF: Estimated left ventricular ejection fraction is 60-65%. DIASTOLIC: Normal diastolic function. ATRIAL SEPTUM: LEFT ATRIUM: Normal chamber size. RIGHT ATRIUM: Normal chamber size. RIGHT VENTRICLE: Normal chamber size. Normal right ventricular systolic function. TRICUSPID VALVE: Normal mobility and thickness. No stenosis with trivial regurgitation. No evidence of pulmonary hypertension. RVSP 25 mmHg. MITRAL VALVE: Normal mobility and thickness. No evidence of mitral valve stenosis. There is no mitral annular calcification. No mitral regurgitation. AORTIC VALVE: Normal trileaflet appearance. No visible sclerosis. Normal leaflet mobility. No evidence of aortic valve stenosis. No aortic regurgitation. AORTIC ROOT: Normal diameter and appearance, measuring 2.9 cm. The ascending aorta is normal in size measuring 2.4 cm. PULMONIC VALVE: Normal thickness and mobility. No stenosis. No regurgitation. PERICARDIUM: No evidence of pericardial effusion. IVC: Collapses with inspiration. Normal size. PLEURA: CONCLUSION: 1. Normal ventricular size and systolic function. Estimated LVEF is 60-65%. 2. Normal diastolic function. 3. No significant valvular dysfunction. 4. Normal right-sided pressures. Adult Echocardiography Procedure Report Left Ventricle LVEDD (3.7 - 5.6 cm): 4.98 cm LVESD (2.2 - 4.0 cm): 3.22 cm LVIVS thickness (0.6 - 1.2 cm): 0.93 cm LVPW thickness (0.5 - 1.0 cm): 0.80 cm e': 0.14 m/s E - e': 5.47 LVOT Max Gradient: 4.14 mm[Hg], 4.39 mm[Hg] LVOT Area (cm2): 1.03 m/s Peak Velocity (LVOT): 1.02 m/s, 1.05 m/s Mean Velocity (LVOT): 0.73 m/s LVOT Diameter 2.06 cm Left Ventricular Ejection Fraction: 60-65 % Left Atrium LA Volume Index (2D A2C): 36.69 ml/m2 Left Atrium Systolic Dimension: 3.98 cm Mitral Valve MV E to A Ratio: 1.17 Mitral Valve A-Wave Peak Velocity: 0.65 m/s Mitral Valve E-Wave Peak Velocity: 0.76 m/s Right Ventricle RV Internal Diastolic Dimension: 3.54 cm Aorta AO Root Diam: 2.86 cm Ascending Ao Diam: 2.36 cm Aortic Valve AoV Area (Peak Ramón): 2.51 cm2, 2.47 cm2 AoV Area (VTI): 2.59 cm2, 2.59 cm2 Peak Velocity(Antegrade Flow): 1.37 m/s Peak Gradient(Antegrade Flow): 7.51 mm[Hg] Mean Velocity(Antegrade Flow): 0.94 m/s Mean Gradient(Antegrade Flow): 4.02 mm[Hg] Velocity Time Integral: 30.08 cm Tricuspid Valve Peak Velocity (Regurgitant Flow): 2.16 m/s, 2.30 m/s, 2.34 m/s Pulmonic Valve Peak Velocity: 0.94 m/s Peak Gradient: 3.50 mm[Hg], 3.50 mm[Hg] Right Atrium Right Atrium Systolic Pressure: 60.51 ml, 60.51 ml Dictated by: Medina Ramos M.D. on 06/16/2025 at 21:32 Approved by: Medina Ramos M.D. on 06/16/2025 at 21:34 Dictated By: MEDINA RAMOS Signed By: 06/16/252135 DD/ 34 TD/TT: Graphite Grinder: Reason For Referral Reason chest pain Diagnosis 1 Intermittent chest p ain (R07.9) Referral Organization [facility] Referring Provider First Name Mary Jane Referring Provider Last Name Jeanne [facility] Med[facility] Ramos Referred Provider Specialty Cardiology Referral Priority Routine Medications Medication SIG (Take, Route, Frequency, Duration) Notes Start Date End Date Status Vitamin D3 50 MCG (1999) 1 capsule Orally Onc e a day; Duration: 30 day(s) 5ActiveAdipex-P 37.5 MG1 tablet before breakfast Orally Once a day; Duration: 30 days03/14/2025Not-TakingbuPROPion HCl ER (XL) 150 MGTAKE 1 TABLET BY MOUTH IN THE MORNING; Duration: 90ActiveEffexor XR 150 MG1 capsule with food Orally Once a day; Duration: 90 days4ActiveNurtec 75 MG1 tablet on the tongue and allow to dissolve Orally daily prn; Duration: 30 uqezHQD2205/31/2024 ActiveZyrTEC Allergy 10 MG1 tablet Orally Once a dayActive Social History Tobacco Use: Social History Observation Description Date Details (start date - stop date) Former Smoker NA - NA Tobacco Use/Smoking Question Answer Notes Patient is a former smoker Alcohol Screen (Audit-C) Question Answer Notes Did you have a drink containing alcohol in the p ast year? No Cgzsrg0InmrrwiujpeztvMjohutgxNDLFO-H (Standard) Question Answer Notes Did you have a drink containing alcohol in the p ast year? No Bwrgwf4IglydvljijphaqCbfuyxex Problems Problem Type SNOMED Code ICD Code Onset Dates Problem Status W/U Status Risk Notes Problem Essential hypertension (13960107 ) Essential (primary) hypertension (I10) ActiveconfirmedProblemAnxiety disorder (163085424)Anxiety disorder, unspecified (F41.9)ActiveconfirmedProblemChronic pain (65632858)Other chronic pain (G89.29) ActiveconfirmedProblemVitamin D deficiency (91998719)Vitamin D deficiency (E55.9)ActiveconfirmedProblemmigraine (disorder) (79394413)Migraines (G43.909) ActiveconfirmedProblemSleep apnea (17960134)Mild sleep apnea (G47.30)Active confirmedProblemBody mass index 40+ - severely obese (720969335)BMI 50.0-59.9, adult (Z68.43)ActiveconfirmedProblemMorbid obesity (091356397)Class 3 obesity (E66.01)Activeconfirmed Vital Signs Blood pressure diastolic 80 mm Hg 04/11/2025 Spggpm45.75 in04/11/2025lood pressure ibjuaend068 mm Hg04/11/20256948Yfhpxg621.2 lbs04/11/2025BMI55.56 kg/m204/11/2025 Encounters Encounter Location Date Provider Diagnosis [address] [address] 12/09/2024 Mary Jane Angel Anxiety disorder, unspecified F41.9 and Class 3 obesity E66.[address] [address] 01/10/2025 Mary Jane Angel Class 3 obesity E66. 01 ; Anxiety disorder, unspecified F41.9 and Edema R60.[address] [address] 02/11/2025 Mary Jane Angel Class 3 obesity E66. [address] [address] 03/14/2025 Mary Jane Angel Class 3 obesity E66. [address] [address] 04/11/2025 Mary Jane Angel Intermittent chest pain R07.9 and Wellness examination Z00.00 [facility] [address] [place] [address] 12/11/2024 Mary Jane Angel [facility] [place] [address] 04/21/2025Mary Jane Angel Assessments Encounter Date Diagnosis (ICD Code) Assessment Notes Treatment Notes Treatment Clinical Notes Section Notes 12/09/2024 Anxiety disorder, unspecified (I CD-10 - F41.9) consider counseling increase dose effexor fu 1 m discussed healthy lifestyle habits to support good mental health 12/09/2024lass 3 obesity (ICD-10 - E66.01) work on diet, walking see if insurance cover GLP 1 fu one month, discussed adipex , would like to get anxiety under control before trying 01/10/2025nxiety disorder, unspecified (ICD-10 - F41.9) continue medication, feeling better consider counseling 01/10/2025lass 3 obesity (ICD-10 - E66.01) work on diet and increasing activity trial of adipex, start with 1/2 tab stop med if SE, cant tolerate fu 1 month 02/11/2025lass 3 obesity (ICD-10 - E66.01) work on diet, portion size inrease activity fu one month 03/14/2025lass 3 obesity (ICD-10 - E66.01) discussed ways to improve diet increase protein avoid donuts 04/11/2025Intermittent chest pain (ICD-10 - R07.9)cardiology /25/2025 Wellness examination (ICD-10 - Z00.00)fu OBGYN01/10/2025Edema (ICD-10 - R60.9) [facility] advised wt loss discussed seeing vein clinic Plan Of Treatment Pending Test Test Name Order Date CMP (COMPLETE METABOLIC PANEL) HEMOGLOBIN A1C (GLYCO) 04/29/2024 HEMOGLOBIN A1C (GLYCO) 04/11/2025 INSULIN, TOTAL 04/29/2024 IRON, TOTAL 04/11/2025 LIPID PANEL (CHOL/TRIG/HDL/LDL) 04/29/20 LIPID PANEL (CHOL/TRIG/HDL/LDL) 07/25/20 25 CBC WITH DIFF 04/29/2024 VITAMIN D, [...] ACCESS PPO PLUS LOCAL PLAN [address] [place] [address] [id number] Santos Veliz - patient is the insured[facility] [place] MEDICAIDPO [address] [address] [place] [id number], NicoleSelf - patient is the insured Medical (General) History Medical History History ICD Code Anxiety and depression F41.9
--- OUTSIDE RECORDS SUMMARY | 2025-07-27 21:13 | XMS_ITS | Clinical Summary ---
Author Organization [facility] Healthcare Address [address] [place] [address] Care Team Providers Care Applications Development Analyst Name Role Phone Unavailable Primary Care Provider Unavailabl e Social History Tobacco UseTypesPacks/DayYears UsedDateSmoking Tobacco: Never AssessedSex and Gender InformationValueDate RecordedSex Assigned at BirthNot on fileLegal Sex Male11/30/2022 8:32 PM EDTGender IdentityNot on fileSexual OrientationNot on file Last Filed Vital Signs Vital SignReadingTime TakenCommentsBlood Blspfatd108/76010/16/2018 12:00 PM EST Pulse--Temperature--Respiratory Rate--Oxygen Saturation--Inhaled Oxygen Concentration--Dizdly225 kg (250 lb)02/04/2020 12:00 PM LLLQobgsx240 cm (5' 3 ) 02/04/2020 12:00 PM EDTBody Mass Index44.29002/04/2020 12:00 PM EDT Plan of Treatment Not on file Insurance
== END 2025-07-27 22:04 | disposition home or self-care (01) ==
PROVIDERS: Emergency Provider Emergency Medicine; PCP Nurse Practitioner Family
DX: M25.512 Pain in left shoulder (principal)
CPT/HCPCS: 73030; 99283

== ENCOUNTER 2025-08-29 03:35 | Emergency (ER) | payer BC, SELFPAY ==
--- OUTSIDE RECORDS SUMMARY | 2024-12-05 04:30 | XMS_ITS ---
Author Organization [facility] in [place] Address [address] [place] [address] Care Team Providers Care Contemporary Or Modern Dancer Name Role Phone Mary Jane Angel Primary Care Provider REASON FOR VISIT anxiety Encounters Encounter Location Date Provider Diagnosis [facility] [address] [place] [address] 12/05/2024 Mary Jane Angel Plan Of Treatment No Information Progress Notes * Charity VELIZ MDOB: [birth year] (34 yo F)Acc No.[id number]:12/05/2024 UNLOCKED PROGRESS NOTE Progress Note Patient: Rom BAIN Charity Magdalena :Brenda Angel (TTC), CNPDOB:1990 ???Age:34 Y???Sex:FemaleDate:12/05/2024Phone:[phone]:[address] [place], [place] [id number] Subjective: * Chief Complaints: * 1 . Anxiety. * Medical History: Objective: * Vitals: Assessment: Plan: * Treatment: * * Electronic signature of Mary Jane Angel NP, NAILHEAD PUNCHER.NOVELTY TWISTER [id number] on 08/29/2025 at 04:48 AM ESTSign off status: PendingVisit Status:?CANC (Cancelled) * Provider: Seth Angel (TTC) NOVELTY TWISTER TENDER Date: 0 12/05/2024 Generated for Printing/Faxing/eTransmitting on:?08/29/2025 04:48 AM EST
--- OUTSIDE RECORDS SUMMARY | 2025-08-27 00:56 | XMS_ITS | Continuity of Care Document ---
Author Organization [facility] Address Unknown Care Team Providers Care Tire Setter Name Role Phone Virginia Arshad Primary Care Physician [phone] Encounter FT_FIN [id number] Date(s): 08/26/25 - 08/27/25 [place] [address] [place] [address]- Encounter Diagnosis Biceps tendonitis on left(Discharge Diagnosis) - 08/27/25 Discharge Disposition: Home (Routine DC) Attending Physician: J Carlos Calvin DO Encounter Type: Emergency Allergies, Adverse Reactions, Alerts No Known Allergies Treatment Plan Extracted from:Title:ED NoteAuthor:Romy Saucedo PA-CDate:08/26/25 Biceps tendonitis on left (M75.22: Bicipital tendinitis, left shoulder) Orders: Basic Metabolic Panel CBC w/ Auto Diff ECG 12 Lead Adult ED Cardiac Monitoring eGFR Oxygen Saturation Oxygen Therapy PT & PTT Saline Lock Insert Troponin 0 Hr. XR Chest Single View XR Humerus Left Immunizations Given and Recorded VaccineDateStatusRefusal Reasonmeningococcal conjugate vaccine11/23/06Recorded measles/mumps/rubella virus vaccine10/10/02Recordedmeasles/mumps/rubella virus vaccine05/29/97Recordedmeasles/mumps/rubella virus vaccine05/29/91Recorded measles/mumps/rubella virus vaccine90RecordedDTaP, unspecified formulation 05/29/97RecordedDTaP, unspecified formulation05/29/96RecordedDTaP, unspecified formulation04/14/92RecordedDTaP, unspecified formulation10/14/91RecordedDTaP, unspecified formulation04/08/91RecordedDTaP, unspecified formulation01/14/91 RecordedDTaP, unspecified formulation90Recordedpoliovirus vaccine, inactivated05/29/96Recordedpoliovirus vaccine, inactivated04/14/92Recorded Medications cetirizine 10 mg Tab 10 mg = 1 tab(s), Oral, Daily, Refills(s) 0 Start Date: 01/10/23 Status: Ordered Medication Dispense Status: Completed Total Allowed Fills: 1 Fills Dispensed: 0 citalopram 20 mg Tab 20 mg = 1 tab(s), Oral, Daily, Refills(s) 0 Start Date: 01/10/23 Status: Ordered Medication Dispense Status: Completed Total Allowed Fills: 1 Fills Dispensed: 0 naproxen 500 mg Tab 500 mg = 1 tab(s), Oral, BID, PRN Pain, # 30 tab(s), Refills(s) 0, Pharmacy: [facility]/pharmacy #[id number], 157.5, cm, 08/26/25 23:34:00 EST, Height/Length Dosing, 157, kg, 08/26/25 23:34:00 EST, Weight Dosing Start Date: 08/27/25 Status: Ordered Medication Dispense Status: Completed Quantity: 30.0 Unit: tab(s) Total Allowed Fills: 1 Fills Dispensed: 0 Problem List ConditionConfirmationCourseEffective DatesStatusHealth StatusInformantAdjustment disorderConfirmedActiveMigrainesConfirmedActiveOsteoarthritisConfirmedActive Panic attacksConfirmedActive Procedures ProcedureDateRelated DiagnosisBody SiteStatusNoneCompleted Results Laboratory List NameDateBasic Metabolic Panel (BMP)08/26/25CBC w/ Auto Diff08/26/25PT & PTT08/26/25 Troponin 0 Hr.08/26/2574xGMG88/9/25 Most recent to oldest [Reference Range]:1INR0.971 *NA* (08/26/25 11:51 PM)BUN/Creat Ratio [10-20]24 *HI* (08/26/25 11:51 PM)AGAP [6-16 mEq/L]12 mEq/L (08/26/25 11:51 PM)Basophil Auto [0.0-2.0 %]0.6 % (08/26/25 11:51 PM)CO2 [21-31 mmol/L]27 mmol/L (08/26/25 11:51 PM)Eos Auto [0.0-8.0 %]1.8 % (08/26/25 11:51 PM)Glucose Lvl [55-199 mg/dL]90 mg/dL (08/26/25 11:51 PM)Hct [34.0-46.0 %]38.3 % (08/26/25 11:51 PM)Hgb [12.0-16.0 gm/dL]13.1 gm/dL (08/26/25 11:51 PM)Lymph Auto [14.0-50.0 %]30.1 % (08/26/25 11:51 PM)PT [9.4-12.5 second(s)]10.9 second(s)2 (08/26/25 11:51 PM)PTT [25.1-36.5 second(s)]30.1 second(s)3 (08/26/25 11:51 PM)RBC [4.3-5.9 E12/L]4.4 E12/L (08/26/25 11:51 PM)RDW [10.9-14.2 %]13.3 % (08/26/25 11:51 PM)Sodium Lvl [135-145 mmol/L]136 mmol/L (08/26/25 11:51 PM)Troponin HS [10.10-27.10 pg/mL]2.70 pg/mL4 *LOW* (08/26/25 11:51 PM)MCH [27.0-34.0 pg]30.1 pg (08/26/25 11:51 PM)MCHC [31.4-36.0 gm/dL]34.3 gm/dL (08/26/25 11:51 PM)MCV [80.0-100.0 fL]87.8 fL (08/26/25 11:51 PM)[place] Auto [4.0-14.0 %]7.4 % (08/26/25 11:51 PM)MPV [6.4-10.8 fL]8.3 fL (08/26/25 11:51 PM)Neutro Auto [36.0-75.0 %]60.1 % (08/26/25 11:51 PM)BUN [5-21 mg/dL]17 mg/dL (08/26/25 11:51 PM)Calcium Lvl [8.9-11.1 mg/dL]9.0 mg/dL (08/26/25 11:51 PM)Platelet [150.0-500.0 E9/L]245.0 E9/L (08/26/25 11:51 PM)Potassium Lvl [3.5-5.3 mmol/L]3.7 mmol/L (08/26/25 11:51 PM)WBC [4.0-11.0 E9/L]8.9 E9/L (08/26/25 11:51 PM)Chloride [101-111 mmol/L]101 mmol/L (08/26/25 11:51 PM)[place] Absolute [0.2-1.0 E9/L]0.7 E9/L (08/26/25 11:51 PM)Eos Absolute [0.0-0.5 E9/L]0.2 E9/L (08/26/25 11:51 PM)Basophil Absolute [0.0-0.2 E9/L]0.1 E9/L (08/26/25 11:51 PM)Neutro Absolute [2.0-7.5 E9/L]5.3 E9/L (08/26/25 11:51 PM)Lymph Absolute [1.0-4.0 E9/L]2.7 E9/L (08/26/25 11:51 PM)eGFR [>=59 mL/min/1.73 m2]116 mL/min/1.73 m2 (08/26/25 11:51 PM)Creatinine [0.5-1.3 mg/dL]0.7 mg/dL (08/26/25 11:51 PM) 1Interpretive Data: INR results are specifically intended to assess patients stabilized on long-term Anticoagulation therapy suggested INR???s ???Less Intensive Anticoagulation?? 2.0 ??? 3.0 Conventional Range 3.0 ??? 4.5 2Interpretive Data: 15 days - 4 weeks 1 - 5 months 6 -11 months 1-5 years 6-10 years 11 -17 years Mean: 11.2?? (9.5-12.6) Mean: 11.0?? (9.7-12.8) Mean: 11.0 (9.8-13.0) Mean: 11.3 (9.9-13.4) Mean: 11.7 (10.0-14.6) Mean: 11.8? (10.0 - 14.1) Pediatric Reference ranges were obtained from a study by celina Reddy al. prepared from 1437 samples obtained at 7 different centers using the same coagulation reagent and instrumentation as [facility]. Currently there are no coagulation studies available worldwide for children to 14 days, andno normal ranges. 3Interpretive Data: Parameter 15 days -? 4 weeks 1 - 5 months 6 [...] the same coagulation reagent and instrumentation as [facility]. Currently there are no coagulation studies available worldwide for children to 14 days, andno normal ranges. Heparin therapeutic range (represented by Anti-Factor Xa activity of 0.2 - 0.4 U/mL) corresponds to PTT of 56.6 - 109.0 sec. 4Interpretive Data: The 95% CI (Confidence Interval) PPV (Positive Predictive Value) for myocardial infarction in females is 38 pg/mL, in males 51 pg/mL. The results should be used in conjunction withclinical conditions of myocardial infarction. (Access High Sensitivity Troponin I Instructions For Use, [address], April 2018) Social History Social History TypeResponseBirth SexFemaleSex RepresentationFemale (finding) Hospital Discharge Instructions Patient Education 08/27/2025 00:36:47 Tendinitis, Lczu-[id number] Tendinitis Tendinitis is irritation and swelling (inflammation) of a tendon. A tendon is a cord of tissue thatconnects muscle to bone. Tendinitis is most common in the shoulder, ankle, elbow, or wrist. What are the causes? Using a tendon or muscle too much (overuse). This is the most common cause. ??? Wear and tear that happens as you age. ??? Injury. ??? Some medical conditions, such as arthritis. ??? Some medicines. What increases the risk? You are more likely to get this condition if you do activities that involve the same movements overand over again (repetitive motions). What are the signs or symptoms? Pain. ??? Tenderness. ??? Mild swelling. ??? Decreased range of motion. How is this treated? This condition is usually treated with RICE therapy. RICE stands for: ??? Rest. ??? Ice. ??? Compression. This means putting pressure on the affected area. ??? Elevation. This means raising the affected area above the level of your heart. Treatment may also include: ??? Medicines for swelling or pain. ??? Exercises or physical therapy to help your tendon move better and get stronger. ??? A brace or splint. ??? A shot (injection) of a type of medicine called corticosteroid. ??? Surgery. This is rarely needed. Follow these instructions at home: If you have a splint or brace that can be taken off: ??? Wear the splint or brace as told by your doctor. Take it off only as told by your doctor. ??? Check the skin around the splint or brace every day. Tell your doctor if you see problems. ??? Loosen the splint or brace if your fingers or toes: ??? Tingle. ??? Become numb. ??? Turn cold and blue. ??? Keep the splint or brace clean. ??? If the splint or brace is not waterproof: ??? Do not let it get wet. ??? Cover it with a watertight covering when you take a bath or shower, or take it off as told by your doctor. Managing pain, stiffness, and swelling ??? If told, put ice on the affected area. To do this: ??? If you have a removable splint or brace, take it off as told by your doctor. ??? Put ice in a plastic bag. ??? Place a towel between your skin and the bag. ??? Leave the ice on for 20 minutes, 2???3 times a day. ??? Take off the ice if your skin turns bright red. This is very important. If you cannot feel pain, heat, or cold, you have a greater risk of damage to the area. ??? Move the fingers or toes of the affected arm or leg often, if this applies. ??? If told, raise the affected area above the level of your heart while you are sitting or lying down. ??? If told, put heat on the affected area before you exercise. Use the heat source that your doctor recommends, such as a moist heat pack or a heating pad. ??? Place a towel between your skin and the heat source. ??? Leave the heat on for 20???30 minutes. ??? Take off the heat if your skin turns bright red. This is very important. If you cannot feel pain, heat, or cold, you have a greater risk of getting burned. Activity ??? Rest the affected area as told by your doctor. ??? Ask your doctor when it is safe to drive if you have a splint or brace on any part of your arm or leg. ??? Return to your normal activities when your doctor says that it is safe. ??? Avoid using the affected area while you have symptoms. ??? Do exercises as told by your doctor. General instructions ??? Wear an elastic bandage or pressure (compression) wrap only as told by your doctor. ??? Take kjaq-qtz-qfbikiy and prescription medicines only as told by your doctor. ??? Keep all follow-up visits. Contact a doctor if: ??? You do not get better. ??? You get new problems, such as numbness in your hands or feet, and you do not know why. Summary ??? Tendinitis is irritation and swelling (inflammation) of a tendon. ??? You are more likely to get this condition if you do activities that involve the same movements over and over again. ??? This condition is usually treated with RICE therapy. RICE stands for rest, ice, compression, and elevate. ??? Avoid using the affected area while you have symptoms. This information is not intended to replace advice given to you by your health care provider. Make sure you discuss any questions you have with your health care provider. Document Revised: 05/12/2022 Document Reviewed: 05/12/2022 [employer] Patient Education ?? 2023 [employer]. Follow Up Care 08/26/2025 23:21:11 With:Virginia Arshad Address: [place] [place] [address]- Business (1) When:08/30/2025 Comments:Call to schedule a follow-up appointment with your primary care provider. Use Tylenol and ibuprofenevery 4 hours as needed for pain management. Return to the ED with any new or worsening symptoms. Physician Emergency department Note * Sheryl DAVENPORT, Romy Akins: PERFORM Event Display: ED Note-Physician Authored Date: [id number] Basic Information Time Seen: Marixa TALAVERA, J Carlos Nichols ??08/26/2025 23:29 Chief Complaint pt presents ambulatory through triage with c/o left upper arm pain and numbness that started earlier in the day History of Present Illness Patient is a 34-year-old female with a history of migraines, panic attacks, adjustment disorder,??and osteoarthritis who presents to the ED with left??arm pain that began this morning around 1200. ??Patient denies any known injury or trauma. ??She describes the pain as being intermittent??and??located??over the anterior aspect of her??left bicep radiating??into her fingers.?? She denies any exacerbating or alleviating factors. ??Patient states 3 weeks ago she experienced a similar pain in her left shoulder??and had an x-ray that was without acute findings. ??She notes she has been given a referral to orthopedics but has not seen them yet.?? Patient denies any radiation of the pain into her n irish or chest.?? She does note she has been feeling??increased shortness of breath?? all the time. ??Patient states she was seen in the ED approximately??5 months ago??for chest pain.?? She was givena referral to cardiology and states that she underwent further evaluation without concerning findings.?? Patient states she has an appointment with a new primary care provider??tomorrow morning as she does not feel??she was?? being listened to by her prior. ??Patient denies??any headache, changes in vision, confusion, or unilateral weakness. Review of Systems A 10 point review of systems is negative except as noted above. ? Medical and Surgical History: Reviewed and noted ?? Social history: Lives at home ?? Family History: Reviewed. ?? Tobacco:??Denies Physical Exam Vitals & Measurements T:??36.9?C(Oral)?? HR:??87(Peripheral)?? RR:??18?? BP:??147/84?? SpO2:??100%?? HT:??157.48??cm?? WT:??157??kg?? BMI:??63.31?? General: The patient appears well and in no apparent distress. Patient is resting comfortably on chair??on her phone.?? Skin: Warm, dry, no pallor noted.?? Head: Normocephalic, atraumatic?? Neck: No JVD?? Eye: PERRLA, EOMI?? ENT: Moist mucus membranes Cardiovascular: Regular rate normal peripheral perfusion Respiratory: Lungs clear to auscultation bilaterally. ??No respiratory distress no accessory muscleuse no obvious audible wheezing Chest Wall: no deformity Musculoskeletal: normal ROM, no deformity, no swelling. ??No focal bony tenderness to palpation of the left humerus.?? Flexion and extension of the left shoulder is intact.?? Flexion and extension ofthe left elbow is intact.??5/5 environmental inspector strength bilaterally.?Sensation intact of the upper extremities bilaterally.?Radial pulse palpable.?? Brisk capillary refill. GI: Soft no obvious distention. No rebound or rigidity. No guarding. No tenderness. Neurological: A&O moves all extremities equal strength and symmetry. No focal neurological deficits. Psychiatric: Cooperative and appropriate? Medical Decision Making Patient is a 34-year-old female with a history of migraines, panic attacks, adjustment disorder,??and osteoarthritis who presents to the ED with left??arm pain that began this morning around 1200. ??Patient is hemodynamically stable and afebrile. ??She does note??concerns for cardiac etiology??as she was seen in the ED??approximately 5 months ago for chest pain. ??At this time patient had a negative??cardiac workup. ??She states she followed up with cardiology??appropriately and had negative further evaluation.?? Patient does note ongoing dyspnea at this time, therefore repeat workup is obtained today.?? Symptoms today are likely musculoskeletal in etiology as patient states she has been experiencing??left shoulder pain intermittently for the past 3 weeks??and has been given a referral toorthopedics. ??EKG shows sinus rhythm without significant changes from prior.?? Lab work is reviewed.?? CBC unremarkable.?? Troponin is negative. ??Chest x-ray interpreted by myself is without significant findings to prior.?? Left humerus x-ray without acute findings.?? Symptoms today??consistent with musculoskeletal etiology, potentially bicep tendinitis.?? Patient is updated on the results. ??Disposition was discussed with the patient, was comfortable being discharged home.?? She is prescribed naproxen and will follow-up with her primary care provider. ??Patient was advised to return to the ED with any new or worsening symptoms.?? She is agreeable with the plan and all questions were answered. Assessment/Plan Biceps tendonitis on left??(M75.22: Bicipital tendinitis, left shoulder) Orders: Basic Metabolic Panel CBC w/ Auto Diff ECG 12 Lead Adult ED Cardiac Monitoring eGFR Oxygen Saturation Oxygen Therapy PT & PTT Saline Lock Insert Troponin 0 Hr. XR Chest Single View XR Humerus Left Disposition Plan Patient Discharge Condition stable Discharge Disposition home Discharge Prescription List Prescriptions naproxen 500 mg Tab, 500 mg= 1 tab(s), Oral, BID, PRN Follow-up With When Contact Information Virginia Arshad In 3 days 08/30/[address] [place] [address]- Business (1) Additional Instructions: Call to schedule a follow-up appointment with your primary care provider. ??Use Tylenol and ibuprofen every 4 hours as needed for pain management. ??Return to the ED with anynew or worsening symptoms. Patient Education Tendinitis, Ienb-ls-Pzlk Attestation Patient seen and evaluated by the physician drafter assistant. Attending physician was present in the emergency department and supervised care. ? This visit was performed by both the physician and an APC. ??I performed all aspects of the MDM as documented. ?? This report was transcribed using voice recognition software. ??Every effort was made to ensure accuracy, however, inadvertently computerized operating room scheduler mistakes may be present. ?? I performed a substantive part of the MDM during the patient??s E/M visit.?? I personally made or approved the documented [...] tab(s), Oral, Daily Allergies No Known Allergies Social History Alcohol - Denies Alcohol Use, 04/08/2025 Substance Abuse - Denies Substance Abuse, 04/08/2025 Tobacco - Denies Tobacco Use, 04/08/2025 Lab Results WBC: 8.9 E9/L (08/26/25 23:51:00) RBC: 4.4 E12/L (08/26/25 23:51:00) HGB: 13.1 gm/dL (08/26/25 23:51:00) Hct: 38.3 % (08/26/25 23:51:00) MCV: 87.8 fL (08/26/25 23:51:00) MCH: 30.1 pg (08/26/25 23:51:00) MCHC: 34.3 gm/dL (08/26/25 23:51:00) RDW: 13.3 % (08/26/25 23:51:00) Platelet: 245 E9/L (08/26/25 23:51:00) MPV: 8.3 fL (08/26/25 23:51:00) Neutro Auto: 60.1 % (08/26/25 23:51:00) Lymph Auto: 30.1 % (08/26/25 23:51:00) [place] Auto: 7.4 % (08/26/25 23:51:00) Eos Auto: 1.8 % (08/26/25 23:51:00) Basophil Auto: 0.6 % (08/26/25 23:51:00) Neutro Absolute: 5.3 E9/L (08/26/25 23:51:00) Lymph Absolute: 2.7 E9/L (08/26/25 23:51:00) [place] Absolute: 0.7 E9/L (08/26/25 23:51:00) Eos Absolute: 0.2 E9/L (08/26/25 23:51:00) Basophil Absolute: 0.1 E9/L (08/26/25 23:51:00) PT: 10.9 second(s) (08/26/25 23:51:00) INR: 0.97 (08/26/25 23:51:00) PTT: 30.1 second(s) (08/26/25 23:51:00) Glucose Lvl: 90 mg/dL (08/26/25 23:51:00) BUN: 17 mg/dL (08/26/25 23:51:00) Creatinine: 0.7 mg/dL (08/26/25 23:51:00) eGFR: 116 mL/min/1.73 m2 (08/26/25 23:51:00) BUN/Creat Ratio:??24??High (08/26/25 23:51:00) Sodium Lvl: 136 mmol/L (08/26/25 23:51:00) Potassium Lvl: 3.7 mmol/L (08/26/25 23:51:00) Chloride: 101 mmol/L (08/26/25 23:51:00) CO2: 27 mmol/L (08/26/25 23:51:00) AGAP: 12 mEq/L (08/26/25 23:51:00) Calcium Lvl: 9 mg/dL (08/26/25 23:51:00) Troponin HS:??2.7 pg/mL??Low (08/26/25 23:51:00) Diagnostic Results No qualifying data available. EKG Results EC08/27/25: SINUS RHYTHM LOW QRS VOLTAGE IN PRECORDIAL LEADS [QRS DEFLECTION < 1.0 mV IN CHEST LEADS] POSSIBLE ANTERIOR MYOCARDIAL INFARCTION [30 ms Q WAVE IN V3/V4, OR R < 0.2 mV IN V4], PROBABLY OLD ?? BORDERLINE ECG Signed By: J Carlos Calvin DO ??08/27/2025 ??00:33:04 Electronically Signed By: Romy Saucedo PA-C Date and Time Signed: 08/27/25 00:46 EST Electronically Co-Signed By: J Carlos Calvin DO Date and Time Co-Signed: 08/27/25 01:03 EST Patient Care team information Care Team Personnel Name: Pavithra GAVIN, Virginia Nichols Member Role: Primary Care Physician Address: [address] [place] [address] [address] [place], [place] [address] Telecom: Care Team Related Persons Name: LISY ENGLISH Name: TORSTEN BROWN Insurance Providers Guarantor name: Health Plan Information #: 1 Payer: Stephan Payer Identifier: [id number] Member Number: [id number] Group Number: [id number] Subscriber Identifier: [id number] Relationship to Subscriber: self Coverage Type: PRIVATE HEALTH INSURANCE Coverage Verification Date: 25 Telecom: [phone] Address: [facility] [address] [place] [address]
--- OUTSIDE RECORDS SUMMARY | 2025-08-27 08:00 | XMS_ITS | Encounter Summary ---
Author Organization [facility] Address [address] [facility] [place] [address] Care Team Providers Care Claim Agent Name Role Phone Virginia Arshad MD Primary Care Provider [phone] Reason for Visit * ReasonCommentsEstablish CareER Follow-upWas [facility] [place] for [place] numbess Encounter Details DateTypeDepartmentCare Team (Latest Contact Info)Ektccbcfbfk57/10/2025 8:00 AM ESTOffice Visit [facility] [address] [place] [address] Virginia Arshad MD [address] [place] [address] Encounter to establish care (Primary Dx); Chronic fatigue; Hair loss; Cardiovascular risk factor; Localized swelling of both lower extremities; Varicose veins of bilateral lower extremities with other complications; BMI 50.0-59.9, adult ([facility]); Morbid obesity ([facility]) Social History Tobacco UseTypesPacks/DayYears UsedDateSmoking Tobacco: FormerCigarettes0.310.9 Started: 2014Smokeless Tobacco: NeverAlcohol UseStandard Drinks/WeekCommentsYes3 (1 standard drink = 0.6 oz pure alcohol)CommentsUnknownSex and Gender InformationValueDate RecordedSex Assigned at BirthNot on fileLegal SexFemale 08/27/2025 8:12 AM ESTGender IdentityNot on fileSexual OrientationNot on file documented as of this encounter Last Filed Vital Signs Vital SignReadingTime TakenCommentsBlood Akfoxied559/8412/06/2025 8:08 AM EST Ddlfo8302/06/2025 8:08 AM MBIZpfdxgrymdi45 ??C (98.6 ??F)08/27/2025 8:08 AM EST Respiratory Rate--Oxygen Exkdazpfpa65%08/27/2025 8:08 AM ESTInhaled Oxygen Concentration--Uwuwge862 kg (338 lb 9.6 oz)08/27/2025 8:08 AM BSBUgkkwh368.6 cm (5' 4.4 )08/27/2025 8:08 AM ESTBody Mass Index57. 8:08 AM EST documented in this encounter Progress Notes * Virginia Arshad MD - 08/27/2025 8:00 AM EST Images from the original note were not included. Subjective Patient ID: Charity Veliz is a 34 y.o. female who presents for Establish Care and ER Follow-up (Was in [facility] [place] for [place] numbess[place] HPI Pt here to establish care. Does have a h/o anxiety and depression. Currently on wellbutrin and effexor. Sx are controlled on current regimen. Does struggle with chr fatigue, as well on hair loss, muscle aches, swelling in her legs. Did have previous episode of chest pain - recent resting including stress test and echo were normal. Weight - Has been working on lifestyle modifications including diet and exercise. Did try adipex previously, but only saw results during the first month. Review of Systems General: Denies fever, chills CV: Denies palpitations Resp: denies cough, SOB or wheezing GI: Denies abd pain/n/v/c/d Skin: Denies rash Neuro: Denies LH or dizziness Objective Blood pressure 132/84, pulse 75, temperature 98.6 ??F, temperature source Temporal, height 5' 4.4 ,weight 338 lb 9.6 oz, SpO2 98%. Body mass index is 57.4 kg/m??. Physical Exam General: alert & oriented, NAD Head: NC/AT Oral Cavity: MMM Skin: warm, dry Heart: RRR, No m/r/g, S1S2 nml Lungs: CTA b/l Abdomen: soft, ND/NT, BS wnl Musculoskeletal: normal gait Extremities: no clubbing, cyanosis or edema Neurological: nonfocal Psych: mood/affect full range Assessment/Plan Charity was seen today for establish care and er follow-up. Diagnoses and all orders for this visit: Encounter to establish care (Primary) - Reviewed hx and meds - Discussed preventative care Chronic fatigue - CBC and differential; Future - Comprehensive metabolic panel; Future - TSH REFLEX TO T4F; Future - DANNY; Future - Sedimentation rate, automated; Future - C-reactive protein; Future - Vitamin D 25 hydroxy; Future - CBC and differential - Comprehensive metabolic panel - TSH REFLEX TO T4F - DANNY - Sedimentation rate, automated - C-reactive protein - Vitamin D 25 hydroxy - discussed possible causes Hair loss - CBC and differential; Future - Comprehensive metabolic panel; Future - TSH REFLEX TO T4F; Future - DANNY; Future - Sedimentation rate, automated; Future - C-reactive protein; Future - Vitamin D 25 hydroxy; Future - CBC and differential - Comprehensive metabolic panel - TSH REFLEX TO T4F - DANNY - Sedimentation rate, automated - C-reactive protein - Vitamin D 25 hydroxy Cardiovascular risk factor - Lipid panel; Future - Lipid panel Localized swelling of both lower extremities - encouraged elevation and compression Varicose veins of bilateral lower extremities with other complications - discussed possible vascular referral BMI 50.0-59.9, adult (CMS-HCC) Morbid obesity (CMS-HCC) - continue to monitor weight documented in this encounter Plan of Treatment NameTypePriorityAssociated DiagnosesOrder ScheduleCBC and differentialLabRoutine Chronic fatigue Hair loss Expected: 08/27/2025 (Approximate), Expires: 08/27/2026omprehensive metabolic panelLabRoutine Chronic fatigue Hair loss Expected: 08/27/2025 (Approximate), Expires: 08/27/2026TSH REFLEX TO T4FLab Routine Chronic fatigue Hair loss Expected: 08/27/2025 (Approximate), Expires: 08/27/2026NALabRoutine Chronic fatigue Hair loss Expected: 08/27/2025 (Approximate), Expires: 08/27/2026Sedimentation rate, automatedLabRoutine Chronic fatigue Hair loss Expected: 08/27/2025 (Approximate), Expires: 08/27/2026-reactive proteinLab Routine Chronic fatigue Hair loss Expected: 08/27/2025 (Approximate), Expires: 08/27/2026Vitamin D 25 hydroxyLab Routine Chronic fatigue Hair loss Expected: 08/27/2025 (Approximate), Expires: 08/27/2026Lipid panelLabRoutine Cardiovascular risk factor Expected: 08/27/2025 (Approximate), Expires: 08/27/2026documented as of this encounter Visit Diagnoses Diagnosis Encounter to establish care- Primary Chronic fatigue Other malaise and fatigue Hair loss Unspecified alopecia Cardiovascular risk factor Localized swelling of both lower extremities Varicose veins of bilateral lower extremities with other complications BMI 50.0-59.9, adult ([facility]) Morbid obesity ([facility]) Morbid obesity documented in this encounter Care Teams Team MemberRelationshipSpecialtyStart DateEnd Date Virginia Arshad MD [address] [place] [address] PCP - GeneralFamily Fjechzmg52/10/25documented as of this encounter
[2025-08-29] VITALS (9 sets, daily range): BP systolic 110–147; BP diastolic 71–108; PULSE 93; TEMP 36.6; O2SAT 97–100; BMI 62.2
--- NOTE | 2025-08-29 04:03 | ED.GENADUL1 ---
HPI HPI - General Adult General Chief complaint: Abdominal Pain Stated complaint: ABDOMINAL PAIN Time Seen by Provider: 08/29/25 03:53 Source: patient Mode of arrival: walk-in Limitations: no limitations History of Present Illness HPI narrative: Patient is a 34-year-old female presenting to the emergency department for evaluation of abdominal pain. Patient states that she woke up in the middle of the night with pain located upper part of her abdomen. She states it is located throughout the entire upper part of her abdomen, not localized to 1 side or the other. She denies associated nausea, vomiting, diarrhea, constipation. No fevers or chills. No history of intra-abdominal surgeries. She denies history of gallstones. She denies any current chest pain or shortness of breath. She describes the pain as sharp in nature. Related Data Home Medications ?Medication ?Instructions ?Recorded ?Confirmed bupropion HCl 150 mg 24 hr tablet, 150 mg PO DAILY 08/29/25 08/29/25 extended release cholecalciferol (vitamin D3) 50 2,000 unit PO DAILY 08/29/25 08/29/25 mcg (2,000 unit) capsule meloxicam 15 mg tablet 15 mg PO BID 08/29/25 08/29/25 naproxen 500 mg tablet 500 mg PO PRN pain 08/29/25 venlafaxine 150 mg 150 mg PO DAILY 08/29/25 08/29/25 capsule,extended release 24 hr Previous Rx's ?Medication ?Instructions ?Recorded omeprazole 20 mg capsule,delayed 20 mg PO DAILY heartburn 2 weeks 08/29/25 release #14 caps Allergies Allergy/AdvReac Type Severity Reaction Status Date / Time No Known Drug Allergies Allergy Verified 08/29/25 03:44 Opioid HPI Opioid Management Most Recent Opioid Data: Last Pain Scale 9 Today, 03:55 Last ED Pain Assessment Today, 03:55 Review of Systems ROS Status of ROS 10 or more systems reviewed and unremarkable except as noted in history and below [facility] Medical History (Updated 08/29/25 @ 04:42 by J Carlos Calvin DO) Anxiety ?F41.9 - Anxiety disorder, unspecified (ICD-10) Social History Little interest or pleasure in doing things: not at all Feeling down, depressed, or hopeless: not at all Exam Narrative Exam Narrative: CONSTITUTIONAL: Tearful, nontoxic, answering questions and following commands appropriately SKIN: Was warm and dry. EYES: Sclerae white. EARS, NOSE, THROAT: Moist oral mucosa. RESPIRATORY: Clear to auscultation bilaterally, no wheezes, crackles, or stridor, no use of accessory muscles CARDIOVASCULAR: Normal rate and regular rhythm. There is no S3, S4, murmur, rub. 2+ radial and DP pulses bilaterally. GASTROINTESTINAL: Abdomen is soft, nontender, nondistended. No rebound tenderness or guarding. Negative Elizondo sign. MUSCULOSKELETAL: No peripheral edema. NEUROLOGIC: Patient is awake and alert. Facies were symmetrical. Constitutional Vital Signs, click to edit/add: Last Vital Signs Temp 98 F 08/29/25 03:38 Pulse 93 H 08/29/25 03:38 Resp 18 08/29/25 03:38 BP 147/108 H 08/29/25 03:38 Pulse Ox 99 08/29/25 03:38 O2 Del Method Room Air 08/29/25 03:38 Course Vital Signs Vital signs: Vital Signs Temperature 98 F 08/29/25 03:38 Pulse Rate 93 H 08/29/25 03:38 Respiratory Rate 18 08/29/25 03:38 Blood Pressure 147/108 H 08/29/25 03:38 Pulse Oximetry 99 08/29/25 03:38 Oxygen Delivery Method Room Air 08/29/25 03:38 Temperature 98 F 08/29/25 03:38 Pulse Rate 93 H 08/29/25 03:38 Respiratory Rate 18 08/29/25 03:38 Blood Pressure 147/108 H 08/29/25 03:38 Pulse Oximetry 99 08/29/25 03:38 Oxygen Delivery Method Room Air 08/29/25 03:38 Medical Decision Making [facility] Narrative Medical decision making narrative: Patient is a 34-year-old female presenting to the emergency department with acute onset upper abdominal pain which awoke her from her sleep tonight. Her vital signs on arrival were significant for mild hypertension, otherwise within normal limits. She is afebrile and hemodynamically stable. Examination as outlined above. Differential diagnosis includes gastritis, peptic ulcer disease, pancreatitis, GERD. Patient's exam is not consistent with surgical etiologies of abdominal pain such as appendicitis, cholecystitis, or perforated viscus. IV was established and laboratory studies were obtained. She was given IV famotidine, IV Zofran, and oral GI cocktail for symptomatic treatment. Laboratory studies were unremarkable. No significant electrolyte or metabolic derangement. No evidence of acute kidney injury. No anemia, leukocytosis, or thrombocytopenia. No transaminitis or hyperbilirubinemia. Lipase not elevated. Troponin nonelevated. On reevaluation, patient states she feels improved. She tolerated a p.o. challenge. I do believe the patient is stable for discharge. Patient's presentation is most likely consistent with gastritis/GERD. They were instructed to follow up with her PCP for further care. Return precautions were given including any new or worsening symptoms. She was given a prescription for omeprazole 20mg daiy. Patient understands and agrees to the plan. FINAL IMPRESSION: #Acute abdominal pain, likely secondary to gastritis DISPOSITION: Discharged home CONDITION: Good Lab Data Lab results reviewed: Yes I reviewed the patient's lab results Labs: Lab Results 08/29/25 Range/Units 03:45 WBC 11.0 (4.0-11.0) 10^3/uL RBC 4.33 (4.20-5.40) 10^6/uL Hgb 13.2 (12.0-16.0) g/dL Hct 38.3 (36.0-48.0) % MCV 88.5 (81.0-99.0) fL MCH 30.5 (26.7-34.0) pg MCHC 34.5 (29.9-35.2) g/dL RDW 12.9 (11.0-15.0) % Plt Count 294 (150-450) 10^3/uL MPV 10.5 (9.5-13.5) fL Neut % (Auto) 56.2 (43.0-75.0) % Lymph % (Auto) 33.0 (20.5-60.0) % [place] % (Auto) 8.0 (1.7-12.0) % Eos % (Auto) 2.1 (0.9-7.0) % Baso % (Auto) 0.5 (0.2-2.0) % Neut # (Auto) 6.2 (1.4-6.5) 10^3/uL Lymph # (Auto) 3.6 (1.2-3.8) 10^3/uL [place] # (Auto) 0.9 H (0.3-0.8) 10^3/uL Eos # (Auto) 0.2 (0.0-0.7) 10^3/uL Baso # (Auto) 0.1 (0.0-0.1) 10^3/uL Abs Immat Gran (auto) 0.02 (0.00-0.03) 10^3/uL Imm/Tot Granulo (auto) 0.2 (0.0-0.5) % Sodium 138 (136-145) mmol/L Potassium 3.8 (3.5-5.1) mmol/L Chloride 103 (98-107) mmol/L Carbon Dioxide 28.0 (21.0-32.0) mmol/L Anion Gap 10.8 BUN 13.0 (7.0-18.0) mg/dL Creatinine 0.68 (0.55-1.02) mg/dL Est GFR ( Amer) >60 (>=60 mL/min/1.73m^2) Est GFR (Non-Af Amer) >60 (>=60 mL/min/1.73m^2) BUN/Creatinine Ratio 19.1 Glucose 105 (74-106) mg/dL Calcium 9.0 (8.5-10.1) mg/dL Total Bilirubin 0.3 (0.2-1.0) mg/dL AST 25 (15-37) U/L ALT 41 (14-59) U/L Alkaline Phosphatase 99 (46-116) U/L Troponin I High Sens 4.3 (4.0-51.3) pg/mL Total Protein 7.9 (6.4-8.2) g/dL Albumin 3.2 L (3.4-5.0) g/dL Globulin 4.7 g/dL Albumin/Globulin Ratio 0.7 Lipase 29.0 (16.0-77.0) U/L Discharge Plan Discharge Chief Complaint: Abdominal Pain Clinical Impression: Abdominal pain Patient Disposition: Home, Self-Care Time of Disposition Decision: 04:41 Condition: Good Mode of Transportation: Private Vehicle Prescriptions / Home Meds: New omeprazole 20 mg capsule,delayed release(DR/EC) 20 mg PO DAILY 14 Days Qty: 14 0RF No Action bupropion HCl 150 mg tablet extended release 24 hr 150 mg PO DAILY cholecalciferol (vitamin D3) 50 mcg (2,000 unit) capsule 2,000 unit PO DAILY meloxicam 15 mg tablet 15 mg PO BID venlafaxine 150 mg capsule,extended release 24hr 150 mg PO DAILY naproxen 500 mg tablet 500 mg PO PRN (Reason: pain) Print Language: Citizen [place] Instructions: Gastritis (ED), Abdominal Pain (ED) Referrals: JAYSHREE MARTINS [Primary Care Provider, Family Practice] - 1 week
[2025-08-29 04:08] LABS: Hematocrit 38.3 % (36.0-48.0); Hemoglobin 13.2 g/dL (12.0-16.0); Immature Granulocytes Abs Auto 0.02 10^3/uL (0.00-0.03); Immature Granulocytes Pct Auto 0.2 % (0.0-0.5); Lymphocytes Absolute Auto 3.6 10^3/uL (1.2-3.8); Mean Corpuscular HGB Conc 34.5 g/dL (29.9-35.2); Mean Corpuscular Hemoglobin 30.5 pg (26.7-34.0); Mean Corpuscular Volume 88.5 fL (81.0-99.0); Platelet Count 294 10^3/uL (150-450); Red Blood Count 4.33 10^6/uL (4.20-5.40); White Blood Count 11.0 10^3/uL (4.0-11.0)
[2025-08-29] MEDS: FAMOTIDINE/PF 20 MG/2 ML VIAL 40 MG IV (04:20)
[2025-08-29 04:21] LABS: Alanine Aminotransferase 41 U/L (14-59); Albumin Globulin Ratio 0.7; Albumin Level 3.2 g/dL (3.4-5.0); Alkaline Phosphatase 99 U/L (46-116); Anion Gap 10.8; Aspartate Amino Transferase 25 U/L (15-37); Blood Urea Nitrogen 13.0 mg/dL (7.0-18.0); Calcium 9.0 mg/dL (8.5-10.1); Carbon Dioxide 28.0 mmol/L (21.0-32.0); Chloride 103 mmol/L (98-107); Estimated GFR (African America >60 (>=60 mL/min/1.73m^2); Estimated GFR (Non-African Ame >60 (>=60 mL/min/1.73m^2); Globulin 4.7 g/dL; Glucose 105 mg/dL (74-106); Lipase 29.0 U/L (16.0-77.0); Potassium 3.8 mmol/L (3.5-5.1); Sodium 138 mmol/L (136-145); Total Protein 7.9 g/dL (6.4-8.2)
--- OUTSIDE RECORDS SUMMARY | 2025-08-29 04:47 | XMS_ITS | CCD ---
Author Organization [facility] Care Team Providers Care Clinical Advisor Name Role Phone ABDULKADIR CUMMINGS Primary Care [...] 500 mg oral capsule (1 source)Cephalosporin AntibacterialStart: 85-27-4089ktsf 1 capsule by mouth every eight hoursCephalexin 500 MG 1 capsule Orally tid for 10 day(s) Nov, ActiveCetirizine (1 source)Histamine-1 Receptor AntagonistZyrTEC Activeciprofloxacin 3 mg/ml ophthalmic solution (1 source)Quinolone AntimicrobialStart: 32-04-4466kvvo 1 drop(s) into the eye(s) every four hoursCiloxan 0.3 % 1 drop each eye every 4 hrs for 5 day(s) Dec, Activemupirocin 0.02 mg/mg topical ointment (1 source)RNA Synthetase Inhibitor AntibacterialStart: 97-12-6475Mnejzdzpq 2 % 1 application to affected area [...] of knee; Translations: [BILATERAL PRIM OSTEOARTHRITIS KNEE]Onset: 40-86-1635JagnnlyDbcbt lower respiratory disease (2 sources)Shortness of breath; Translations: [Shortness of breath]Onset: 54-43-0161FilntojpPyhphspuiut; intervertebral disc disorders; other back problems (1 source)Low back pain; Translations: [Low back pain]Onset: 68-25-0990Kvrmwpqd Viral infection (1 source)Viral infection, unspecified; Translations: [Viral infection, unspecified]Onset: 23-08-3315Ovdudpal Past or Other Problems Problem ClassificationProblemDateDocumented DateEpisodic/ChronicMalaise and fatigue (1 source)Other malaise; Translations: [OTHER MALAISE]Onset: 66-52-3875Viqbszhq Other nervous system disorders (1 source)Other abnormalities of gait and mobility; Translations: [OTHER ABNORMALITIES GAIT AND MOBILITY]Onset: 52-91-3671DvozdlraJppxf upper respiratory infections (1 source)Streptococcal pharyngitis; Translations: [Streptococcal pharyngitis] Onset: 84-24-1227SqzqimseVaoklxg tract infections (1 source)Urinary tract infection, site not specified; Translations: [Urinary tract infection, site not specified]Onset: 12-62-5478Zupoqdpz Results Test NameValueInterpretationReference RangeFacilityOrders Onlyon 06-17-2025 Orders [id number] Forest Mai 1990 F Date Provider Department Center 06/17/2025 [id number], HISTORICAL CARD [facility] Family History Problem Relation Age of Onset Coronary artery disease Paternal Grandmother Family Status - Relation Status Age at Mother Alive Father Alive Paternal GrandmotherNCleveland Clinic [facility] General Lodi HospitalOrders Onlyon 21-40-1503Nskbei [id number] Forest Mai 1990 F Date Provider Department Center 06/12/2025 [id number], HISTORICAL CARD [facility] Family History Problem Relation Age of Onset Coronary artery disease Paternal Grandmother Family Status - Relation Status Age at Mother Alive Father Alive Paternal GrandmotherNCleveland Clinic [facility] General Lodi HospitalOffice Visiton 78-54-1730Ssseft-up [id number] Forest Mai 1990 Date Provider Department Center 06/06/2025 [id number] REYES CARD [facility] Family History Problem Relation Age of Onset Coronary artery disease Paternal Grandmother Family Status - Relation Status Age at Mother Alive Father Alive Paternal Grandmother Level of Service:32126 [place] OFFICE/OUTPATIENT NEW LOW MDM 30 MINUTES Reason for Visit and Comments: New Patient [632] - Patient is here today to establish care with cardiology for chest pain. Patient denies cardiac complaints at this time Chest Pain [719291] - Seen at [facility] ER for chest pain in March 2025 Leg Swelling [512675] - Patient states she is very sedentary and has a sit down jobNormalUniUC HealthAbstracton 04-11-2025 [id number] Forest Mai 1990 F Date Provider Department Center 04/11/2025 895-DAVID VEGA CARD [facility] No family history on fileNormalUniversity of Baylor Scott [facility] – PflugervilleOrders Onlyon 99-20-6943Cuizsr [id number] Forest Mai 1990 F Date Provider Department Center 04/11/2025 [id number], HISTORICAL CARD [facility] No family history on fileNormalUniversity of [facility] Clinical Summaryon 38-22-2939YQ Clinical SummaryED Clinical Summary [place] [id number] ED Clinical Summary Person Information Name: FOREST MAI Nayla/[facility] Age: 34 Years : 1990 Sex: Female Language: Yi PCP: MARY JANE MARTINS CNP Marital Status: Phone: [phone] Visit Id: Visit Reason: Chest pain; CP [...] 04/09/2025 00:25:55 04/09/2025 00:25:55 04/09/2025 00:25:55 ADDRESS: [address] [place] [address] [place] [id number] PHYS DOC NOTES: MEDICAL INFORMATION: Prescriptions Given: Medications to Continue with No Changes Other Medications cetirizine (cetirizine 10 mg Tab) 1 Tablets By Mouth every day. citalopram (citalopram 20 mg Tab) 1 Tablets By Mouth every day. PATIENT EDUCATION INFORMATION: Instructions: Nonspecific Chest Pain, Adult, Eefb-yk-Xesl Follow up: With: Address: When: Deshaun Pa [address] [place] [phone] Business (1) In 3 days 04/12/2025 Comments: Call to schedule a follow-up appointment with cardiology. Return to the ED with any new or worsening symptoms. With: Address: When: MARY JANE MARTINS [address] [place] [phone] [place] (1) In 3 days DIAGNOSIS: Nonspecific chest painNormalFisher Tyrel Medical CenterED Note-Physicianon 36-99-0519FQ Note-PhysicianED Note-Physician Basic Information Time Seen: Sheryl DAVENPORT, Romy Akins 04/08/2025 21:11 Chief Complaint Pt to ED via [facility] for c/o sudden onset of midsternal CP 15min TIER AND DETONATOR while working. 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 She describes [...] Orders: ketorolac, 15 m (more content not included)...[facility] Comment on above:Result Comment: Electronically Signed By: Romy Saucedo PA-C\.br\Date and Time Signed: 04/09/2500:20 EDT\.br\Electronically Co-Signed By: Elham Becerril D.O.\.br\Date and Time Co-Signed: 04/09/25 03:26 EDT ED Patient Summaryon 98-26-4166KA Patient SummaryED Patient Summary [address] [address] Patient Discharge Instructions Person Information Name: FOREST MAI Age: 34 Years Arrival Date: 04/08/2025 21:05:21 Discharge Diagnosis: Nonspecific chest pain Primary Care Physician: MARY JANE MARTINS CNP Provider Information Primary Provider: Advanced Oncology Coordinator:Romy Saucedo PA-C The exam and treatment you received in the Emergency Department were for an urgent problem and are not intended as complete care. It is important that you follow up with a doctor, nurse practitioner,or physician???s assurance assistant for ongoing care. If your symptoms become worse or you do not improve asexpected and you are unable to reach your usual health care provider, you should return to the Emergency Department. We are available 24 hours a day. FOREST MAI has been given the following list of patient education materials, prescriptions and follow-up instructions: Follow-up Instructions: With: Address: When: Deshaun Pa [address] [place] [id number] [phone] Picosun (1) In 3 days 04/12/2025 Comments: Call to schedule a follow-up appointment with cardiology. Return to the ED with any new or worsening symptoms. With: Address: When: MARY JANE MARTINS [address] [place] [address] [phone] [place] (1) In 3 days In the event that this physician does not participate in your insurance network, please consult with your insurance company to find a nearby participating provider. Patient Education Materials: Nonspecific Chest Pain, Adult, Ngoq-sg-Coka A MESSAGE TO ALL PATIENTS REGARDING OPIOIDS PRESCRIPTION OPIOIDS: WHAT YOU NEED TO KNOW Prescription opioids can be used to help relieve enagyead-db-bogkaq pain and are often prescribed following a [...] Food and Drug Adm (more content not included)...[facility]XR Chest 2 Viewson 11-27-5459RG Chest 2 ViewsExam Date/Time: 04/08/2025 21:44 EDT [...] Juwan Salinas M.D. Transcribed by: BAL Technologist: EVERARDOKettering Health TroyBMPon 60-18-8040Nvimj gap [Moles/Vol]12 mmol/LNormal6-16[facility] Comment on above:Performed By: #### [id number] #### [facility] [address] [place], [place] [address]OLN/Creat Ratio20 No TqfsrAngrkz42-74YllneqVan Wert County HospitalComment on above:Performed By: #### [id number] #### [facility] [address] [place], [place] [address]Wgsjxow [Mass/Vol]9.2 mg/dLNormal8.9-11.1FSheltering Arms HospitalComment on above:Performed By: #### [id number] #### [facility] [address] [place], [place] [address]Zbjfdgob [Moles/Vol]103 mmol/CFzavnu582-093HaxvriVan Wert County HospitalComment on above:Performed By: #### [id number] #### [facility] [address] [place], [place] [address]YK7 [Moles/Vol]26 mmol/XCzosrq31-57FktyhvVan Wert County Hospital Comment on above:Performed By: #### [id number] #### [facility] [address] [place], [place] [address]Oryzybzycy [Mass/Vol]0.7 mg/dLNormal0.5-1.3FSheltering Arms HospitalComment on above:Performed By: #### [id number] #### [facility] [address] [place] [address]Bmkvwdb [Mass/Vol]76 mg/yOAuuukz24-600DrqofsVan Wert County HospitalComment on above:Performed By: #### [id number] #### [facility] [address] [place], [place] [address]Ayovvbbtb [Moles/Vol]4.1 mmol/LNormal3.5-5.3FSheltering Arms HospitalComment on above:Performed By: #### [id number] #### [facility] [address] [place] [address]Rprlti [Moles/Vol]137 mmol/DTtficw025-289LqlihtVan Wert County HospitalComment on above:Performed By: #### [id number] #### [facility] [address] [place], [place] [address]Ccqi nitrogen [Mass/Vol]14 mg/dLNormal5-21[facility] HospitalComment on above:Performed By: #### [id number] #### [facility] [address] [place] [address]WPN w/ Auto Diffon 30-74-5124Zklqxgjc Absolute0.1 E9/LNormal 0.0-0.2FSheltering Arms HospitalComment on above:Performed By: #### [id number] #### [facility] [address] [place], [place] [address]Ggbnmbuto/100 WBC (Bld)0.6 %Normal0.0-2.0[facility] HospitalComment on above:Performed By: #### [id number] #### [facility] [address] [place], [place] [address]Pbm Absolute0.2 E9/LNormal0.0-0.5FSheltering Arms Hospital Comment on above:Performed By: #### [id number] #### [facility] [address] [place], [place] [address]Xpmvzkglxis/100 WBC (Bld)2.2 %Normal0.0-8.0[facility] HospitalComment on above:Performed By: #### [id number] #### [facility] [address] [place], [place] [address]Nneowvtkqlt distribution width (RBC) [Ratio]13.6 %Normal 10.9-14.2FSheltering Arms HospitalComment on above:Performed By: #### [id number] #### [facility] [address] [place], [place] [address]Zsbqsrbytv (Bld) [Volume fraction]38.4 %Gnkqah43.0-46.0[facility] HospitalComment on above:Performed By: #### [id number] #### [facility] [address] [place], [place] [address]Fshnipmxio (Bld) [Mass/Vol]13.4 g/dQSxvbcq61.0-16.0[facility] HospitalComment on above:Performed By: #### [id number] #### [facility] [address] [place], [place] [address]Kycnw Absolute2.8 E9/LNormal1.0-4.0[facility] Comment on above:Performed By: #### [id number] #### [facility] [address] [place], [place] [address]Jfwihsxdsrm/100 WBC (Bld)29.7 %Ejxqmi97.0-50.0[facility] HospitalComment on above:Performed By: #### [id number] #### [facility] [address] [place] [address]CHY (RBC) [Entitic mass]31.1 qlFvzbca33.0-34.0[facility] HospitalComment on above:Performed By: #### [id number] #### [facility] [address] [place] [address]DULS (RBC) [Mass/Vol]34.9 g/mYHxxyrv21.4-36.0[facility] HospitalComment on above:Performed By: #### [id number] #### [facility] [address] [place] [address]RZD (RBC) [Entitic vol]89.0 sPCrnrga06.0-100.0[facility] HospitalComment on above:Performed By: #### [id number] #### [facility] [address] [place] [address]Uukl Absolute0.5 E9/LNormal0.2-1.0[facility] Comment on above:Performed By: #### [id number] #### [facility] [address] [place] [address]Upaofksvo/100 WBC (Bld)5.5 %Normal4.0-14.0[facility] HospitalComment on above:Performed By: #### [id number] #### [facility] [address] [place] [address]Xkfjuq Absolute5.9 E9/LNormal2.0-7.5FSheltering Arms Hospital Comment on above:Performed By: #### [id number] #### [facility] [address] [place] [address]Lthucm Auto62.0 %Wonmdr35.0-75.0[facility] Comment on above:Performed By: #### [id number] #### [facility] [address] [place] [address]Gpmfqjxc748.0 E9/RGfnckl703.0-500.0[facility] Comment on above:Performed By: #### [id number] #### [facility] [address] [place], [place] [address]Bsiwbymf mean volume (Bld) [Entitic vol]8.3 fLNormal6.4-10.8 [facility] HospitalComment on above:Performed By: #### [id number] #### [facility] [address] [place], [place] [address]DPN3.3 E12/LNormal4.3-5.9[facility] HospitalComment on above:Performed By: #### [id number] #### [facility] [address] [place], [place] [address]SNG4.6 E9/LNormal4.0-11.0[facility] HospitalComment on above:Performed By: #### [id number] #### [facility] [address] [place], [place] [address]EM & PTTon 04-40-6967VTB Coag (PPP) [Relative time]0.89 {INR} Invalid Interpretation CodeVan Wert County HospitalComment on above:Result Comment: INR results are specifically intended to assess patients stabilized on long-term Anticoagulation therapy suggested INR???s ???Less Intensive Anticoagulation??? 2.0 ??? 3.0 Conventional Range 3.0 ??? 4.5Performed By: #### [id number] #### [facility] [address] [place], [place] [address]OW6.9 second(s)Normal9.4-12.5FSheltering Arms HospitalComment on above:Result Comment: 15 days - 4 [...] the same coagulation reagent and instrumentation as [facility]. Currently there are no coagulation studies available worldwide for children to 14 days, andno normal ranges.Performed By: #### [id number] #### [facility] [address] [place], [place] [address]NXI01.1 second(s)Eqmxrd48.1-36.5FSheltering Arms Hospital Comment on above:Result Comment: Parameter 15 days [...] the same coagulation reagent and instrumentation as [facility]. Currently there are no coagulation studies available worldwide for children to 14 days, andno normal ranges. Heparin therapeutic range (represented by Anti-Factor Xa activity of 0.2 - 0.4 U/mL) corresponds to PTT of 56.6 - 109.0 sec.Performed By: #### [id number] #### [facility] [address] [place], [place] [address]Onx-Nkrayen Noteon 17-88-6390Rfm-Arrival NotePre-Arrival Note Pre-Arrival Summary Name: , [facility] Current Date: 04/08/2025 21:05:50 EDT Gender: Female Date of : Age: 34 Pre-Arrival Type: EMS ETA: 04/08/2025 20:58:00 EDT Primary Care Physician: Presenting Problem: Chest Pain Pre-Arrival User: Sarahy Collier RN Referring Source: Location: Completion Date/Time: 04/08/2025 20:58:00 [facility] Emergency Department Pre-Hospital Report Form Vital Signs: Pre-Hospital Report: Treatment in Route: Response to Treatment: Misc. Issues:NormalVan Wert County HospitalTroponin 0 Hr.on 04-08-2025 Troponin HS2.50 pg/mLLow10.10-27.10[facility] HospitalComment on above: Result Comment: The 95% CI (Confidence Interval) PPV (Positive Predictive Value) for myocardial infarction in females is 38 pg/mL, in males 51 pg/mL. The results should be used in conjunction with clinical conditions of myocardial infarction. (Access High Sensitivity Troponin I Instructions For Use, [employer], April 2018)Performed By: #### [id number] #### [facility] [address] [place], [place] [address]Tiryvojc 1 Hr.on 77-01-5179Mwzdpeue HS3.90 pg/mLLow10.10-27.10 [facility] HospitalComment on above:Result Comment: The 95% CI (Confidence Interval) PPV (Positive Predictive Value) for myocardial infarction in females is 38 pg/mL, in males 51 pg/mL. The results should be used in conjunction with clinical conditions of myocardial infarction. (Access High Sensitivity Troponin I Instructions For Use, [employer], April 2018)Performed By: #### [id number] #### [facility] [address] [place], [place] [address]eWWDpd 62-77-8118dFUY396 mL/min/1.73 h0Gceoeg>=59Van [facility] County HospitalComment on above:Performed By: #### [id number] #### [facility] [address] [place], [place] [address]LIA KNEE RT WO CONon 15-70-9453LKC KNEE RT WO CONEXAMINATION: MRI KNEE RT [...] Electronically authenticated by: CHRISTINA STALLINGS Date: 2021-11-17 17:25[facility] HospitalPhysical [facility] Noteon 09-42-6207[facility] Therapy Note [id number]#1.00[facility] Provider Orderson 73-82-3093Vxvxfeet Orders [id number]#1.00[facility] Coding Summaryon 78-29-4013Zayont SummaryCODING DATE: 02/14/2020 [facility] STATUS: PAYOR: Medicaid HMO ADMIT DX: REASON [...] By: Sue Elizondo Date Saved: 02/14/2020 03:06 [facility] 57-17-1399Orvoooej [id number]#1.00OTGTMount [facility]ut[facility] Hospital HospitalCoding Summaryon 85-18-0496Qcxdpl SummaryCODING DATE: 01/29/2020 [facility] STATUS: Home PAYOR: Medicaid HMO ADMIT DX: [...] By: Hugo Dunham Date Saved: 01/29/2020 01:53 [facility] HospitalCoding SummaryCODING DATE: 01/29/2020 [facility] STATUS: Home PAYOR: Medicaid HMO ADMIT DX: [...] By: Hugo Dunham Date Saved: 01/29/2020 01:50 [facility] HospitalAmbulance Noteon 13-71-0110Axapklxrt [id number]#1.00OTGTIFF [facility] MiamisburgConsent Formson 35-09-4738Prqghst Forms [id number]#1.00OTGTIFFKettering Health MiamisburgED Clinical Summaryon 46-68-0984CI Clinical SummarySy[facility] - Emergency Department [address] [place] [address] ED Clinical Summary PERSON INFORMATION Name: FOREST MAI Age: 29 Years Sex: FEMALE : 1990 MRN: Acct#: Visit Reason: Knee pain-swelling; Fall; R KNEE PAIN Arrival: 01/27/2020 13:13:36 Discharge: 01/27/2020 14:54:00 LOS: 000 01:41 Check In: 01/27/2020 13:13:36 Checkout:01/27/2020 14:54:00 Address: [facility] [place], [place] [id number] PCP: Abdulkadir Cummings CNP PROVIDER INFORMATION Provider [...] Sprain of cruciate ligament of right knee (OUG08-AY S83.501A, Discharge, Medical) Plan Condition: Improved. Disposition: Discharged: time 01/27/2020 14:33:00. Prescriptions: Launch prescriptions Pharmacy: Naprosyn 500 mg oral tablet (Prescribe): 500 mg = 1 tab(s), PO, BID, PRN: for pain, 20 tab(s), 0 Refill(s). Patient was given the following educational materials: Knee Sprain, Adult, Cakb-mh-Mvnh, Knee Sprain, Adult, Bqlj-lf-Nhry. Follow up with: Abdulkadir Cummings Within 3 to 5 days. Counseled: Patient, Regarding diagnosis, Regarding diagnostic results, Regarding treatment plan, Regarding prescription, Patient indicated understanding of instructions. DISCHARGE INFORMATION: Discharge Disposition: Home Discharge Location: Home PATIENT EDUCATION INFORMATION Instructions: Knee Sprain, Adult, Myob-jr-Lxgd Follow-Up: With: Address: When: Abdulkadir Cummings [address] [place] [phone] [facility] (1) Within 3 to 5 days DIAGNOSIS: Sprain of cruciate ligament of right knee Patient Understands: Yes - Patient/family/caregiver verbalizes understanding of instructions given Comment:PeterSycamore Medical CenterED Note - Physicianon 70-54-9771DX Note - PhysicianPatient: FOREST MAI Age: 29 [...] Sprain of cruciate ligament of right knee (FTU82-FC S83.501A, Discharge, Medical) Plan Condition: Improved. Disposition: Discharged: time 01/27/2020 14:33:00. Prescriptions: Launch prescriptions Pharmacy: Naprosyn 500 mg oral tablet (Prescribe): 500 mg = 1 tab(s), PO, BID, PRN: for pain, 20 tab(s), 0 Refill(s). Patient was given the following educational materials: Knee Sprain, Adult, Znfg-nv-Abtd, Knee Sprain, Adult, Juwh-hy-Nhma. Follow up with: Abdulkadir Cummings Within 3 to 5 days. Counseled: Patient, Regarding diagnosis, Regarding diagnostic results, Regarding treatment plan, Regarding prescription, Patient indicated understanding of instructions. [Electronically Signed on: 01/27/2020 14:40 EDT] Marquez Ramirez MD [Verified on: 01/27/2020 14:40 EDT] Marquez Ramirez MDNoMemorial Health System Note-Nursingon 93-94-2314LZ Note-NursingPatient arrives to the ED via EMS. Alert and oriented X4. C/O right knee pain. Pain 06/27. Patient reports falling down two stairs. States she thought she was on the last step and next thing she knewshe was on the floor. Patient states she heard and felt a snap when she fell.[facility] Patient Education Noteon 15-94-2064GX Patient Education NoteEducation Materials Orthopedics Knee Sprain [...] are sitting or lying down. ? Take yina-uni-dphrkim and prescription medicines only as told by [...] 08/23/2010 Document Revised: 05/23/2017 Document Reviewed: 05/23/2017 [employer] Interactive Patient Education ? 2019 [employer]burgED Patient Summaryon 41-20-4600HO Patient SummarySycamore Medical Center - Emergency Department [address] [place] [id number] PATIENT DISCHARGE INSTRUCTIONS Patient Information Name: FOREST MAI Age: 29 Years Date of : 1990 Reason For Visit: Knee pain-swelling; Fall; R KNEE PAIN Arrival Time: 01/27/2020 13:13:36 Primary Care Physician: Abdulkadir Cummings CNP Attending Physician: Marquez Ramirez Comment: Visit Diagnosis: Diagnoses This Visit Fall ([id number]) Knee pain-swelling ([id number]) Sprain of cruciate ligament of right knee (S83.501A) Prescription Information: If you have been given a prescription for narcotics, seek immediate medical attention if you have any difficulty breathing or any sudden status changes such as confusion andsleepiness. If you or anyone you know is experiencing suicidal thoughts, mental health, alcohol and/or drug addiction problems; contact the [facility] 10/04 Crisis Hotline -text 4HLOL ql 634173. If you received any narcotics, sedation, or [...] legal documents With: Address: When: Abdulkadir Cummings [address] [place] [phone] Business (1) Within 3 to 5 days Medication Information: The exam and treatment you received today in the [facility] Emergency Department were for an urgent problem and are not intended as complete care. It is important for you to follow up with a doctor, nurse practitioner, or physician?s assurance assistant for ongoing care. If your symptoms [...] so we can reach you if necessary. [facility] Emergency Department has provided you with a complete list of medications post discharge. Please inform your primary care md/provider of your visit and for further instruction [...] are sitting or lying down. ? Take gepd-oxq-pbfnieh and prescription medicines only as told by [...] 08/23/2010 Document Revised: 05/23/2017 Document Reviewed: 05/23/2017 [employer] Interactive Patient Education ? 2019 [email or web address]. Viruses or Bacteria What?s got you sick? [...] Centers for Disease Control and Prevention May 2014[facility] XR Knee Complete Righton 02-70-3501QR Knee Complete RightEXAM: XR Knee Complete Right. [...] Jose Hull MD 01/27/20 3:15 pm Technologist: REGISChildren's Hospital for RehabilitationCoding Summaryon [id number] SummaryCODING DATE: 11/05/2019 FINAL [facility] STATUS: Home PAYOR: Medicaid HMO ADMIT [...] By: Sue Elizondo Date Saved: 11/05/2019 10:12 [facility] Throaton 11-03-2019C ThroatOrdered by Discern. Normal throat kanika isolated No pathogens isolatedKettering Health MiamisburgComment on above:Performed By: #### [id number], [id number] #### [facility] (DEFAULT) [address] [place] [address]Ezeaeh Summaryon 08-72-2298Bogczz SummaryCODING DATE: 11/01/2019 [facility] STATUS: Home PAYOR: Medicaid HMO ADMIT DX: [...] By: Hugo Dunham Date Saved: 11/01/2019 03:03 [facility] HealthCoding SummaryCODING DATE: 11/01/2019 [facility] STATUS: Home PAYOR: Medicaid HMO ADMIT DX: [...] By: Hugo Dunham Date Saved: 11/01/2019 03:02 [facility] HealthED Clinical Summaryon [id number] Clinical [facility] [address] [place] [address] Clinical Summary PERSON INFORMATION Name: FOREST MAI Age: 29 Years Sex: FEMALE : 1990 MRN: Acct#: Visit Reason: UC - Sore Throat; UC - Fever; SORE THROAT Arrival: 11/01/2019 09:48:44 Discharge: 11/01/2019 10:35:00 LOS: 000 00:47 Check In: 11/01/2019 09:48:44 Checkout: 11/01/2019 10:35:00 Address: [facility] [address] [place] [id number] PCP: Abdulkadir Cummings CNP PROVIDER INFORMATION Provider [...] PATIENT EDUCATION INFORMATION Instructions: Viral Respiratory Infection, Vcsw-Tc-Hjwd Follow-Up: With: Address: When: Abdulkadir Cummings [address] [place] [phone] [facility] (1) Within 2 to 4 days Comments: [...] - Patient/family/caregiver verbalizes understanding of instructions given Comment:[facility]tering Health MiamisburgED Patient Summaryon [id number] Patient Summary [facility] ? Urgent Care [address] [place] [address] PATIENT DISCHARGE INSTRUCTIONS Patient Information Name: FOREST MAI Age: 29 Years Date of : 1990 Reason For Visit: UC - Sore Throat; UC - Fever; SORE THROAT Arrival Time: 11/01/2019 09:48:44 Primary Care Physician: Abdulkadir Cummings CNP Attending Physician: Kanchan Nielsen PA-C Comment: Patient Education With: Address: When: Abdulkadir Cummings [address] [place] [address] Business (1) Within 2 to [...] home: Managing pain and congestion ? Take dxcl-zgy-juwgfzd and prescription medicines only as told by [...] soap andwater are not available, use hand geriatrics physician. ? Avoid contact with people who are [...] 08/17/2009 Document Revised: 10/15/2018 Document Reviewed: 10/15/2018 [employer] Interactive Patient Education ? 2019 [email or web address]. Medication Information: The exam and treatment you received today in the [facility] Emergency Department were for an urgent problem and are not intended as complete care. It is important for you to follow up with a doctor, nurse practitioner, or physician?s assurance assistant for ongoing care. If your symptoms [...] so we can reach you if necessary. [facility] Emergency Department has provided you with a complete list of medications post discharge. Please inform your primary care md/provider of your visit and for further instruction [...] Diagnosis: Diagnoses This Visit UC - Fever ([id number]) UC - Sore Throat ([id number]) Viral URI (J06.9) If you received any [...] Stop date 11/01/19 10:02:00 EST, Nurse collect, [id number] Radiology Cardiology Viruses or Bacteria What?s got [...] Centers for Disease Control and Prevention May 2014[facility] Influenza A&B Rapidon 26-05-3453Jdypxoyai ANegativeNormalNegMetroHealth Cleveland Heights Medical CenterComment on above:Performed By: #### [id number] #### [facility] (DEFAULT) [address] [place] [address] 23[address]Oncnvgwyg BNegativeNormalNegLima Memorial Hospital HospitalComment on above:Performed By: #### [id number] #### [facility] (DEFAULT) [address] [place] [address]Hsufpqoy QC OK?PassNormalChillicothe Va Medical Center HospitalComment on above:Performed By: #### [id number] #### [facility] (DEFAULT) [address] [place] [address] 459[address]Uqmfoxp Handouton 19-90-8742Xjxivmp HandoutPatient Education Materials Follows:Disease Viral Respiratory Infection [...] home: Managing pain and congestion ? Take pczi-eii-atntuen and prescription medicines only as told by [...] soap andwater are not available, use hand geriatrics physician. ? Avoid contact with people who are [...] 08/17/2009 Document Revised: 10/15/2018 Document Reviewed: 10/15/2018 ElseLiveBuzz Interactive Patient Education ? 2019 Shelf.com Inc.[facility] Hospitaltrep Yuniel 90-84-8467Cqkzl procedure controlPassKettering Health Miamisburg Comment on above:Performed By: #### [id number], [id number] #### [facility] (DEFAULT) [address] [place], [place] [address]Hiknkbhmlyazl ANegativeNormalNegMetroHealth Cleveland Heights Medical Center Comment on above:Performed By: #### [id number], [id number] #### [facility] (DEFAULT) [address] [place], [place] [address]Ljilwz Care Note- Provideron 76-65-3783Hxjkuc Care Note- ProviderPatient: FOREST MAI Age: 29 [...] results: Impression and Plan Diagnosis Viral URI (UDC28-YU J06.9, Discharge, Medical) Plan Condition: Stable. Disposition: Discharged: Time 11/01/2019 10:27:00, to home. Patient was given the following educational materials: Viral Respiratory Infection, Fdbb-Wc-Svhj, Viral Respiratory Infection, Szwh-Re-Rlzp. Follow up with: Abdulkadir Cummings Within 2 [...] Regarding treatment plan, Patient indicated understanding of instructions.[facility] MiamisburgUrge Care Recordon 13-82-2553[facility] ? [facility] [address] [place] [address] PATIENT DISCHARGE INSTRUCTIONS Patient Information Name: FOREST MAI Age: 29 Years Date of : 1990 Reason For Visit: UC - Sore Throat; UC - Fever; SORE THROAT Arrival Time: 11/01/2019 09:48:44 Primary Care Physician: Abdulkadir Cummings CNP Attending Physician: Kanchan Nielsen PA-C Comment: Visit Diagnosis: Diagnoses This Visit UC - Fever ([id number]) UC - Sore Throat ([id number]) Viral URI (J06.9) If you received any [...] legal documents With: Address: When: Abdulkadir Cummings [address] [place] [phone] Business (1) Within 2 to 4 [...] and treatment you received today in the [facility] Urgent Care were for an urgent problem and are not intended as complete care. It is important for you to follow up with a doctor, nurse practitioner, or physician?s assurance assistant for ongoing care. If your symptoms [...] so we can reach you if necessary. [facility] Care has provided you with a complete list of medications post discharge. Please inform your primary care md/provider of your visit and for further instruction [...] home: Managing pain and congestion ? Take tryh-ctx-nxdrluw and prescription medicines only as told by [...] soap andwater are not available, use hand geriatrics physician. ? Avoid contact with people who are [...] 08/17/2009 Document Revised: 10/15/2018 Document Reviewed: 10/15/2018 Shelf.com Interactive Patient Education ? 2019 Shelf.com Inc. Viruses or Bacteria What?s got you [...] Centers for Disease Control and Prevention May 2014[facility] ED Clinical Summaryon [id number] [facility] - [facility] [address] [place] [address] ED Clinical Summary PERSON INFORMATION Name: FOREST MAI Age: 29 Years Sex: FEMALE : 1990 MRN: Acct#: Visit Reason: Cough; COUGH, DIFFICULTY BREATHING Arrival: 10/30/2019 17:21:00 Discharge: 10/30/2019 17:55:00 LOS: 000 00:34 Check In: 10/30/2019 17:21:00 Checkout:10/30/2019 17:55:00 Address: [facility] [address] [place] [address] PCP: Abdulkadir Cummings CNP PROVIDER INFORMATION Provider [...] Home PATIENT EDUCATION INFORMATION Instructions: Influenza, Adult, Umgk-xb-Jelp Follow-Up: With: Address: When: Abdulkadir Cummings [address] [place] [phone] [facility] () Within 5 to 7 days Comments: Reviewed discharge care instruction. Continue with therapy as outlined by Dr. Mayo. Contact your family doctor or PCP within the recommended time. Alternatively, you are not able to follow with your family doctor, you may try the Urgent Care center @ [facility]. Return to ER for any worsening symptoms especially any symptom that concerns you. DIAGNOSIS: Influenza-like illness Patient Understands: Yes - Patient/family/caregiver verbalizes understanding of instructions given Comment:[facility]burgED Note - Physicianon 26-45-7484HQ Note - PhysicianPatient: FOREST MAI Age: 29 [...] follow-up Impression and Plan Diagnosis Influenza-like illness (MQW67-PW R69, Discharge, Medical) Plan Condition: Stable. Disposition: Discharged: Time 10/30/2019 17:45:00, to home. Patient was given the following educational materials: Influenza, Adult, Xixr-lm-Azph, Influenza, Adult, Lpdh-wl-Yegz. Follow up with: Abdulkadir Cummings Within 5 to 7 days Reviewed discharge care instruction. Continue with therapy as outlined by Dr. Mayo. Contact your family doctor or PCP within the recommended time. Alternatively, you are not able to follow with your family doctor, you may try the Urgent Care center @ [facility]. Return to ER for any worsening symptoms especially any symptom that concerns you. . Counseled: Patient, Regarding diagnosis, Regarding treatment plan, Patient indicated understanding of instructions. [Electronically Signed on: 10/30/2019 18:20 EST] Ian Mayo MD [Verified on: 10/30/2019 18:20 EST] Ian Mayo MDNoMemorial Health System Note-Nursingon 82-90-5612YG Note-Nursing Patient arrives to the ED via private vehicle. Ambulated with a steady gait to room 7. Alert and oriented X4. C/O cough, chest pain, and headache that started last night. Patients children recently got over the flu. Patient states that she feels exhausted and that it hurts to breath.[facility] Patient Education Noteon 11-18-6348IC Patient Education NoteEducation Materials Infectious Disease Influenza, [...] better. Your doctor may suggest: ? Taking gito-zyj-bmoqcmk medicines. ? Drinking plenty of fluids. The [...] ? Low-calorie sports drinks. ? Eat bland, lbnb-ne-qnxulz foods in small amounts as you are able. These foods include: ? Bananas. ? Applesauce. ? Rice. ? Lean meats. ? Trinity. ? Crackers. ? Do not eat or drink: ? Fluids that have a lot of sugar or caffeine. ? Alcohol. ? Spicy or fatty foods. General instructions ? Take fxft-gyz-yikrtdf and prescription medicines only as told by [...] use soap and water, use alcohol-based hand geriatrics physician. ? Keep all follow-up visits as told [...] is caused by a virus. ? Take xwry-lrn-yqamvij and prescription medicines only as told by your doctor. ? Getting a flu shot every year is the best way to avoid getting the flu. This information is not intended to replace advice given to you by your health care provider. Make sure you discuss any questions you have with your health care provider. Document Released: 06/13/2009 Document Revised: 02/20/2019 Document Reviewed: 02/20/2019 Shelf.com Interactive Patient Education ? 2018 [email or web address].com.[facility] MiamisburgED Patient Summaryon [id number] Patient [facility] - Emergency Department [address] [place] [address] PATIENT DISCHARGE INSTRUCTIONS Patient Information Name: FOREST MAI Age: 29 Years Date of : 1990 Reason For Visit: Cough; COUGH, DIFFICULTY BREATHING Arrival Time: 10/30/2019 17:21:00 Primary Care Physician: Abdulkadir Cummings CNP Attending Physician: Ian Mayo MD Comment: Visit Diagnosis: Diagnoses This Visit Cough ([id number]) Influenza-like illness (R69) Prescription Information: If you have been given a prescription for narcotics, seek immediate medical attention if you have any difficulty breathing or any sudden status changes such as confusion andsleepiness. If you or anyone you know is experiencing suicidal thoughts, mental health, alcohol and/or drug addiction problems; contact the [facility] 10/04 Crisis Hotline -Text 4HBQZ fz 382651. If you received any narcotics, sedation, or [...] legal documents With: Address: When: Abdulkadir Cummings [address] [place] [phone] Business (1) Within 5 to 7 days Comments: Reviewed discharge care instruction. Continue with therapy as outlined by Dr. Mayo. Contact your family doctor or PCP within the recommended time. Alternatively, you are not able to follow with your family doctor, you may try the Urgent Care center @ [facility]. Return to ER for any worsening symptoms especially any symptom that concerns you. Medication Information: The exam and treatment you received today in the [facility] Emergency Department were for an urgent problem and are not intended as complete care. It is important for you to follow up with a doctor, nurse practitioner, or physician?s assurance assistant for ongoing care. If your symptoms [...] so we can reach you if necessary. [facility] Emergency Department has provided you with a complete list of medications post discharge. Please inform your primary care md/provider of your visit and for further instruction [...] better. Your doctor may suggest: ? Taking zbmy-weq-cumepee medicines. ? Drinking plenty of fluids. The [...] ? Low-calorie sports drinks. ? Eat bland, ytag-hn-aznlem foods in small amounts as you are able. These foods include: ? Bananas. ? Applesauce. ? Rice. ? Lean meats. ? Trinity. ? Crackers. ? Do not eat or drink: ? Fluids that have a lot of sugar or caffeine. ? Alcohol. ? Spicy or fatty foods. General instructions ? Take sikc-khr-qsaucjv and prescription medicines only as told by [...] use soap and water, use alcohol-based hand geriatrics physician. ? Keep all follow-up visits as told [...] is caused by a virus. ? Take ikjr-yio-ftaxmbt and prescription medicines only as told by your doctor. ? Getting a flu shot every year is the best way to avoid getting the flu. This information is not intended to replace advice given to you by your health care provider. Make sure you discuss any questions you have with your health care provider. Document Released: 06/13/2009 Document Revised: 02/20/2019 Document Reviewed: 02/20/2019 Shelf.com Interactive Patient Education ? 2019 Shelf.com Inc. Viruses or Bacteria What?s got you [...] Centers for Disease Control and Prevention May 2014[facility] Coding Summaryon 60-44-1626Cbkbfy SummaryCODING DATE: 04/29/2019 FINAL [facility] STATUS: Home PAYOR: Medicaid HMO ADMIT [...] By: Sue Elizondo Date Saved: 04/29/2019 08:01 [facility] HospitalFlu A/B Ag Detectionon 27-55-8951Aim A/B Ag DetectionSpecimen Description .NASOPHARYNGEAL SWAB Special Requests NOT REPORTED Direct Exam PRESUMPTIVE NEGATIVE for Influenza A + B antigens. PCR testing to confirm this result is available upon request. Specimen will be saved in the laboratory for 7 days. Please call [phone] if PCR testing is indicated. Report Status FINAL 11/18/2018German HospitalComment on above:Performed By: #### FLUAD #### [facility] [address] [place] [address] Canteen Operator: TONEY Abarca CHEST (2 VW)on 59-68-9453RN CHEST (2 VW) EXAMINATION: TWO VIEWS OF [...] by: Johnathan Torres MD 11/18/18 Final resultNormalCleveland Clinic Medina HospitalCult,Urine,CCon 11-25-2017 Cult,Urine,CCSpecimen Description .CLEAN CATCH URINE Performed at [facility], [address] [place] [address] Special Requests NOT REPORTED Culture NO SIGNIFICANT GROWTH Report Status FINAL 11/25/2017NoZanesville City HospitalComment on above:Performed By: #### CCUC #### [facility] [address] [place] [address] Flu A/B Ag Detectionon 17-21-5942Wdm A/B Ag DetectionSpecimen Description .NASOPHARYNGEAL SWAB Special Requests NOT REPORTED Direct Exam PRESUMPTIVE NEGATIVE for Influenza A + B antigens. PCR testing to confirm this result is available upon request. Specimen will be saved in the laboratory for 7 days. Please call [phone] if PCR testing is indicated. Performed at [facility], [address] [place] [address] Report Status FINAL 11/24/2017NoMercy Health [address]. Joseph Warren Hospitaltrep Gr A Direct Agon 84-83-8129Ikfew Gr A Direct AgSpecimen Description .THROAT Special Requests NOT REPORTED Direct Exam POSITIVE for Group A Streptococci Performed at [facility], [address] [place] [address] Report Status FINAL 11/24/2017NoZanesville City HospitalUA w/Reflex Cultureon 78-68-5989Ahvadnshpzq Acid,UrNegativeNormalNEGMerAntelope Valley Hospital Medical CenterBilirubin.direct mass concNegativeNormalNEGCleveland Clinic Medina HospitalColor Nom (U)YELLOWNormalYELMerAntelope Valley Hospital Medical Center Glucose mass concNegativeNormalNEGCleveland Clinic Medina HospitalHemoglobin mass conc (Bld)TRACEAbnormalNEGCleveland Clinic Medina HospitalLeuckocyte EsteraseLARGEAbnormalNEGCleveland Clinic Medina HospitalComment on above:Result Comment: Performed at [facility], [address] [place] [address]Dawvagg,UrNegativeNormalNEGCleveland Clinic Medina HospitalPH,Ur7.8Rabvow9.0-8.0Cleveland Clinic Medina HospitalProtein mass conc NegativeNormalNEGPremier Health Miami Valley Hospital Northpec. [place],Ur1.020Normal 1.005-1.030Cleveland Clinic Medina HospitalTurbidityCLOUDYAbnormalCLEARCleveland Clinic Medina HospitalUrobilinogen,UrNormalNormalNORMCleveland Clinic Medina HospitalCommentNOT REPORTEDNormalCleveland Clinic Medina HospitalUrinalysis,Micro on 11-24-2017-----NormalCleveland Clinic Medina HospitalBacteria LM.HPF #/area (Urine sed)FEWAbnormalNONEMey Washington HospitalEpithelial cells LM.HPF #/area (Urine sed)20 TO 51Zqlcen0-5RpwwlCleveland Clinic Medina HospitalOther ObservationsCulture ordered based on defined criteria.AbnormalNREQCleveland Clinic Medina HospitalComment on above:Result Comment: Performed at [facility], [address] [place] [address]AQP #/vol (U)0 TO 6Xhrrdu9-1Qwqnm Washington HospitalWBC #/vol (U)5 TO 84Tseyjq3-0CchhoCleveland Clinic Medina HospitalAmorphous sediment LM Ql (Urine sed)NOT REPORTEDNormalNONToledo Hospital Casts LM.LPF #/area (Urine sed)NOT REPORTEDNormalCleveland Clinic Medina HospitalCrystals LM Nom (Urine sed)NOT REPORTEDNormalNONEMeMenifee Global Medical CenterEpithelial, RenalNOT STHIOLQHXcaxsb9FnwmtCleveland Clinic Medina HospitalMucus StrandsNOT REPORTEDNormalNONEMeMenifee Global Medical CenterTrichomonasNOT REPORTEDNormalNONEMeMenifee Global Medical CenterYeast LM Ql (Urine sed)NOT REPORTEDNormalNONToledo Hospital Vital Signs Date TimeVital SignValuePerforming PtyqhrxdjEbmocgql36-04-1280 19:15-0400Body miasus095.02 cmPamelgavin Madison Other [facility] Other 04-12-2023 19:15-0400Body mass index (BMI) [Ratio] 53.14 kg/d7Dyuevxwalter Madison Other [facility] Other 04-12-2023 19:15-0400Body nbczplpgyal770.1 [degF] Mary Jane Madison Other [facility] Other 04-12-2023 19:15-0400Body kdabra155.08 kgPawalter Madison Other [facility] Other 04-12-2023 19:15-0400Respiratory rate18 /minMary Jane Madison Other [facility] Other 04-12-2023 19:15-7168BxI1% (BldA) [Mass fraction]99 % Mary Jane Madison Other [facility] Other 03-27-2023 16:05-0400Body heightThomas Ceferino Other [facility] Other 03-27-2023 16:05-0400Body mass index (BMI) [Ratio] 54.86 kg/c8Ooedyy Ceferino Other [facility] Other 03-27-2023 16:05-0400Body fwqfhsfiesa00.3 [degF]Mata Ceferino Other [facility] Other 03-27-2023 16:05-0400Body lqisiy141.08 kgThomas Ceferino Other [place] [facility] Other 03-27-2023 16:05-0400Respiratory rate20 /minThomas Ceferino Other [place] [facility] Other 03-27-2023 16:05-6649KrA9% (BldA) [Mass fraction]99 % Mata De La Vega [facility] Other Encounters Encounter DateEncounter TypeCare ProviderFacilityStart: 06-06-2025 End: 17-99-6497miygwlrkgeGICWJWooster Community Hospitaltart: 04-08-2025 End: 16-19-8771Atxyjncfc department patient visitChmalgorzata Serranocapulin Facility:[facility]tart: 85-32-8696gezitcjlhiAnueivohqux AbdelazizFacility:[facility] Hospitaltart: 12-28-2022 End: 10-51-8388liaxxxxcsnLsligf Dymond Other [place] [employer] [facility] Other Start: 32-23-6052Dqpsww outpatient visit 15 minutes [facility] ClydeStart: 12-12-2022 End: 70-02-7068wrusrespngPesdcj Ceferino Other [place] [employer] Other Start: 01-21-3995Soukug outpatient new 20 minutes Mata [facility] Hospitaltart: 12-02-2021 End: 51-68-8941wmdbkoiohgAB KIM E KNIGHTFacility:O1Ykehz: 11-17-2021 End: 69-03-2245qdbvjrjewyQDErich ROQUEFacility:D6Zgvhn: 11-18-2018 End: 66-90-7925Awbychgrj department patient visitABDULKADIR Luna [facility] Hospitaltart: 10-24-2018 End: 74-71-0006Kriardwmt department patient visitTIFAYSHA ROSASOhio State University Wexner Medical Centertart: 11-24-2017 End: 24-35-0145Vdycstfmx department patient visitTIFAYSHA CUMMINGSCleveland Clinic Medina Hospital Procedures DateProcedureProcedure DetailPerforming ClinicianStart: 22-34-3240Bbryflpkwl exam chest 2 viewsTIFWHITE MOUNTAIN REGIONAL MEDICAL CENTERDILIP ROSEBURGStart: 48-13-8964Ingoukdoz influenzaTIFTEXAS HEALTH PRESBYTERIAN HOSPITAL OF ROCKWALLStart: 97-57-8277Cxfnfcscjzu urinalysisTIFTEXAS HEALTH PRESBYTERIAN HOSPITAL OF ROCKWALLStart: 48-15-4031DE W/REFLEX CULTURETIFTEXAS HEALTH PRESBYTERIAN HOSPITAL OF ROCKWALLStart: 38-38-8982IBKVZ CULTURE CLEAN CATCHTIFTEXAS HEALTH PRESBYTERIAN HOSPITAL OF ROCKWALLStart: 91-45-3129MJKGD INFLUENZA A/B ANTIGENS ABDULKADIRTEXAS HEALTH PRESBYTERIAN HOSPITAL OF ROCKWALLStart: 15-42-5540HPBNZ SCREEN GROUP A THROATTIFTEXAS HEALTH PRESBYTERIAN HOSPITAL OF ROCKWALL Payers DatePayer CategoryPayerPolicy [id number] 2025Unknown [id number]-[id number] 2..[id number] 2.1.692130.3.57[id number] 2.1.704300.3.57[id number] 2..1.010992.3.57[id number] .1.615437.3.57[id number] 2..1.459777.3.57[id number] 2.1.178122.3.57[id number] 2.840.1.983439.3.57[id number] 2.840.1.249701.3.57[id number] [id number] [id number] Social History DateTypeDetailFacilitySex Assigned At [facility] HospitalEntangled Media [employer] Other Progress note 06-06-2025 Note Date & VmyyBbbvWwfbfzmk33-54-4314 [facility] Reason for cardiology consult: Chest pain Chief Complaint: Chest pain HPI: Forest Mai is a 34 y.o. female without prior cardiac history. She denies history of hypertension, hyperlipidemia or diabetes mellitus. 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 She was advised to FU with cardiology Since then she got a few similar chest pain but brief lasting. She cannot connect them to eating the meals or drinking anything. They are not related to activity. 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 She denies [...] history father had arrhythmia, paternal uncle had [place], paternal grandmother had CAD and CABG, on [...] Patient was advised to (more content not included)...[facility] Clinical Note 04-09-2025 Note Date & RapuYtksTdhvqaxr32-70-9299 NoteED Patient Education Note Gastroenterology Nonspecific Chest [...] these instructions at home: Medicines ??? Take khsf-gdy-oosnuma and prescription medicines only as told by [...] Eating a heart-healthy diet. A diet and certified nutritionist (dietitian) can help you to learn [...] provider. Document Revised: 07/20/2023 Document Reviewed: 07/20/2023 [email or web address] Patient Education ? 2023 [email or web address] Evaluation note 12-28-2022 Note Date & FecbQgheUexonvmg92-02-6424 Evaluation note* Encounter Date Diagnosis Assessment Notes [...] 3 days. Off work today and tomorrow [employer] Other Evaluation note 12-12-2022 Note Date & PsflIewnGyrzjrze33-67-3741 Evaluation note* Encounter Date Diagnosis Assessment Notes Treatment Notes Treatment Clinical Notes Nov, Infection of right breast (ICD-1 0 - N61.0) Exam consistent with mild infection of the breast. Apply warm compresses for 15 minutes 4 times a day for 5 days. Go to the ER if you develop a fever or redness in your breast. [facility] Other History general Narrative - Reported Note Date & TypeNoteFacilityHistory general Narrative - Reported* Type Description Date Medical History chronic depression [facility] Other Summary Purpose Family History No Family [...] content) DATE CREATED AUTHOR 11/19/2018 [facility] DATE CREATED AUTHOR AUTHOR'S ORGANIZ ATION 04/27/2020 [facility] DATE CREATED AUTHOR AUTHOR'S ORGANIZ ATION 04/21/2022 [facility] DATE CREATED AUTHOR AUTHOR'S ORGANIZ ATION 12/06/2023 [facility] DATE CREATED AUTHOR AUTHOR'S ORGANIZ ATION 04/10/2025 [facility] DATE CREATED AUTHOR AUTHOR'S ORGANIZ ATION 04/12/2025 [facility] DATE CREATED AUTHOR AUTHOR'S ORGANIZ ATION 06/21/2025 [facility] REASON FOR VISIT (unrecogniz ed section [...] BE BASED ON THE PRIMARY CLINICAL RECORDS. [employer] [facility]. provides no warranty or guarantee of the accuracy or completeness of information in this document.
--- OUTSIDE RECORDS SUMMARY | 2025-08-29 04:48 | XMS_ITS | Clinical Summary ---
Author Organization [facility] Address [address] [place] [address] Care Team Providers Care Investor Relations Analyst Name Role Phone Virginia Arshad MD Primary Care Provider [phone] Allergies No known active allergies Medications MedicationSigDispense QuantityRefillsLast FilledStart DateEnd DateStatus buPROPion SR (Wellbutrin SR) 150 MG 12 hr tablet Daily5Active venlafaxine XR (Effexor XR) 150 MG 24 hr capsule Daily5Active cholecalciferol (Vitamin D-3) 50 MCG (1999) tablet Take by mouth in the morning.Active Cetirizine HCl 10 MG capsule Daily as xglgzz495Active Active Problems No known active problems Encounters DateTypeDepartmentCare PsymVbszshbyxkd37/10/2025 8:[address] [facility] [address] [place] [phone] Virginia Arshad MD Encounter to establish care (Primary Dx); Chronic fatigue; Hair loss; Cardiovascular risk factor; Localized swelling of both lower extremities; Varicose veins of bilateral lower extremities with other complications; BMI 50.0-59.9, adult ([facility]); Morbid obesity ([facility])5Bamboo flowsheet [facility] [address] [place] [phone] Virginia Arshad MD 08/27/2025Travelfrom Last 3 Months Family History Medical HistoryRelationNameCommentsDepressionBrotherDepressionFatherHypertension FatherMental illnessFatherCancerMaternal GrandfatherDiabetesMaternal Grandfather ArthritisMotherDepressionMotherMental illnessMotherHeart diseasePaternal GrandmotherRelationNameStatusCommentsBrotherAliveFatherAliveMaternal Grandfather DeceasedMotherAlivePaternal GrandmotherAlive Social History Tobacco UseTypesPacks/DayYears UsedDateSmoking Tobacco: FormerCigarettes0.310.9 Started: 2014Smokeless Tobacco: NeverAlcohol UseStandard Drinks/WeekCommentsYes3 (1 standard drink = 0.6 oz pure alcohol)CommentsUnknownSex and Gender InformationValueDate RecordedSex Assigned at BirthNot on fileLegal SexFemale 08/27/2025 8:12 AM ESTGender IdentityNot on fileSexual OrientationNot on file Last Filed Vital Signs Vital SignReadingTime TakenCommentsBlood Njakyboa417/8408/27/2025 8:08 AM EST Uvmox617908/27/2025 8:08 AM WNTYdybzqtlcpz04 ??C (98.6 ??F)08/27/2025 8:08 AM EST Respiratory Rate--Oxygen Xduqggzgfv07%08/27/2025 8:08 AM ESTInhaled Oxygen Concentration--Vyihef285 kg (338 lb 9.6 oz)08/27/2025 8:08 AM PYIFpdwrd688.6 cm (5' 4.4 )08/27/2025 8:08 AM ESTBody Mass Index57. 8:08 AM EST Plan of Treatment Health MaintenanceDue DateLast DoneCommentsPap Smear2011Cervical Cancer Fsxdeojtg45/04/2021HPV/Nhukvq2109/21/2020OVID-19 Vaccine (2024- season) 2025Influenza Vaccine (#1)2025Pneumococcal Vaccine: Pediatrics (0 to 5 Years) and At-Risk Patients (6 to 64 Years)Aged OutNo longer eligible based on patient's age to complete this topic Insurance Care Teams Team MemberRelationshipSpecialtyStart DateEnd Virginia Arshad MD [address] [place] [address] PCP - GeneralFamily Dsierlht48/10/25
--- OUTSIDE RECORDS SUMMARY | 2025-08-29 04:48 | XMS_ITS | Encounter Summary ---
Author Organization [facility] Address [address] [place] [address] Care Team Providers Care Rubber Curer Name Role Phone Mary Jane Angel CNP Primary Care Provider [phone] Encounter Details DateTypeDepartmentCare Team (Latest Contact Info)Tbrkoqaxhaj70/28/2025Results Follow-Up [facility] at [facility] [address] [place] [address] Wilberto Kovacs MD [address] [place] [address] Routine Stress (Treadmill Only) Social History Tobacco UseTypesPacks/DayYears UsedDateSmoking Tobacco: FormerCigarettes Smokeless Tobacco: NeverAlcohol UseStandard Drinks/WeekCommentsYes0 (1 standard drink = 0.6 oz pure alcohol)OccasionalCommentsUnknownSex and Gender InformationValueDate RecordedSex Assigned at GqvulJakyyp86/11/2025 3:27 PM EDT Legal DztZjfbox81/25/2025 10:33 AM EDTGender GchiciieUkyicw04/11/2025 3:27 PM EDTSexual OrientationHeterosexual or Jzkbrbez01/11/2025 3:27 PM EDTdocumented as of this encounter Plan of Treatment Not on file documented as of this encounter Visit Diagnoses Not on filedocumented in this encounter Care Teams Team MemberRelationshipSpecialtyStart DateEnd Date Mary Jane Angel CNP [address] [facility], [place] [address] PCP - GeneralFamily Medicine06/05/25documented as of this encounter
--- OUTSIDE RECORDS SUMMARY | 2025-08-29 04:48 | XMS_ITS | Encounter Summary ---
Author Organization [facility] Address [address] [facility] [place] [address] Care Team Providers Care Non Destructive Evaluation Specialist Name Role Phone Virginia Arshad MD Primary Care Provider [phone] Encounter Details DateTypeDepartmentCare Team (Latest Contact Info)Curfegtyqif82/10/2025amboo flowsheet [facility] [address] [place] [address] Virginia Arshad MD [address] [place] [address] Social History Tobacco UseTypesPacks/DayYears UsedDateSmoking Tobacco: FormerCigarettes0.310.9 [...] Date Virginia Arshad MD [address] [place] [address] PCP - GeneralFamily Kozbzhgx00/10/25documented as of this encounter
--- OUTSIDE RECORDS SUMMARY | 2025-08-29 04:48 | XMS_ITS | Clinical Summary ---
Author Organization [facility] Address [address] [place] [address] Care Team Providers Care Pulp Operator Name Role Phone Mary Jane Angel JOYCELYN Primary Care Provider [phone] Allergies No known active allergies Medications MedicationSigDispense [...] grief04/17/2019Morbid obesity with BMI of 45.0-49.9, adult08/29/2017Chronic jinparrh17/06/2016 Encounters DateTypeDepartmentCare BwbnXafdlddtvub92/01/2025Results Follow-Up [facility] [address], [address] [place] [address] Wilberto Kovacs MD Complete Echo (TTE) w/wo Imaging Agent, Strain, 3D, Bubble Study06/17/2025Orders Only [facility] Heart at [facility] [address] [place] [address] ProviderAgustin MD 06/15/2025Results Follow-Up [facility] [address] [place] [facility] [place] [address] Wilberto Kovacs MD Routine Stress (Treadmill Only)06/12/2025Orders Only [facility] [address] [place] [facility] [place] [address] ProviderAgustin MD 06/06/2025 9:40 AM EDTOffice Visit [facility] [address] [place] [facility] [place] [address] Wilberto Kovacs MD Other chest pain (Primary [...] alcohol)OccasionalCommentsUnknownSex and Gender InformationValueDate RecordedSex Assigned at GscedXjwrdx01/11/2025 3:27 PM EDTLegal SexFemale 04/11/2025 10:33 AM EDTGender TjhokiutVdfype47/11/2025 3:27 PM EDTSexual OrientationHeterosexual or Dbivuwbb77/11/2025 3:27 PM EDT Last Filed Vital Signs Vital SignReadingTime TakenCommentsBlood Qmzimxrz903/85006/06/2025 9:48 AM EDT Wuysg788406/06/2025 9:48 AM EDTTemperature--Respiratory Rate--Oxygen Ycdgyecagp21% 06/06/2025 9:48 AM EDTInhaled Oxygen Concentration--Syfxbn242 kg (322 lb) 06/06/2025 9:48 AM SMKBkzvhj681.5 cm (5' 2 )06/06/2025 9:48 AM EDTBody Mass Index58.8906/06/2025 9:48 AM EDT Plan of Treatment Health MaintenanceDue DateLast DoneCommentsIPV Vaccines (3 of 3 - 4-dose series) , 04/14/1992Depression Zddiaxnqs44/04/2003Varicella Vaccines (1 of 2 - 13+ 2-dose series)2003Hepatitis B Vaccines (1 of 3 - 19+ 3-dose series)2009Pap Smear2011dult Mlgoika0909/21/2012HPV Vaccines (1 - 3- dose SCDM series)2017Cervical Cancer Rzccuqgci80/04/2021HPV/Cotest 1COVID-19 Vaccine ( season)2025Influenza Vaccine (#1) 2025Zoster [...] 06/16/2025 8:32 AM EDT ROUTINE STRESS (TREADMILL ONLY)Erqqdqk9406/12/2025 12:55 PM EDT from Last 3 Months Results * Complete Echo (TTE) w/wo Imaging Agent, Strain, 3D, Bubble Study (06/16/2025 8:32 AM EDT)Anatomical RegionLateralityModalityUltrasound Narrative Authorizing ProviderResult TypeResult StatusHistorical Provider MDCV ECHO PROCEDURESFinal Result * Routine Stress (Treadmill Only) (06/12/2025 12:55 PM EDT)Anatomical Region LateralityModalityOther Narrative Authorizing ProviderResult TypeResult StatusHistorical Provider MDCV STRESS PROCEDURESFinal Result from Last [address] [place] [address] Care Teams Team MemberRelationshipSpecialtyStart DateEnd Date Mary Jane Angel CNP [facility] [facility] [place] [address] PCP - GeneralFamily Medicine06/05/25
--- OUTSIDE RECORDS SUMMARY | 2025-08-29 04:48 | XMS_ITS | Clinical Summary ---
Demographics Address [address] [place] [address] Mobile Phone Home Phone Email Address Preferred Language Japanese Marital Status Single Religion Affiliation Unknown Race White Ethnic Group Not or Lati no Author Organization [employer] Address [id number] [address] [place] [address] Care Team Providers Care Material Man Name Role Phone Unavailable Primary Care Provider Unavailabl e Allergies No known active allergies Medications MedicationSigDispense QuantityRefillsLast FilledStart DateEnd DateStatus ibuprofen (ADVIL,MOTRIN) 600 mg tablet Take 600 mg by mouth every 6 (six) hours as needed.Active cholecalciferol, vitamin D3, 2,000 units tablet Take by mouth daily.Active bcpumqvl-lylf-YK-calcium &mins (THERAGRAN-M) 9 mg iron-400 mcg tablet Take 1 tablet by mouth daily.Active omega-3 fatty acids-fish oil (FISH OIL) 300-1,000 mg capsule Take 2 g by mouth daily.Active cranberry 400 mg capsule Take 400 mg by mouth daily.Active green tea leaf extract (GREEN TEA) capsule Take by mouth.Active cetirizine (ZyrTEC) 10 mg tablet Indications:Seasonal allergic rhinitis due to pollenTake 1 tablet (10 mg total) by mouth daily. 90 tablet Active citalopram (CeleXA) 10 mg tablet Indications:AnxietyTake 1 tablet (10 mg total) by mouth daily. 90 tablet Active Active Problems ProblemNoted DateDiagnosed DateFeeling grief04/17/2019Morbid obesity with BMI of 45.0-49.9, adult08/29/2017Chronic wmzzuzfg53/06/2016 Resolved Problems ProblemNoted DateDiagnosed DateResolved VssuNkxzpkg52Encounter for routine checking of intrauterine contraceptive lufjjt22/ Gqliddtxcz60Atopic xycitdwv26Benign essential xdaxztxbgwio27Sleep apnea Movement rsrpxblg88Exposure to Mycobacterium tuberculosis Family History Medical HistoryRelationNameCommentsCongenital heart diseaseFatherHyperlipidemia FatherColon cancerMaternal GrandfatherDiabetesMaternal GrandfatherDiabetes Maternal GrandmotherMigrainesMotherRelationNameStatusCommentsFatherMaternal GrandfatherMaternal GrandmotherMother Social History Tobacco UseTypesPacks/DayYears UsedDateSmoking Tobacco: NeverSmokeless Tobacco: Never Tobacco Cessation:Counseling Given: Yes Alcohol UseStandard Drinks/WeekCommentsYes0 (1 standard drink = 0.6 oz pure alcohol)PHQ-2AnswerDate RecordedTotal Uwgki41410/10/2019ChildcareAnswerDate MupojcafVazppkjebTwldxwy89/11/2019EmploymentAnswerDate RecordedEmploymentUnknown 02/26/2019Purpose - LifeAnswerDate RecordedPurpose and direction in lifeUnknown 1CommentsNoSex and Gender InformationValueDate RecordedSex Assigned at BirthNot on fileLegal BppTazfma62/04/2015 9:16 PM EDTGender Identity Not on fileSexual OrientationNot on file Last Filed Vital Signs Vital SignReadingTime TakenCommentsBlood Yrvoncwh972/7208 10:00 AM EDT Qhwnz50028/23/2020 8:59 AM ZCKZrawlsufzjo29.6 ??C (97.8 ??F)08/10/2020 8:59 AM ESTRespiratory Mmgl072610/10/2019 8:59 AM ESTOxygen Dokzcbuocc53%08/10/2020 8:59 AM ESTInhaled Oxygen Concentration--Gxrzis964.3 kg (263 lb)05/13/2020 10:00 AM DETQdkrwy304 cm (5' 3 )05/13/2020 10:00 AM EDTBody Mass Index46.59005/13/2020 10:00 AM EDT Plan of Treatment Health MaintenanceDue DateLast DoneCommentsDepression Yalejuktz03/04/2003Tobacco Rywjtpbae02/04/2003Adult BMI Fqylfgvti18/04/2009DTaP,Tdap and Td Vaccines (1 - Tdap)2009Pap Smear, 04/26/2017Influenza Vaccine 05/19/2025 Medical Devices Not on file Procedures Procedure NamePriorityDate/TimeAssociated DiagnosisCommentsPAP SMEARRoutine 05/13/2020 4:43 PM EDT Encounter for gynecological examination from Last 3 Months or Most Recently Relevant to Health Maintenance Results * Pap Smear (05/13/2020 4:43 PM EDT)Specimen (Source)Anatomical Location / LateralityCollection Method / VolumeCollection TimeReceived Time05/13/2020 4:43 PM EDT05/14/2020 4:43 PM EDT Narrative COPATH - 05/18/2020 8:39 AM EDT [facility] ? [address] [place] [address] ? [place] [address] ? Gynecologic Cytology Consultation ? Patient Name: FOREST VELIZ : 1990 (Age: 29) Gender: F Taken: 05/13/2020 Reported: 05/18/2020 Physician(s): Romy Balbuena DO ([phone]) Copy To: ?? [facility]. Rec. #: [id number] Acct: # [id number] Final Cytologic Interpretation ThinPrep Pap Test (Cervical/Endocervical): Satisfactory for evaluation. A transformation zone component is present. NEGATIVE FOR INTRAEPITHELIAL LESION OR MALIGNANCY. Shift in kanika suggestive of bacterial vaginosis. ?? nora/05/18/2020 Interpretation performed at [facility], [address] [place] [address], License number: [id number]. Electronically Signed Out By ?DENISHA Boyce(ASCP) Date of Last Menstrual Period: ? (None Given) Other Clinical Conditions: Z01.419 Supervisor Mirror Fabrication exam wo/abn findings Source of Specimen ??ThinPrep Pap Test (Cervical/Endocervical) ? Thin Prep Pap (VIBRATOR OPERATOR) Fee Code(s): ?? G0145 The Pap test is a screening test with an inherent, but low, probability of error. The Pap test is primarily effective for the diagnosis and prevention of squamous cell carcinoma. Regular screening iscritical for prevention. ThinPrep liquid-based slides, which meet the Junior Web Developer criteria for automated screening, have been screened by the ThinPrep Imaging System (as of 06/04/07) along with an additional manual rescreening by a hybrid corn breeder and, if indicated, by a pathologist. Authorizing ProviderResult TypeResult StatusRachel Magdalena Balbuena DOPATHOLOGY/CYTOLOGY ORDERABLESFinal ResultPerforming OrganizationAddressCity/State/ZIP CodePhone Number COPATH from Last 3 Months or Most Recently Relevant to Health Maintenance Insurance * Guarantor: Forest Veliz TypeRelation to PatientDate of BirthPhone Billing AddressPersonal/SntigfUaox08/04/1991 [address] [place] [address]
--- OUTSIDE RECORDS SUMMARY | 2025-08-29 04:48 | XMS_ITS | Patient Health Record ---
Author Organization [facility] in [place] Address [address] [place] [address] Care Team Providers Care Shovel Logger Name Role Phone Mary Jane Angel Primary Care Provider Allergies No Known Allergies Results Component Value Reference Range Notes CBC AUTO DIFF (Not yet revie wed by provider) Interpretation: Performing Lab: Notes/Report: [facility] , White Blood Count 11.0 4.0-11.0 10 3/uL Red Blood Count4.334.20-5.40 10 6/wQZkmuyhkdir14.212.0-16.0 g/eQCnexfubjvl58.3 36.0-48.0 %Mean Corpuscular Zfaowb12.581.0-99.0 fLMean Corpuscular Hemoglobin 30.526.7-34.0 pgMean Corpuscular HGB Conc34.529.9-35.2 g/dLRed Cell Distribution Width12.911.0-15.0 %Platelet Uypys994617-216 10 3/uLMean Platelet Hvamjk43.59.5- 13.5 fLNeutrophils Percent Auto56.243.0-75.0 %Lymphocytes Percent Auto33.020.5- 60.0 %Monocytes Percent Auto8.01.7-12.0 %Eosinophils Percent Auto2.10.9-7.0 % Basophils Percent Auto0.50.2-2.0 %Immature Granulocytes Pct Auto0.20.0-0.5 % Neutrophils Absolute Auto6.21.4-6.5 10 3/uLLymphocytes Absolute Auto3.61.2-3.8 10 3/uLMonocytes Absolute Auto0.90.3-0.8 10 3/uLEosinophils Absolute Auto0.20.0- 0.7 10 3/uLBasophils Absolute Auto0.10.0-0.1 10 3/uLImmature Granulocytes Abs Auto0.020.00-0.03 10 3/uLPerforming Lab:see noteML - [facility] LB LIPASE (Not yet reviewed by provider) Interpretation: Performing Lab: Notes/Report: [facility] ,Ixmhhi89.016.0-77.0 U/LPerforming Lab:see noteML - [facility] LBPROF 14(COMP METB) (Not yet reviewed by provider) Interpretation: Performing Lab: Notes/Report: [facility] ,Uysuni699202-616 mmol/LPotassium3.83.5-5.1 mmol/AOnlsfldy37580-391 mmol/LCarbon Qjfqumc99.021.0-32.0 mmol/LAnion Gap10.4Nwhhdvq13670-233 mg/dLBlood Urea Yaifjlfo32.07.0-18.0 mg/dLCreatinine0.680.55-1.02 mg/dLEstimated GFR ( Nayla>60>=60 mL/min/1.73m 2Estimated GFR (Non- Naomie>60>=60 mL/min/1.73m 2BUN Creatinine Ratio19.5Llopllq7.08.5-10.1 mg/dLBilirubin Total0.30.2-1.0 mg/dL Aspartate Amino Rkyjbgkygwe0501-12 U/LAlanine Slzwdlomdvqjbugp3784-57 U/L Alkaline Xtsrycuxzgc6568-951 U/LTotal Protein7.96.4-8.2 g/dLAlbumin Level3.23.4- 5.0 g/dLGlobulin4.7Albumin Globulin Ratio0.7Performing Lab:see noteML - [facility] LBTroponin I High Sensitivity (Not yet reviewed by provider) Interpretation: Performing Lab: Notes/Report: [facility] ,Troponin I High Sensitivity4.34.0-51.3 pg/mL CUT-OFF POINTS HAVE BEEN ESTABLISHED BASED ON THE FOURTH UNIVERSAL DEFINITION OF MYOCARDIAL INFARCTION. THE UPPER REFERENCE LIMIT (URL) OF TROPONIN, DEFINED THE 99TH PERCENTILE OF cTnI DISTRIBUTION IN A REFERENCE POPULATION, HAS BEEN CONFIRMED THE DECISION THRESHOLD FOR OK DIAGNOSIS. 99TH PERCENTILE = 51.4 PG/ML NOTE: HIGH-SENSITIVITY TROPONIN ASSAY IS NOT INTENDED TO BE USED IN ISOLATION BUT SHOULD BE INTERPRETED IN CONJUNCTION WITH OTHER DIAGNOSTIC AND CLINICAL INFORMATION. Performing Lab:see noteML - [facility] LBXR shoulder LT min 2V Reviewed date:07/28/2025 09:40:46 AM Interpretation: Performing Lab: Notes/Report: Source Facility: [facility]-[address] [place] [address] XRay Report Signed Patient: FOREST VELIZ MR#: [id number] : 1990 Acct:[id number] Age/Sex: 34 / F ADM Date: 07/27/25 Loc: ER Attending Dr: Ordering Physician: David Melvin D.O. Date of Service: 07/27/25 Procedure(s): XR shoulder LT min 2V Accession Number(s): [id number] cc: MARY JANE ANGEL ; David Melvin D.O. [place] [address] Patient Name: FOREST VELIZ MRN: [id number] date: 1990 Sex: F Assigned Patient Location: ER Current Patient Location: Accession/Order Number: [id number] Exam Date: 07/27/2025 20:40 Report Date: 07/28/2025 07:44 At the request of: DAVID MELVIN Procedure: XR shoulder LT min 2V LEFT SHOULDER - 2 views CLINICAL HISTORY: left shoulder pain the past 2 weeks. No reported injury. COMPARISON: None AP and Y views were obtained. There is no evidence of fracture or dislocation. There are no significant soft tissue abnormalities. XR/XR shoulder LT min 2V IMPRESSION: NO ACUTE BONY FINDINGS. Impression dictated by: Ilana Roberts M.D. 07/28/2025 7:44 AM Dictation Location: [place] [address] Electronically authenticated by: [id number] Y Date: 07/28/2025 07:44 Dictated By: Ilana Roberts M.D. Signed By: 07/28/2547 DD/ TD/TT: Electronics Computer Mechanic:VITAMIN D 25 [place] Reviewed date:04/18/2025 01:44:51 PM Interpretation: Performing Lab: Notes/Report: [facility] ,Vitamin D20.8 <20 ng/mL Vit D deficient 20-<30 ng/mL Vit D insufficient 30-100 ng/mL Vit D sufficient >100 ng/mL Potential Toxicity Performing Lab:see noteML - [facility] LBTSH Reviewed date:04/18/2025 01:44:51 PM Interpretation: Performing Lab: Notes/Report: [facility] ,Thyroid Stimulating Hormone1.4330.358-3.740 uIU/mLPerforming Lab:see noteML - [facility] LBT4 Reviewed date:04/18/2025 01:44:51 PM Interpretation: Performing Lab: Notes/Report: [facility] ,T4 Thyroxine7.304.80-13.90 ug/dLPerforming Lab:see noteML - [facility] LBPROF 14(COMP METB) Reviewed date:04/18/2025 01:44:51 PM Interpretation: Performing Lab: Notes/Report: [facility] ,Yyhruq373459-973 mmol/LPotassium3.63.5-5.1 mmol/HPwjfmitc42668-265 mmol/LCarbon Ehxeejg21.921.0-32.0 mmol/LAnion Gap12.8Njtmrpy0007-660 mg/dLBlood Urea Nitrogen 14.07.0-18.0 mg/dLCreatinine0.670.55-1.02 mg/dLEstimated GFR ( Nayla>60 >=60 mL/min/1.73m 2Estimated GFR (Non- Naomie>60>=60 mL/min/1.73m 2BUN Creatinine Ratio20.4Hvhxfcf0.08.5-10.1 mg/dLBilirubin Total0.40.2-1.0 mg/dL Aspartate Amino Fvhtoeeyudl6879-30 U/LAlanine Sxcociiwpvpmxadw4934-61 U/L Alkaline Sqvkcmnidbd03212-401 U/LTotal Protein7.86.4-8.2 g/dLAlbumin Level3.2 3.4-5.0 g/dLGlobulin4.6Albumin Globulin Ratio0.7Performing Lab:see note - [facility] LBLIPID PROFILE Reviewed date:04/18/2025 01:44:51 PM Interpretation: Performing Lab: Notes/Report: [facility] ,Rvtbyvkvhhyke01<=150 mg/pNZvkyecjuerb718<=200 mg/dLHDL Csmwievesyh7360-99 mg/dL > or =60 mg/dl - LOW CARDIOVASCULAR RISK <40 mg/dl - HIGH CARDIOVASCULAR RISK LDL Cholesterol Yflrmxzyop76.0 <100 mg/dl OPTIMAL 100-129 mg/dl NEAR OR ABOVE OPTIMAL 130-159 mg/dl BORDERLINE HIGH 160-189 mg/dl HIGH >190 mg/dl VERY HIGH VLDL NGMUMLUFWIY33.4Chol HDL Ratio2.5 3.3 - 4.4 LOW RISK 4.4 - 7.1 AVERAGE RISK 7.1 - 11.0 MODERATE RISK >11.0 HIGH RISK Performing Lab:see note - [facility] LBIRON Reviewed date:04/18/2025 01:44:51 PM Interpretation: Performing Lab: Notes/Report: [facility] ,Iron63.050.0-170.0 ug/dLPerforming Lab:see note - [facility] LB INSULIN Reviewed date:04/21/2025 09:41:31 AM Interpretation: Performing Lab: Notes/Report: [facility] ,Rivhjbc64.72.6-24.9 uIU/mL Performed at: - [facility] [id number] Nurse Recruiter: Ld Trinh PhD, Phone: [phone] Performing Lab:see note - [facility] LBGLYCOHEMOGLOBIN A1C Reviewed date:04/18/2025 01:44:51 PM Interpretation: Performing Lab: Notes/Report: [facility] ,Glycohemoglobin A1C5.24.5-6.2 % ADA RECOMMENDED LIMIT 4.0 - 6.0 ADA THERAPEUTIC TARGET < 7.0 ACTION SUGGESTED > 7.0 Estimated Average Vlvcpgd482Kzvuwdewtk Lab:see note - [facility] LB FREE T3 Reviewed date:04/18/2025 01:44:51 PM Interpretation: Performing Lab: Notes/Report: [facility] ,Free T32.502.18-3.98 pg/mLPerforming Lab:see noteML - [facility] LB CBC AUTO DIFF Reviewed date:04/18/2025 01:44:51 PM Interpretation: Performing Lab: Notes/Report: [facility] ,White Blood Count8.34.0-11.0 10 3/uLRed Blood Count4.194.20-5.40 10 6/uL Zmxezhwruc29.812.0-16.0 g/ySZxzawijxsz37.936.0-48.0 %Mean Corpuscular Czoudc19.5 81.0-99.0 fLMean Corpuscular Fnjzeixkxz00.526.7-34.0 pgMean Corpuscular HGB Conc 33.829.9-35.2 g/dLRed Cell Distribution Width13.011.0-15.0 %Platelet Fqnzo861 150-450 10 3/uLMean Platelet Lwarka24.29.5-13.5 fLNeutrophils Percent Auto68.8 43.0-75.0 %Lymphocytes Percent Auto22.520.5-60.0 %Monocytes Percent Auto5.61.7- 12.0 %Eosinophils Percent Auto2.30.9-7.0 %Basophils Percent Auto0.70.2-2.0 % Immature Granulocytes Pct Auto0.10.0-0.5 %Neutrophils Absolute Auto5.71.4-6.5 10 3/uLLymphocytes Absolute Auto1.91.2-3.8 10 3/uLMonocytes Absolute Auto0.50.3-0.8 10 3/uLEosinophils Absolute Auto0.20.0-0.7 10 3/uLBasophils Absolute Auto0.10.0- 0.1 10 3/uLImmature Granulocytes Abs Auto0.010.00-0.03 10 3/uLPerforming Lab:see noteML - [facility] LBCA echo doppler complete Reviewed date:06/17/2025 01:02:49 PM Interpretation: Performing Lab: Notes/Report: Source Facility: [facility]-[address] [place] [address] [place] [address] Cardiology Report Signed Patient: FOREST VELIZ MR#: [id number] : 1990 Acct:[id number] Age/Sex: 34 / F ADM Date: 06/16/25 Loc: CARD Attending Dr: Sriram Kovacs M.D. Ordering Physician: Sriram Kovacs M.D. Date of Service: 06/16/25 Procedure(s): CA echo doppler complete Accession Number(s): [id number] cc: MARY JANE ANGEL ; Sriram Kovacs M.D. Patient Name: FOREST VELIZ MR#: [id number] : 1990 Exam Date: 06/16/2025 Ordering Doctor: [...] RAMOS Signed By: 06/16/252135 DD/ 34 TD/TT: Electronics Computer Mechanic: Reason For Referral Reason chest pain Diagnosis 1 Intermittent chest p ain (R07.9) Referral Organization [facility] Referring Provider First Name Mary Jane Referring Provider Last Name Jeanne [facility] Referred Provider Medina Ramos Referred Provider Specialty [...] food Orally Once a day; Duration: 90 days04/29/2024ctiveNurtec 75 MG1 tablet on the tongue and allow to dissolve Orally daily prn; Duration: 30 eulvBXW2105/31/2024 ActiveZyrTEC Allergy 10 MG1 tablet Orally Once a dayActive Social History Tobacco Use: Social History Observation Description Date Details (start date - stop date) Former Smoker NA - NA Tobacco Use/Smoking Question Answer Notes Patient is a former smoker Alcohol Screen (Audit-C) Question Answer Notes Did you have a drink containing alcohol in the p ast year? No Uqouad9DopgwzivxdocjzGzxgbmjhFLUMJ-Q (Standard) Question Answer Notes Did you have a drink containing alcohol in the p ast year? No Mojbmb5SlhlvlylgcyoswTzqnqqfe Problems Problem Type SNOMED Code ICD Code Onset Dates Problem Status W/U Status Risk Notes Problem Essential hypertension (51109115 ) Essential (primary) hypertension (I10) ActiveconfirmedProblemAnxiety disorder (001551190)Anxiety disorder, unspecified (F41.9)ActiveconfirmedProblemChronic pain (55853179)Other chronic pain (G89.29) ActiveconfirmedProblemVitamin D deficiency (13080327)Vitamin D deficiency (E55.9)ActiveconfirmedProblemmigraine (disorder) (00830275)Migraines (G43.909) ActiveconfirmedProblemSleep apnea (52413292)Mild sleep apnea (G47.30)Active confirmedProblemBody mass index 40+ - severely obese (003335101)BMI 50.0-59.9, adult (Z68.43)ActiveconfirmedProblemObese class III (finding) (712193594)Class 3 obesity (E66.01)Activeconfirmed Vital Signs Blood pressure diastolic 80 mm Hg 04/11/2025 Sdlfvx77.75 in04/11/2025lood pressure qyqvtndj341 mm Hg04/11/20258550Czeqto009.2 lbs04/11/2025BMI55.56 kg/m204/11/2025 Encounters Encounter Location Date Provider Diagnosis [facility] [address] [place] [address] 12/11/2024 Mary Jane Angel [facility] [place] [address] 04/21[facility]2025[facility] [place] [address]/Pamela CramerAnxiety disorder, unspecified F41.9 and Class 3 obesity E66.01[facility] [place] [address]/Pamela CramerClass 3 obesity E66.01 ; Anxiety disorder, unspecified F41.9 and [facility] [place] [address]/Pamela CramerClass 3 obesity E66.01[facility] [place] [address]/Pamela CramerClass 3 obesity E66.01[place] [address] [place] [address]/Pamela Jeanne Intermittent chest pain R07.9 and Wellness examination Z00.00 Assessments Encounter Date Diagnosis (ICD Code) Assessment [...] to get anxiety under control before trying 01/10/2025lass 3 obesity (ICD-10 - E66.01) work on diet and increasing activity trial of adipex, start with 1/2 tab stop med if SE, cant tolerate fu 1 month 01/10/2025nxiety disorder, unspecified (ICD-10 - F41.9) continue medication, feeling better consider counseling 02/11/2025lass 3 obesity (ICD-10 - E66.01) work on diet, portion size inrease activity fu one month 03/14/2025lass 3 obesity (ICD-10 - E66.01) discussed ways to improve diet increase protein avoid donuts 04/11/2025Intermittent chest pain (ICD-10 - R07.9)cardiology kwomjvub26/25/2025 Wellness examination (ICD-10 - Z00.00)fu OBGYN01/10/2025Edema (ICD-10 - R60.9) BL LE advised wt loss discussed seeing vein clinic Plan Of Treatment Pending Test Test Name Order Date CMP (COMPLETE METABOLIC PANEL) 4 HEMOGLOBIN A1C (GLYCO) 04/29/2024 HEMOGLOBIN A1C (GLYCO) 04/11/2025 INSULIN, TOTAL 04/29/2024 IRON, TOTAL 04/11/2025 LIPID PANEL (CHOL/TRIG/HDL/LDL) 04/29/20 24 LIPID PANEL (CHOL/TRIG/HDL/LDL) 04/11/20 25 CBC WITH DIFF (EXP 07/2025) 04/29/2024 VITAMIN D, 25 LEVEL (TOTAL) 04/11/2025 Insulin Level 04/11/2025 CBC AUTO DIFF 08/29/2025 LIPASE 08/29/2025 PROF 14(COMP METB) 08/29/2025 THYROID PANEL (T4/TSH/FREE T3) 5 THYROID PANEL (T4/TSH/FREE T3) 4 Troponin I High Sensitivity 08/29/2025 CMP (COMP MET OCHOA) w/eGFR CKD-EPI 2024 CBC WITH DIFF 04/11/2025 Insurance Providers Payer Name Payer Address Payer Phone Subscriber Number Group Number Insured Name Patient Relationship to Insured Coverage Start Date Coverage End Date [employer] ACCESS PPO PLUS LOCAL PLAN [address] [place] [address] [id number] Santos Veliz - patient is the [facility] [place] MEDICAIDPO [address] [address] [place] [id number], NicoleSelf - patient is the insured Medical (General) History Medical History History ICD Code Anxiety and depression F41.9
--- OUTSIDE RECORDS SUMMARY | 2025-08-29 04:48 | XMS_ITS | Patient Health Record ---
Author Organization [facility] Address [address] [place] [address] Care Team Providers Care Oscillograph Technician Name Role Phone Dr. Lenard Clarke Primary Care Provider Reason For Referral No Information Plan Of Treatment No Information Insurance Providers Payer Name Payer Address Payer Phone Subscriber Number Group Number Insured Name Patient Relationship to Insured Coverage Start Date Coverage End Date DENTAL [facility] [address] [place] [address] [id number] FRANCHESCA MAIantonio - patient is the utvrews84/01/2021[employer] [place] DQ Terminated [address] [place] [phone] [id number], NICOLESantonio - patient is the /01/2023Dental [employer] [place] BCBS Termed [address] [place] [phone] [id number], NICOLESelf - patient is the [id number] 2022
--- OUTSIDE RECORDS SUMMARY | 2025-08-29 04:48 | XMS_ITS | Encounter Summary ---
Author Organization [facility] Address [address] [facility] [place] [address] Care Team Providers Care Police Artist Name Role Phone Virginia Arshad MD Primary Care Provider [phone] Encounter Details DateTypeDepartmentCare Team (Latest Contact Info)Uiptwnpvvik28/10/2025Travel Social History Tobacco UseTypesPacks/DayYears UsedDateSmoking Tobacco: FormerCigarettes0.310.9 [...] Date Virginia Arshad MD [address] [place] [address] PCP - GeneralFamily Dihpkayf24/10/25documented as of this encounter
== END 2025-08-29 05:00 | disposition home or self-care (01) ==
PROVIDERS: Emergency Provider Student in an Organized Health Care Education/Training Program; PCP Nurse Practitioner Family
DX: R10.9 Unspecified abdominal pain (principal)
CPT/HCPCS: 36415; 80053; 83690; 84484; 85025; 96374; 96375; 99284; J2405; J3490